=== PATIENT | male | born 1960 | race Caucasian/White ===

== ENCOUNTER 2020-09-30 13:11 | Emergency (ER) | payer OTHER, SELFPAY ==
[2020-09-30 13:19] VITALS: BP 164/73; PULSE 96; RESP 18; TEMP 36.7; O2SAT 96; BMI 28.1
--- NOTE | 2020-09-30 13:46 | ED.BACK ---
HPI - Back Pain/Injury General Chief Complaint: Back Pain/Injury <ROD Beverly - Last Filed: 10/14/20 15:53> Stated Complaint: BACK INJ AT WORK <ROD Beverly - Last Filed: 10/14/20 15:53> Time Seen by Provider: 09/30/20 13:46 <ROD Beverly - Last Filed: 10/14/20 15:53> History of Present Illness HPI Narrative: Patient complains of right sided low back pain radiating to the right foot with tingling sensation no numbness no weakness no incontinence This started with a work injury when he was lifting a heavy object at work felt sharp pain in his back and was seen by the workman's comp doctor once and return to duty with light duty He found this too uncomfortable and has since retired and continues to have back pain that is very uncomfortable radiating down to his right foot worse with movement <ROD Beverly - Last Filed: 10/14/20 15:53> Related Data Home Medications: Previous Rx's Medication Instructions Recorded cyclobenzaprine 5 mg PO TID PRN #10 tab 09/30/20 hydrocodone-acetaminophen 1 tab PO Q6H PRN #14 tab 09/30/20 ibuprofen 600 mg PO Q6H PRN #20 tab 09/30/20 prednisone 60 mg PO DAILY 3 Days #9 tab 09/30/20 acetaminophen [Tylenol Extra 500 mg PO Q6H PRN #20 tab 10/14/20 Strength] cyclobenzaprine 5 mg PO Q8H PRN 5 Days #14 tab 10/14/20 lidocaine [Lidoderm] 1 patch TOPICAL DAILY PRN #30 ea 10/14/20 MDD remove after 12 hours naproxen 500 mg PO BID PRN 10 Days #20 tab 10/14/20 acetaminophen [Tylenol Extra 500 mg PO Q6H PRN #20 tab 11/02/20 Strength] cyclobenzaprine 5 mg PO Q8H PRN 5 Days #14 tab 11/02/20 lidocaine [Lidoderm] 1 patch TOPICAL DAILY PRN #30 ea 11/02/20 MDD remove after 12 hours naproxen 500 mg PO BID PRN 10 Days #20 tab 11/02/20 oxycodone-acetaminophen [Percocet] 1 tab PO TID PRN #9 tab 11/03/20 prednisone 40 mg PO DAILY 5 Days #10 tab 11/03/20 <ROD Beverly - Last Filed: 10/14/20 15:53> Allergies/Adverse Reactions: Allergies Allergy/AdvReac Type Severity Reaction Status Date / Time No Known Allergies Allergy Verified 09/30/20 13:22 <ROD Beverly - Last Filed: 10/14/20 15:53> Review of Systems Review of Systems: Positive for right-sided back pain radiating to the right foot with a tingling sensation Negatives are no fever no chills no dizziness no weakness no fainting no feeling faint no loss of sensation no weakness no neck pain no chest pain no abdominal pain no dysuria no incontinence no changes to bowel or bladder no rash <ROD Beverly - Last Filed: 10/14/20 15:53> Yes all other systems are reviewed and are negative <ROD Beverly - Last Filed: 10/14/20 15:53> [facility] Past Medical History Source: nursing notes reviewed <ROD Beverly - Last Filed: 10/14/20 15:53> Medical History: Medical History (Updated 11/05/20 @ 00:01 by Dino Mcdonnell) Diabetes High blood pressure Sciatic leg pain <ROD Beverly - Last Filed: 10/14/20 15:53> Surgical History: Surgical History Stented coronary artery <ROD Beverly - Last Filed: 10/14/20 15:53> Physical Exam Vital Signs: Vital Signs: Last Vital Signs Temp 98.0 F 09/30/20 13:19 Pulse 96 09/30/20 13:19 Resp 17 09/30/20 14:01 BP 164/73 H 09/30/20 13:19 Pulse Ox 96 09/30/20 13:19 Body Mass Index 28.1 <ROD Beverly - Last Filed: 10/14/20 15:53> Vital Signs: Last Vital Signs Temp 98.0 F 09/30/20 13:19 Pulse 96 09/30/20 13:19 Resp 17 09/30/20 14:01 BP 164/73 H 09/30/20 13:19 Pulse Ox 96 09/30/20 13:19 Body Mass Index 28.1 <Que Chatterjee MD - Last Filed: 11/16/20 09:07> General appearance no acute distress Head is normocephalic atraumatic Neck is supple The chest is clear to auscultation bilateral The abdomen is soft nontender The back there is right-sided lower lumbar paraspinal tenderness no focal bony tenderness no rashes, skin is normal, there is no CVA tenderness, pain is reproduced with movement Extremities full range of motion x4 Gait and balance are normal, no focal motor or sensory deficit, motor is 5/5 x4, sensation is intact and symmetrical in both feet <ROD Beverly - Last Filed: 10/14/20 15:53> Course Course Course Narrative: Patient with sciatica but no neurologic deficit is advised to follow with his doctor or he believes original injury is work-related so with workman's Comp doctor and he is treated with analgesic and is discharged <ROD Beverly - Last Filed: 10/14/20 15:53> I have reviewed the chart <Que Chatterjee MD - Last Filed: 11/16/20 09:07> Discharge Plan Discharge Clinical Impression: Lumbar radiculopathy <ROD Beverly - Last Filed: 10/14/20 15:53> Patient Disposition: Home, Self-Care <ROD Beverly - Last Filed: 10/14/20 15:53> Additional Instructions: You have symptoms of a pinched nerve in your back possibly a herniated disc This has not improved in 6 weeks so best plan is to follow with work connection for further evaluation for work related injury, or if they are not available then you can follow with primary doctor Physical therapy may be helpful, if symptoms are not improving they often will do an MRI to confirm a herniated disc and if that is confirmed they will often attempt a steroid shot which brings relief to many people, this requires referral to a specialist Sometimes prednisone helps reduce inflammation around the nerve so we are trying that now Return to the ER any time for weakness incontinence any worse condition any concerns Your blood pressure was high in the emergency room so we recommend follow with her doctor to be evaluated for whether not you have high blood pressure Getting a home blood pressure cuff and keeping a record twice of day of the readings for a week is very helpful <ROD Beverly - Last Filed: 10/14/20 15:53> Prescriptions: New hydrocodone-acetaminophen 5-325 mg tablet 1 tab PO Q6H PRN (Reason: pain) Qty: 14 RF: 0 ibuprofen 600 mg tablet 600 mg PO Q6H PRN (Reason: pain) Qty: 20 RF: 0 cyclobenzaprine 5 mg tablet 5 mg PO TID PRN (Reason: muscle spasm) Qty: 10 RF: 0 prednisone 20 mg tablet 60 mg PO DAILY 3 Days Qty: 9 RF: 0 No Action acetaminophen [Tylenol Extra Strength] 500 mg tablet 500 mg PO Q6H PRN (Reason: pain or fever) Qty: 20 RF: 0 lidocaine [Lidoderm] 5 % adhesive patch,medicated 1 patch topical DAILY MDD remove after 12 hours PRN (Reason: pain) Qty: 30 RF: 0 naproxen 500 mg tablet 500 mg PO BID PRN (Reason: pain) 10 Days Qty: 20 RF: 0 cyclobenzaprine 5 mg tablet 5 mg PO Q8H PRN (Reason: pain (scale score 7-10)) 5 Days Qty: 14 RF: 0 acetaminophen [Tylenol Extra Strength] 500 mg tablet 500 mg PO Q6H PRN (Reason: pain or fever) Qty: 20 RF: 0 lidocaine [Lidoderm] 5 % adhesive patch,medicated 1 patch topical DAILY MDD remove after 12 hours PRN (Reason: pain) Qty: 30 RF: 0 naproxen 500 mg tablet 500 mg PO BID PRN (Reason: pain) 10 Days Qty: 20 RF: 0 cyclobenzaprine 5 mg tablet 5 mg PO Q8H PRN (Reason: pain (scale score 7-10)) 5 Days Qty: 14 RF: 0 prednisone 20 mg tablet 40 mg PO DAILY 5 Days Qty: 10 RF: 0 oxycodone-acetaminophen [Percocet] 5-325 mg tablet 1 tab PO TID PRN (Reason: pain) Qty: 9 RF: 0 <ROD Beverly - Last Filed: 10/14/20 15:53> Interventions: ED Discharge Assessment Last Done: 09/30/20 13:59 <ROD Beverly - Last Filed: 10/14/20 15:53> Discharge Date/Time: 09/30/20 14:02 <ROD Beverly - Last Filed: 10/14/20 15:53>
[2020-09-30] MEDS: Ketorolac Tromethamine 30 MG/ML VIAL IM (13:54)
[2020-09-30] MEDS: predniSONE 20 MG TABLET 60 MG PO (13:55)
[2020-09-30 14:01] VITALS: RESP 17
== END 2020-09-30 14:02 | disposition home or self-care (01) ==
PROVIDERS: Emergency Provider Emergency Medicine; PCP Pediatrics
DX: M54.16 Radiculopathy, lumbar region (principal)
CPT/HCPCS: 96372; 99283; J1885

== ENCOUNTER 2020-10-14 12:53 | Emergency (ER) | payer OTHER, SELFPAY ==
--- NOTE | ~2020-10-14 | US_ITS ---
EXAMINATION: Ultrasound right and left groin. CLINICAL INFORMATION: Bilateral groin pain. Concern for inguinal hernia. COMPARISON: None TECHNIQUE: Targeted grayscale ultrasound performed in the area of pain of the right and left groin. Imaging performed without and with Valsalva maneuver. FINDINGS: There is no inguinal hernia. No focal fluid collection or mass. No significant lymphadenopathy. US/US pelvic limited IMPRESSION: Normal ultrasound the right and left groin.
[2020-10-14 12:55] VITALS: BP 151/82; PULSE 95; RESP 18; TEMP 36.6; O2SAT 97; BMI 28.1
--- NOTE | 2020-10-14 14:47 | PC.NURSE ---
THIS RN PRESENT FOR GROIN EXAM WITH ROD BHATIA. PT TOLERATED PROCEDURE WELL.
[2020-10-14] MEDS: Lidocaine 4 % Patch ADH..PATCH 1 PATCH TRANSDERMA (15:03)
[2020-10-14] MEDS: Ketorolac Tromethamine 30 MG/ML VIAL IM (15:03)
[2020-10-14] MEDS: Cyclobenzaprine HCl 5 MG TABLET PO (15:03)
[2020-10-14 16:08] VITALS: RESP 17
--- NOTE | 2020-10-14 16:40 | ED_ITS ---
HPI - Back Pain/Injury General Chief Complaint: Back Pain/Injury Stated Complaint: back pain Time Seen by Provider: 10/14/20 14:55 Source: patient Mode of arrival: ambulatory History of Present Illness HPI Narrative: 60-year-old male with a past medical history of diabetes, hypertension, CAD s/p stent, presenting to the ED complaining of acute on chronic right-sided low back pain radiating down right lower extremity x2 months. Admits initial injury was from work after heavy lifting, denies direct trauma or fall. Was seen and treated in our ED about 2 weeks ago for similar symptoms, prescribed multiple medications with mild relief, however reports symptoms have recurred/persisted and are worsening. Also reports right groin/inguinal pain, worse with straining. Reports associated tingling. Denies urinary incontinence/retention, weakness, fever, chills MD elicited complaint: back pain Related Data Previous Rx's Medication Instructions Recorded cyclobenzaprine 5 mg PO TID PRN #10 tab 09/30/20 hydrocodone-acetaminophen 1 tab PO Q6H PRN #14 tab 09/30/20 ibuprofen 600 mg PO Q6H PRN #20 tab 09/30/20 prednisone 60 mg PO DAILY 3 Days #9 tab 09/30/20 acetaminophen [Tylenol Extra 500 mg PO Q6H PRN #20 tab 10/14/20 Strength] cyclobenzaprine 5 mg PO Q8H PRN 5 Days #14 tab 10/14/20 lidocaine [Lidoderm] 1 patch TOPICAL DAILY PRN #30 ea 10/14/20 MDD remove after 12 hours naproxen 500 mg PO BID PRN 10 Days #20 tab 10/14/20 Allergies Allergy/AdvReac Type Severity Reaction Status Date / Time No Known Allergies Allergy Verified 09/30/20 13:22 Review of Systems Review of Systems: Constitutional: No Fever, No Chills Cardiovascular: No Chest Pain, No SOB Respiratory: No Cough Gastrointestinal: No Nausea, No Vomiting, No Constipation, No Abdominal pain Genitourinary: No Dysuria, No Hematuria, No Urinary Incontinence/retention, No Flank Pain, +groin pain Musculoskeletal: +back pain, No Myalgias, No Joint Swelling Skin: No Skin Lesions, No rash Neuro: No Weakness, No Numbness, + Paresthesias Yes all other systems are reviewed and are negative Neurologic: Denies Sensory deficit (Neuro) PMF Past Medical History Attestation statement: The following information was validated with the patient. Medical History (Updated 10/14/20 @ 16:55 by ROD Curiel) Diabetes High blood pressure Surgical History (Updated 09/30/20 @ 13:21 by Tamia Hooks RN) Stented coronary artery Social History Social History Advance Directives: Yes Advance Directives Information Provided: Yes Advance Directives on File: No Physical Exam Vital Signs: Vital Signs: Last Vital Signs Temp 98.0 F 10/14/20 16:57 Pulse 87 10/14/20 16:57 Resp 17 10/14/20 16:57 BP 157/78 H 10/14/20 16:57 Pulse Ox 97 10/14/20 16:57 Body Mass Index 28.1 Const: General: cooperative, healthy appearing and no acute distress Orientation/consciousness: patient oriented x3 Limitations: no limitations HENMT: Head: Yes normal to inspection Ears: hearing grossly normal bilaterally General nose exam: Normal external nose present Face and sinus: Yes normal facial exam Eyes: General: appearance normal, both eyes and all related structures EOM: EOMs intact bilaterally Neck: Neck: Yes normal visual inspection Resp: Effort & Inspection: normal respiratory effort Cardio: Rate: regular rate Peripheral pulses: dorsalis pedis present GI: Inspection: Yes normal to inspection Palpation (GI): Soft to palpation, nontender, no guarding and not rigid : Other: No midline thoracic/lumbar spinous tenderness or step- off/deformity. + right-sided lower lumbar/buttock MSK tenderness to palpation + bilateral inguinal tenderness, no appreciable scrotal hernia or scrotal tenderness/erythema or swelling/lesions General: Yes no CVA tenderness Back/Spine/Pelvis: Back: no CVA tenderness Skin: Rashes: no rashes Wounds: no wounds Neuro: Other: No saddle anesthesia. Ambulating with steady gait General: patient oriented x3, gait normal, tone normal and moves all extremities Gait exam (Neuro): Normal gait present Motor exam (neuro): 5/5 motor strength present throughout Sensory Exam: No Sensory deficit (Neuro) Extrem: General: Yes normal to inspection Course Course Course Narrative: US pelvic limited IMPRESSION: Normal ultrasound the right and left groin. >> results discussed with patient including worrisome signs and symptoms and strict return precautions, patient verbalized understanding feel safe discharge home. Admits he has follow-up with PCP FELI - Back Pain/Injury MDM Narrative Medical decision making narrative: 60-year-old male with a past medical history of diabetes, hypertension, CAD s/p stent, presenting to the ED complaining of acute on chronic right-sided low back pain radiating down right lower extremity x2 months. Also reports right groin/inguinal pain, worse with straining. On exam vital signs stable, NAD, well appearing, physical exam as above, no midline spinous tenderness throughout, no red flag sx, no saddle anesthesia, ambulating with steady gait. No appreciable inguinal hernia. Concern for sciatic neuropathy/lumbar strain/MSK pain. Low concern for cauda equina/cord compression. Rule out inguinal hernia. Low concern for testicular torsion/orchitis/epididymitis Plan: Pelvic ultrasound, symptomatic treatment Medical Records Attestation: I reviewed the patient's medical records. Lab Data Attestation: I reviewed the patient's lab results. Discharge Plan Discharge Clinical Impression: Strain of lumbar region Qualifiers: Encounter type: subsequent encounter Qualified Code(s): S39.012D - Strain of muscle, fascia and tendon of lower back, subsequent encounter Sciatica Qualifiers: Laterality: right Qualified Code(s): M54.31 - Sciatica, right side Patient Disposition: Home, Self-Care Instructions: Sciatica (ED) Additional Instructions: Your ultrasound did not show any hernias You need to follow-up with her primary care doctor Your pain is likely musculoskeletal Flexeril is a muscle relaxer, take at night as it makes you drowsy, do not drive, drink alcohol, or operate machinery while taking it Naproxen as an anti-inflammatory / pain medication, take with food Lidoderm patches are numbing patches, apply to painful area In addition take Tylenol at home If symptoms persist or worsen, pain becomes unbearable, you developed urinary retention or incontinence, or weakness return to the ED Prescriptions: New acetaminophen [Tylenol Extra Strength] 500 mg tablet 500 mg PO Q6H PRN (Reason: pain or fever) Qty: 20 RF: 0 lidocaine [Lidoderm] 5 % adhesive patch,medicated 1 patch topical DAILY MDD remove after 12 hours PRN (Reason: pain) Qty: 30 RF: 0 naproxen 500 mg tablet 500 mg PO BID PRN (Reason: pain) 10 Days Qty: 20 RF: 0 cyclobenzaprine 5 mg tablet 5 mg PO Q8H PRN (Reason: pain (scale score 7-10)) 5 Days Qty: 14 RF: 0 No Action hydrocodone-acetaminophen 5-325 mg tablet 1 tab PO Q6H PRN (Reason: pain) Qty: 14 RF: 0 ibuprofen 600 mg tablet 600 mg PO Q6H PRN (Reason: pain) Qty: 20 RF: 0 cyclobenzaprine 5 mg tablet 5 mg PO TID PRN (Reason: muscle spasm) Qty: 10 RF: 0 prednisone 20 mg tablet 60 mg PO DAILY 3 Days Qty: 9 RF: 0
[2020-10-14 16:57] VITALS: BP 157/78; PULSE 87; RESP 17; TEMP 36.7; O2SAT 97
== END 2020-10-14 17:27 | disposition home or self-care (01) ==
PROVIDERS: Emergency Provider Emergency Medicine; PCP Pediatrics
DX: M54.41 Lumbago with sciatica, right side (principal); S39.012D Strain of muscle, fascia and tendon of lower back, subsequent encounter; X58.XXXD Exposure to other specified factors, subsequent encounter; E11.9 Type 2 diabetes mellitus without complications; I10 Essential (primary) hypertension; Z79.899 Other long term (current) drug therapy; Z95.5 Presence of coronary angioplasty implant and graft
CPT/HCPCS: 76857; 96372; 99284; J1885

== ENCOUNTER 2020-11-02 20:15 | Emergency (ER) | payer OTHER, SELFPAY ==
[2020-11-02 20:21] VITALS: BP 193/91; PULSE 92; RESP 18; TEMP 36.7; O2SAT 97; BMI 28.1
[2020-11-02] MEDS: Acetaminophen 325 MG TABLET 650 MG PO (21:18)
[2020-11-02] MEDS: oxyCODONE HCl Immed Release 5 MG TABLET PO (21:18)
--- NOTE | 2020-11-02 22:10 | ED.BACK ---
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 Admits to taking Flexeril, tramadol, and naproxen PT without relief. Denies direct injury/trauma or fall. Denies numbness, tingling, weakness, incontinence, retention, fever, chills Admit has been following with PCP, started physical therapy, and is getting prior authorization for MRI MD elicited complaint: back injury Related Data Previous Rx's Medication Instructions Recorded cyclobenzaprine 5 mg PO TID PRN #10 tab 09/30/20 hydrocodone-acetaminophen 1 tab PO Q6H PRN #14 tab 09/30/20 ibuprofen 600 mg PO Q6H PRN #20 tab 09/30/20 prednisone 60 mg PO DAILY 3 Days #9 tab 09/30/20 acetaminophen [Tylenol Extra 500 mg PO Q6H PRN #20 tab 10/14/20 Strength] cyclobenzaprine 5 mg PO Q8H PRN 5 Days #14 tab 10/14/20 lidocaine [Lidoderm] 1 patch TOPICAL DAILY PRN #30 ea 10/14/20 MDD remove after 12 hours naproxen 500 mg PO BID PRN 10 Days #20 tab 10/14/20 acetaminophen [Tylenol Extra 500 mg PO Q6H PRN #20 tab 11/02/20 Strength] cyclobenzaprine 5 mg PO Q8H PRN 5 Days #14 tab 11/02/20 lidocaine [Lidoderm] 1 patch TOPICAL DAILY PRN #30 ea 11/02/20 MDD remove after 12 hours naproxen 500 mg PO BID PRN 10 Days #20 tab 11/02/20 Allergies Allergy/AdvReac Type Severity Reaction Status Date / Time No Known Allergies Allergy Verified 09/30/20 13:22 Review of Systems Review of Systems: Constitutional: No Fever, No Chills Cardiovascular: No Chest Pain, No SOB Gastrointestinal: No Nausea, No Vomiting, No Abdominal pain Genitourinary: No Urinary Frequency, No Hematuria, No Urinary Incontinence/retention Musculoskeletal: +back pain, No Myalgias, No Joint Swelling Skin: No Skin Lesions, No rash Neuro: No Weakness, No Numbness, No Paresthesias Yes all other systems are reviewed and are negative Neurologic: Denies Sensory deficit (Neuro) [facility] Past Medical History Attestation statement: The following information was validated with the patient. Medical History (Updated 11/02/20 @ 22:16 by ROD Curiel) Diabetes High blood pressure Sciatic leg pain Surgical History Stented coronary artery Social History Social History Advance Directives: No Physical Exam Vital Signs: Vital Signs: Last Vital Signs Temp 98.0 F 11/02/20 20: Pulse 92 11/02/20 20:21 Resp 18 11/02/20 20:21 BP 193/91 H 11/02/20 20: Pulse Ox 97 11/02/20 20:21 Body Mass Index 28.1 Const: General: cooperative, healthy appearing and no acute distress Orientation/consciousness: patient oriented x3 Limitations: no limitations HENMT: Head: Yes normal to inspection Ears: hearing grossly normal bilaterally General nose exam: Normal external nose present Face and sinus: Yes normal facial exam Eyes: General: appearance normal, both eyes and all related structures EOM: EOMs intact bilaterally Neck: Neck: Yes normal visual inspection and Yes no meningeal signs Resp: Effort & Inspection: normal respiratory effort Cardio: Rate: regular rate Peripheral pulses: dorsalis pedis present GI: Inspection: Yes normal to inspection Palpation (GI): Soft to palpation and nontender Back/Spine/Pelvis: Other: No midline thoracic/lumbar spinous tenderness or step-off/deformity. + right-sided lower lumbar/buttock MSK tenderness to palpation. Skin: Rashes: no rashes Wounds: no wounds Neuro: Other: No saddle anesthesia, ambulating with steady gait, strength intact throughout General: patient oriented x3, gait normal, tone normal, moves all extremities and no meningeal signs Gait exam (Neuro): Normal gait present Motor exam (neuro): 5/5 motor strength present throughout Sensory Exam: No Sensory deficit (Neuro) Extrem: General: Yes normal to inspection MDM - Back Pain/Injury MDM Narrative Medical decision making narrative: 60-year-old male a past medical history diabetes, HTN, CAD, sciatica, presenting to the ED complaining of acute on chronic back right-sided back pain radiating down right lower extremity 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 On exam VSS, NAD/well-appearing, physical exam as above. No red flag symptoms or midline spinous tenderness throughout, likely MSK pain/sciatica. Low concern for cauda equina/cord compression Patient reports he needs refills of his medications. Upon prescription review had 28 pills of Tramadol filled on 10/21 Medical Records Attestation: I reviewed the patient's medical records. Discharge Plan Discharge Clinical Impression: Sciatica Qualifiers: Laterality: right Qualified Code(s): M54.31 - Sciatica, right side Patient Disposition: Home, Self-Care Instructions: Acute Low Back Pain (ED) Additional Instructions: Your pain is likely musculoskeletal Flexeril is a muscle relaxer, take at night as it makes you drowsy, do not drive, drink alcohol, or operate machinery while taking it Naproxen as an anti-inflammatory / pain medication, take with food Lidoderm patches are numbing patches, apply to painful area In addition take Tylenol at home If symptoms persist or worsen, pain becomes unbearable, you developed urinary retention or incontinence, or weakness return to the ED Prescriptions: New acetaminophen [Tylenol Extra Strength] 500 mg tablet 500 mg PO Q6H PRN (Reason: pain or fever) Qty: 20 RF: 0 lidocaine [Lidoderm] 5 % adhesive patch,medicated 1 patch topical DAILY MDD remove after 12 hours PRN (Reason: pain) Qty: 30 RF: 0 naproxen 500 mg tablet 500 mg PO BID PRN (Reason: pain) 10 Days Qty: 20 RF: 0 cyclobenzaprine 5 mg tablet 5 mg PO Q8H PRN (Reason: pain (scale score 7-10)) 5 Days Qty: 14 RF: 0 No Action hydrocodone-acetaminophen 5-325 mg tablet 1 tab PO Q6H PRN (Reason: pain) Qty: 14 RF: 0 ibuprofen 600 mg tablet 600 mg PO Q6H PRN (Reason: pain) Qty: 20 RF: 0 cyclobenzaprine 5 mg tablet 5 mg PO TID PRN (Reason: muscle spasm) Qty: 10 RF: 0 prednisone 20 mg tablet 60 mg PO DAILY 3 Days Qty: 9 RF: 0 acetaminophen [Tylenol Extra Strength] 500 mg tablet 500 mg PO Q6H PRN (Reason: pain or fever) Qty: 20 RF: 0 lidocaine [Lidoderm] 5 % adhesive patch,medicated 1 patch topical DAILY MDD remove after 12 hours PRN (Reason: pain) Qty: 30 RF: 0 naproxen 500 mg tablet 500 mg PO BID PRN (Reason: pain) 10 Days Qty: 20 RF: 0 cyclobenzaprine 5 mg tablet 5 mg PO Q8H PRN (Reason: pain (scale score 7-10)) 5 Days Qty: 14 RF: 0
[2020-11-02 22:25] VITALS: BP 179/85; PULSE 84; RESP 16; O2SAT 100
--- NOTE | 2020-11-02 22:39 | PC.NURSE ---
PROVIDER AWARE PT REPORTS PAIN 9-10 AFTER PAIN MED. PT ABLE TO TURN IN BED, SIT UP, MARIA. PLAN D/C TO HOME WITH SCRIPTS AND F/U PCP FOR FURTHER INTERVENTIONS. PT STATES IS HAVING PHYSICAL THERAPY.
== END 2020-11-02 22:47 | disposition home or self-care (01) ==
PROVIDERS: Emergency Provider Internal Medicine; PCP Pediatrics
DX: M54.31 Sciatica, right side (principal); E11.9 Type 2 diabetes mellitus without complications; I10 Essential (primary) hypertension; Z79.899 Other long term (current) drug therapy
CPT/HCPCS: 99283; 99284

== ENCOUNTER 2020-11-03 17:35 | Emergency (ER) | payer OTHER, SELFPAY ==
--- NOTE | ~2020-11-03 | XR_ITS ---
EXAMINATION: XR LUMBAR SPINE CLINICAL INFORMATION: No back pain COMPARISON: None TECHNIQUE: Frontal lateral and coned-down L5-S1 frontal lateral FINDINGS: Five [id number] lumbar vertebrae were identified maintaining normal height and alignments. Narrowing of intervertebral disc spaces suggest underlying degenerative disc disease. Paravertebral soft tissues are unremarkable. Excess amount of stool in the colon suggests constipation, there are calcifications in the left upper quadrant probably splenic artery. Heavy vascular calcification of the aorta. There are radiolucencies, most likely superimposed bowel gas.. No radiographic evidence of osteolytic or osteoblastic lesions. XR/XR lumbar spine 2-3V IMPRESSION: No fracture. Bone alignments remain satisfactory. Narrowing of intervertebral disc spaces suggest underlying degenerative disc disease. Excess amount of stool suggests possible constipation. Heavy vascular calcifications.
[2020-11-03 17:38] VITALS: BP 190/90; PULSE 85; O2SAT 98
[2020-11-03 17:45] VITALS: BP 181/82; PULSE 102; RESP 22; TEMP 36.6; O2SAT 100; BMI 28.1
--- NOTE | 2020-11-03 18:08 | ED_ITS ---
HPI - Back Pain/Injury General Chief Complaint: Back Pain/Injury Stated Complaint: unable to hear Time Seen by Provider: 11/03/20 17:51 Source: patient Mode of arrival: ambulatory Limitations: no limitations History of Present Illness HPI Narrative: Patient presents to ED for lower back pain exacerbation. Patient states history of sciatica repeat least 15 yesterday for back pain exacerbation returned today because she still having pain. Patient states low back pain rating down the right leg. Patient is in physical therapy. Patient denies any urinary/bowel incontinence. Patient denies any recent trauma. Patient denies any abdominal pain, nausea, vomiting, fever, chills, flank pain. Patient denies any urinary or bowel incontinence Related Data Previous Rx's Medication Instructions Recorded cyclobenzaprine 5 mg PO TID PRN #10 tab 09/30/20 hydrocodone-acetaminophen 1 tab PO Q6H PRN #14 tab 09/30/20 ibuprofen 600 mg PO Q6H PRN #20 tab 09/30/20 prednisone 60 mg PO DAILY 3 Days #9 tab 09/30/20 acetaminophen [Tylenol Extra 500 mg PO Q6H PRN #20 tab 10/14/20 Strength] cyclobenzaprine 5 mg PO Q8H PRN 5 Days #14 tab 10/14/20 lidocaine [Lidoderm] 1 patch TOPICAL DAILY PRN #30 ea 10/14/20 MDD remove after 12 hours naproxen 500 mg PO BID PRN 10 Days #20 tab 10/14/20 acetaminophen [Tylenol Extra 500 mg PO Q6H PRN #20 tab 11/02/20 Strength] cyclobenzaprine 5 mg PO Q8H PRN 5 Days #14 tab 11/02/20 lidocaine [Lidoderm] 1 patch TOPICAL DAILY PRN #30 ea 11/02/20 MDD remove after 12 hours naproxen 500 mg PO BID PRN 10 Days #20 tab 11/02/20 oxycodone-acetaminophen [Percocet] 1 tab PO TID PRN #9 tab 11/03/20 prednisone 40 mg PO DAILY 5 Days #10 tab 11/03/20 Allergies Allergy/AdvReac Type Severity Reaction Status Date / Time No Known Allergies Allergy Verified 09/30/20 13:22 Review of Systems Review of Systems: Yes all other systems are reviewed and are negative Constitutional: Constitutional: Reports as per HPI and Reports no additional constitutional complaints Eyes: Eyes: Reports as per HPI and Reports no additional eye complaints ENT: Reports system reviewed and no additional complaints, except as documented and Reports as per HPI Cardiovascular: Cardiovascular: Reports no additional cardiovascular complaints Respiratory: Respiratory: Reports as per HPI and Reports no additional respiratory complaints Gastrointestinal: Gastrointestinal: Reports as per HPI and Reports no additional gastrointestinal complaints Genitourinary: Genitourinary: Reports no additional male genitourinary complaints and Reports as per HPI Musculoskeletal: Musculoskeletal: Reports no additional musculoskeletal complaints, Reports as per HPI and Reports back pain Neurologic: Reports system reviewed and no additional complaints, except as documented and Reports as per HPI Psychiatric: Psychiatric: Reports no additional psychiatric complaints and Reports as per HPI [facility] Past Medical History Medical History (Updated 11/03/20 @ 23:34 by ROD Rico) Diabetes High blood pressure Sciatic leg pain Surgical History Stented coronary artery Social History Social History Use of substances other than those prescribed or required for medical reasons: No Advance Directives: Yes Advance Directives Information Provided: No Advance Directives on File: No Physical Exam Vital Signs: Vital Signs: Last Vital Signs Temp 97.8 F 11/03/20 20:14 Pulse 84 11/03/20 23:00 Resp 15 11/03/20 23:00 BP 146/86 H 11/03/20 23:00 Pulse Ox 98 11/03/20 23:00 Body Mass Index 28.1 Const: General: cooperative, healthy appearing, comfortable, no acute distress, well developed, alert, awake and Physically active Orientation/consciousness: patient oriented x3 HENMT: Head: Yes normal to inspection, Yes No palpable skull fracture present, Yes normocephalic and Yes atraumatic Eyes: General: appearance normal, both eyes and all related structures Neck: Neck: Yes normal visual inspection, Yes full ROM, Yes no lymphadenopathy, Yes no meningeal signs, Yes trachea midline, Yes supple, No anterior neck swelling and No tender Chest: Chest palpation & inspection: normal inspection of the chest and normal palpation of entire chest wall Resp: Effort & Inspection: normal respiratory effort and able to speak in complete sentences Cardio: Jugular venous distension: no JVD Heart sounds: S1 normal heart sound present and S2 normal heart sound present GI: Other: Rectal exam: Patient has good rectal tone. Negative for saddle anesthesia. Patient has sensation in perineum, pubic, and genital area. Inspection: Yes normal to inspection and No abdominal wall ecchymosis Palpation (GI): Soft to palpation, not firm, nontender, no guarding and not rigid : General: No CVA tenderness and Yes no CVA tenderness Back/Spine/Pelvis: Other: On straight leg test patient has pain on right leg Back: no CVA tenderness, No CVA tenderness and back tenderness (lumbar) Skin: General skin exam: no rashes or lesions noted and elasticity normal Neuro: Other: Patient able to ambulate on his own General: patient oriented x3, gait normal, no meningeal signs and CN's II-XI intact bilaterally Cranial nerves: Yes CN's II-XII intact bilaterally Extrem: General: Yes normal to inspection and Yes full ROM Psych: Appearance: grossly normal, well kempt and not disheveled Course Course Course Narrative: Patient will be sent for repeat x-ray and given Toradol and Flexeril. Patient will be re-evaluated. Reevaluation(s) Reevaluation #1: Patient hypertensive most likely due to pain will re-evaluate after given pain meds Time: 20:28 Reevaluation #2: Patient feels better after being given morphine. No need for MRI. Negative for signs of cord compression. Patient is not IV drug user. Not suspecting epidural abscess Time: 23:33 MDM - Back Pain/Injury MDM Narrative Medical decision making narrative: Degenerative disc disease. Sciatica Discharge Plan Discharge Clinical Impression: Lumbar radiculopathy, Sciatica, Degenerated intervertebral disc Patient Disposition: Home, Self-Care Instructions: Sciatica (ED), Lumbar Radiculopathy (ED), Degenerative Disc Disease (ED) Additional Instructions: X-ray shows lumbar radicular Passy and degenerative and tibia vertebral disc disease. Negative for any fractures. Return to the ED for any urinary/bowel in continence, paralysis of lower extremities, severe back pain, abdominal pain, fever, chills, dysuria, hematuria, or any other concerning symptoms Prescriptions: New prednisone 20 mg tablet 40 mg PO DAILY 5 Days Qty: 10 RF: 0 oxycodone-acetaminophen [Percocet] 5-325 mg tablet 1 tab PO TID PRN (Reason: pain) Qty: 9 RF: 0 No Action hydrocodone-acetaminophen 5-325 mg tablet 1 tab PO Q6H PRN (Reason: pain) Qty: 14 RF: 0 ibuprofen 600 mg tablet 600 mg PO Q6H PRN (Reason: pain) Qty: 20 RF: 0 cyclobenzaprine 5 mg tablet 5 mg PO TID PRN (Reason: muscle spasm) Qty: 10 RF: 0 prednisone 20 mg tablet 60 mg PO DAILY 3 Days Qty: 9 RF: 0 acetaminophen [Tylenol Extra Strength] 500 mg tablet 500 mg PO Q6H PRN (Reason: pain or fever) Qty: 20 RF: 0 lidocaine [Lidoderm] 5 % adhesive patch,medicated 1 patch topical DAILY MDD remove after 12 hours PRN (Reason: pain) Qty: 30 RF: 0 naproxen 500 mg tablet 500 mg PO BID PRN (Reason: pain) 10 Days Qty: 20 RF: 0 cyclobenzaprine 5 mg tablet 5 mg PO Q8H PRN (Reason: pain (scale score 7-10)) 5 Days Qty: 14 RF: 0 acetaminophen [Tylenol Extra Strength] 500 mg tablet 500 mg PO Q6H PRN (Reason: pain or fever) Qty: 20 RF: 0 lidocaine [Lidoderm] 5 % adhesive patch,medicated 1 patch topical DAILY MDD remove after 12 hours PRN (Reason: pain) Qty: 30 RF: 0 naproxen 500 mg tablet 500 mg PO BID PRN (Reason: pain) 10 Days Qty: 20 RF: 0 cyclobenzaprine 5 mg tablet 5 mg PO Q8H PRN (Reason: pain (scale score 7-10)) 5 Days Qty: 14 RF: 0 Referrals: Montserrat King MD [Primary Care Provider] - 2 days (Lumbar radicular fatty. Degenerative disc disease. Sciatica.) Interventions: ED Discharge Assessment Last Done: 11/04/20 00:20 Discharge Date/Time: 11/04/20 00:05 Print Language: Belarusian
[2020-11-03] MEDS: Ketorolac Tromethamine 60 MG/2 ML VIAL 30 MG IM (18:27)
[2020-11-03] MEDS: Cyclobenzaprine HCl 10 MG TABLET PO (18:27)
[2020-11-03 20:14] VITALS: BP 204/91; PULSE 98; RESP 22; TEMP 36.6; O2SAT 98
[2020-11-03] MEDS: oxyCODONE HCl Immed Release 5 MG TABLET PO (20:20)
--- NOTE | 2020-11-03 20:38 | PC.NURSE ---
Pt HTN and still c/o pain. Prieto VELASCO made aware.
[2020-11-03 21:00] VITALS: BP 144/70; PULSE 90; RESP 13; O2SAT 100
[2020-11-03 21:05] VITALS: BP 144/70; PULSE 90; RESP 15
[2020-11-03] MEDS: amLODIPine Besylate 10 MG TABLET PO (21:05)
[2020-11-03] MEDS: Morphine Sulfate 4 MG/ML CARTRIDGE IM (21:05)
[2020-11-03 23:00] VITALS: BP 146/86; PULSE 84; RESP 15; O2SAT 98
--- NOTE | 2020-11-03 23:24 | PC.NURSE ---
pt ambulatory to bathroom independently
[2020-11-03] MEDS: traMADoL HCL 50 MG TABLET PO (23:57)
== END 2020-11-04 00:05 | disposition home or self-care (01) ==
PROVIDERS: Emergency Provider Internal Medicine; PCP Pediatrics
DX: M51.16 Intervertebral disc disorders with radiculopathy, lumbar region (principal); E11.9 Type 2 diabetes mellitus without complications; I10 Essential (primary) hypertension
CPT/HCPCS: 72100; 96372; 99284; J1885; J2270

== ENCOUNTER 2020-11-27 12:00 | Outpatient (RCR) | payer OTHER, SELFPAY | END 2020-12-31 16:17 | disposition home or self-care (01) | LOC: HO.PT 12:00 | PROVIDERS: PCP Pediatrics; Visit Provider Physician Assistant Medical | DX: M54.5 Low back pain (principal); R20.0 Anesthesia of skin | CPT/HCPCS: 97110; 97140; 97161; 97530 ==

== ENCOUNTER 2020-12-05 10:20 | Emergency (ER) | payer OTHER, SELFPAY ==
[2020-12-05 11:09] VITALS: BP 182/100; PULSE 85; RESP 18; TEMP 36.6; O2SAT 100; BMI 29.0
--- NOTE | 2020-12-05 11:27 | ED.BACK ---
HPI - Back Pain/Injury General Chief Complaint: Back Pain/Injury Stated Complaint: high bp Time Seen by Provider: 12/05/20 11:26 Source: patient Mode of arrival: ambulatory History of Present Illness HPI Narrative: 60 y/o male with history of HTN, chronic back pain with history of sciatica, diabetes who presents to the ER with ongoing right lower back pain for the last 3 months. He has been to the ER 4 times for this since September. He also has seen by PCP for this. He was prescribed a course of steroids with no improvement. He has been on various narcotics, currently on Tramadol from his PCP which makes his stomach upset so he does not want to take it anymore. He reports his PCP is going to call him in oxycodone today. He has a physical therapy appointment today. He also reports new onset painful urination since yesterday. He was nausated this morning. He has no fever, chills, abdominal pain. No bladder or bowel incontinence. Walking okay. MD elicited complaint: back pain Pertinent past history: prior back pain Onset (ago): month(s) Timing: constant Severity: moderate Similar Symptoms Previously: Yes Quality: sharp and aching Location: right lower back Radiation: right leg below the knee Exacerbating factors: movement Relieving factors: medication Context: unknown Associated symptoms: dysuria Treatments prior to arrival: other medications Work related injury: No Related Data Previous Rx's Medication Instructions Recorded cyclobenzaprine 5 mg tablet 5 mg PO TID PRN #10 tab 09/30/20 hydrocodone 5 mg-acetaminophen 325 1 tab PO Q6H PRN #14 tab 09/30/20 mg tablet ibuprofen 600 mg tablet 600 mg PO Q6H PRN #20 tab 09/30/20 prednisone 20 mg tablet 60 mg PO DAILY 3 Days #9 tab 09/30/20 acetaminophen 500 mg tablet 500 mg PO Q6H PRN #20 tab 10/14/20 (Tylenol Extra Strength) cyclobenzaprine 5 mg tablet 5 mg PO Q8H PRN 5 Days #14 tab 10/14/20 lidocaine 5 % topical patch 1 patch TOPICAL DAILY PRN #30 ea 10/14/20 (Lidoderm) MDD remove after 12 hours naproxen 500 mg tablet 500 mg PO BID PRN 10 Days #20 tab 10/14/20 acetaminophen 500 mg tablet 500 mg PO Q6H PRN #20 tab 11/02/20 (Tylenol Extra Strength) cyclobenzaprine 5 mg tablet 5 mg PO Q8H PRN 5 Days #14 tab 11/02/20 lidocaine 5 % topical patch 1 patch TOPICAL DAILY PRN #30 ea 11/02/20 (Lidoderm) MDD remove after 12 hours naproxen 500 mg tablet 500 mg PO BID PRN 10 Days #20 tab 11/02/20 oxycodone-acetaminophen 5 mg-325 1 tab PO TID PRN #9 tab 11/03/20 mg tablet (Percocet) prednisone 20 mg tablet 40 mg PO DAILY 5 Days #10 tab 11/03/20 Allergies Allergy/AdvReac Type Severity Reaction Status Date / Time No Known Allergies Allergy Verified 09/30/20 13:22 Review of Systems Constitutional: Constitutional: Denies chills, Denies fever(s) and Denies headache(s) Eyes: Eyes: Reports no additional eye complaints and Denies change in vision ENT: Denies headache(s) Cardiovascular: Cardiovascular: Denies chest pain Respiratory: Respiratory: Denies cough Gastrointestinal: Gastrointestinal: Denies abdominal pain, Denies constipation, Denies diarrhea, Denies nausea and Denies vomiting Genitourinary: Genitourinary: Denies hematuria, Reports dysuria, Denies flank pain, Denies urinary hesitancy, Denies urinary incontinence and Reports urinary urgency Musculoskeletal: Musculoskeletal: Reports back pain and Denies myalgias Integumentary/Breasts: Skin/Breast: Denies rash Neurologic: Denies headache(s) and Reports radicular pain PMFSH Past Medical History Medical History Diabetes High blood pressure Sciatic leg pain Surgical History Stented coronary artery Social History Social History Advance Directives: Yes Advance Directives Information Provided: No Advance Directives on File: No Physical Exam Vital Signs: Vital Signs: Last Vital Signs Temp 97.8 F 12/05/20 11:09 Pulse 74 12/05/20 13:17 Resp 18 12/05/20 13:17 BP 164/100 H 12/05/20 13:17 Pulse Ox 98 12/05/20 13:17 Body Mass Index 29.0 Appearance: Alert. Oriented X3. No acute distress. Eyes: Pupils equal, round and reactive to light. ENT: Pharynx normal. Neck: Normal inspection. Neck supple. CVS: Normal heart rate and rhythm. Pulses normal. Respiratory: No respiratory distress. Breath sounds normal. Abdomen: Soft and nontender. +BS x4. No CVA tenderness Back: normal inspection, right lower lumbar area and SI joint with tenderness. mobility is normal Skin: Skin warm and dry. Normal skin color. Normal skin turgor. No rashes. Extremities: No lower extremity edema. Neuro: Oriented X 3. No motor deficit. No sensory deficit. Normal gait. Course Course Course Narrative: 60 y/o male presenting with chronic lower back pain 2/2 poorly controlled sciatica as well as new onset dysuria. He is afebrile and hypertensive 180/100 on arrival. He took his antihypertensive medications in triage room. He has no chest pain, headache or vision changes to suggest hypertensive urgency. He appears well. Will check UA. Reevaluation(s) Reevaluation #1: UA showing proteinuria which has been present since 2019. BP improved with PO meds. No chest pain, SOB, headache or vision changes. He is currently on multiple medications from his PCP for his back pain. Will defer to Dr. King for ongoing treatment of this chronic issue. He has no current red flag symptoms of LBP. We discussed importance of tight BP and glucose control to prevent his proteinuria and renal dysfunction from worsening. He expressed understand and will call his PCP for ongoing management of his chronic issues. MDM - Back Pain/Injury Lab Data Labs: Lab Results 12/05/20 Range/Units 12:25 Urine Color YELLOW Urine Appearance CLEAR Urine pH 6.0 (5.0-8.0) Ur Specific [place] 1.020 (1.005-1.025) Urine Protein 3+ H (NEG-TRACE) MG/DL Urine Glucose (UA) 100 H (NEG) MG/DL Urine Ketones NEG (NEG) MG/DL Urine Blood TRACE (NEG) Urine Nitrite NEG (NEG) Ur Leukocyte Esterase NEG (NEG) Urine RBC 0-2 (0) /HPF Urine WBC 0-2 (0-4) /HPF Ur Squamous Epith Cells TRACE /LPF Urine Bacteria TRACE /LPF Granular Casts 0-2 /LPF Urine Mucus TRACE /LPF Discharge Plan Discharge Clinical Impression: Sciatica Qualifiers: Laterality: right Qualified Code(s): M54.31 - Sciatica, right side Proteinuria Qualifiers: Proteinuria type: persistent Qualified Code(s): R80.1 - Persistent proteinuria, unspecified Patient Disposition: Home, Self-Care Instructions: Sciatica (ED), Hypertension and Diabetes (ED) Additional Instructions: Recommend following up with your doctor for further management of your chronic back pain. Take the oxycodone they prescribe you as needed for severe pain. Continue physical therapy. Your urine test did not show any evidence of infection. You do have protein in your urine that has been present since at least 2018. You need to follow up with your doctor for this. Recommend optimizing your blood pressure and blood sugar. No bending, lifting or twisting. Use ice several times per day for 20 minutes at a time for the next 48 hours and then change to heat. Take Tylenol around the clock for pain. Avoid NSAIDS like Motrin, Advil, Aleve. Follow up with your Primary Care Doctor this week. If your pain worsens, if you develop new numbness, tingling, weakness, loss of function or incontinence call 911 or come back to the ER right away for evaluation. Prescriptions: No Action hydrocodone-acetaminophen 5-325 mg tablet 1 tab PO Q6H PRN (Reason: pain) Qty: 14 RF: 0 ibuprofen 600 mg tablet 600 mg PO Q6H PRN (Reason: pain) Qty: 20 RF: 0 cyclobenzaprine 5 mg tablet 5 mg PO TID PRN (Reason: muscle spasm) Qty: 10 RF: 0 prednisone 20 mg tablet 60 mg PO DAILY 3 Days Qty: 9 RF: 0 acetaminophen [Tylenol Extra Strength] 500 mg tablet 500 mg PO Q6H PRN (Reason: pain or fever) Qty: 20 RF: 0 lidocaine [Lidoderm] 5 % adhesive patch,medicated 1 patch topical DAILY MDD remove after 12 hours PRN (Reason: pain) Qty: 30 RF: 0 naproxen 500 mg tablet 500 mg PO BID PRN (Reason: pain) 10 Days Qty: 20 RF: 0 cyclobenzaprine 5 mg tablet 5 mg PO Q8H PRN (Reason: pain (scale score 7-10)) 5 Days Qty: 14 RF: 0 acetaminophen [Tylenol Extra Strength] 500 mg tablet 500 mg PO Q6H PRN (Reason: pain or fever) Qty: 20 RF: 0 lidocaine [Lidoderm] 5 % adhesive patch,medicated 1 patch topical DAILY MDD remove after 12 hours PRN (Reason: pain) Qty: 30 RF: 0 naproxen 500 mg tablet 500 mg PO BID PRN (Reason: pain) 10 Days Qty: 20 RF: 0 cyclobenzaprine 5 mg tablet 5 mg PO Q8H PRN (Reason: pain (scale score 7-10)) 5 Days Qty: 14 RF: 0 prednisone 20 mg tablet 40 mg PO DAILY 5 Days Qty: 10 RF: 0 oxycodone-acetaminophen [Percocet] 5-325 mg tablet 1 tab PO TID PRN (Reason: pain) Qty: 9 RF: 0 Referrals: Montserrat King MD [Primary Care Provider] - 2 days (chronic back pain, sciatica, chronic proteinuria, poorly controlled BP) Interventions: ED Discharge Assessment Last Done: 12/05/20 13:18 Discharge Date/Time: 12/05/20 13:19
[2020-12-05 12:33] LABS: Glucose Urine UA 100 MG/DL (NEG); Leukocyte Esterase Urine NEG (NEG); Nitrite Urine NEG (NEG); UACC Culture Trigger NO; Urine Blood TRACE (NEG); Urine Ketones NEG (NEG); Urine Protein 3+ MG/DL (NEG-TRACE)
[2020-12-05 12:36] LABS: Appearance Urine CLEAR; Color Urine YELLOW
[2020-12-05 12:53] LABS: Bacteria Urine TRACE /LPF; Granular Casts Urine 0-2 /LPF; Mucus Urine TRACE /LPF; RBC Urine 0-2 /HPF (0); Squamous Epithelial Cell Urine TRACE /LPF; WBC Urine 0-2 /HPF (0-4)
[2020-12-05 13:17] VITALS: BP 164/100; PULSE 74; RESP 18; O2SAT 98
== END 2020-12-05 13:19 | disposition home or self-care (01) ==
PROVIDERS: Physician Assistant; Emergency Provider Emergency Medicine; PCP Pediatrics
DX: M54.31 Sciatica, right side (principal); R80.1 Persistent proteinuria, unspecified; M54.5 Low back pain; I10 Essential (primary) hypertension; E11.9 Type 2 diabetes mellitus without complications
CPT/HCPCS: 81001; 99283

== ENCOUNTER 2021-03-11 12:00 | Outpatient (RCR) | payer OTHER, SELFPAY | END 2021-03-12 11:22 | disposition home or self-care (01) | LOC: HO.PT 12:00 | PROVIDERS: PCP Pediatrics; Visit Provider Physician Assistant | DX: M54.16 Radiculopathy, lumbar region (principal) | CPT/HCPCS: 97110; 97140; 97162; 97530 ==

== ENCOUNTER 2022-01-26 11:08 | Emergency (ER) | payer OTHER, SELFPAY ==
[2022-01-26 11:11] VITALS: BP 169/72; PULSE 76; RESP 16; TEMP 37; O2SAT 100; BMI 27.3
--- NOTE | 2022-01-26 11:56 | ED_ITS ---
HPI - General Adult General Chief complaint: General Medical Stated complaint: Med refill Time Seen by Provider: 01/26/22 11:48 Source: patient Mode of arrival: ambulatory Limitations: no limitations History of Present Illness HPI narrative: Patient comes to the emergency room requesting medication refill. Patient was last seen by his PCP in November, patient has a new appointment with Dr. Murguia , patient's new PCP in March. Patient ran out of Trulicity, metoprolol and lisinopril. Patient has enough of his other medications until he is seen by his primary care physician. Patient has no complaints Related Data Previous Rx's Medication Instructions Recorded cyclobenzaprine 5 mg tablet 5 mg PO TID PRN muscle spasm #10 09/30/20 tabs hydrocodone 5 mg-acetaminophen 325 1 tab PO Q6H PRN pain #14 tabs 09/30/20 mg tablet ibuprofen 600 mg tablet 600 mg PO Q6H PRN pain #20 tabs 09/30/20 prednisone 20 mg tablet 60 mg PO DAILY 3 days #9 tabs 09/30/20 acetaminophen 500 mg tablet 500 mg PO Q6H PRN pain or fever 10/14/20 (Tylenol Extra Strength) #20 tabs cyclobenzaprine 5 mg tablet 5 mg PO Q8H PRN pain (scale score 10/14/20 7-10) 5 days #14 tabs lidocaine 5 % topical patch 1 patch topical DAILY PRN pain #30 10/14/20 (Lidoderm) ea naproxen 500 mg tablet 500 mg PO BID PRN pain 10 days #20 10/14/20 tabs acetaminophen 500 mg tablet 500 mg PO Q6H PRN pain or fever 11/02/20 (Tylenol Extra Strength) #20 tabs cyclobenzaprine 5 mg tablet 5 mg PO Q8H PRN pain (scale score 11/02/20 7-10) 5 days #14 tabs lidocaine 5 % topical patch 1 patch topical DAILY PRN pain #30 11/02/20 (Lidoderm) ea naproxen 500 mg tablet 500 mg PO BID PRN pain 10 days #20 11/02/20 tabs oxycodone-acetaminophen 5 mg-325 1 tab PO TID PRN pain #9 tabs 11/03/20 mg tablet (Percocet) prednisone 20 mg tablet 40 mg PO DAILY 5 days #10 tabs 11/03/20 dulaglutide 1.5 mg/0.5 mL 1.5 mg (0.5 mL) subcut QWEEK #2 mL 01/26/22 subcutaneous pen injector (Trulicity) lisinopril 40 mg tablet 40 mg PO DAILY #30 tabs 01/26/22 metoprolol tartrate 100 mg tablet 200 mg PO BID 1 month #120 tabs 01/26/22 Allergies Allergy/AdvReac Type Severity Reaction Status Date / Time No Known Allergies Allergy Verified 09/30/20 13:22 Review of Systems Review of Systems: Constitutional : No Weight loss, No Fever, No Chills, No Night Sweats, No Fatigue, No Malaise ENT/Mouth : No Hearing loss, No Ear Pain, No Nasal Congestion, No Sinus Pain, No Hoarseness, No sore throat, No Rhinorrhea, No Swallowing Difficulty Eyes: No Eye Pain, No Swelling, No Redness, No Foreign Body, No Discharge, No Vision Changes Cardiovascular : No Chest Pain, No SOB, No Dyspnea on Exertion, No Orthopnea, No Edema, No Palpitations Respiratory : No Cough, No Sputum, No Wheezing, No Smoke Exposure, No Dyspnea Gastrointestinal : No Nausea, No Vomiting, No Diarrhea, No Constipation, No abdominal Pain, No Hematochezia, No Melena Genitourinary : no irregular bleeding, No Dysuria, No Urinary Frequency, No Hematuria, No Urinary Incontinence, No Urgency, No Flank Pain, No Urinary Flow Changes, No Hesitancy Musculoskeletal : No joint pain, No Myalgias, No Joint Swelling Skin : No Skin Lesions, No rash Neuro : No Weakness, No Numbness, No Paresthesias, No Loss of Consciousness, No Dizziness, No Headache Psych : No Anxiety/Panic, No Depression, No SI/HI/AH/VH, No Social Issues, Heme/Lymph: No Bruising, No Bleeding,No Lymphadenopathy Endocrine : No Polyuria, No Polydipsia, No Temperature Intolerance [facility] Past Medical History Medical History Diabetes High blood pressure Sciatic leg pain Surgical History Stented coronary artery Social History Social History Advance Directives: Yes Advance Directives Information Provided: Yes Advance Directives on File: No Physical Exam ED Vital Signs: Vital Signs - 24 hr 01/26/22 11:11 Temperature 98.6 F Pulse Rate 76 Respiratory Rate 16 Blood Pressure 169/72 H Pulse Oximetry 100 Oxygen Delivery Method Room Air BMI result Body Mass Index 27.3 Const Other: Appearance: Alert. Oriented X3. No acute distress. Eyes: Pupils equal, round and reactive to light. ENT: Pharynx normal. Neck: Normal inspection. Neck supple. No lymph nodes noted. No crepitus CVS: Normal heart rate and rhythm. Pulses normal. Normal S1 and S2 Respiratory: No respiratory distress. Breath sounds normal. No Wheezing. No rales Abdomen: Soft and nontender. No rigidity. No distention. Skin: Skin warm and dry. Normal skin color. Normal skin turgor. Extremities: No lower extremity edema. No Lacerations. No Rash Neuro: Oriented X 3. No motor deficit. No sensory deficit. Moving all extremities. No slurred speech. CN 2 through 12 grossly intact Psych: calm, cooperative, normal affect Course Course Course Narrative: Patient needs a refill of his medications Trulicity, lisinopril and metoprolol. Patient brought in his bottles with him. Discharge Plan Discharge Clinical Impression: Prescription refill Patient Disposition: Home, Self-Care Instructions: Medicine Refill (ED) Additional Instructions: Please follow-up with your primary care physician tomorrow. If you have any worsening or new symptoms, please return to the emergency room or call 911 Prescriptions: New metoprolol tartrate 100 mg tablet 200 mg PO BID 30 Days Qty: 120 2RF Trulicity 1.5 mg/0.5 mL pen injector 1.5 mg subcut QWEEK Qty: 2 2RF lisinopril 40 mg tablet 40 mg PO DAILY Qty: 30 2RF No Action hydrocodone-acetaminophen 5-325 mg tablet 1 tab PO Q6H PRN (Reason: pain) Qty: 14 0RF Rx Instructions: This medication causes drowsiness, no driving for 6 hours after taking ibuprofen 600 mg tablet 600 mg PO Q6H PRN (Reason: pain) Qty: 20 0RF cyclobenzaprine 5 mg tablet 5 mg PO TID PRN (Reason: muscle spasm) Qty: 10 0RF prednisone 20 mg tablet 60 mg PO DAILY 3 Days Qty: 9 0RF acetaminophen [Tylenol Extra Strength] 500 mg tablet 500 mg PO Q6H PRN (Reason: pain or fever) Qty: 20 0RF lidocaine [Lidoderm] 5 % adhesive patch,medicated 1 patch topical DAILY MDD remove after 12 hours PRN (Reason: pain) Qty: 30 0RF Rx Instructions: leave on most painful area for up to 12 hrs naproxen 500 mg tablet 500 mg PO BID PRN (Reason: pain) 10 Days Qty: 20 0RF cyclobenzaprine 5 mg tablet 5 mg PO Q8H PRN (Reason: pain (scale score 7-10)) 5 Days Qty: 14 0RF acetaminophen [Tylenol Extra Strength] 500 mg tablet 500 mg PO Q6H PRN (Reason: pain or fever) Qty: 20 0RF lidocaine [Lidoderm] 5 % adhesive patch,medicated 1 patch topical DAILY MDD remove after 12 hours PRN (Reason: pain) Qty: 30 0RF Rx Instructions: leave on most painful area for up to 12 hrs naproxen 500 mg tablet 500 mg PO BID PRN (Reason: pain) 10 Days Qty: 20 0RF cyclobenzaprine 5 mg tablet 5 mg PO Q8H PRN (Reason: pain (scale score 7-10)) 5 Days Qty: 14 0RF prednisone 20 mg tablet 40 mg PO DAILY 5 Days Qty: 10 0RF oxycodone-acetaminophen [Percocet] 5-325 mg tablet 1 tab PO TID PRN (Reason: pain) Qty: 9 0RF
== END 2022-01-26 12:27 | disposition home or self-care (01) ==
PROVIDERS: Emergency Provider Emergency Medicine; PCP Internal Medicine
DX: Z76.0 Encounter for issue of repeat prescription (principal); E11.9 Type 2 diabetes mellitus without complications; I10 Essential (primary) hypertension; M54.30 Sciatica, unspecified side
CPT/HCPCS: 99282

== ENCOUNTER 2022-07-06 11:41 | Outpatient (REF) | payer OTHER, SELFPAY ==
[2022-07-06 11:54] LABS: MANUAL DIFF FLAG NO
[2022-07-06 12:29] LABS: Basophils Absolute Auto 0.1 X10*3/uL (0.0-0.2); Basophils Percent Auto 0.7 % (0-2); Eosinophils Absolute Auto 0.3 X10*3/uL (0.0-0.4); Eosinophils Percent Auto 3.4 % (0-4); Hematocrit 38.4 % (42.0-52.0); Hemoglobin 13.3 g/dl (14.0-18.0); Imm Gran Abs Auto 0.04 X10*3/uL (0.00-0.03); Imm Gran Pct Auto 0.4 % (0.0-0.4); Lymphocytes Percent Auto 22.6 % (20-40); Mean Corpuscular HGB Conc 34.6 g/dl (31.0-36.0); Mean Corpuscular Hemoglobin 32.5 pg (27.0-33.0); Mean Corpuscular Volume 93.9 fL (80.0-98.0); Mean Platelet Volume 10.2 fL (9.4-12.4); Monocytes Absolute Auto 0.7 X10*3/uL (0.1-1.2); Monocytes Percent Auto 8.2 % (2-11); Neutrophils Absolute Auto 5.8 x10*3/uL (2.0-8.3); Neutrophils Percent Auto 64.7 % (45-73); Platelet Count 187 X10*3/uL (160-400); Red Blood Count 4.09 X10*6/uL (4.60-5.80); Red Cell Distribution Width 13.3 % (11.0-16.0); White Blood Count 8.9 X10*3/uL (4.8-10.8)
[2022-07-06 12:39] LABS: Appearance Urine Clear; Color Urine Yellow; Glucose Urine UA >=1000 mg/dL (Negative); Leukocyte Esterase Urine Negative (Negative); Nitrite Urine Negative (Negative); PH 5.5 (5.0-9.0); UMIC TRIGGER UA YES; Urine Blood Negative (Negative); Urine Ketones Negative (Negative); Urine Protein 300 (3+) mg/dL (Neg-Trace)
[2022-07-06 12:41] LABS: Bacteria Urine None Seen (None Seen); Hyaline Casts Urine 0-2 /LPF (0-2); RBC Urine 0-2 /HPF (0-2); Squamous Epithelial Cell Urine 0-2 /HPF (0-2); WBC Urine 0-5 /HPF (0-5)
[2022-07-06 13:18] LABS: Estimated Average Glucose 206 mg/dL; Hemoglobin A1c % 8.8 %
[2022-07-06 13:45] LABS: Alanine Aminotransferase 49 U/L (0-40); Alkaline Phosphatase 107 U/L (39-117); Anion Gap 11 (12-20); Aspartate Amino Transferase 39 U/L (5-37); Bilirubin Total 1.4 mg/dL (0.0-1.0); Blood Urea Nitrogen 30 mg/dL (9-16); Carbon Dioxide 28 mmol/L (22-29); Chloride 102 mmol/L (96-108); Cholesterol 106 mg/dL; Estimated Glomerular Filt Rate 33; Glucose Random 394 mg/dL (60-115); HDL Cholesterol 23 mg/dL; LDL Cholesterol Calculated 48 mg/dl; Potassium 5.4 mmol/L (3.3-5.1); Sodium 136 mmol/L (135-145); Total Protein 7.3 g/dL (6.5-8.0); Triglycerides 177 mg/dL
[2022-07-06 13:53] LABS: Creatinine Urine 131.89 mg/dL
[2022-07-06 13:59] LABS: Folate 9.1 ng/mL (> or = 4.0); Free T4 (Free Thyroxine) 0.98 ng/dL (0.71-1.85); Prostate Specific Antigen Scr 2.02 ng/mL (<0.05-4.0); Thyroid Stimulating Hormone 2.07 uIU/mL (0.32-4.0); Vitamin B12 625 pg/mL (200-900)
[2022-07-06 14:14] LABS: Microalbum/Creatinine Ratio Ur 894.6 ug/mg cr
== END 2022-07-06 11:42 | disposition home or self-care (01) ==
LOC: HO.LAB 11:41
PROVIDERS: PCP Internal Medicine; Visit Provider Internal Medicine
DX: Z12.5 Encounter for screening for malignant neoplasm of prostate (principal); E11.65 Type 2 diabetes mellitus with hyperglycemia; E78.00 Pure hypercholesterolemia, unspecified
CPT/HCPCS: 36415; 80053; 80061; 81001; 82043; 82607; 82746; 83036; 84153; 84439; 84443; 85025

== ENCOUNTER → 2022-07-22 13:31 | Outpatient (BNVA) | payer OTHER, SELFPAY | PROVIDERS: PCP Internal Medicine; Referring Provider Internal Medicine; Visit Provider Nurse Practitioner Family | DX: Z13.89 Encounter for screening for other disorder (principal) ==

== ENCOUNTER 2022-07-27 09:59 | Outpatient (REF) | payer OTHER, SELFPAY ==
[2022-07-27 12:09] LABS: Lipase 24 U/L (8-78); Potassium 4.8 mmol/L (3.3-5.1)
[2022-07-27 12:28] LABS: HBS Num1 4.44 mIU/mL (0-7.99); HBc Num1 4.61 S/CO (0.00-0.79); HBsAGNum1 0.47 S/CO (0.00-0.99); HIV Num 1 2.36 S/CO (0.00-0.99); Hepatitis A Antibody IgM 0.38 Index (0-0.79); Hepatitis B Surface Antigen Negative (Negative); ~HepC Num1 13.22 S/CO (0.00-0.79); ~Hepatitis A Antibody IgM Nonreactive (Nonreactive); ~Hepatitis B Surface Antibody NONREACTIVE (Nonreactive); ~Hepatitis C Antibody Reactive (Nonreactive)
[2022-07-27 15:08] LABS: HBc Num2 4.64 S/CO
[2022-07-27 15:09] LABS: HBc Num3 4.67 S/CO; HIV Num 2 2.33 S/CO; HIV Num 3 2.26 S/CO; Hepatitis B Core Antibody Reactive (Nonreactive)
[2022-07-27 15:10] LABS: HIV AB/AG Reactive (Nonreactive)
[2022-07-30 09:03] LABS: Hepatitis B Core Antibody IgM NON-REACTIVE (NON-REACTIVE)
[2022-07-30 13:22] LABS: HCV RNA PCR Qn 2920000 IU/mL (NOT DETECTED); HCV RNA PCR Qn 6.47 Log IU/mL (NOT DETECTED)
[2022-07-30 15:08] LABS: Hepatitis B Viral DNA Qn - cp <1.00 NOT DETECTED Log IU/mL (NOT DETECTED); Hepatitis B Viral DNA Qn-IU/mL <10 NOT DETECTED IU/mL (NOT DETECTED)
[2022-08-01 22:07] LABS: Hepatitis Delta Antibody NEGATIVE
[2022-08-04 16:09] LABS: FIB-ALT 34 U/L (9-46); FIB-Alpha-2-Macroglobulin 405 mg/dL (106-279); FIB-Apolipoprotein A1 103 mg/dL (94-176); FIB-GGT 57 U/L (3-70); FIB-Haptoglobin 111 mg/dL (43-212); FIB-Total Bilirubin 0.9 mg/dL (0.2-1.2); Liver Fibrosis Score 0.86; Liver Fibrosis Stage F4; Nec Inflam Act Grade A1; Nec Inflam Act Score 0.33
[2022-08-05 10:04] LABS: HCV Genotype LiPA 1a
[2022-08-07 11:53] LABS: HIV 2 Antibody NEGATIVE
[2022-08-07 11:54] LABS: HIV 1 Antibody NEGATIVE
== END 2022-07-27 10:00 | disposition home or self-care (01) ==
LOC: HO.LAB 09:59
PROVIDERS: PCP Internal Medicine; Visit Provider Nurse Practitioner Family
DX: R10.9 Unspecified abdominal pain (principal); R74.8 Abnormal levels of other serum enzymes; K74.60 Unspecified cirrhosis of liver; E87.5 Hyperkalemia; R79.89 Other specified abnormal findings of blood chemistry; Z86.16 Personal history of COVID-19; B19.20 Unspecified viral hepatitis C without hepatic coma
CPT/HCPCS: 36415; 81596; 83690; 84132; 86692; 86701; 86702; 86704; 86705; 86706; 86709; 86803; 87340; 87389; 87517; 87522; 87902

== ENCOUNTER 2022-08-12 09:08 | Outpatient (REF) | payer OTHER, SELFPAY ==
[2022-07-27 14:23] LABS: Creatinine Urine 151.98 mg/dL
--- NOTE | ~2022-08-12 | US_ITS ---
EXAMINATION: US COMPLETE ABDOMEN WITH LIVER ELASTOGRAPHY CLINICAL INFORMATION: Increased liver function tests. History of hepatitis C. COMPARISON: Previous abdominal ultrasound March [address] from 2007. TECHNIQUE: Real-time imaging of the abdominal viscera. Noninvasive ultrasound liver fibrosis assessment is performed using Gena ElastPQ point quantification shear wave elastography (2D-SWE) with a C5-2 MHz transducer. Multiple elastography samples are obtained. FINDINGS: PANCREAS: Not well visualized due to overlying bowel gas. ABDOMINAL AORTA: The proximal, middle, and distal aortic segments are normal in caliber. INFERIOR VENA CAVA: Visualized portions are normal. LIVER: Several small punctate echogenic foci questionable for calcifications . Liver calcifications are not appreciated on the previous CT from 2007. The liver demonstrates normal size, contour and echogenicity. No focal lesion or intrahepatic biliary duct dilatation. The right lobe measures 14.8 cm in length. The left lobe measures 10.7 cm in length. Portal flow is normal/hepatopetal. Shear wave liver elastography median stiffness is 2.08 m/s (reference: Normal median stiffness is 1.3 m/s or less). IQR/median stiffness to assess sampling precision is 0.14 (reference: Good quality data set is IQR/median stiffness of 0.15 or less). GALLBLADDER: No gallstones. Probable adenomyomatosis of the gallbladder wall. COMMON BILE DUCT: Normal in caliber measuring 0.5 cm in diameter. RIGHT KIDNEY: Small 8 mm cyst in the upper pole. 3 mm stone in the lower pole. No hydronephrosis. The kidney measures 10.6 cm in maximum dimension. LEFT KIDNEY: Normal. No hydronephrosis. No renal calculi or focal parenchymal lesions. The kidney measures 11.4 cm in maximum dimension. SPLEEN: Normal. The spleen measures 12.1 cm in maximum dimension. FREE FLUID: None. US/US abdomen comp w elastography IMPRESSION: 1. small echogenic foci of the liver questionable for small liver calcifications. These are not seen on the prior CT from 2007. Follow up liver MRI should be considered. No evidence of cirrhosis. Probable adenomyomatosis of the gallbladder wall. Small right renal cyst and stone. Limited visualization of the pancreas. 2. Liver Elastography: Adequate liver sampling. Increased liver stiffness suggestive of compensated advanced chronic liver disease that needs further tests for confirmation. REFERENCE: Society of Radiologists in Ultrasound Liver Stiffness Thresholds (2020): LIVER STIFFNESS THRESHOLDS: *Liver Stiffness equal or less than 1.3 m/s: High probability of being normal. *Liver Stiffness less than 1.7 m/s: In the absence of other known clinical signs, rules out compensated advanced chronic liver disease. *Liver Stiffness 1.7-2.1 m/s: Suggestive of compensated advanced chronic liver disease but need further test for confirmation. *Liver Stiffness over 2.1 m/s: Rules in compensated advanced chronic liver disease. *Liver Stiffness over 2.4 m/s: Suggestive of clinically significant portal hypertension. QUALITY OF DATA SET: *IQR/Median value equal or less than 0.15 implies a quality data set. *IQR/Median value over 0.15 implies a poor quality data set. SIGNIFICANT CHANGE FROM PRIOR EXAM: Significant change if liver stiffness measurement is 10% or greater from prior exam. OTHER CONSIDERATIONS: The stage of liver fibrosis may be overestimated in the setting of acute hepatitis, liver inflammation, elevated liver function tests, hepatic vascular congestion, obstructive cholestasis, non-fasting state, and infiltrative diseases such as amyloidosis and lymphoma. In some patients with NAFLD, the liver stiffness thresholds for compensated advanced chronic liver disease may be lower. In causes other than viral hepatitis and NAFLD, liver stiffness thresholds are not well established.
== END 2022-08-12 09:09 | disposition home or self-care (01) ==
LOC: HO.US 09:08
PROVIDERS: PCP Internal Medicine; Visit Provider Nurse Practitioner Family
DX: E11.65 Type 2 diabetes mellitus with hyperglycemia (principal); B18.2 Chronic viral hepatitis C; R79.89 Other specified abnormal findings of blood chemistry
CPT/HCPCS: 76705; 76981

== ENCOUNTER 2022-08-12 09:33 | Outpatient (REF) | payer OTHER, SELFPAY ==
[2022-08-21 22:28] LABS: Pancreatic Elastase-1 >500 mcg/g
== END 2022-08-12 09:34 | disposition home or self-care (01) ==
LOC: HO.LNP 09:33
PROVIDERS: Visit Provider Nurse Practitioner Family
DX: R10.9 Unspecified abdominal pain (principal); R79.89 Other specified abnormal findings of blood chemistry; B18.2 Chronic viral hepatitis C
CPT/HCPCS: 82656

== ENCOUNTER 2022-10-12 11:20 | Outpatient (REF) | payer OTHER, SELFPAY ==
[2022-10-12 14:42] LABS: Syphilis Screen Nonreactive (Nonreactive)
[2022-10-13 12:04] LABS: Absolute CD3 Count 1433 cells/uL (840-3060); Absolute CD4 Count 798 cells/uL (490-1740); Absolute CD8 Count 646 cells/uL (180-1170); Absolute Lymphocytes 1968 cells/uL (850-3900); CD4 CD8 Ratio 1.24 (0.86-5.00); Percent CD3 Cells 73 % (57-85); Percent CD4 Cells 41 % (30-61); Percent CD8 Cells 33 % (12-42)
[2022-10-14 04:16] LABS: HIV Num 1 6.07 S/CO (0.00-0.99)
[2022-10-14 05:05] LABS: HIV AB/AG Reactive (Nonreactive); HIV Num 2 5.59 S/CO; HIV Num 3 5.64 S/CO
[2022-10-14 14:58] LABS: Hepatitis B Viral DNA Qn - cp NOT DETECTED Log IU/mL (NOT DETECTED); Hepatitis B Viral DNA Qn-IU/mL NOT DETECTED (NOT DETECTED)
[2022-10-15 13:22] LABS: HCV RNA PCR Qn 2520000 IU/mL (NOT DETECTED)
[2022-10-15 21:13] LABS: HIV RNA PCR Qn Copies Not Detected Copies/mL; HIV RNA PCR Qn Log Copies Not Detected Log cps/mL
[2022-10-20 20:29] LABS: HCV Genotype LiPA 1a
[2022-10-31 10:48] LABS: HIV 1 Antibody NEGATIVE; HIV 2 Antibody NEGATIVE
[2022-10-31 10:50] LABS: HIV-1 RNA TMA Qualitative NOT DETECTED
== END 2022-10-12 11:21 | disposition home or self-care (01) ==
LOC: HO.LAB 11:20
PROVIDERS: Nurse Practitioner Family; Absent Provider Internal Medicine; PCP Internal Medicine; Visit Provider Internal Medicine
DX: Z21 Asymptomatic human immunodeficiency virus [HIV] infection status (principal); R76.8 Other specified abnormal immunological findings in serum; B18.2 Chronic viral hepatitis C
CPT/HCPCS: 36415; 86359; 86360; 86701; 86702; 86780; 87389; 87517; 87522; 87536; 87900; 87901; 87902

== ENCOUNTER 2022-11-11 11:01 | Outpatient (AMB) | payer OTHER, SELFPAY ==
--- NOTE | 2022-11-11 11:16 | A.OFFVIS_ITS ---
Intake Vital Signs 11/11/22 11:18 Height 5 ft 8 in Weight 198 lb BMI 30.1 BP 150/74 H Blood Pressure Location Lt brachial Position Sitting Pulse 75 Intake Visit Reasons: october follow up Intake Note: Tre presents in office as a est.patient for f/u for Chronic hepatitis C PT CC: pt reports having nausea , abdominal cramping, bloating , headaches pt denies any other GI Issues Crop Picker Required: No Accompanied by: Self / Same As Patient Allergies No Known Allergies Allergy (Verified 11/11/22 11:17) HPI october follow up HPI Details LAST VISIT Hyperkalemia Will repeat levels today. Patient was instructed to drink plenty fluids. Stay away from food high in potassium Chronic hepatitis C History of hepatitis never treated. Patient states that he was young and medication was not available at that time. Patient was told by another provider at some point that he has a chronic hepatitis and does not need to be treated. Will check viral load and if patient was not treated if viral load is positive patient will need to be treated for hepatitis. Will send him for ultrasound of his liver with elastography, however we will also send him for liver fibrosis panel to correctly stage liver disease. Even if patient has stage 4 compensated liver cirrhosis he can still be treated with Epclusa. Colon cancer screening Patient had positive Cologuard. Patient also reports that he has hemorrhoids occasionally blood in his stool after bowel movement. We will hold off on sending him for colonoscopy due to other more pressing health issues that might interfere with anaesthesia. Patient does have a history of CAD. Patient has well controlled cholesterol with low dose of statin at this point, however given his history of tobacco use, stent in 2010, uncontrolled diabetes with A1c 8.8% and current symptoms of chest pressure and shortness of breath that increased in the past few months patient should really be evaluated by experimental machining lab manager. Patient has not seen a experimental machining lab manager in several years. Patient declined referral to Cardiology due to his insurance and very high co-pay. Discussed with patient that this is important and he should be checked out. Patient does understand, however he will be eligible to get Medicare in January and will be able to apply in October. Currently I will rule out active hep C and treat if positive. Patient was encouraged to call his PCP and agree to start insulin at bedtime. Patient does report that in the morning his sugars are very high. He was encouraged to go to ER if he will have chest pain or chest pressure, shortness of breath, palpitations. Patient was encouraged to get the blood work today. I will have him come back in October. We will speak on the phone in the meantime to discuss lab results and further treatment. Patient agreed that he will return to the office sooner if he will require treatment for hep C. IBS (irritable bowel syndrome) Patient reports occasional abdominal cramping and loose stools after meals. However patient also reports that he has constipation. Low FODMAP diet discussed with patient. List of food recommended as well as list of food to avoid given to patient. I will see him in October, sooner on as needed basis. Patient is agreeable to this plan and verbalizes understanding of instructions. He was given the opportunity to ask questions and all questions answered. ? Thank you for allowing me to participate in his care Transaminitis Plan Orders Orders Pancreatic Elastase-1 Today R10.9 Liver Fibrosis Pnl Today R74.8 Lipase Today R10.9 Hepatitis B Viral DNA Qn Today K74.60 Hepatitis Delta Antibody Today Z86.19 Hepatitis A,B,C Profile Today R79.89 Hepatitis C Genotype Today B19.20 Hepatitis C Viral Load Today Z86.19 HIV Ab/Ag Today R79.89 Potassium Today E87.5 US abdomen comp w elastography Today B18.2, R79.89 TODAY'S VISIT: Patient is here today for follow-up and to discuss lab results. Lab results and ultrasound results discussed with patient. Patient is here to discuss treatment for hep C. Reports symptoms of feeling tired, abdominal pain, cramping, occasional nausea. No vomiting. Patient denies constipation, diarrhea. Patient denies melena, hematochezia, unintentional weight loss or ribbon like stools. [facility] Medical History Diabetes High blood pressure Myocardial infarct Sciatic leg pain Surgical History Stented coronary artery Family History Mother CKD (chronic kidney disease) Father Prostate cancer Brother Aneurysm Brother No problems noted. Sister No problems noted. Son No problems noted. Daughter No problems noted. Social History Housing: House Alcohol intake: current Patient Tobacco Use Status: Current everyday Tobacco user Tobacco use type: Cigarette Cigarettes Per Day: 2 Years Smoked: smoking 40 years e-Cigarette/Vaping Use: Never Used Second Hand Smoke Exposure: No Current occupational status: retired and disabled Cognitive needs: No Hearing needs: No Vision needs: Yes Review of Systems Const Denies weight gain and Denies weight loss ENT Reports no additional complaints, Denies dysphagia and Denies odynophagia Card Reports no additional complaints Resp Reports no additional complaints GI Reports abdominal pain, Denies belching, Denies melena, Reports bloating, Denies change in bowel habits, Denies dysphagia, Denies excessive flatus, Denies dyspepsia, Reports heartburn, Denies diarrhea, Denies loose stools, Reports nausea, Denies odynophagia and Denies vomiting Reports no additional complaints Musc Reports no additional complaints Neuro Reports no additional complaints Psych Reports no additional complaints Endo Reports no additional complaints Physical Exam Vital Signs: Last Vital Signs Pulse 75 11/11/22 11:18 BP 150/74 H 11/11/22 11:18 BMI result Body Mass Index 30.1 Const General: healthy appearing, no acute distress and well developed Nutritional Appearance: obese Orientation/consciousness: patient oriented x3 HEENT Head: Yes normal to inspection, Yes normocephalic and Yes atraumatic Face and sinus: Yes normal facial exam Mouth: Normal oral and palatal mucosa present Throat: Yes posterior oropharynx normal, Yes tonsils normal and Yes uvula midline Eyes General: appearance normal, both eyes and all related structures Neck Neck: Yes normal visual inspection, Yes full ROM and Yes trachea midline Thyroid: Thyroid normal Resp Effort & Inspection: normal respiratory effort, able to speak in complete sentences, no tracheal deviation and symmetric chest movement Auscultation: clear to auscultation bilaterally Cardio Rate: regular rate Heart sounds: S1 normal heart sound present and S2 normal heart sound present GI Inspection: Yes normal to inspection, No distended and Yes obesity Palpation (GI): Soft to palpation, not firm, nontender and No hepatosplenomegaly present Auscultation: normal bowel sounds General: Yes no CVA tenderness Back/Spine/Pelvis Back: no CVA tenderness Skin General skin exam: elasticity normal, turgor normal and dry skin Neuro General: patient oriented x3 Psych Appearance: grossly normal Mental Status: mental status grossly normal Speech and movement: Normal speech and movement present Results Reviewed Results Reviewed: ABDOMINAL ULTRASOUND WITH ELASTOGRAPHY FINDINGS: PANCREAS: Not well visualized due to overlying bowel gas.? ABDOMINAL AORTA: The proximal, middle, and distal aortic segments are normal in caliber.? INFERIOR VENA CAVA: Visualized portions are normal.? LIVER: Several small punctate echogenic foci questionable for calcifications . Liver calcifications are not appreciated on the previous CT from 2007. The liver demonstrates normal size, contour and echogenicity. No focal lesion or intrahepatic biliary duct dilatation. The right lobe measures 14.8 cm in length. The left lobe measures 10.7 cm in length.? Portal flow is normal/hepatopetal. Shear wave liver elastography median stiffness is 2.08 m/s (reference: Normal median stiffness is 1.3 m/s or less). IQR/median stiffness to assess sampling precision is 0.14 (reference: Good quality data set is IQR/median stiffness of 0.15 or less). GALLBLADDER: No gallstones. Probable adenomyomatosis of the gallbladder wall. COMMON BILE DUCT: Normal in caliber measuring 0.5 cm in diameter. RIGHT KIDNEY: Small 8 mm cyst in the upper pole. 3 mm stone in the lower pole. No hydronephrosis. The kidney measures 10.6 cm in maximum dimension. LEFT KIDNEY: Normal. No hydronephrosis. No renal calculi or focal parenchymal lesions. The kidney measures 11.4 cm in maximum dimension. SPLEEN: Normal. The spleen measures 12.1 cm in maximum dimension. FREE FLUID: None.? US/US abdomen comp w elastography IMPRESSION: 1. small echogenic foci of the liver questionable for small liver calcifications. These are not seen on the prior CT from 2007. Follow up liver MRI should be considered. No evidence of cirrhosis. Probable adenomyomatosis of the gallbladder wall. Small right renal cyst and stone. Limited visualization of the pancreas. ? 2. Liver Elastography: Adequate liver sampling. Increased liver stiffness suggestive of compensated advanced chronic liver disease that needs further tests for confirmation. Assessment & Plan Assessment & Plan (1) Hepatitis C: Code(s): B19.20 - Unspecified viral hepatitis C without hepatic coma Qualifiers: Viral hepatitis chronicity: acute Hepatic coma status: without hepatic coma Qualified Code(s): B17.10 - Acute hepatitis C without hepatic coma Plan: Hep C patient will need to be treated with Epclusa. Will initiate treatment. Will follow up with labs. Patient will return in 3 weeks, sooner on as needed basis. He is agreeable to this plan and verbalizes understanding of instructions. He was given the opportunity to ask questions and all questions answered. Thank you for allowing me to participate in his care RN in the room with patient. Will go over schedule Medications: New sofosbuvir-velpatasvir 400-100 mg (Epclusa) 1 tab PO DAILY 12 weeks 84 tabs 0RF famotidine (Pepcid) 20 mg PO BID 60 tabs 3RF K29.70 - Gastritis, unspecified, without bleeding Discontinued omeprazole Discontinued Reason: Doctor's Order 20 mg PO DAILY 90 caps 1RF Coding Level of Care Code Est Pt Level 4 (19788) Diagnoses Hepatitis C B17.10 Viral hepatitis chronicity: acute Hepatic coma status: without hepatic coma Time Spent (min) 40 Comment 25 minutes spent with patient and additional 15 minutes spent reviewing his records
[2022-11-11 11:18] VITALS: BP 150/74; PULSE 75; BMI 30.1
== END 2022-11-11 13:34 | disposition home or self-care (01) ==
PROVIDERS: PCP Internal Medicine; Visit Provider Nurse Practitioner Family
DX: B17.10 Acute hepatitis C without hepatic coma (principal)
CPT/HCPCS: 99214

== ENCOUNTER → 2022-11-11 11:01 | Outpatient (BNVA) | payer OTHER, SELFPAY | PROVIDERS: PCP Internal Medicine; Visit Provider Nurse Practitioner Family | DX: B17.10 Acute hepatitis C without hepatic coma (principal); K58.9 Irritable bowel syndrome, unspecified | CPT/HCPCS: 99212 ==

== ENCOUNTER 2022-12-02 10:32 | Outpatient (AMB) | payer SELFPAY ==
[2022-12-02 10:45] VITALS: BP 132/70; PULSE 74; BMI 29.2
--- NOTE | 2022-12-02 10:45 | MHC.OFFVIS ---
Intake Vital Signs 12/02/22 10:45 Height 5 ft 8 in Weight 192 lb 3.889 oz BMI 29.2 BP 132/70 Blood Pressure Location Lt brachial Position Sitting Pulse 74 Intake Visit Reasons: 3 week follow up Intake Note: Tre presents in office as a est.patient for a 3week f/u for Hepatitis C PT CC: pt reports having nauseas, bloating , dizzniess pt denies any other GI Issues Security Director Required: No Accompanied by: Self / Same As Patient Allergies No Known Allergies Allergy (Verified 12/02/22 10:46) HPI 3 week follow up HPI Details LAST VISIT (1) Hepatitis C: ?Code(s): B19.20 - Unspecified viral hepatitis C without hepatic coma ?Qualifiers: ?Viral hepatitis chronicity:?acute??Hepatic coma status:?without hepatic coma? Qualified Code(s):?B17.10 - Acute hepatitis C without hepatic coma ?Plan: Hep C patient will need to be treated with Epclusa.? Will initiate treatment.? Will follow up with labs.? Patient will return in 3 weeks, sooner on as needed basis.? He is agreeable to this plan and verbalizes understanding of instructions.? He was given the opportunity to ask questions and all questions answered.? TODAY'S VISIT Patient is here today for follow-up. Started Epclusa little over a week ago due to insurance issues. Patient states that he is feeling little better, continue however to feel weak and tired. States that he is feeling better than 3 weeks ago when I saw him in the office. Patient denies any nausea or vomiting. Seems to be tolerating medication well. Not taking any PPI or H2 adrianne. Reports to have no GI concerning symptoms. Patient will be receiving have a vaccine today. [facility] Medical History Diabetes High blood pressure Myocardial infarct Sciatic leg pain Surgical History Stented coronary artery Family History Mother CKD (chronic kidney disease) Father Prostate cancer Brother Aneurysm Brother No problems noted. Sister No problems noted. Son No problems noted. Daughter No problems noted. Social History Housing: House Alcohol intake: current Patient Tobacco Use Status: Current everyday Tobacco user Tobacco use type: Cigarette Cigarettes Per Day: 2 Years Smoked: smoking 40 years e-Cigarette/Vaping Use: Never Used Second Hand Smoke Exposure: No Current occupational status: retired and disabled Cognitive needs: No Hearing needs: No Vision needs: Yes Review of Systems Const Denies weight gain and Denies weight loss ENT Reports no additional complaints, Denies dysphagia and Denies odynophagia Card Reports no additional complaints Resp Reports no additional complaints GI Denies abdominal pain, Denies belching, Denies melena, Denies bloating, Denies change in bowel habits, Denies dysphagia, Denies excessive flatus, Denies dyspepsia, Denies heartburn, Denies diarrhea, Denies loose stools, Reports nausea, Denies odynophagia and Denies vomiting Reports no additional complaints Musc Reports no additional complaints Neuro Reports no additional complaints Psych Reports no additional complaints Endo Reports no additional complaints Physical Exam Vital Signs: Last Vital Signs Pulse 74 12/02/22 10:45 BP 132/70 12/02/22 10:45 BMI result Body Mass Index 29.2 Const General: healthy appearing, no acute distress and well developed Nutritional Appearance: obese Orientation/consciousness: patient oriented x3 HEENT Head: Yes normal to inspection, Yes normocephalic and Yes atraumatic Face and sinus: Yes normal facial exam Mouth: Normal oral and palatal mucosa present Throat: Yes posterior oropharynx normal, Yes tonsils normal and Yes uvula midline Eyes General: appearance normal, both eyes and all related structures Neck Neck: Yes normal visual inspection, Yes full ROM and Yes trachea midline Thyroid: Thyroid normal Resp Effort & Inspection: normal respiratory effort, able to speak in complete sentences, no tracheal deviation and symmetric chest movement Auscultation: clear to auscultation bilaterally Cardio Rate: regular rate Heart sounds: S1 normal heart sound present and S2 normal heart sound present GI Inspection: Yes normal to inspection, No distended and Yes obesity Palpation (GI): Soft to palpation, not firm, nontender and No hepatosplenomegaly present Auscultation: normal bowel sounds General: Yes no CVA tenderness Back/Spine/Pelvis Back: no CVA tenderness Skin General skin exam: elasticity normal, turgor normal and dry skin Neuro General: patient oriented x3 Psych Appearance: grossly normal Mental Status: mental status grossly normal Speech and movement: Normal speech and movement present Immunizations Havrix (PF) Performing Provider: CORONA Henderson Administered by: Ivy Van RN on 12/02/22 11:39 Dose Route Admin Location Lot Number Expiration Date [facility] Sheet [employer] Taper 1 mL IM Left Deltoid [id number] 12/23/24 [id number] Nodeable VIS Given Date VIS Provided VIS Publication Date 12/02/22 Single Vaccine 21 Eligibility Eligibility Date Funding Source Not [facility] Eligible 12/02/22 Private Assessment & Plan Assessment & Plan (1) Hepatitis C: Code(s): B19.20 - Unspecified viral hepatitis C without hepatic coma Qualifiers: Hepatic coma status: without hepatic coma Viral hepatitis chronicity: acute Qualified Code(s): B17.10 - Acute hepatitis C without hepatic coma Plan: Continue treatment with Epclusa. Patient will receive hep a vaccine today. Core antibody for hep B positive, acquired immunity no need for hep B vaccine. Patient will return to our office in 4 weeks to reassess. Continue treatment with Epclusa, call the office if any trouble. Patient reports that he is taking it every day and is not missing a dose. Patient is happy that he is able to start the treatment. He is agreeable to plan of care and verbalizes understanding of instructions. He was given the opportunity to ask questions and all questions answered. Thank you for allowing me to participate in his care Orders: Orders Hepatitis A Adult Immunization 12/02/22 Z23 - Encounter for immunization Medications: Discontinued famotidine Discontinued Reason: Patient no longer taking 20 mg PO BID 60 tabs 3RF K29.70 - Gastritis, unspecified, without bleeding Coding Level of Care Code Est Pt Level 3 (36642) Diagnoses Hepatitis C B17.10 Hepatic coma status: without hepatic coma Viral hepatitis chronicity: acute Time Spent (min) 30 Comment 20 minutes spent with patient and additional 10 minutes spent reviewing his records
== END 2022-12-02 11:35 | disposition home or self-care (01) ==
PROVIDERS: PCP Internal Medicine; Visit Provider Nurse Practitioner Family
DX: B17.10 Acute hepatitis C without hepatic coma (principal)
CPT/HCPCS: 99213

== ENCOUNTER → 2022-12-02 10:32 | Outpatient (BNVA) | payer OTHER, SELFPAY | PROVIDERS: PCP Internal Medicine; Visit Provider Nurse Practitioner Family | DX: B17.10 Acute hepatitis C without hepatic coma (principal); I34.0 Nonrheumatic mitral (valve) insufficiency; F17.210 Nicotine dependence, cigarettes, uncomplicated; Z86.19 Personal history of other infectious and parasitic diseases; Z23 Encounter for immunization; Z95.5 Presence of coronary angioplasty implant and graft | CPT/HCPCS: 90471; 90632; 99212 ==

== ENCOUNTER 2022-12-11 09:13 | Outpatient (REF) | payer OTHER, SELFPAY ==
[2022-12-14 15:08] LABS: HCV Log PCR <1.18 DETECTED Log IU/mL (NOT DETECTED); HepC Viral Load <15 DETECTED IU/mL (NOT DETECTED)
== END 2022-12-11 09:14 | disposition home or self-care (01) ==
LOC: HO.LAB 09:13
PROVIDERS: PCP Internal Medicine; Visit Provider Nurse Practitioner Family
DX: B18.2 Chronic viral hepatitis C (principal)
CPT/HCPCS: 36415; 87522

== ENCOUNTER 2023-01-22 10:37 | Outpatient (REF) | payer OTHER, SELFPAY ==
[2023-01-22 11:57] LABS: Alanine Aminotransferase 11 U/L (0-40); Albumin Level 3.9 g/dL (3.5-5.0); Alkaline Phosphatase 73 U/L (39-117); Aspartate Amino Transferase 16 U/L (5-37); Bilirubin Direct 0.4 mg/dL (0.0-0.5); Bilirubin Total 0.8 mg/dL (0.0-1.0); Total Protein 7.3 g/dL (6.5-8.0)
[2023-01-26 17:14] LABS: Hepatitis B Viral DNA Qn - cp NOT DETECTED Log IU/mL (NOT DETECTED); Hepatitis B Viral DNA Qn-IU/mL NOT DETECTED (NOT DETECTED)
[2023-01-26 17:43] LABS: HCV Log PCR <1.18 NOT DETECTED Log IU/mL (NOT DETECTED); HepC Viral Load <15 NOT DETECTED IU/mL (NOT DETECTED)
== END 2023-01-22 10:38 | disposition home or self-care (01) ==
LOC: HO.LAB 10:37
PROVIDERS: PCP Internal Medicine; Visit Provider Nurse Practitioner Family
DX: R10.9 Unspecified abdominal pain (principal); K74.60 Unspecified cirrhosis of liver; Z86.19 Personal history of other infectious and parasitic diseases
CPT/HCPCS: 36415; 80076; 87517; 87522

== ENCOUNTER 2023-02-03 11:50 | Outpatient (AMB) | payer MEDICARE, OTHER, SELFPAY ==
--- NOTE | 2023-02-03 12:03 | MHC.OFFVIS ---
Intake Vital Signs 02/03/23 12:04 Height 5 ft 8 in Weight 193 lb 9.054 oz BMI 29.4 BP 136/62 Blood Pressure Location Rt brachial Position Sitting Intake Visit Reasons: 4 Week Follow Up Intake Note: Patient is here for a 4 week follow up after starting EPCLUSA, patient stated medication is helping Allergies No Known Allergies Allergy (Verified 12/02/22 10:46) HPI 4 Week Follow Up HPI Details LAST VISIT: Hepatitis C Continue treatment with Epclusa. Patient will receive hep a vaccine today. Core antibody for hep B positive, acquired immunity no need for hep B vaccine. Patient will return to our office in 4 weeks to reassess. Continue treatment with Epclusa, call the office if any trouble. Patient reports that he is taking it every day and is not missing a dose. Patient is happy that he is able to start the treatment. He is agreeable to plan of care and verbalizes understanding of instructions. He was given the opportunity to ask questions and all questions answered. ? TODAY'S VISIT Patient is here today for follow-up regarding his treatment for hep C. Patient has been taking Epclusa daily and is doing well. Patient has about 4 more weeks to finish. His viral load was negative which is a good news. Patient reports that he has been feeling very well. Denies any abdominal pain or discomfort. He feels better, no longer has shortness of breath or chest pain. Patient reports that occasionally he will have acid reflux depending on what he eats. Patient is avoiding late night snacking and tries to eat healthy. Occasionally patient reports that he feels like he might be constipated. Patient reports that he drinks water throughout the day. [facility] Medical History Diabetes High blood pressure Myocardial infarct Sciatic leg pain Surgical History Stented coronary artery Family History Mother CKD (chronic kidney disease) Father Prostate cancer Brother Aneurysm Brother No problems noted. Sister No problems noted. Son No problems noted. Daughter No problems noted. Social History Housing: House Alcohol intake: current Patient Tobacco Use Status: Current everyday Tobacco user Tobacco use type: Cigarette Cigarettes Per Day: 2 Years Smoked: smoking 40 years e-Cigarette/Vaping Use: Never Used Second Hand Smoke Exposure: No Current occupational status: retired and disabled Cognitive needs: No Hearing needs: No Vision needs: Yes Review of Systems Const Denies weight gain and Denies weight loss ENT Reports no additional complaints, Denies dysphagia and Denies odynophagia Card Reports no additional complaints Resp Reports no additional complaints GI Denies abdominal pain, Denies belching, Denies melena, Denies bloating, Denies change in bowel habits, Denies dysphagia, Denies excessive flatus, Denies dyspepsia, Denies heartburn, Denies diarrhea, Denies loose stools, Denies nausea, Denies odynophagia and Denies vomiting Reports no additional complaints Musc Reports no additional complaints Neuro Reports no additional complaints Psych Reports no additional complaints Endo Reports no additional complaints Physical Exam Vital Signs: Last Vital Signs BP 136/62 02/03/23 12:04 BMI result Body Mass Index 29.4 Const General: healthy appearing, no acute distress and well developed Nutritional Appearance: obese Orientation/consciousness: patient oriented x3 HEENT Head: Yes normal to inspection, Yes normocephalic and Yes atraumatic Face and sinus: Yes normal facial exam Mouth: Normal oral and palatal mucosa present Throat: Yes posterior oropharynx normal, Yes tonsils normal and Yes uvula midline Eyes General: appearance normal, both eyes and all related structures Neck Neck: Yes normal visual inspection, Yes full ROM and Yes trachea midline Thyroid: Thyroid normal Resp Effort & Inspection: normal respiratory effort, able to speak in complete sentences, no tracheal deviation and symmetric chest movement Auscultation: clear to auscultation bilaterally Cardio Rate: regular rate Heart sounds: S1 normal heart sound present and S2 normal heart sound present GI Inspection: Yes normal to inspection, No distended and Yes obesity Palpation (GI): Soft to palpation, not firm, nontender and No hepatosplenomegaly present Auscultation: normal bowel sounds General: Yes no CVA tenderness Back/Spine/Pelvis Back: no CVA tenderness Skin General skin exam: elasticity normal, turgor normal and dry skin Neuro General: patient oriented x3 Psych Appearance: grossly normal Mental Status: mental status grossly normal Affect: normal affect Assessment & Plan Assessment & Plan (1) Hepatitis B core antibody positive: Code(s): R76.8 - Other specified abnormal immunological findings in serum (2) Hepatitis C: Code(s): B19.20 - Unspecified viral hepatitis C without hepatic coma Qualifiers: Viral hepatitis chronicity: acute Hepatic coma status: without hepatic coma Qualified Code(s): B17.10 - Acute hepatitis C without hepatic coma Plan Patient is doing well on treatment. Will add labs to be done. Patient will be done with the treatment in 4 weeks. Will check liver profile and check for hep C viral load. Patient can start taking famotidine at bedtime on as needed basis to help him with acid reflux. He can take MiraLax daily to help him eliminate his bowels better. I will see patient in 4 months, sooner on as needed basis. Patient is agreeable to this plan and verbalizes understanding of instructions. He was given the opportunity to ask questions and all questions answered. Thank you for allowing me to participate in his care Orders: Orders Hepatitis C Viral Load 4 Weeks Z86.19 - Personal history of other infectious and parasitic diseases Liver Panel 4 Weeks R10.9 - Unspecified abdominal pain Medications: New famotidine (Pepcid) 20 mg PO BEDTIME PRN 30 tabs 3RF acid reflux K21.9 - Gastro-esophageal reflux disease without esophagitis polyethylene glycol 3350 (Miralax) 17 grams PO DAILY 510 grams 2RF Coding Level of Care Code Est Pt Level 3 (97507) Diagnoses Hepatitis B core antibody positive R76.8 Acute hepatitis C virus infection without hepatic coma B17.10 Viral hepatitis chronicity: acute Hepatic coma status: without hepatic coma Time Spent (min) 25 Comment 15 minutes spent with patient and additional 10 minutes spent reviewing his records
[2023-02-03 12:04] VITALS: BP 136/62; BMI 29.4
== END 2023-02-03 12:39 | disposition home or self-care (01) ==
PROVIDERS: PCP Internal Medicine; Visit Provider Nurse Practitioner Family
DX: R76.8 Other specified abnormal immunological findings in serum (principal); B17.10 Acute hepatitis C without hepatic coma
CPT/HCPCS: 99213

== ENCOUNTER → 2023-02-03 11:50 | Outpatient (BNVA) | payer SELFPAY | PROVIDERS: PCP Internal Medicine; Visit Provider Nurse Practitioner Family | DX: R76.8 Other specified abnormal immunological findings in serum (principal); B17.10 Acute hepatitis C without hepatic coma; K21.9 Gastro-esophageal reflux disease without esophagitis | CPT/HCPCS: 99212 ==

== ENCOUNTER 2023-02-26 09:58 | Outpatient (REF) | payer MEDICARE, OTHER, SELFPAY ==
[2023-02-26 11:36] LABS: Alanine Aminotransferase 11 U/L (0-40); Albumin Level 3.8 g/dL (3.5-5.0); Alkaline Phosphatase 113 U/L (39-117); Aspartate Amino Transferase 18 U/L (5-37); Bilirubin Direct 0.3 mg/dL (0.0-0.5); Bilirubin Total 0.7 mg/dL (0.0-1.0); Total Protein 7.2 g/dL (6.5-8.0)
[2023-03-02 18:09] LABS: HCV Log PCR <1.18 NOT DETECTED Log IU/mL (NOT DETECTED); HepC Viral Load <15 NOT DETECTED IU/mL (NOT DETECTED)
[2023-03-05 16:18] LABS: HIV RNA PCR Qn Copies Not Detected Copies/mL; HIV RNA PCR Qn Log Copies Not Detected Log cps/mL
== END 2023-02-26 09:59 | disposition home or self-care (01) ==
LOC: HO.LAB 09:58
PROVIDERS: Internal Medicine; PCP Internal Medicine; Visit Provider Nurse Practitioner Family
DX: R10.9 Unspecified abdominal pain (principal); R76.8 Other specified abnormal immunological findings in serum; Z21 Asymptomatic human immunodeficiency virus [HIV] infection status; Z86.19 Personal history of other infectious and parasitic diseases
CPT/HCPCS: 36415; 80076; 87522; 87536; 87900; 87901

== ENCOUNTER 2023-03-08 14:42 | Outpatient (AMB) | payer OTHER, SELFPAY ==
--- NOTE | 2023-03-08 14:58 | A.OFFPC_ITS ---
Vital Signs 03/08/23 14:59 Height 5 ft 8 in Weight 190 lb BMI 28.9 BP 180/88 H Blood Pressure Location Rt brachial Position Sitting Pulse 70 Pulse Source Pulse Oximeter Pulse Oximetry (%) 99 Oxygen Delivery Method Room Air Intake Visit Reasons: 6W. 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: No Accompanied by: Self / Same As Patient Allergies No Known Allergies Allergy (Verified 03/08/23 15:06) Medication List - Last Reconciled 03/08/23 by Gene Enciso MD acetaminophen (Tylenol Extra Strength) 500 mg PO Q6H PRN amlodipine 10 mg PO DAILY 90 days aspirin (Adult Aspirin Regimen) 81 mg PO DAILY atorvastatin 20 mg PO DAILY famotidine (Pepcid) 20 mg PO BEDTIME PRN flash glucose scanning reader (StitcherStyle Pina 2 [place]) As directed flash glucose sensor (FreeStyle Pina 2 Sensor kit) As directed insulin glargine (Lantus Solostar U-100 Insulin) 10 units (0.1 mL) subcut QPM lisinopril 40 mg PO DAILY metoprolol tartrate 200 mg (2 x 100 mg) PO BID 1 month pen needle, diabetic (BD Ultra-Fine Phuong Pen Needle) As directed polyethylene glycol 3350 (Miralax) 17 grams PO DAILY semaglutide 1 mg (0.75 mL) subcut QWEEK 30 days sofosbuvir-velpatasvir 400-100 mg (Epclusa) 1 tab PO DAILY 12 weeks tamsulosin 0.4 mg PO DAILY Tobacco use date assessed: 07/01/22 Fall risk assessment: No Falls in past year Last assessed Fall Risk: 03/08/23 Dental Screening Dental Screen Date: 03/08/23 Did you have a dental visit in the last 12 months?: Yes Did you have a dental problem in the last 6 months where you did not have access to dental care?: No Was dental information given to patient?: Patient has dentist HPI 6W. F/U-DM HPI Details 63-year-old overweight male smoker with a history of HIV positive chronic hepatitis C hepatitis B antibody positive, chronic kidney disease diabetes mellitus hypertension hypercholesterolemia coronary artery disease coming in for follow-up. Last seen in September 2022. Patient has been sent to the heading pinner and have been treated with Epclusa and will receive hepatitis a vaccine patient has core antibody for hepatitis-B positive acquired immunity no need for hepatitis-B vaccine. Patient has seen the infectious disease person and July 2022 screening positive for HIV but confirmatory negative question of newly acquired or false positive patient is being checked again.. If negative do nothing and if still positive recheck 3 months check viral load as well. Blo od work done June 2022 LDL controlled hemoglobin A1c today 7.0. problematic about big needle for trulicity. [facility] Medical History (Updated 03/08/23 @ 15:39 by Gene Enciso MD) Hepatitis B core antibody positive Myocardial infarct Sciatic leg pain High blood pressure Diabetes Surgical History Stented coronary artery Family History Mother CKD (chronic kidney disease) Father Prostate cancer Brother Aneurysm Brother No problems noted. Sister No problems noted. Son No problems noted. Daughter No problems noted. Social History Housing: House Alcohol intake: current Patient Tobacco Use Status: Current everyday Tobacco user Tobacco use type: Cigarette Cigarettes Per Day: 2 Years Smoked: smoking 40 years e-Cigarette/Vaping Use: Never Used Second Hand Smoke Exposure: No service: No Current occupational status: retired and disabled Cognitive needs: No Hearing needs: No Vision needs: Yes Questionnaire Thrive Questionnaire Date Thrive assessed: 07/01/22 SUSANA-7 AMB Questionnaire SUSANA-7 Date SUSANA - 7 assessed: 07/01/22 Source: Developed by Drs. Antonio Hudson, Flaca Rutledge, Dk Nino and colleagues, with an educational elmer from [employer]. Physical exam (Primary Care) Vital Signs: Last Vital Signs Pulse 70 03/08/23 14:59 BP 180/88 H 03/08/23 14:59 Pulse Ox 99 03/08/23 14:59 Oxygen Delivery Method Room Air 03/08/23 14:59 BMI result Body Mass Index 28.9 Tobacco/Smoking Status: Tobacco use Status Tobacco use date assessed 07/01/22 03/08/23 15:01 Patient Tobacco Use Status Current everyday Tobacco 03/08/23 15:01 Tobacco use type Cigarette 03/08/23 15:01 e-Cigarette/Vaping Use Never Used 03/08/23 15:01 Thrive Assessment: Date of Thrive Assessment Date Thrive assessed 07/01/22 03/08/23 15:01 Const General: alert; No acute distress Eyes Conjunctivae: conjunctivae normal Resp Auscultation: clear to auscultation bilaterally Cardio Rate: regular rate Rhythm: regular rhythm GI Inspection: Yes normal to inspection Extrem General: Yes normal to inspection and No edema Office Procedures Flu Questionnaire Does the patient have a severe egg allergy?: No Does the patient have severe life threatening allergies?: No Does the patient have a fever or illness today?: No Has the patient ever had Guillain-Jermyn Syndrome?: No Has the patient ever had any past reaction to a flu shot?: No Results AMB Hemoglobin A1c AMB Hemoglobin A1c 7.0 % Last Edit by SEVERO Dawson on 03/08/23 15:07 Immunizations flu vacc [id number] 6mos up(PF) 60 mcg(15 mcgx4)/0.5 mL IM syringe Performing Provider: Gene Enciso MD Performing Location: [facility] Administered by: SEVERO Dawson on 03/08/23 15:08 Dose Route Admin Location Dispensed Lot Number Expiration Date [address] Man 0.5 mL IM Left Deltoid 0.5 mL [id number] 10/24/23 [id number] [employer] VIS Given Date VIS Provided VIS Publication Date 03/08/23 Single Vaccine 20 Eligibility Eligibility Date Funding Source Not [facility] Eligible 03/08/23 Private Results Reviewed Results Reviewed: Laboratory Last Values Hgb A1c (Clinic) 7.0 % (4.0-6.0) H 03/08/23 15:07 Assessment and Plan Assessment & Plan (1) HIV positive: Comment: July 2022 screening positive but confirmatory negative. Possibly this is newly acquired infection or false positive screening Code(s): Z21 - Asymptomatic human immunodeficiency virus [HIV] infection status Plan: Patient has seen Infectious Disease and advised to retest. and is negative (2) Chronic hepatitis C: Comment: F4 Hepatitis C needs to be managed by GI due to above reasons (cirrhosis management) and they have already seen him Code(s): B18.2 - Chronic viral hepatitis C Qualifiers: Hepatic coma status: without hepatic coma Qualified Code(s): B18.2 - Chronic viral hepatitis C Plan: Patient presently on treatment with Epclusa under gastroenterology and better- treatment done (3) Tobacco abuse: Code(s): Z72.0 - Tobacco use Plan: Patient is strongly advised to stop smoking (4) Type 2 diabetes mellitus with hyperglycemia: Comment: joselin Code(s): E11.65 - Type 2 diabetes mellitus with hyperglycemia Plan: Decrease the amount of carbohydrate intake, pasta, bread, rice and potatoes are all sugar and that is aside from all the sweet stuff, remember that fruits are good but they are Sweet also. Hemoglobin A1c goal of less than 7.0 patient on Trulicity and Lantus (5) CAD (coronary artery disease): Comment: 2010 PA with stent placement Code(s): I25.10 - Atherosclerotic heart disease of [place] coronary artery without angina pectoris Plan: Control the cholesterol, weight, blood pressure, diabetes continue with aspirin 81 mg once a day (6) Hypertension: Code(s): I10 - Essential (primary) hypertension Plan: Continue with blood pressure medication. Decrease salt intake and exercise patient on amlodipine 10 mg once a day lisinopril 40 mg once a day and metoprolol 200 mg twice a day. states BP at home is good (7) Hypercholesterolemia: Code(s): E78.00 - Pure hypercholesterolemia, unspecified Plan: Avoid fried foods, chicken skin, eggs, butter margarine, pastries and meat. Be it pork or beef they have a lot of cholesterol LDL goal of less than 70 and t riglyceride of less than 150 patient is on atorvastatin 20 mg once a day (8) CKD stage 3 due to type 2 diabetes mellitus: Code(s): E11.22 - Type 2 diabetes mellitus with diabetic chronic kidney disease; N18.30 - Chronic kidney disease, stage 3 unspecified Plan: Keep well hydrated avoid NSAIDs Orders: Orders Comprehensive Met. Panel 3 Months E11.65 - Type 2 diabetes mellitus with hyperglycemia Vitamin B12 and Folate 3 Months E11.65 - Type 2 diabetes mellitus with hyperglycemia Free T4 (Free Thyroxine) 3 Months E11.65 - Type 2 diabetes mellitus with hyperglycemia Hemoglobin A1c 3 Months E11.65 - Type 2 diabetes mellitus with hyperglycemia Microalbumin, Random (w Creat) 3 Months E11.65 - Type 2 diabetes mellitus with hyperglycemia AMB Hemoglobin A1c Today E11.65 - Type 2 diabetes mellitus with hyperglycemia Influenza [id number] Immunization Today Z23 - Encounter for immunization Complete Blood Count Auto Diff 3 Months E11.65 - Type 2 diabetes mellitus with hyperglycemia Thyroid Stimulating Hormone 3 Months E11.65 - Type 2 diabetes mellitus with hyperglycemia Lipid Panel 3 Months E11. - Type 2 diabetes mellitus with hyperglycemia, E78.00 - Pure hypercholesterolemia, unspecified Prostate Specific Antigen Scr 3 Months E11. - Type 2 diabetes mellitus with hyperglycemia Creatinine Urine 3 Months E11. - Type 2 diabetes mellitus with hyperglycemia Reticulocyte Count 3 Months E11. - Type 2 diabetes mellitus with hyperglycemia IRON PROFILE 3 Months E11. - Type 2 diabetes mellitus with hyperglycemia Ferritin 3 Months E11. - Type 2 diabetes mellitus with hyperglycemia Referrals Cardiology Referral I25.10 - Atherosclerotic heart disease of [place] coronary artery without angina pectoris Medications: New semaglutide 1 mg (0.75 mL) subcut QWEEK 3.75 mL 2RF 30 days E11. - Type 2 diabetes mellitus with hyperglycemia Refilled pen needle, diabetic (BD Ultra-Fine Phuong Pen Needle) As directed 100 ea 2RF . - Type 2 diabetes mellitus with hyperglycemia insulin glargine (Lantus Solostar U-100 Insulin) 10 units (0.1 mL) subcut QPM 15 mL 3RF E11.65 - Type 2 diabetes mellitus with hyperglycemia Discontinued dulaglutide (Trulicity) Discontinued Reason: Doctor's Order 1.5 mg (0.5 mL) subcut QWEEK 90 days 12 syringe 3RF . - Type 2 diabetes mellitus with hyperglycemia Coding Level of Care Code Est Pt Level 4 (00941) Diagnoses HIV positive Z21 Chronic hepatitis C without hepatic coma B18.2 Hepatic coma status: without hepatic coma Tobacco abuse Z72.0 Type 2 diabetes mellitus with hyperglycemia E11.65 CAD (coronary artery disease) I25.10 Hypertension I10 Hypercholesterolemia E78.00 CKD stage 3 due to type 2 diabetes mellitus E11.22; N18.30
[2023-03-08 14:59] VITALS: BP 180/88; PULSE 70; O2SAT 99; BMI 28.9
== END 2023-03-08 15:44 | disposition home or self-care (01) ==
PROVIDERS: PCP Internal Medicine; Visit Provider Internal Medicine
DX: Z23 Encounter for immunization (principal); E11.65 Type 2 diabetes mellitus with hyperglycemia
CPT/HCPCS: 83036; 90471; 90686; 99214

== ENCOUNTER 2023-05-19 09:48 | Outpatient (AMB) | payer MEDICARE, SELFPAY ==
[2023-05-19 09:57] VITALS: BP 156/60; PULSE 83; BMI 29.6
--- NOTE | 2023-05-19 09:57 | A.OFFVIS_ITS ---
Intake Vital Signs 05/19/23 09:57 Height 5 ft 8 in Weight 194 lb 14.218 oz BMI 29.6 BP 156/60 H Blood Pressure Location Lt brachial Position Sitting Pulse 83 Intake Visit Reasons: NPV/Po/Atherosclerotic Intake Note: NPV w/ EKG Linotypist Required: No Accompanied by: Self / Same As Patient Allergies No Known Allergies Allergy (Verified 05/19/23 09:58) Medication List - Last Reconciled 05/19/23 by Casimiro Grande MD acetaminophen (Tylenol Extra Strength) 500 mg PO Q6H PRN amlodipine 10 mg PO DAILY 90 days aspirin (Adult Aspirin Regimen) 81 mg PO DAILY atorvastatin 20 mg PO DAILY flash glucose scanning reader (ClupediaStyle Pina 2 Eccles) As directed flash glucose sensor (FreeStyle Pina 2 Sensor kit) As directed insulin glargine (Lantus Solostar U-100 Insulin) 10 units (0.1 mL) subcut QPM lisinopril 40 mg PO DAILY metoprolol tartrate 200 mg (2 x 100 mg) PO BID 1 month pen needle, diabetic ([employer] Ultra-Fine Phuong Pen Needle) As directed polyethylene glycol 3350 (Miralax) 17 grams PO DAILY semaglutide 1 mg (0.75 mL) subcut QWEEK 30 days sofosbuvir-velpatasvir 400-100 mg (Epclusa) 1 tab PO DAILY 12 weeks tamsulosin 0.4 mg PO DAILY HPI HPI Comments History of Present Illness Details Tre is here for consultation regarding coronary disease. He underwent cardiac catheterization in 2010. At that time, underwent PCI/bare metal stenting of proximal RCA. He also had LAD disease but not intervened up on. Multiple cardiovascular risk factors including diabetes, hypertension, dyslipidemia, smoking. After the PCI, he did not see any Cardiology because he did not have insurance. He was doing okay but over the last 3-4 years, he does notice exertional chest pains. He describes rather like a pressure/tightness. Most recently, he noticed an episode after doing some snow clearing. However, goes away after a short duration. He states he is compliant with all his medications. Blood pressure is still quite high. He has on a lot of medications for blood pressure including a very high dose of beta-blockers. [facility] Medical History (Updated 05/19/23 @ 10:11 by Casimiro Grande MD) Hepatitis B core antibody positive Myocardial infarct Sciatic leg pain High blood pressure Diabetes Surgical History Stented coronary artery Family History Mother CKD (chronic kidney disease) Father Prostate cancer Brother Aneurysm Brother No problems noted. Sister No problems noted. Son No problems noted. Daughter No problems noted. Social History Housing: House Alcohol intake: current Patient Tobacco Use Status: Current everyday Tobacco user Tobacco use type: Cigarette Cigarettes Per Day: 2 Years Smoked: smoking 40 years e-Cigarette/Vaping Use: Never Used Second Hand Smoke Exposure: No service: No Current occupational status: retired and disabled Cognitive needs: No Hearing needs: No Vision needs: Yes Review of Systems Const Denies chills, Denies daytime sleepiness, Denies fatigue, Denies fever(s), Denies frequent falls, Denies night sweats, Denies snoring, Denies weakness, Denies weight gain and Denies weight loss Eyes Denies loss of vision ENT Denies dizziness and Denies hearing loss Card Denies syncope, Denies rapid heart rate, Denies edema, Denies claudication, Denies leg edema, Denies lightheadedness, Denies palpitations and Denies orthopnea Resp Denies cough, Denies excessive phlegm production, Denies snoring and Denies wheezing GI Denies abdominal pain, Denies hematochezia, Denies change in bowel habits, Denies change in stool character, Denies heartburn, Denies nausea and Denies vomiting Denies hematuria, Denies dysuria and Denies urinary frequency Musc Denies arthralgias, Denies muscle weakness, Denies numbness and Denies tingling Skin/Breast Denies nail changes and Denies rash Neuro Denies Abnormal speech present, Denies dizziness, Denies syncope, Denies frequent falls, Denies loss of vision, Denies memory loss, Denies numbness, Denies tingling and Denies weakness Psych Denies depression and Denies memory loss Endo Denies fatigue and Denies palpitations Aller/Immun Denies wheezing Physical Exam Vital Signs: Last Vital Signs Pulse 83 05/19/23 09:57 BP 156/60 H 05/19/23 09:57 BMI result Body Mass Index 29.6 Const General: comfortable and no acute distress Orientation/consciousness: patient oriented x3 HEENT Other: Unremarkable Head: Yes normal to inspection Neck Neck: Yes normal visual inspection Chest Chest palpation & inspection: normal inspection of the chest Resp Auscultation: clear to auscultation bilaterally Cardio Palpation: normal PMI Heart sounds: S1 normal heart sound present, S2 normal heart sound present, no gallops, no murmurs and no rubs GI Palpation (GI): Soft to palpation Back/Spine/Pelvis Other: unremarkable Skin General skin exam: no rashes or lesions noted Neuro General: patient oriented x3 Speech: No Abnormal speech present Extrem General: Yes normal to inspection Psych Mental Status: mental status grossly normal Office Procedures EKG Details: EKG with sinus rhythm at 83/Min; premature supraventricular complexes; [place] [id number], Complete Assessment & Plan Assessment & Plan (1) Atherosclerotic cardiovascular disease: Code(s): I25.10 - Atherosclerotic heart disease of [place] coronary artery without angina pectoris (2) Angina pectoris: Code(s): I20.9 - Angina pectoris, unspecified Plan Cardiac catheterization data reviewed from 2010. At that time, noted to have inferior hypokinesis with EF of around 45%. Successful PCI/VMS of proximal RCA. He also had angioplasty of mid right PDA. Lad had proximal 70% stenosis and mid vessel with 60% stenosis. Circumflex system had mild disease. He has numerous risk factors, stable anginal-type symptoms. We will repeat his echocardiogram to reassess LVEF and wall motion abnormaliti es. He probably needs another cardiac catheterization as symptoms are fairly typical and he has established CAD with known anatomy. He could have had progression of LAD disease or InStent restenosis in the RCA stent or any other new disease. However, he also has a history of elevated creatinine. Hence we will need that checked. Based on kidney function, we can decide. May need Nephrology input as well. With regard to blood pressure, it is still quite high. He is already on numerous medications including metoprolol at a very high dose, lisinopril, amlodipine. Possibly add nitrate/hydralazine. Will follow-up closely. Orders: Orders Comprehensive Met. Panel 3 Months E11.65 - Type 2 diabetes mellitus with hyperglycemia CA echo transthoracic complete Today I25.10 - Atherosclerotic heart disease of [place] coronary artery without angina pectoris Coding Level of Care Code New Pt Level 4 (73154) Diagnoses Atherosclerotic cardiovascular disease I25.10 Angina pectoris I20.9 CPT Codes EKG - CPT: 05131-[id number], Complete ([id number])
== END 2023-05-19 10:23 | disposition home or self-care (01) ==
PROVIDERS: PCP Internal Medicine; Visit Provider Internal Medicine
DX: I25.119 Atherosclerotic heart disease of native coronary artery with unspecified angina pectoris (principal); I47.10 Supraventricular tachycardia, unspecified
CPT/HCPCS: 93010; 99204

== ENCOUNTER → 2023-05-19 09:48 | Outpatient (BNVA) | payer MEDICARE, SELFPAY | PROVIDERS: PCP Internal Medicine; Visit Provider Internal Medicine | DX: I25.118 Atherosclerotic heart disease of native coronary artery with other forms of angina pectoris (principal) | CPT/HCPCS: 93005; 99202 ==

== ENCOUNTER 2023-05-20 09:56 | Outpatient (REF) | payer MEDICARE, SELFPAY ==
[2023-05-20 10:11] LABS: MANUAL DIFF FLAG NO
[2023-05-20 10:52] LABS: Basophils Absolute Auto 0.1 X10*3/uL (0.0-0.2); Basophils Percent Auto 0.6 % (0-2); Eosinophils Absolute Auto 0.4 X10*3/uL (0.0-0.4); Eosinophils Percent Auto 3.4 % (0-4); Hematocrit 36.2 % (42.0-52.0); Hemoglobin 12.2 g/dl (14.0-18.0); Imm Gran Abs Auto 0.04 X10*3/uL (0.00-0.03); Imm Gran Pct Auto 0.4 % (0.0-0.4); Immature Retic Fraction 13.5 % (2.3-13.4); Lymphocytes Percent Auto 19.1 % (20-40); Mean Corpuscular HGB Conc 33.7 g/dl (31.0-36.0); Mean Corpuscular Hemoglobin 31.3 pg (27.0-33.0); Mean Corpuscular Volume 92.8 fL (80.0-98.0); Mean Platelet Volume 10.4 fL (9.4-12.4); Monocytes Percent Auto 9.3 % (2-11); Neutrophils Absolute Auto 7.1 x10*3/uL (2.0-8.3); Neutrophils Percent Auto 67.2 % (45-73); Platelet Count 177 X10*3/uL (160-400); Retic HGB Equivalent 36.9 pg (30.0-35.0); Reticulocyte Percent 2.5 % (0.5-1.8); Reticulocytes Absolute 0.096 X10*6/uL (0.026-0.095); White Blood Count 10.5 X10*3/uL (4.8-10.8)
[2023-05-20 10:59] LABS: Estimated Average Glucose 194 mg/dL; Hemoglobin A1c % 8.4 % (<6.0)
[2023-05-20 11:49] LABS: Cholesterol 108 mg/dL (<200); HDL Cholesterol 27 mg/dL (>40); Iron 72 mcg/dL (45-160); LDL Cholesterol Calculated 62 mg/dL (<100); Percent Iron Saturation 23 % (15-50); Total Iron Binding Capacity 310 mcg/dL (228-428); Triglycerides 99 mg/dL (<150); Unsaturated Iron Binding 238 ug/dL
[2023-05-20 11:50] LABS: Ferritin 71 ng/mL (20-250); Free T4 (Free Thyroxine) 0.99 ng/dL (0.71-1.85); Thyroid Stimulating Hormone 0.76 uIU/mL (0.32-4.0)
[2023-05-20 11:54] LABS: Creatinine Urine 171.08 mg/dL
[2023-05-20 11:56] LABS: Folate 7.7 ng/mL (> or = 4.0); Vitamin B12 546 pg/mL (200-900)
[2023-05-20 12:04] LABS: Microalbum/Creatinine Ratio Ur 850.4 ug/mg cr (<30)
== END 2023-05-20 09:57 | disposition home or self-care (01) ==
LOC: HO.LAB 09:56
PROVIDERS: Absent Provider Internal Medicine; PCP Internal Medicine; Visit Provider Internal Medicine
DX: E11.65 Type 2 diabetes mellitus with hyperglycemia (principal); E78.00 Pure hypercholesterolemia, unspecified; Z12.5 Encounter for screening for malignant neoplasm of prostate
CPT/HCPCS: 36415; 80061; 82043; 82570; 82607; 82728; 82746; 83036; 83540; 84153; 84439; 84443; 85025; 85045

== ENCOUNTER 2023-06-04 10:54 | Outpatient (AMB) | payer MEDICARE, OTHER, SELFPAY ==
--- NOTE | 2022-12-02 11:36 | MHC.OFFVIS ---
Intake Intake Visit Reasons: Hep A #2 Allergies No Known Allergies Allergy (Verified 12/02/22 10:46) PFSH Medical History Diabetes High blood pressure Myocardial infarct Sciatic leg pain Surgical History Stented coronary artery Family History Mother CKD (chronic kidney disease) Father Prostate cancer Brother Aneurysm Brother No problems noted. Sister No problems noted. Son No problems noted. Daughter No problems noted. Social History Housing: House Alcohol intake: current Patient Tobacco Use Status: Current everyday Tobacco user Tobacco use type: Cigarette Cigarettes Per Day: 2 Years Smoked: smoking 40 years e-Cigarette/Vaping Use: Never Used Second Hand Smoke Exposure: No Current occupational status: retired and disabled Cognitive needs: No Hearing needs: No Vision needs: Yes Coding Diagnoses
--- NOTE | 2023-06-04 11:09 | AM.OFFVISNUR ---
Intake Intake Visit Reasons: Hep A #2 Allergies No Known Allergies Allergy (Verified 05/19/23 09:58) Immunizations Havrix (PF) 1,440 CARIDAD unit/mL intramuscular syringe Performing Provider: CORONA Henderson Performing Location: [facility] Administered by: Ivy Van RN on 06/04/23 11:09 Dose Route Admin Location Dispensed Lot Number Expiration Date [facility] Instructor Technical Training 1 mL IM Left Deltoid 1 mL [id number] 12/23/24 95029-416-63 [employer] VIS Given Date VIS Provided VIS Publication Date 06/04/23 Single Vaccine 21 Eligibility Eligibility Date Funding Source Not [facility] Eligible 06/04/23 Private Coding Level of Care Code Established Pt Est Pt Level 1 (92876) Patient Type Established Medical Decision Making Straight Forward Assessment & Plan Assessment & Plan Orders: Orders Hepatitis A Adult Immunization Today Z23 - Encounter for immunization
== END 2023-06-04 11:11 | disposition home or self-care (01) ==
PROVIDERS: PCP Internal Medicine; Visit Provider Nurse Practitioner Family
DX: Z23 Encounter for immunization (principal)

== ENCOUNTER → 2023-06-04 12:53 | Outpatient (REF) | payer MEDICARE, OTHER, SELFPAY ==
--- NOTE | 2023-06-04 12:55 | CA_ITS ---
Transthoracic Echocardiogram Patient (Last, First, Middle): Tre Reed J Gender: Male Date of : 1960 Age: 63 Procedure Date: 06/04/2023 Procedure Type: Transthoracic Echocardiogram Location: OP Height: 172.72 cm Weight: 89.36 kg BSA: 2.03 m2 Heart Rate: 52 bpm BP: 148 / 70 mmHg Clinical Appeals Specialist: TO Referring MD: Casimiro Grande MD Symptoms: I25.10 - Atherosclerotic heart disease of [place] coronary artery without... Study Quality: Adequate w contrast ECG Rhythm: Bradycardia Conclusions: - The left ventricular systolic function is mildly decreased. The calculated ejection fraction is 52% by biplane method. - The basal inferior, mid inferior, mid anteroseptal, and basal inferolateral segments are hypokinetic. - No obvious valvular pathology seen on this study. Findings Procedure Information Contrast agent, definity, is being given per protocol without apparent complications. Left Ventricle Normal left ventricular cavity size. There is mildly increased left ventricular wall thickness. The left ventricular systolic function is mildly decreased. The calculated ejection fraction is 52% by biplane method. Diastolic function is normal for age. There is moderate septal asymmetric hypertrophy. Wall Motion Rest Echo Findings The basal inferior, mid inferior, mid anteroseptal, and basal inferolateral segments are hypokinetic. Right Ventricle Normal right ventricular cavity size and systolic function. Atria Both atria are normal in size. Aortic Valve There is a normal trileaflet aortic valve. There is mild calcification of the aortic valve. There is no aortic valve stenosis. There is trace (trivial) aortic valve regurgitation. Mitral Valve There is mild mitral annular calcification. There is trace mitral valve regurgitation. There is no mitral valve stenosis. Pulmonic Valve The pulmonic valve is likely normal. Tricuspid Valve There is trace tricuspid valve regurgitation. There is no evidence of pulmonary hypertension. Great Vessels The asc aorta is normal in size. Venous The inferior vena cava is normal in size and collapses greater than 50% with inspiration. Pericardium/Pleural There is no evidence of pericardial effusion. Prior Study Comparison Changes noted compared to prior study dated: 04/10/2014. Decrease in LVEF; inferior wall motion abnormality previously described. Recommendations, Care & Conclusions No obvious valvular pathology seen on this study. Measurements 2D Linear Measurements IVSd: 1.46 0.6-0.9/0.6-1.0 cm LVIDd: 4.47 3.9-5.3/4.2-5.9 cm LVIDd Index: 2.20 2.4-3.2/2.2-3.1 cm/m2 LVIDs: 3.09 2.0-3.6 cm LVPWd: 1.20 0.7-1.1 cm LA Diam: 4.30 2.7-3.8/3.0-4.0 cm LAIDs Index: 2.12 1.5-2.3 cm/m2 LV Mass: 284.08 67-162/88-224 g LV Mass Index: 139.94 43-95/49-115 g/m2 LVOT Diam: 2.10 3.0+(-)1.3 cm 2D Systolic Function EF 4C: 56.40 >55% EF 2C: 51.40 >55% EF BiP: 52.30 >55% Mitral Valve MV VTI: 0.37 MV Pk Demarco: 1.00 MV Mn Demarco: 0.50 MV Pk Grad: 4.00 MV Mn Grad: 1.00 MV Pk E: 0.69 MV PK A: 0.95 MV Decel Time: 258.00 E/A: 0.70 E'Lateral: 5.77 E'Medial: 4.79 E/E' Med: 14.30 E/E' Lat: 11.90 PHT: 76.00 MVA PHT: 2.89 MVA Continuity: 2.28 Decel Andrew: 2.66 Aortic Valve AoV Pk Demarco: 1.17 AoV Mn Demarco: 0.86 AoV VTI: 0.30 AoV Pk Grad: 5.00 Aov Mn Grad: 3.00 MONICA Cont.VTI: 2.83 LVOT LVOT Pk Demarco: 0.95 LVOT Mn Demarco: 0.66 LVOT VTI: 0.24 LVOT Pk Grad: 4.00 LVOT Mn Grad: 2.00 LVOT Diam: 2.10 LVOT Area: 3.46 Diastolic Function MV Pk E: 0.69 MV Pk A: 0.95 E/A: 0.70 E'Medial: 4.79 E/E' Med: 14.30 E' Laterial: 5.77 E/E' Lat: 11.90 Right Ventricle TAPSE (mm): 19.30 TVS' Demarco: 13.70 Tricuspid Valve RA Press: 3.00 Great Vessels Aorta Sinus of Valsalva: 3.08 2.0-3.5 cm Ao Asc: 3.10 2.1-3.4 cm Updated in Other Vendor System with Status of Final Casimiro Grande MD electronically signed on 06/06/2023 7:43:32 AM with status of Final
== END ==
LOC: HO.CARD 12:53
PROVIDERS: PCP Internal Medicine; Visit Provider Internal Medicine
DX: Z23 Encounter for immunization (principal); I25.10 Atherosclerotic heart disease of native coronary artery without angina pectoris
CPT/HCPCS: 90471; 90632; 93306; 99211; Q9957

== ENCOUNTER → 2023-06-04 12:55 | Outpatient (BNV) | payer MEDICARE, OTHER, SELFPAY | PROVIDERS: PCP Internal Medicine; Visit Provider Internal Medicine | DX: I25.10 Atherosclerotic heart disease of native coronary artery without angina pectoris (principal) | CPT/HCPCS: 93306 ==

== ENCOUNTER 2023-06-17 12:45 | Outpatient (AMB) | payer MEDICARE, SELFPAY ==
[2023-06-17 13:02] VITALS: BP 148/80; PULSE 99; O2SAT 95; BMI 29.0
--- NOTE | 2023-06-17 13:02 | MHC.PC.OV ---
Vital Signs 06/17/23 13:02 Height 5 ft 8 in Weight 191 lb BMI 29.0 BP 148/80 H Blood Pressure Location Lt brachial Position Sitting Pulse 99 Pulse Source Pulse Oximeter Pulse Oximetry (%) 95 Oxygen Delivery Method Room Air Intake Visit Reasons: Coronary artery disease Intake Note: Patient is here to follow up on CAD Direct Support Staff Required: No Allergies No Known Allergies Allergy (Verified 06/17/23 13:02) Medication List - Last Reconciled 06/17/23 by Gene Enciso MD acetaminophen (Tylenol Extra Strength) 500 mg PO Q6H PRN amlodipine 10 mg PO DAILY 90 days aspirin (Adult Aspirin Regimen) 81 mg PO DAILY atorvastatin 20 mg PO DAILY flash glucose scanning reader (motionID technologiesStyle Pina 2 Ashton) As directed flash glucose sensor (FreeStyle Pina 2 Sensor kit) As directed insulin glargine (Lantus Solostar U-100 Insulin) 10 units (0.1 mL) subcut QPM lisinopril 40 mg PO DAILY metoprolol tartrate 200 mg (2 x 100 mg) PO BID 1 month pen needle, diabetic (BD Ultra-Fine Phuong Pen Needle) As directed polyethylene glycol 3350 (Miralax) 17 grams PO DAILY semaglutide 0.5 mg (0.736 mL) subcut QWEEK 30 days sofosbuvir-velpatasvir 400-100 mg (Epclusa) 1 tab PO DAILY 12 weeks tamsulosin 0.4 mg PO DAILY Tobacco use date assessed: 06/17/23 Fall risk assessment: No Falls in past year Last assessed Fall Risk: 06/17/23 Dental Screening Dental Screen Date: 06/17/23 Did you have a dental visit in the last 12 months?: No Did you have a dental problem in the last 6 months where you did not have access to dental care?: No HPI Coronary artery disease HPI Details 63-year-old overweight male smoker with a history of diabetes mellitus coronary artery disease hypertension hypercholesterolemia chronic kidney disease hepatitis C coming in for follow-up. Last seen in February 2023. Patient had Cologuard positive May 2022 and has been advised to see gastroenterology. Echocardiogram done May 2023he left ventricular systolic function is mildly decreased. The calculated ejection fraction is 52% by biplane method. - The basal inferior, mid inferior, mid anteroseptal, and basal inferolateral segments are hypokinetic. - No obvious valvular pathology seen on this study. And seen Cardiology April 2023 CAD with PCI bare metal stent proximal RCA 2010 with angioplasty mid right PDA [facility] Medical History (Updated 06/17/23 @ 14:01 by Gene Enciso MD) False positive HIV serology Hepatitis B core antibody positive Myocardial infarct Sciatic leg pain High blood pressure Diabetes Surgical History Stented coronary artery Family History Mother CKD (chronic kidney disease) Father Prostate cancer Brother Aneurysm Brother No problems noted. Sister No problems noted. Son No problems noted. Daughter No problems noted. Social History Housing: House Alcohol intake: current Patient Tobacco Use Status: Current everyday Tobacco user Tobacco use type: Cigarette Cigarettes Per Day: 2 Years Smoked: smoking 40 years e-Cigarette/Vaping Use: Never Used Second Hand Smoke Exposure: No service: No Current occupational status: retired and disabled Cognitive needs: No Hearing needs: No Vision needs: Yes Questionnaire PHQ-9 Over the last 2 weeks, how often have you been bothered by any of the following problems? 1. Little interest or pleasure in doing things: nearly every day 2. Feeling down, depressed, or hopeless: nearly every day 3. Trouble falling or staying asleep, or sleeping too much: not at all 4. Feeling tired or having little energy: not at all 5. Poor appetite or overeating: not at all 6. Feeling bad about yourself - or that you are a failure or have let yourself or your family down: not at all 7. Trouble concentrating on things, such as reading the newspaper or watching television: not at all 8. Moving or speaking so slowly that other people could have noticed. Or the opposite - being so fidgety or restless that you have been moving around a lot more than usual: not at all 9. Thoughts that you would be better off or of hurting yourself in some way: not at all Total score: 6 Depression Screening Interpretation: Positive Depression Screening Done: Yes Source: Developed by Drs. Antonio Hudson, Flaca Rutledge, Dk Nino and colleagues, with an educational elmer from [employer]. Thrive Questionnaire Date Thrive assessed: 06/17/23 AUDIT C Alcohol Use Questionnaire (AUDIT-C) 1. How often do you have a drink containing alcohol?: Monthly or less 2. How many drinks containing alcohol do you have on a typical day when you are drinking?: 1 or 2 3. How often do you have six or more drinks on one occasion?: Never Total Score: 1 SUSANA-7 AMB Questionnaire SUSANA-7 Date SUSANA - 7 assessed: 07/01/22 Source: Developed by Drs. Antonio Hudson, Flaca Rutledge, Dk Nino and colleagues, with an educational elmer from [employer]. Physical exam (Primary Care) Vital Signs: Last Vital Signs Pulse 99 06/17/23 13:02 BP 148/80 H 06/17/23 13:02 Pulse Ox 95 06/17/23 13:02 Oxygen Delivery Method Room Air 06/17/23 13:02 BMI result Body Mass Index 29.0 Tobacco/Smoking Status: Tobacco use Status Tobacco use date assessed 06/17/23 06/17/23 13:05 Patient Tobacco Use Status Current everyday Tobacco 06/17/23 13:05 Tobacco use type Cigarette 06/17/23 13:05 e-Cigarette/Vaping Use Never Used 06/17/23 13:05 PHQ-9: PHQ-9 Score PHQ-9: Total score 6 06/17/23 13:43 Depression Screening Interpretation: Positive Thrive Assessment: Date of Thrive Assessment Date Thrive assessed 06/17/23 06/17/23 13:05 Const General: alert; No acute distress Eyes Conjunctivae: conjunctivae normal Resp Auscultation: clear to auscultation bilaterally Cardio Rate: regular rate Rhythm: regular rhythm GI Inspection: Yes normal to inspection Extrem General: Yes normal to inspection and No edema Immunizations pneumoc 20-staci conj-dip cr(PF) 0.5 mL IM syringe Performing Provider: Gene Enciso MD [facility] Administered by: INDIRA Ny on 06/17/23 14:07 Dose Route Admin Location Dispensed Lot Number Expiration Date 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 0.5 mL IM Left Deltoid 0.5 mL [id number] 08/24/24 [employer]/Dubaki VIS Given Date VIS Provided VIS Publication Date 06/17/23 Single Vaccine 21 Eligibility Eligibility Date Funding Source Not [facility] Eligible 06/17/23 Private Assessment and Plan Assessment & Plan (1) Atherosclerotic cardiovascular disease: Code(s): I25.10 - Atherosclerotic heart disease of [place] coronary artery without angina pectoris Plan: Control the cholesterol, weight, blood pressure, diabetes continue with aspirin 81 mg once a day (2) Type 2 diabetes mellitus with hyperglycemia: Comment: joselin Code(s): E11.65 - Type 2 diabetes mellitus with hyperglycemia Plan: Decrease the amount of carbohydrate intake, pasta, bread, rice and potatoes are all sugar and that is aside from all the sweet stuff, remember that fruits are good but they are Sweet also. Hemoglobin A1c goal of less than 7.0 presently on Lantus Ozempic at 1 mg once a week (3) Hypertension: Code(s): I10 - Essential (primary) hypertension Plan: Continue with blood pressure medication. Decrease salt intake and exercise continue with metoprolol 200 mg twice a day lisinopril 40 mg once a day amlodipine 10 mg once a day (4) Hypercholesterolemia: Code(s): E78.00 - Pure hypercholesterolemia, unspecified Plan: Avoid fried foods, chicken skin, eggs, butter margarine, pastries and meat. Be it pork or beef they have a lot of cholesterol LDL goal of less than 70 and triglyceride of less than 150 on atorvastatin 20 mg once a day (5) CKD stage 3 due to type 2 diabetes mellitus: Code(s): E11.22 - Type 2 diabetes mellitus with diabetic chronic kidney disease; N18.30 - Chronic kidney disease, stage 3 unspecified Plan: Patient is advised to be referred to Nephrology (6) Tobacco abuse: Code(s): Z72.0 - Tobacco use Plan: Advised strongly to stop smoking (7) Chronic hepatitis C: Comment: F4 Hepatitis C needs to be managed by GI due to above reasons (cirrhosis management) and they have already seen him: treated Code(s): B18.2 - Chronic viral hepatitis C Qualifiers: Hepatic coma status: without hepatic coma Qualified Code(s): B18.2 - Chronic viral hepatitis C Plan: Patient advised to follow-up with Gastroenterology (8) Positive colorectal cancer screening using Cologuard test: Code(s): R19.5 - Other fecal abnormalities Plan: Referral to Gastroenterology done reminded patient (9) HIV positive: Comment: July 2022 screening positive but confirmatory negative. Possibly this is newly acquired infection or false positive screening Code(s): Z21 - Asymptomatic human immunodeficiency virus [HIV] infection status Plan: Patient is advised to follow up with Infectious Disease Orders: Referrals Nephrology Referral E11.22 - Type 2 diabetes mellitus with diabetic chronic kidney disease, N18.30 - Chronic kidney disease, stage 3 unspecified Medications: Changed From semaglutide 1 mg (0.75 mL) subcut QWEEK 30 days 3.75 mL 2RF E11.65 - Type 2 diabetes mellitus with hyperglycemia To semaglutide 0.5 mg (0.736 mL) subcut QWEEK 30 days 3.68 mL 2RF E11.65 - Type 2 diabetes mellitus with hyperglycemia From tamsulosin 0.4 mg PO DAILY 90 caps 2RF N40.0 - Benign prostatic hyperplasia without lower urinary tract symptoms To tamsulosin 0.8 mg (2 x 0.4 mg) PO DAILY 90 days 180 caps 2RF N40.0 - Benign prostatic hyperplasia without lower urinary tract symptoms Refilled famotidine (Pepcid) 20 mg PO BEDTIME 90 days PRN 90 tabs 3RF acid reflux K21.9 - Gastro-esophageal reflux disease without esophagitis Coding Level of Care Code Est Pt Level 4 (20989) Diagnoses Atherosclerotic cardiovascular disease I25.10 Type 2 diabetes mellitus with hyperglycemia E11.65 Hypertension I10 Hypercholesterolemia E78.00 CKD stage 3 due to type 2 diabetes mellitus E11.22; N18.30 Tobacco abuse Z72.0 Chronic hepatitis C without hepatic coma B18.2 Hepatic coma status: without hepatic coma Positive colorectal cancer screening using Cologuard test R19.5 HIV positive Z21
== END 2023-06-17 14:15 | disposition home or self-care (01) ==
PROVIDERS: PCP Internal Medicine; Visit Provider Internal Medicine
DX: I12.9 Hypertensive chronic kidney disease with stage 1 through stage 4 chronic kidney disease, or unspecified chronic kidney disease (principal); E11.22 Type 2 diabetes mellitus with diabetic chronic kidney disease; N18.30 Chronic kidney disease, stage 3 unspecified; Z23 Encounter for immunization; E11.65 Type 2 diabetes mellitus with hyperglycemia; B18.2 Chronic viral hepatitis C; I25.10 Atherosclerotic heart disease of native coronary artery without angina pectoris; Z21 Asymptomatic human immunodeficiency virus [HIV] infection status; E78.00 Pure hypercholesterolemia, unspecified; Z72.0 Tobacco use; R19.5 Other fecal abnormalities
CPT/HCPCS: 90471; 90677; 99214

== ENCOUNTER 2023-06-17 14:19 | Outpatient (REF) | payer MEDICARE, OTHER, SELFPAY ==
[2023-06-17 15:26] LABS: INTERNATIONAL NORM RATIO 0.9 (0.9-1.1); Prothrombin Time 11.5 SEC (11.1-13.3)
[2023-06-17 15:29] LABS: Anion Gap 12 (12-20); Blood Urea Nitrogen 47 mg/dL (9-16); Calcium 9.8 mg/dL (8.4-10.2); Carbon Dioxide 25 mmol/L (22-29); Chloride 106 mmol/L (96-108); Estimated Glomerular Filt Rate 27; Glucose Random 302 mg/dL (60-115); Potassium 5.5 mmol/L (3.3-5.1); Sodium 137 mmol/L (135-145)
== END 2023-06-17 14:20 | disposition home or self-care (01) ==
LOC: HO.LAB 14:19
PROVIDERS: PCP Internal Medicine; Visit Provider Internal Medicine
DX: I25.10 Atherosclerotic heart disease of native coronary artery without angina pectoris (principal)
CPT/HCPCS: 36415; 80048; 85610

== ENCOUNTER 2023-06-21 14:42 | Outpatient (AMB) | payer MEDICARE, SELFPAY ==
--- NOTE | 2023-06-21 14:44 | A.OFFVIS_ITS ---
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 Accompanied by: Self / Same As Patient Allergies No Known Allergies Allergy (Verified 06/21/23 14:46) Medication List - Last Reconciled 06/21/23 by Casimiro Grande MD acetaminophen (Tylenol Extra Strength) 500 mg PO Q6H PRN amlodipine 10 mg PO DAILY 90 days aspirin (Adult Aspirin Regimen) 81 mg PO DAILY atorvastatin 20 mg PO DAILY famotidine (Pepcid) 20 mg PO BEDTIME PRN 90 days flash glucose scanning reader ([place] BayStyle Pina 2 Sunbright) As directed flash glucose sensor (FreeStyle Pina 2 Sensor kit) As directed insulin glargine (Lantus Solostar U-100 Insulin) 10 units (0.1 mL) subcut QPM lisinopril 40 mg PO DAILY metoprolol tartrate 200 mg (2 x 100 mg) PO BID 1 month pen needle, diabetic (C-nario Ultra-Fine Phuong Pen Needle) As directed polyethylene glycol 3350 (Miralax) 17 grams PO DAILY semaglutide 0.5 mg (0.736 mL) subcut QWEEK 30 days sofosbuvir-velpatasvir 400-100 mg (Epclusa) 1 tab PO DAILY tamsulosin 0.8 mg (2 x 0.4 mg) PO DAILY 90 days HPI HPI Comments History of Present Illness Details Tre returns for follow-up. Recently seen in consultation regarding coronary disease. To recall, he underwent cardiac catheterization in 2010. At that time, underwent PCI/bare metal stenting of proximal RCA. He also had LAD disease but not intervened upon. Multiple cardiovascular risk factors including diabetes, hypertension, dyslipidemia, smoking. After the PCI, he did not see any Cardiology because he did not have insurance. He was doing okay but over the last 3-4 years, he does notice exertional chest pains. He describes rather like a pressure/tightness. Most recently, he noticed an episode after doing some snow clearing. However, goes away after a short duration. He states he is compliant with all his medications. Blood pressure is still quite high. He has on a lot of medications for blood pressure including a very high dose of beta- blockers. Since last seen, he continues to get exertional chest pain along with exertional shortness of breath. Mainly notices when he goes up flights of stairs. On level ground he seems better. [facility] Medical History (Updated 06/17/23 @ 14:01 by Gene Enciso MD) False positive HIV serology Hepatitis B core antibody positive Myocardial infarct Sciatic leg pain High blood pressure Diabetes Surgical History Stented coronary artery Family History Mother CKD (chronic kidney disease) Father Prostate cancer Brother Aneurysm Brother No problems noted. Sister No problems noted. Son No problems noted. Daughter No problems noted. Social History Housing: House Alcohol intake: current Patient Tobacco Use Status: Current everyday Tobacco user Tobacco use type: Cigarette Cigarettes Per Day: 2 Years Smoked: smoking 40 years e-Cigarette/Vaping Use: Never Used Second Hand Smoke Exposure: No service: No Current occupational status: retired and disabled Cognitive needs: No Hearing needs: No Vision needs: Yes Review of Systems Const Denies weakness ENT Denies dizziness Card Denies chest pain, Denies chest pain with activity, Denies syncope, Denies rapid heart rate, Denies pedal edema, Denies edema, Denies leg edema, Denies lightheadedness, Denies palpitations and Denies orthopnea Resp Denies cough GI Denies hematochezia and Denies change in stool character Musc Denies abnormal gait, Denies muscle cramps, Denies muscle weakness, Denies numbness, Denies radiating pain into limb and Denies tingling Neuro Denies abnormal gait, Denies dizziness, Denies syncope, Denies numbness, Denies tingling and Denies weakness Endo Denies palpitations Physical Exam Vital Signs: Last Vital Signs Pulse 62 06/21/23 14:45 BP 140/70 H 06/21/23 14:45 BMI result Body Mass Index 28.8 Const General: comfortable and no acute distress Orientation/consciousness: patient oriented x3 HEENT Other: Unremarkable Head: Yes normal to inspection Neck Neck: Yes normal visual inspection Chest Chest palpation & inspection: normal inspection of the chest Resp Auscultation: clear to auscultation bilaterally Cardio Palpation: normal PMI Heart sounds: S1 normal heart sound present, S2 normal heart sound present, no gallops, no murmurs and no rubs GI Palpation (GI): Soft to palpation Back/Spine/Pelvis Other: unremarkable Skin General skin exam: no rashes or lesions noted Neuro General: patient oriented x3 Extrem General: Yes normal to inspection Psych Mental Status: mental status grossly normal Assessment & Plan Assessment & Plan (1) Atherosclerotic cardiovascular disease: Code(s): I25.10 - Atherosclerotic heart disease of [place] coronary artery without angina pectoris (2) Angina pectoris: Code(s): I20.9 - Angina pectoris, unspecified Plan Cardiac catheterization data reviewed from 2010. At that time, noted to have inferior hypokinesis with EF of around 45%. Successful PCI of proximal RCA. He also had angioplasty of mid right PDA. Lad had proximal 70% stenosis and mid vessel with 60% stenosis. Circumflex system had mild disease. In the recent echocardiogram, LVEF 52%. Basal inferior/mid inferior, mid anteroseptal and basal inferolateral hypokinesis. Overall, numerous risk factors for coronary disease, established CAD, exertional angina. Unfortunately, he also has significant chronic kidney disease. Ideally, needs a diagnostic cardiac catheterization for further assessment. Because of CKD, there is increased risk of contrast induced nephropathy and we discussed about that in detail today. He understands. Requested nephrology appointment -that is pending. We can plan catheterization after that. Patient is agreeable with this plan. In the interim, add long-acting nitrates. He can also use additional sublingual nitroglycerin as needed. He is already on a very high dose of beta-blockers. Will follow-up closely. Orders: Orders Cardiac Cath LT Diagnostic Today I25.10 - Atherosclerotic heart disease of [place] coronary artery without angina pectoris Medications: New isosorbide mononitrate ER 60 mg PO DAILY 90 tabs 3RF nitroglycerin do not exceed 3 doses per episode 0.4 mg sublingual Q5M PRN 30 tabs 5RF chest pain R07.2 - Precordial pain Changed From sofosbuvir-velpatasvir 400-100 mg (Epclusa) 1 tab PO DAILY 12 weeks 84 tabs 0RF To sofosbuvir-velpatasvir 400-100 mg (Epclusa) 1 tab PO DAILY Coding Level of Care Code Est Pt Level 4 (16393) Diagnoses Atherosclerotic cardiovascular disease I25.10 Angina pectoris I20.9
[2023-06-21 14:45] VITALS: BP 140/70; PULSE 62; BMI 28.8
== END 2023-06-21 15:35 | disposition home or self-care (01) ==
PROVIDERS: PCP Internal Medicine; Visit Provider Internal Medicine
DX: I25.119 Atherosclerotic heart disease of native coronary artery with unspecified angina pectoris (principal)
CPT/HCPCS: 99214

== ENCOUNTER → 2023-06-21 14:42 | Outpatient (BNVA) | payer MEDICARE, SELFPAY | PROVIDERS: PCP Internal Medicine; Visit Provider Internal Medicine | DX: I25.119 Atherosclerotic heart disease of native coronary artery with unspecified angina pectoris (principal) | CPT/HCPCS: 99212 ==

== ENCOUNTER 2023-06-29 09:54 | Outpatient (REF) | payer MEDICARE, SELFPAY ==
[2023-06-29 11:08] LABS: Hematocrit 34.4 % (42.0-52.0); Hemoglobin 11.9 g/dl (14.0-18.0); Mean Corpuscular HGB Conc 34.6 g/dl (31.0-36.0); Mean Corpuscular Hemoglobin 31.7 pg (27.0-33.0); Mean Corpuscular Volume 91.7 fL (80.0-98.0); Mean Platelet Volume 9.9 fL (9.4-12.4); Platelet Count 173 X10*3/uL (160-400); Red Blood Count 3.75 X10*6/uL (4.60-5.80); White Blood Count 8.2 X10*3/uL (4.8-10.8)
== END 2023-06-29 09:55 | disposition home or self-care (01) ==
LOC: HO.LAB 09:54
PROVIDERS: PCP Internal Medicine; Visit Provider Internal Medicine
DX: I25.10 Atherosclerotic heart disease of native coronary artery without angina pectoris (principal)
CPT/HCPCS: 36415; 85027

== ENCOUNTER 2023-07-01 15:10 | Outpatient (AMB) | payer MEDICARE, OTHER, SELFPAY ==
[2023-07-01 15:11] VITALS: BP 140/62; PULSE 81; O2SAT 99
--- NOTE | 2023-07-01 15:11 | HO.NEPHOV_ITS ---
HPI HPI Comments History of Present Illness Details 62-year-old man with a longstanding hist ory of diabetes mellitus and hypertension. He has history of coronary disease and scheduled for coronary angiogram. He is history of hepatitis-C was treated with EPCLUSA in January 2023. Two years ago serum creatinine is 1.9. As of June 2022 creatinine was 2.0. In May 2023, creatinine was 2.4 He has been scheduled for coronary angiogram next week and hence his evaluation. Has a history of smoking. He quit smoking about 2 months ago. [facility] Medical History (Updated 07/01/23 @ 16:02 by Agustin Goodwin MD) False positive HIV serology Hepatitis B core antibody positive Myocardial infarct Sciatic leg pain High blood pressure Diabetes Surgical History Stented coronary artery Family History Mother CKD (chronic kidney disease) Father Prostate cancer Brother Aneurysm Brother No problems noted. Sister No problems noted. Son No problems noted. Daughter No problems noted. Social History Housing: House Alcohol intake: current Patient Tobacco Use Status: Current everyday Tobacco user Tobacco use type: Cigarette Cigarettes Per Day: 2 Years Smoked: smoking 40 years e-Cigarette/Vaping Use: Never Used Second Hand Smoke Exposure: No service: No Current occupational status: retired and disabled Cognitive needs: No Hearing needs: No Vision needs: Yes Vital Signs 07/01/23 15:11 07/01/23 15:33 Height 58 ft Weight 190 lb BMI 0.3 BP 140/62 H 130/70 Blood Pressure Location Lt brachial Lt radial Position Sitting Sitting Pulse 81 Pulse Source Pulse Oximeter Pulse Oximetry (%) 99 Oxygen Delivery Method Room Air Physical Exam Vital Signs: Last Vital Signs Pulse 81 07/01/23 15:11 BP 130/70 07/01/23 15:33 Pulse Ox 99 07/01/23 15:11 Oxygen Delivery Method Room Air 07/01/23 15:11 BMI result Body Mass Index 0.3 Const General: comfortable Nutritional Appearance: well nourished Orientation/consciousness: patient oriented x3 HEENT Head: No normal to inspection Mouth: moist mucous membranes Neck Neck: Yes supple and Yes no JVD Resp Auscultation: clear to auscultation bilaterally, no rales and rub present Cardio Jugular venous distension: no JVD Palpation: no palpable S3 and no palpable S4 Heart sounds: no rubs GI Palpation (GI): Soft to palpation and nontender Percussion: No Fluid wave present General: Yes no CVA tenderness Back/Spine/Pelvis Back: no CVA tenderness Skin General skin exam: no rashes or lesions noted Neuro General: patient oriented x3 Extrem General: Yes no pedal edema and No clubbing Assessment & Plan Assessment & Plan (1) CKD stage 3 due to type 2 diabetes mellitus: Code(s): E11.22 - Type 2 diabetes mellitus with diabetic chronic kidney disease; N18.30 - Chronic kidney disease, stage 3 unspecified Plan: Chronic kidney disease most likely due to underlying diabetic kidney disease. He has significant proteinuria. Nondiabetic causes should be considered -given history of hepatitis-C I have initiated workup for CKD including basic serology and a renal ultrasonogram. There could be a component of hypoperfusion therefore I will hold lisinopril to see the improvement in the renal function. Further workup will be based on the above investigations (2) Hypertension: Code(s): I10 - Essential (primary) hypertension Plan: Overall blood pressure is well controlled. Increase him to stand low-sodium diet. (3) Hyperkalemia: Code(s): E87.5 - Hyperkalemia Plan: Due to the combination of use of Esau inhibitors as well as underlying CKD. Encouraged him to stay on low-potassium diet. Lisinopril has been discontinued. We will recheck potassium and if it stays elevated we will add Lokelma (4) Chronic hepatitis C: Code(s): B18.2 - Chronic viral hepatitis C Qualifiers: Hepatic coma status: without hepatic coma Qualified Code(s): B18.2 - Chronic viral hepatitis C Plan: Status post treatment with EPCLUSA Follows with GI Plan At this time is at high risk for contrast induced nephropathy. I would suggest to hold off on coronary angiogram unless it has an emergency. He returned to the office in the next few weeks after the baseline workup was completed. We will optimize renal function prior to coronary angiogram to reduce the risk of contrast induced nephropathy. Orders: Orders Complete Blood Count Auto Diff 1 Week E11.22 - Type 2 diabetes mellitus with diabetic chronic kidney disease, E87.5 - Hyperkalemia, N18.30 - Chronic kidney disease, stage 3 unspecified Phosphorus 1 Week E11.22 - Type 2 diabetes mellitus with diabetic chronic kidney disease, E87.5 - Hyperkalemia, N18.30 - Chronic kidney disease, stage 3 unspecified Total Protein Urine Random 1 Week E11.22 - Type 2 diabetes mellitus with diabetic chronic kidney disease, E87.5 - Hyperkalemia, N18.30 - Chronic kidney disease, stage 3 unspecified Parathyroid Hormone Intact 1 Week E11.22 - Type 2 diabetes mellitus with diabetic chronic kidney disease, E87.5 - Hyperkalemia, N18.30 - Chronic kidney disease, stage 3 unspecified Comprehensive Met. Panel 1 Week E11. - Type 2 diabetes mellitus with diabetic chronic kidney disease, E87.5 - Hyperkalemia, N18.30 - Chronic kidney disease, stage 3 unspecified, N18.9 - Chronic kidney disease, unspecified Vitamin D 25-OH (D2 and D3) 1 Week E11. - Type 2 diabetes mellitus with diabetic chronic kidney disease, E87.5 - Hyperkalemia, N18.30 - Chronic kidney disease, stage 3 unspecified Creatinine Urine 1 Week E11. - Type 2 diabetes mellitus with diabetic chronic kidney disease, E87.5 - Hyperkalemia, N05.9 - Unspecified nephritic syndrome with unspecified morphologic changes, N18.30 - Chronic kidney disease, stage 3 unspecified UA and rflx microscopic 1 Week E11. - Type 2 diabetes mellitus with diabetic chronic kidney disease, E87.5 - Hyperkalemia, N18.30 - Chronic kidney disease, stage 3 unspecified US renal BI 1 Week E11. - Type 2 diabetes mellitus with diabetic chronic kidney disease, E87.5 - Hyperkalemia, N18.30 - Chronic kidney disease, stage 3 unspecified Coding Level of Care Code New Pt Level 5 (52660) Diagnoses CKD stage 3 due to type 2 diabetes mellitus E11.; N18.30 Hypertension I10 Hyperkalemia E87.5 Chronic hepatitis C without hepatic coma B18.2 Hepatic coma status: without hepatic coma Results Reviewed Nephrology Results: Hgb 11.9 g/dl (14.0-18.0) L 06/29/23 WBC 8.2 X10*3/uL (4.8-10.8) 06/29/23 Plt Count 173 X10*3/uL (160-400) 06/29/23 Sodium 137 mmol/L (135-145) 06/17/23 Potassium 5.5 mmol/L (3.3-5.1) H 06/17/23 Chloride 106 mmol/L (96-108) 06/17/23 Carbon Dioxide 25 mmol/L (22-29) 06/17/23 BUN 47 mg/dL (9-16) H 06/17/23 Creatinine 2.41 mg/dL (0.5-1.4) H 06/17/23 Calcium 9.8 mg/dL (8.4-10.2) 06/17/23 Urine Creatinine 171.08 mg/dL 05/20/23
[2023-07-01 15:33] VITALS: BP 130/70
== END 2023-07-01 15:46 | disposition home or self-care (01) ==
PROVIDERS: PCP Internal Medicine; Referring Provider Internal Medicine; Visit Provider Internal Medicine Hypertension Specialist
DX: E11.22 Type 2 diabetes mellitus with diabetic chronic kidney disease (principal); N18.30 Chronic kidney disease, stage 3 unspecified; B18.2 Chronic viral hepatitis C; I10 Essential (primary) hypertension; E87.5 Hyperkalemia
CPT/HCPCS: 99204

== ENCOUNTER → 2023-07-01 15:10 | Outpatient (BNVA) | payer MEDICARE, OTHER, SELFPAY | PROVIDERS: PCP Internal Medicine; Referring Provider Internal Medicine; Visit Provider Internal Medicine Hypertension Specialist | DX: E11.22 Type 2 diabetes mellitus with diabetic chronic kidney disease (principal); I12.9 Hypertensive chronic kidney disease with stage 1 through stage 4 chronic kidney disease, or unspecified chronic kidney disease; N18.30 Chronic kidney disease, stage 3 unspecified; E78.5 Hyperlipidemia, unspecified; B18.2 Chronic viral hepatitis C | CPT/HCPCS: 99202 ==

== ENCOUNTER 2023-07-05 12:25 | Outpatient (AMB) | payer MEDICARE, SELFPAY ==
[2023-07-05 12:31] VITALS: BP 166/70; PULSE 62; O2SAT 100; BMI 28.9
--- NOTE | 2023-07-05 12:31 | MHC.PC.OV ---
Vital Signs 07/05/23 12:31 Height 5 ft 8 in Weight 190 lb 0.4 oz BMI 28.9 BP 166/70 H Blood Pressure Location Lt brachial Position Sitting Pulse 62 Pulse Source Pulse Oximeter Pulse Oximetry (%) 100 Oxygen Delivery Method Room Air Intake Visit Reasons: PE Intake Note: Patient is here today for a physical. Critical Care Transport Nurse Required: No Allergies No Known Allergies Allergy (Verified 07/01/23 15:13) Medication List - Last Reconciled 07/05/23 by Gene Enciso MD acetaminophen (Tylenol Extra Strength) 500 mg PO Q6H PRN amlodipine 10 mg PO DAILY 90 days aspirin (Adult Aspirin Regimen) 81 mg PO DAILY atorvastatin 20 mg PO DAILY famotidine (Pepcid) 20 mg PO BEDTIME PRN 90 days flash glucose scanning reader (FanDistroStyle Pina 2 [place]) As directed flash glucose sensor (FreeStyle Pina 2 Sensor kit) As directed insulin glargine (Lantus Solostar U-100 Insulin) 10 units (0.1 mL) subcut QPM isosorbide mononitrate ER 60 mg PO DAILY metoprolol tartrate 200 mg (2 x 100 mg) PO BID 1 month nitroglycerin 0.4 mg sublingual Q5M PRN pen needle, diabetic (BD Ultra-Fine Phuong Pen Needle) As directed polyethylene glycol 3350 (Miralax) 17 grams PO DAILY semaglutide 0.5 mg (0.736 mL) subcut QWEEK 30 days tamsulosin 0.4 mg PO DAILY Tobacco use date assessed: 07/05/23 Fall risk assessment: No Falls in past year Last assessed Fall Risk: 07/05/23 Dental Screening Dental Screen Date: 07/05/23 Did you have a dental visit in the last 12 months?: No Did you have a dental problem in the last 6 months where you did not have access to dental care?: No HPI PE HPI Details 63-year-old male smoker with uncontrolled diabetes mellitus coronary artery disease hypertension hypercholesterolemia chronic kidney disease chronic hepatitis C(treated with Epclusa January 2023) positive Cologuard test HIV positive coming in for physical exam last seen in May 2023.. Review of the notes patient follows up with Nephrology patient has a scheduled angiogram. States quit smoking 2 months ago. Has concerns about contrast induced nephropathy and would suggest hold off angiogram. Patient has also followed up with Cardiology May 2023 after echocardiogram(history of catheterization 2011 had PCI/bare metal stent. Has been having chest pain (last echocardiogram ejection fraction 52% basal inferior/mid inferior mid anteroseptal and basal inferolateral hypokinesis) patient is in need of cardiac catheterization isosorbide mononitrate prescript. nausea, chills dizzy , PFSH Medical History (Updated 07/05/23 @ 12:46 by Gene Enciso MD) False positive HIV serology Hepatitis B core antibody positive Myocardial infarct Sciatic leg pain High blood pressure Diabetes Surgical History (Updated 07/05/23 @ 12:52 by Gene Enciso MD) History of ankle surgery Stented coronary artery Family History Mother CKD (chronic kidney disease) Father Prostate cancer Brother Aneurysm Brother No problems noted. Sister No problems noted. Son No problems noted. Daughter No problems noted. Social History (Updated 07/05/23 @ 12:53 by Gene Enciso MD) Housing: House Alcohol intake: current Comment: once a month Patient Tobacco Use Status: Former Tobacco user Tobacco use type: Cigarette Cigarettes Per Day: 2 Years Smoked: smoking 40 years. stopped 05/2023 e-Cigarette/Vaping Use: Never Used Second Hand Smoke Exposure: No service: No Current occupational status: retired and disabled Cognitive needs: No Hearing needs: No Vision needs: Yes Questionnaire PHQ-9 Over the last 2 weeks, how often have you been bothered by any of the following problems? 1. Little interest or pleasure in doing things: nearly every day 2. Feeling down, depressed, or hopeless: nearly every day 3. Trouble falling or staying asleep, or sleeping too much: more than half the days 4. Feeling tired or having little energy: several days 5. Poor appetite or overeating: not at all 6. Feeling bad about yourself - or that you are a failure or have let yourself or your family down: not at all 7. Trouble concentrating on things, such as reading the newspaper or watching television: not at all 8. Moving or speaking so slowly that other people could have noticed. Or the opposite - being so fidgety or restless that you have been moving around a lot more than usual: not at all 9. Thoughts that you would be better off or of hurting yourself in some way: not at all Total score: 9 Depression Screening Interpretation: Positive Depression Screening Done: Yes Source: Developed by Drs. Antonio Hudson, Flaca Rutledge, Dk Nino and colleagues, with an educational elmer from [employer]. Thrive Questionnaire Date Thrive assessed: 06/17/23 AUDIT C Alcohol Use Questionnaire (AUDIT-C) 1. How often do you have a drink containing alcohol?: Monthly or less 2. How many drinks containing alcohol do you have on a typical day when you are drinking?: 1 or 2 3. How often do you have six or more drinks on one occasion?: Never Total Score: 1 SUSANA-7 AMB Questionnaire SUSANA-7 Date SUSANA - 7 assessed: 07/05/23 Feeling nervous, anxious, or on edge: 1 = Several days Not being able to stop or control worryin = Several days Worrying too much about different things: 0 = Not at all Trouble relaxin = Not at all Being so restless that it is hard to sit still: 0 = Not at all Becoming easily annoyed or irritable: 0 = Not at all Feeling afraid as if something awful might happen: 0 = Not at all Total SUSANA-7 score (0-4 normal; 5-9 mild; 10-14 moderate; 15-21 severe): 2 Source: Developed by Drs. Antonio Hudson, Flaca Rutledge, Dk Nino and colleagues, with an educational elmer from [employer]. Review of Systems Const Denies poor appetite and Denies weakness Eyes Denies no additional complaints ENT Reports Normal hearing present, Denies dizziness, Denies nasal congestion, Denies tinnitus and Denies sore throat Card Denies chest pain, Denies syncope, Denies rapid heart rate and Denies dyspnea Resp Denies cough and Denies dyspnea GI Denies change in stool character, Reports constipation, Denies diarrhea, Denies nausea and Denies vomiting Denies dysuria and Denies urinary frequency Neuro Reports Normal hearing present, Denies confusion, Denies dizziness, Denies syncope and Denies weakness Psych Denies confusion Physical exam (Primary Care) Vital Signs: Last Vital Signs Pulse 62 07/05/23 12:31 BP 166/70 H 07/05/23 12:31 Pulse Ox 100 07/05/23 12:31 Oxygen Delivery Method Room Air 07/05/23 12:31 BMI result Body Mass Index 28.9 Tobacco/Smoking Status: Tobacco use Status Tobacco use date assessed 07/05/23 07/05/23 12:35 Patient Tobacco Use Status Former Tobacco user 07/05/23 12:39 Tobacco use type Cigarette 07/05/23 12:35 e-Cigarette/Vaping Use Never Used 07/05/23 12:35 PHQ-9: PHQ-9 Score PHQ-9: Total score 9 07/05/23 12:39 Depression Screening Interpretation: Positive Thrive Assessment: Date of Thrive Assessment Date Thrive assessed 06/17/23 07/05/23 12:35 Const General: No confusion Orientation/consciousness: No confusion HENMT Head: Yes normocephalic Ears: external ears normal and TM's normal bilaterally Face and sinus: Yes normal facial exam Mouth: moist mucous membranes Throat: Yes tonsils normal Eyes Conjunctivae: conjunctivae normal Pupils: Equal, round and reactive pupils present and Pupil accommodation reflex normal Direct Ophthalmoscopy: normal light reflex Neck Neck: No lymphadenopathy Thyroid: Thyroid normal Chest Chest palpation & inspection: normal inspection of the chest Resp Effort & Inspection: normal respiratory effort and no audible wheezes Auscultation: clear to auscultation bilaterally, no crackles, no wheezes and lung sounds not diminished Cardio Rate: regular rate Rhythm: regular rhythm Peripheral pulses: radial pulses present and dorsalis pedis present GI Other: decline - scheduled to get Colon test Palpation (GI): no masses Auscultation: normal bowel sounds and normoactive bowel sounds Rectal Exam - Male: Yes deferred Other: declined pedal pulse and pin prick good Skin General skin exam: no rashes or lesions noted Rashes: no rashes Neuro General: No confusion Cranial nerves: Yes Equal, round and reactive pupils present and Yes Normal hearing present Cognition (Neuro): normal cognition Gait exam (Neuro): Normal gait present Motor exam (neuro): 5/5 motor strength present throughout Deep tendon reflexes (DTR's): Right brachioradialis reflex intensity grade: 2+, Left brachioradialis reflex intensity grade: 2+, Right patellar reflex intensity grade: 2+ and Left patellar reflex intensity grade: 2+ Extrem Other: red scaly rash interdigital area 5th toe R General: No edema Assessment and Plan Assessment & Plan (1) Annual physical exam: Code(s): Z00.00 - Encounter for general adult medical examination without abnormal findings (2) Atherosclerotic cardiovascular disease: Comment: Two thousand eleven PCI bare metal stent placement Code(s): I25.10 - Atherosclerotic heart disease of [place] coronary artery without angina pectoris Plan: Control the cholesterol, weight, blood pressure, diabetes. On aspirin. Planned cardiac catheterization but optimizing renal function 1st. (3) Hyperkalemia: Code(s): E87.5 - Hyperkalemia Plan: Repeat testing advised by Nephrology Esau inhibitor taken out. (4) CKD stage 3 due to type 2 diabetes mellitus: Code(s): E11.22 - Type 2 diabetes mellitus with diabetic chronic kidney disease; N18.30 - Chronic kidney disease, stage 3 unspecified Plan: Patient is being worked up by Nephrology, keep well hydrated avoid NSAIDs (5) Type 2 diabetes mellitus with hyperglycemia: Comment: joselin Code(s): E11.65 - Type 2 diabetes mellitus with hyperglycemia Plan: Decrease the amount of carbohydrate intake, pasta, bread, rice and potatoes are all sugar and that is aside from all the sweet stuff, remember that fruits are good but they are Sweet also. Hemoglobin A1c goal of less than 7.0 presently on Lantus 10 units once a day semaglutide (6) Hypertension: Code(s): I10 - Essential (primary) hypertension Plan: Continue with blood pressure medication. Decrease salt intake and exercise presently on metoprolol 200 mg twice a day lisinopril 40 mg once a day isosorbide mononitrate 60 mg once a day and amlodipine 10 mg once a day (7) Hypercholesterolemia: Code(s): E78.00 - Pure hypercholesterolemia, unspecified Plan: Avoid fried foods, chicken skin, eggs, butter margarine, pastries and meat. Be it pork or beef they have a lot of cholesterol LDL goal of less than 70 and triglyceride of less than 150 patient on atorvastatin 20 mg once a day April 2023 last blood work (8) Chronic hepatitis C: Comment: Epclusa January 2023 Code(s): B18.2 - Chronic viral hepatitis C Qualifiers: Hepatic coma status: without hepatic coma Qualified Code(s): B18.2 - Chronic viral hepatitis C Plan: This has been treated (9) Tobacco abuse: Comment: Stop smoking 05/2023 Code(s): Z72.0 - Tobacco use Plan: Patient has stopped smoking 2 weeks ago. (10) Tinea pedis: Code(s): B35.3 - Tinea pedis Plan: advised to use antifungal cream and advised to use antifungal powder Coding Level of Care Code Est Pt Prev Care >65y([id number]) Diagnoses Annual physical exam Z00.00 Atherosclerotic cardiovascular disease I25.10 Hyperkalemia E87.5 CKD stage 3 due to type 2 diabetes mellitus E11.22; N18.30 Type 2 diabetes mellitus with hyperglycemia E11.65 Hypertension I10 Hypercholesterolemia E78.00 Chronic hepatitis C without hepatic coma B18.2 Hepatic coma status: without hepatic coma Tobacco abuse Z72.0 Tinea pedis B35.3
== END 2023-07-05 13:19 | disposition home or self-care (01) ==
PROVIDERS: Visit Provider Internal Medicine
DX: Z00.00 Encounter for general adult medical examination without abnormal findings (principal); E11.22 Type 2 diabetes mellitus with diabetic chronic kidney disease; N18.30 Chronic kidney disease, stage 3 unspecified; I25.10 Atherosclerotic heart disease of native coronary artery without angina pectoris; E87.5 Hyperkalemia
CPT/HCPCS: 99397

== ENCOUNTER 2023-07-22 10:19 | Outpatient (REF) | payer MEDICARE, OTHER, SELFPAY ==
--- NOTE | ~2023-07-22 | US_ITS ---
EXAMINATION: US RETROPERITONEAL LIMITED (RENAL ONLY) CLINICAL INFORMATION: Hyperkalemia, CKD. COMPARISON: Ultrasound abdomen complete 08/12/2022. Renal ultrasound 04/27/2019. TECHNIQUE: Real-time imaging of the kidneys. FINDINGS: RIGHT KIDNEY: 9.8 x 5.7 x 5.4 cm (SAG x AP x TRV). The kidney is normal in size, contour, and echogenicity. Renal cortical thickness is normal. There is a 3 mm echogenic focus seen in the right gat-td-ausey kidney consistent with a nonobstructing calculus. No hydronephrosis. A benign upper pole 0.7 cm Bosniak class I renal cyst is noted which requires no additional imaging or follow up. No solid renal masses are seen. Compared to the prior 08/12/2022 study, similar findings were seen LEFT KIDNEY: 11.3 x 5.4 x 4.5 cm (SAG x AP x TRV). The kidney is normal in size, contour, and echogenicity. Renal cortical thickness is normal. No calculi or focal parenchymal lesions. No hydronephrosis. US/US renal BI IMPRESSION: Nonobstructing 3 mm right renal calculus.
== END 2023-07-22 10:20 | disposition home or self-care (01) ==
LOC: HO.US 10:19
PROVIDERS: PCP Internal Medicine; Visit Provider Internal Medicine Hypertension Specialist
DX: E11.22 Type 2 diabetes mellitus with diabetic chronic kidney disease (principal); N18.30 Chronic kidney disease, stage 3 unspecified; E87.5 Hyperkalemia
CPT/HCPCS: 76775

== ENCOUNTER 2023-08-03 15:22 | Outpatient (REF) | payer MEDICARE, OTHER, SELFPAY ==
[2023-08-03 16:11] LABS: MANUAL DIFF FLAG NO
[2023-08-03 17:06] LABS: Basophils Absolute Auto 0.1 X10*3/uL (0.0-0.2); Basophils Percent Auto 0.6 % (0-2); Eosinophils Absolute Auto 0.4 X10*3/uL (0.0-0.4); Eosinophils Percent Auto 4.5 % (0-4); Hematocrit 35.2 % (42.0-52.0); Hemoglobin 12.4 g/dl (14.0-18.0); Imm Gran Abs Auto 0.04 X10*3/uL (0.00-0.03); Imm Gran Pct Auto 0.4 % (0.0-0.4); Lymphocytes Absolute Auto 2.5 X10*3/uL (1.2-4.9); Lymphocytes Percent Auto 25.5 % (20-40); Mean Corpuscular HGB Conc 35.2 g/dl (31.0-36.0); Mean Corpuscular Hemoglobin 32.7 pg (27.0-33.0); Mean Corpuscular Volume 92.9 fL (80.0-98.0); Mean Platelet Volume 9.7 fL (9.4-12.4); Monocytes Absolute Auto 0.8 X10*3/uL (0.1-1.2); Monocytes Percent Auto 8.6 % (2-11); Neutrophils Absolute Auto 5.8 x10*3/uL (2.0-8.3); Neutrophils Percent Auto 60.4 % (45-73); Platelet Count 206 X10*3/uL (160-400); Red Blood Count 3.79 X10*6/uL (4.60-5.80); Red Cell Distribution Width 14.5 % (11.0-16.0); White Blood Count 9.7 X10*3/uL (4.8-10.8)
[2023-08-03 17:29] LABS: Alanine Aminotransferase 17 U/L (0-40); Albumin Level 4.4 g/dL (3.5-5.0); Alkaline Phosphatase 86 U/L (39-117); Anion Gap 13 (12-20); Aspartate Amino Transferase 18 U/L (5-37); Blood Urea Nitrogen 26 mg/dL (9-16); Calcium 9.3 mg/dL (8.4-10.2); Carbon Dioxide 26 mmol/L (22-29); Chloride 105 mmol/L (96-108); Estimated Glomerular Filt Rate 34; Glucose Random 268 mg/dL (60-115); Phosphorus 3.2 mg/dL (2.7-4.5); Potassium 4.6 mmol/L (3.3-5.1); Sodium 139 mmol/L (135-145); Total Protein 7.9 g/dL (6.5-8.0)
[2023-08-03 17:35] LABS: Parathyroid Hormone Intact 133.5 pg/mL (8.7-77.1)
[2023-08-03 17:55] LABS: Appearance Urine Clear; Color Urine Dark Yellow; Glucose Urine UA 500 mg/dL (Negative); Leukocyte Esterase Urine Negative (Negative); Nitrite Urine Negative (Negative); PH 5.5 (5.0-9.0); UMIC TRIGGER UA YES; Urine Blood Small (1+) (Negative); Urine Ketones Trace mg/dL (Negative); Urine Protein 300 (3+) mg/dL (Neg-Trace)
[2023-08-03 18:19] LABS: Bacteria Urine None Seen (None Seen); Hyaline Casts Urine 0-2 /LPF (0-2); Squamous Epithelial Cell Urine 0-2 /HPF (0-2); WBC Urine 0-5 /HPF (0-5)
[2023-08-03 19:43] LABS: Total Protein Urine Random 328 mg/dL (<12)
[2023-08-06 17:02] LABS: Vitamin D 25-OH, D2 <4 ng/mL; Vitamin D 25-OH, D3 23 ng/mL; Vitamin D 25-OH, Total 23 ng/mL (30-100)
== END 2023-08-03 15:23 | disposition home or self-care (01) ==
LOC: HO.LAB 15:22
PROVIDERS: PCP Internal Medicine; Visit Provider Internal Medicine Hypertension Specialist
DX: E11.22 Type 2 diabetes mellitus with diabetic chronic kidney disease (principal); N18.30 Chronic kidney disease, stage 3 unspecified; E87.5 Hyperkalemia; N05.9 Unspecified nephritic syndrome with unspecified morphologic changes
CPT/HCPCS: 36415; 80053; 81001; 82306; 82570; 83970; 84100; 84156; 85025; 99212

== ENCOUNTER 2023-08-03 15:22 | Outpatient (AMB) | payer MEDICARE, OTHER, SELFPAY ==
--- NOTE | 2023-08-03 15:26 | HO.NEPHOV ---
HPI HPI Comments History of Present Illness Details 62-year-old man with a longstanding history of diabetes mellitus and hypertension. He has history of coronary disease and scheduled for coronary angiogram. He is history of hepatitis-C was treated with EPCLUSA in January 2023. Two years ago serum creatinine is 1.9. As of June 2022 creatinine was 2.0. In May 2023, creatinine was 2.4 He has been scheduled for coronary angiogram next week and hence his evaluation. Has a history of smoking. He quit smoking about 2 months ago. 08/03/23 Doing OK DID NOT Go for blood work! [facility], LAT[facility] Medical History False positive HIV serology Hepatitis B core antibody positive Myocardial infarct Sciatic leg pain High blood pressure Diabetes Surgical History History of ankle surgery Stented coronary artery Family History Mother CKD (chronic kidney disease) Father Prostate cancer Brother Aneurysm Brother No problems noted. Sister No problems noted. Son No problems noted. Daughter No problems noted. Social History Housing: House Alcohol intake: current Comment: once a month Patient Tobacco Use Status: Former Tobacco user Tobacco use type: Cigarette Cigarettes Per Day: 2 Years Smoked: smoking 40 years. stopped 05/2023 e-Cigarette/Vaping Use: Never Used Second Hand Smoke Exposure: No service: No Current occupational status: retired and disabled Cognitive needs: No Hearing needs: No Vision needs: Yes Vital Signs 08/03/23 15:30 Height 5 ft 8 in Weight 190 lb BMI 28.9 BP 130/70 Blood Pressure Location Lt brachial Position Sitting Pulse 72 Pulse Source Pulse Oximeter Pulse Oximetry (%) 98 Oxygen Delivery Method Room Air Physical Exam Vital Signs: Last Vital Signs Pulse 72 08/03/23 15:30 BP 130/70 08/03/23 15:30 Pulse Ox 98 08/03/23 15:30 Oxygen Delivery Method Room Air 08/03/23 15:30 BMI result Body Mass Index 28.9 Const General: comfortable Nutritional Appearance: well nourished Orientation/consciousness: patient oriented x3 HEENT Head: No normal to inspection Mouth: moist mucous membranes Neck Neck: Yes supple and Yes no JVD Resp Auscultation: clear to auscultation bilaterally, no rales and rub present Cardio Jugular venous distension: no JVD Palpation: no palpable S3 and no palpable S4 Heart sounds: no rubs GI Palpation (GI): Soft to palpation and nontender Percussion: No Fluid wave present General: Yes no CVA tenderness Back/Spine/Pelvis Back: no CVA tenderness Skin General skin exam: no rashes or lesions noted Neuro General: patient oriented x3 Extrem General: Yes no pedal edema and No clubbing Assessment & Plan Assessment & Plan (1) CKD stage 3 due to type 2 diabetes mellitus: Code(s): E11.22 - Type 2 diabetes mellitus with diabetic chronic kidney disease; N18.30 - Chronic kidney disease, stage 3 unspecified Plan: Chronic kidney disease most likely due to underlying diabetic kidney disease. He has significant proteinuria. Nondiabetic causes should be considered -given history of hepatitis-C workup for CKD in progress renal ultrasonogram - No obstruction There could be a component of hypoperfusion therefore lisinopril is on hold. Mild hyperkalemia- should improve after stopping ACEi (2) Hypertension: Code(s): I10 - Essential (primary) hypertension Plan: Overall blood pressure is well controlled. Advised low-sodium diet. (3) Hyperkalemia: Code(s): E87.5 - Hyperkalemia Plan: Due to the combination of use of Esau inhibitors as well as underlying CKD. Encouraged him to stay on low-potassium diet. Lisinopril has been discontinued. We will recheck potassium and if it stays elevated we will add Lokelma (4) Chronic hepatitis C: Comment: Epclusa January 2023 Code(s): B18.2 - Chronic viral hepatitis C Qualifiers: Hepatic coma status: without hepatic coma Qualified Code(s): B18.2 - Chronic viral hepatitis C Plan: Status post treatment with EPCLUSA Follows with GI Plan At this time is at high risk for contrast induced nephropathy. I would suggest to hold off on coronary angiogram until we get the creatinine levels back We will optimize renal function prior to coronary angiogram to reduce the risk of contrast induced nephropathy. Orders: Orders Complete Blood Count Auto Diff Today E11.22 - Type 2 diabetes mellitus with diabetic chronic kidney disease, N18.30 - Chronic kidney disease, stage 3 unspecified Creatinine Urine Today E11.22 - Type 2 diabetes mellitus with diabetic chronic kidney disease, N05.9 - Unspecified nephritic syndrome with unspecified morphologic changes, N18.30 - Chronic kidney disease, stage 3 unspecified Comprehensive Met. Panel Today E11.22 - Type 2 diabetes mellitus with diabetic chronic kidney disease, N18.30 - Chronic kidney disease, stage 3 unspecified, N18.9 - Chronic kidney disease, unspecified Total Protein Urine Random Today E11.22 - Type 2 diabetes mellitus with diabetic chronic kidney disease, N18.30 - Chronic kidney disease, stage 3 unspecified UA and rflx microscopic Today E11.22 - Type 2 diabetes mellitus with diabetic chronic kidney disease, N18.30 - Chronic kidney disease, stage 3 unspecified Parathyroid Hormone Intact Today E11.22 - Type 2 diabetes mellitus with diabetic chronic kidney disease, N18.30 - Chronic kidney disease, stage 3 unspecified Coding Level of Care Code Est Pt Level 4 (44042) Diagnoses CKD stage 3 due to type 2 diabetes mellitus E11.; N18.30 Hypertension I10 Hyperkalemia E87.5 Chronic hepatitis C without hepatic coma B18.2 Hepatic coma status: without hepatic coma Results Reviewed Nephrology Results: Hgb 11.9 g/dl (14.0-18.0) L 06/29/23 WBC 8.2 X10*3/uL (4.8-10.8) 06/29/23 Plt Count 173 X10*3/uL (160-400) 06/29/23 Sodium 137 mmol/L (135-145) 06/17/23 Potassium 5.5 mmol/L (3.3-5.1) H 06/17/23 Chloride 106 mmol/L (96-108) 06/17/23 Carbon Dioxide 25 mmol/L (22-29) 06/17/23 BUN 47 mg/dL (9-16) H 06/17/23 Creatinine 2.41 mg/dL (0.5-1.4) H 06/17/23 Calcium 9.8 mg/dL (8.4-10.2) 06/17/23 Renal US 07/22/23
[2023-08-03 15:30] VITALS: BP 130/70; PULSE 72; O2SAT 98; BMI 28.9
== END 2023-08-03 15:48 | disposition home or self-care (01) ==
PROVIDERS: PCP Internal Medicine; Visit Provider Internal Medicine Hypertension Specialist
DX: E11.22 Type 2 diabetes mellitus with diabetic chronic kidney disease (principal); N18.30 Chronic kidney disease, stage 3 unspecified; I10 Essential (primary) hypertension; E87.5 Hyperkalemia; B18.2 Chronic viral hepatitis C
CPT/HCPCS: 99214

== ENCOUNTER → 2023-08-16 13:20 | Outpatient (BNVA) | payer MEDICARE, OTHER, SELFPAY | PROVIDERS: PCP Internal Medicine; Visit Provider Internal Medicine | DX: I25.119 Atherosclerotic heart disease of native coronary artery with unspecified angina pectoris (principal); E11.22 Type 2 diabetes mellitus with diabetic chronic kidney disease; N18.30 Chronic kidney disease, stage 3 unspecified | CPT/HCPCS: 99212 ==

== ENCOUNTER 2023-08-16 13:23 | Outpatient (AMB) | payer MEDICARE, OTHER, SELFPAY ==
[2023-08-16 13:31] VITALS: BP 138/62; PULSE 89; O2SAT 99; BMI 28.5
--- NOTE | 2023-08-16 13:31 | A.OFFVIS_ITS ---
Vital Signs 08/16/23 13:31 Height 5 ft 8 in Weight 187 lb 6.287 oz BMI 28.5 BP 138/62 Blood Pressure Location Lt brachial Position Sitting Pulse 89 Pulse Source Monitor Pulse Oximetry (%) 99 Oxygen Delivery Method Room Air Intake Visit Reasons: follow up Allergies No Known Allergies Allergy (Verified 08/03/23 15:27) Medication List - Last Reconciled 08/16/23 by Casimiro Grande MD acetaminophen (Tylenol Extra Strength) 500 mg PO Q6H PRN amlodipine 10 mg PO DAILY 90 days aspirin (Adult Aspirin Regimen) 81 mg PO DAILY atorvastatin 20 mg PO DAILY famotidine (Pepcid) 20 mg PO BEDTIME PRN 90 days flash glucose scanning reader ([employer] Pina 2 [place]) As directed flash glucose sensor (FreeStyle Pina 2 Sensor kit) As directed insulin glargine (Lantus Solostar U-100 Insulin) 10 units (0.1 mL) subcut QPM isosorbide mononitrate ER 60 mg PO DAILY metoprolol tartrate 200 mg (2 x 100 mg) PO BID 1 month nitroglycerin 0.4 mg sublingual Q5M PRN pen needle, diabetic (BD Ultra-Fine Phuong Pen Needle) As directed tamsulosin 0.4 mg PO DAILY HPI Comments Details: Tre returns for follow-up. Recently seen in consultation regarding coronary disease. To recall, he underwent cardiac catheterization in 2010. At that time, underwent PCI/bare metal stenting of proximal RCA. He also had LAD disease but not intervened upon. Multiple cardiovascular risk factors including diabetes, hypertension, dyslipidemia, smoking. After the PCI, he did not see any Cardiology because he did not have insurance. He was doing okay but over the last 3-4 years, he does notice exertional chest pains. He describes rather like a pressure/tightness. Most recently, he noticed an episode after doing some snow clearing. However, goes away after a short duration. He states he is compliant with all his medications. He continues to get exertional chest discomfort. Because of CKD, he was sent to Nephrology and they stated high risk for contrast induced nephropathy and hence he has not undergone cardiac catheterization. [facility] Medical History False positive HIV serology Hepatitis B core antibody positive Myocardial infarct Sciatic leg pain High blood pressure Diabetes Surgical History History of ankle surgery Stented coronary artery Family History Mother CKD (chronic kidney disease) Father Prostate cancer Brother Aneurysm Brother No problems noted. Sister No problems noted. Son No problems noted. Daughter No problems noted. Social History Housing: House Alcohol intake: current Comment: once a month Patient Tobacco Use Status: Former Tobacco user Tobacco use type: Cigarette Cigarettes Per Day: 2 Years Smoked: smoking 40 years. stopped 05/2023 e-Cigarette/Vaping Use: Never Used Second Hand Smoke Exposure: No service: No Current occupational status: retired and disabled Cognitive needs: No Hearing needs: No Vision needs: Yes Review of Systems Const Denies weakness ENT Denies dizziness Card Denies chest pain, Denies chest pain with activity, Denies syncope, Denies rapid heart rate, Denies pedal edema, Denies edema, Denies leg edema, Denies lightheadedness, Denies palpitations, Denies dyspnea, Denies dyspnea on exertion and Denies orthopnea Resp Denies cough, Denies dyspnea and Denies dyspnea on exertion GI Denies hematochezia and Denies change in stool character Musc Denies abnormal gait, Denies muscle cramps, Denies muscle weakness, Denies numbness, Denies radiating pain into limb and Denies tingling Neuro Denies abnormal gait, Denies dizziness, Denies syncope, Denies numbness, Denies tingling and Denies weakness Endo Denies palpitations Physical Exam Vital Signs: Last Vital Signs Pulse 89 08/16/23 13:31 BP 138/62 08/16/23 13:31 Pulse Ox 99 08/16/23 13:31 Oxygen Delivery Method Room Air 08/16/23 13:31 BMI result Body Mass Index 28.5 Const General: comfortable and no acute distress Orientation/consciousness: patient oriented x3 HEENT Other: Unremarkable Head: Yes normal to inspection Neck Neck: Yes normal visual inspection Chest Chest palpation & inspection: normal inspection of the chest Resp Auscultation: clear to auscultation bilaterally Cardio Palpation: normal PMI Heart sounds: S1 normal heart sound present, S2 normal heart sound present, no gallops, no murmurs and no rubs GI Palpation (GI): Soft to palpation Back/Spine/Pelvis Other: unremarkable Skin General skin exam: no rashes or lesions noted Neuro General: patient oriented x3 Extrem General: Yes normal to inspection Psych Mental Status: mental status grossly normal Assessment & Plan Assessment & Plan (1) Atherosclerotic cardiovascular disease: Code(s): I25.10 - Atherosclerotic heart disease of [place] coronary artery without angina pectoris Category: Medical (2) Angina pectoris: Code(s): I20.9 - Angina pectoris, unspecified Category: Medical (3) CKD stage 3 due to type 2 diabetes mellitus: Code(s): E11.22 - Type 2 diabetes mellitus with diabetic chronic kidney disease; N18.30 - Chronic kidney disease, stage 3 unspecified Category: Medical Plan Cardiac catheterization data reviewed from 2010. At that time, noted to have inferior hypokinesis with EF of around 45%. Successful PCI of proximal RCA. He also had angioplasty of mid right PDA. LAD had proximal 70% stenosis and mid vessel with 60% stenosis. Circumflex system had mild disease. In the recent echocardiogram, LVEF 52%. Basal inferior/mid inferior, mid anteroseptal and basal inferolateral hypokinesis. Ideally, need to proceed with diagnostic catheterization and possibly LAD intervention. Due to CKD, he was sent to Nephrology and the pain was that he was at high risk for contrast induced nephropathy. Would contact Nephrology can to discussed. In the interim, he is on high dose of beta-blockers, long-acting nitrates. We c an add Ranexa. Continue aspirin statins. Sublingual nitroglycerin as needed. If he gets any significant symptoms or other concerns, advised to contact us immediately or seek emergency help. Follow-up closely. Medications: New ranolazine ER 500 mg PO BID 180 tabs 3RF 90 days
== END 2023-08-16 13:58 | disposition home or self-care (01) ==
PROVIDERS: PCP Internal Medicine; Visit Provider Internal Medicine
DX: I25.119 Atherosclerotic heart disease of native coronary artery with unspecified angina pectoris (principal); Z98.61 Coronary angioplasty status; E11.22 Type 2 diabetes mellitus with diabetic chronic kidney disease; N18.30 Chronic kidney disease, stage 3 unspecified
CPT/HCPCS: 99214

== ENCOUNTER 2023-08-30 10:31 | Outpatient (AMB) | payer MEDICARE, OTHER, SELFPAY ==
[2023-08-30 10:33] VITALS: BP 168/74; PULSE 69; O2SAT 98; BMI 28.6
--- NOTE | 2023-08-30 10:33 | HO.NEPHOV ---
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 He has history of coronary disease and scheduled for coronary angiogram. He is history of hepatitis-C was treated with EPCLUSA in January 2023. Two years ago serum creatinine is 1.9. As of June 2022 creatinine was 2.0. In May 2023, creatinine was 2.4 He has been scheduled for coronary angiogram next week and hence his evaluation. Has a history of smoking. He quit smoking about 2 months ago. 08/03/23;Doing OK;DID NOT Go for blood work! 08/30/23 blood sugar is still sub optimal Still having dyspnea on exertion [facility] Medical History False positive HIV serology Hepatitis B core antibody positive Myocardial infarct Sciatic leg pain High blood pressure Diabetes Surgical History History of ankle surgery Stented coronary artery Family History Mother CKD (chronic kidney disease) Father Prostate cancer Brother Aneurysm Brother No problems noted. Sister No problems noted. Son No problems noted. Daughter No problems noted. Social History Housing: House Alcohol intake: current Comment: once a month Patient Tobacco Use Status: Former Tobacco user Tobacco use type: Cigarette Cigarettes Per Day: 2 Years Smoked: smoking 40 years. stopped 05/2023 e-Cigarette/Vaping Use: Never Used Second Hand Smoke Exposure: No service: No Current occupational status: retired and disabled Cognitive needs: No Hearing needs: No Vision needs: Yes Physical Exam Vital Signs: Last Vital Signs Pulse 69 08/30/23 10:33 BP 168/74 H 08/30/23 10:33 Pulse Ox 98 08/30/23 10:33 Oxygen Delivery Method Room Air 08/30/23 10:33 BMI result Body Mass Index 28.6 Const General: comfortable Nutritional Appearance: well nourished Orientation/consciousness: patient oriented x3 HEENT Head: No normal to inspection Mouth: moist mucous membranes Neck Neck: Yes supple and Yes no JVD Resp Auscultation: clear to auscultation bilaterally, no rales and rub present Cardio Jugular venous distension: no JVD Palpation: no palpable S3 and no palpable S4 Heart sounds: no rubs GI Palpation (GI): Soft to palpation and nontender Percussion: No Fluid wave present General: Yes no CVA tenderness Back/Spine/Pelvis Back: no CVA tenderness Skin General skin exam: no rashes or lesions noted Neuro General: patient oriented x3 Extrem General: Yes no pedal edema and No clubbing Results Reviewed Nephrology Results: Hgb 12.4 g/dl (14.0-18.0) L 08/03/23 WBC 9.7 X10*3/uL (4.8-10.8) 08/03/23 Plt Count 206 X10*3/uL (160-400) 08/03/23 Sodium 139 mmol/L (135-145) 08/03/23 Potassium 4.6 mmol/L (3.3-5.1) 08/03/23 Chloride 105 mmol/L (96-108) 08/03/23 Carbon Dioxide 26 mmol/L (22-29) 08/03/23 BUN 26 mg/dL (9-16) H 08/03/23 Creatinine 2.00 mg/dL (0.5-1.4) H 08/03/23 Calcium 9.3 mg/dL (8.4-10.2) 08/03/23 Phosphorus 3.2 mg/dL (2.7-4.5) 08/03/23 PTH Intact 133.5 pg/mL (8.7-77.1) H 08/03/23 Urine Protein 300 (3+) mg/dL (Neg-Trace) H 08/03/23 Urine Creatinine 149.90 mg/dL 08/03/23 Renal US 07/22/23 Assessment & Plan Assessment & Plan (1) CKD stage 3 due to type 2 diabetes mellitus: Code(s): E11.22 - Type 2 diabetes mellitus with diabetic chronic kidney disease; N18.30 - Chronic kidney disease, stage 3 unspecified Category: Medical (2) Hypertension: Code(s): I10 - Essential (primary) hypertension Category: Medical (3) Hyperkalemia: Code(s): E87.5 - Hyperkalemia Category: Medical (4) Chronic hepatitis C: Comment: Epclusa January 2023 Code(s): B18.2 - Chronic viral hepatitis C Category: Medical Qualifiers: Hepatic coma status: without hepatic coma Qualified Code(s): B18.2 - Chronic viral hepatitis C Plan: Status post treatment with EPCLUSA Follows with GI Plan Chronic kidney disease: most likely due to underlying diabetic kidney disease. He has significant proteinuria. Nondiabetic causes should be considered -given history of hepatitis-C _renal ultrasonogram - No obstruction There was a component of hypoperfusion; lisinopril is still on hold.- Creatinine has improved HTN: Overall blood pressure is better controlled. Advised low-sodium diet. Hyperkalemia Due to the combination of use of Esau inhibitors as well as underlying CKD. Encouraged him to stay on low-potassium diet. Lisinopril has been discontinued. At this time , risk for contrast induced nephropathy is 14 % and risk of needing dialysis is 0.12% He understands the risks and benefits . He is willing to proceed with coronary angiogram Orders: Orders Basic Metabolic Panel 3 Months E11.22 - Type 2 diabetes mellitus with diabetic chronic kidney disease, N18.30 - Chronic kidney disease, stage 3 unspecified Coding Level of Care Code Est Pt Level 4 (16891) Diagnoses CKD stage 3 due to type 2 diabetes mellitus E11.22; N18.30 Hypertension I10 Hyperkalemia E87.5 Chronic hepatitis C without hepatic coma B18.2 Hepatic coma status: without hepatic coma
== END 2023-08-30 10:49 | disposition home or self-care (01) ==
PROVIDERS: PCP Internal Medicine; Visit Provider Internal Medicine Hypertension Specialist
DX: E11.22 Type 2 diabetes mellitus with diabetic chronic kidney disease (principal); N18.30 Chronic kidney disease, stage 3 unspecified; I10 Essential (primary) hypertension; E87.5 Hyperkalemia; B18.2 Chronic viral hepatitis C
CPT/HCPCS: 99214

== ENCOUNTER → 2023-08-30 10:31 | Outpatient (BNVA) | payer MEDICARE, OTHER, SELFPAY | PROVIDERS: PCP Internal Medicine; Visit Provider Internal Medicine Hypertension Specialist | DX: E11.22 Type 2 diabetes mellitus with diabetic chronic kidney disease (principal); I12.9 Hypertensive chronic kidney disease with stage 1 through stage 4 chronic kidney disease, or unspecified chronic kidney disease; N18.30 Chronic kidney disease, stage 3 unspecified; E78.5 Hyperlipidemia, unspecified; B18.2 Chronic viral hepatitis C | CPT/HCPCS: 99212 ==

== ENCOUNTER 2023-09-27 08:35 | Outpatient (REF) | payer MEDICARE, SELFPAY ==
[2023-09-27 08:47] LABS: MANUAL DIFF FLAG NO
[2023-09-27 10:07] LABS: Basophils Absolute Auto 0.1 X10*3/uL (0.0-0.2); Basophils Percent Auto 0.7 % (0-2); Eosinophils Absolute Auto 0.4 X10*3/uL (0.0-0.4); Eosinophils Percent Auto 4.6 % (0-4); Hematocrit 35.6 % (42.0-52.0); Hemoglobin 12.5 g/dl (14.0-18.0); Imm Gran Abs Auto 0.04 X10*3/uL (0.00-0.03); Imm Gran Pct Auto 0.5 % (0.0-0.4); Lymphocytes Absolute Auto 1.7 X10*3/uL (1.2-4.9); Lymphocytes Percent Auto 20.2 % (20-40); Mean Corpuscular HGB Conc 35.1 g/dl (31.0-36.0); Mean Corpuscular Hemoglobin 32.2 pg (27.0-33.0); Mean Corpuscular Volume 91.8 fL (80.0-98.0); Monocytes Absolute Auto 0.7 X10*3/uL (0.1-1.2); Monocytes Percent Auto 8.9 % (2-11); Neutrophils Absolute Auto 5.4 x10*3/uL (2.0-8.3); Neutrophils Percent Auto 65.1 % (45-73); Platelet Count 169 X10*3/uL (160-400); Red Blood Count 3.88 X10*6/uL (4.60-5.80); Red Cell Distribution Width 13.1 % (11.0-16.0); White Blood Count 8.3 X10*3/uL (4.8-10.8)
[2023-09-27 10:13] LABS: INTERNATIONAL NORM RATIO 0.9 (0.9-1.1); Prothrombin Time 11.4 SEC (11.1-13.3)
[2023-09-27 11:00] LABS: Anion Gap 12 (12-20); Blood Urea Nitrogen 33 mg/dL (9-16); Calcium 9.4 mg/dL (8.4-10.2); Carbon Dioxide 23 mmol/L (22-29); Chloride 106 mmol/L (96-108); Estimated Glomerular Filt Rate 30; Glucose Random 252 mg/dL (60-115); Potassium 4.4 mmol/L (3.3-5.1); Sodium 137 mmol/L (135-145)
== END 2023-09-27 08:36 | disposition home or self-care (01) ==
LOC: HO.LAB 08:35
PROVIDERS: PCP Internal Medicine; Visit Provider Internal Medicine
DX: I10 Essential (primary) hypertension (principal); I25.10 Atherosclerotic heart disease of native coronary artery without angina pectoris
CPT/HCPCS: 36415; 80048; 85025; 85610

== ENCOUNTER → 2023-09-30 23:59 | Outpatient (BNV) | payer MEDICARE, SELFPAY | PROVIDERS: PCP Internal Medicine; Visit Provider Internal Medicine Cardiovascular Disease | DX: I25.118 Atherosclerotic heart disease of native coronary artery with other forms of angina pectoris (principal) | CPT/HCPCS: 92928; 92978; 93458; 93571; 93572; 99152 ==

== ENCOUNTER 2023-10-14 15:07 | Outpatient (AMB) | payer MEDICARE, OTHER, SELFPAY ==
[2023-10-14 15:08] VITALS: BP 140/62; PULSE 62; BMI 27.6
--- NOTE | 2023-10-14 15:08 | A.OFFVIS_ITS ---
Vital Signs 10/14/23 15:08 Height 5 ft 8 in Weight 181 lb 10.574 oz BMI 27.6 BP 140/62 H Blood Pressure Location Lt brachial Position Sitting Pulse 62 Pulse Source Pulse Oximeter Intake Visit Reasons: Follow up post cardiac cath Recruitment And Outreach Assistant Required: No Allergies No Known Allergies Allergy (Verified 10/14/23 15:11) Medication List - Last Reconciled 10/14/23 by ELIEZER AngelC acetaminophen (Tylenol Extra Strength) 500 mg PO Q6H PRN aspirin (Adult Aspirin Regimen) 81 mg PO DAILY atorvastatin 20 mg PO DAILY carvedilol 25 mg PO BID clopidogrel 75 mg PO DAILY dapagliflozin propanediol (Farxiga) 10 mg PO DAILY famotidine (Pepcid) 20 mg PO BEDTIME PRN 90 days flash glucose scanning reader ([employer] Pina 2 [place]) As directed flash glucose sensor (FreeStyle Pina 2 Sensor kit) As directed insulin glargine (Lantus Solostar U-100 Insulin) 10 units (0.1 mL) subcut QPM lisinopril 10 mg PO DAILY nitroglycerin 0.4 mg sublingual Q5M PRN pen needle, diabetic (BD Ultra-Fine Phuong Pen Needle) As directed tamsulosin 0.4 mg PO DAILY HPI HPI Follow up post cardiac cath: Details: Tre is a 63-year-old male with past medical history of hypertension, hyperlipidemia, diabetes, smoking, chronic kidney disease, CAD with prior RCA stent who recently reported chest pressure and underwent a cardiac catheterization receiving new stent to the proximal LAD. He did experience chest discomfort following the procedure and was admitted to [facility] for further evaluation. He was treated for unstable angina requiring ni troglycerin drip. His condition gradually normalized. An echocardiogram showed normal EF and wall motion. He now presents for follow-up. Today he reports that he has been feeling better since his procedure. He no longer gets the chest pressure like he had been experiencing prior to the procedure. Has no concerning shortness of breath, PND, orthopnea or edema. No palpitations, lightheadedness, presyncope, syncope, falls. Taking meds as directed. No bleeding issues reported. PENDING SALE TO [facility] Medical History False positive HIV serology Hepatitis B core antibody positive Myocardial infarct Sciatic leg pain High blood pressure Diabetes Surgical History (Updated 10/14/23 @ 16:24 by YULIA Angel) History of ankle surgery Stented coronary artery Family History Mother CKD (chronic kidney disease) Father Prostate cancer Brother Aneurysm Brother No problems noted. Sister No problems noted. Son No problems noted. Daughter No problems noted. Social History Housing: House Alcohol intake: current Comment: once a month Patient Tobacco Use Status: Former Tobacco user Tobacco use type: Cigarette Cigarettes Per Day: 2 Years Smoked: smoking 40 years. stopped 05/2023 e-Cigarette/Vaping Use: Never Used Second Hand Smoke Exposure: No service: No Current occupational status: retired and disabled Cognitive needs: No Hearing needs: No Vision needs: Yes Review of Systems Const All systems reviewed & are unremarkable except as noted in HPI and below ENT Denies dizziness Card Denies chest pain, Denies chest pain at rest, Denies chest pain with activity, Denies rapid heart rate, Denies pedal edema, Denies edema, Denies leg edema, Denies lightheadedness, Denies palpitations, Denies dyspnea, Denies dyspnea on exertion and Denies orthopnea Resp Denies cough, Denies dyspnea and Denies dyspnea on exertion GI Denies hematochezia and Denies change in stool character Musc Denies abnormal gait, Denies limited range of motion, Denies muscle cramps, Denies muscle weakness, Denies numbness, Denies radiating pain into limb, Denies stiffness and Denies tingling Neuro Denies abnormal gait, Denies dizziness, Denies numbness and Denies tingling Endo Denies palpitations Physical Exam Vital Signs: Last Vital Signs Pulse 62 10/14/23 15:08 BP 140/62 H 10/14/23 15:08 BMI result Body Mass Index 27.6 Const General: cooperative, healthy appearing, comfortable and no acute distress Orientation/consciousness: patient oriented x3 Neck Neck: Yes normal visual inspection and Yes no JVD Resp Effort & Inspection: normal respiratory effort Auscultation: clear to auscultation bilaterally, no rales, no rhonchi and no wheezes Cardio Jugular venous distension: no JVD Rate: regular rate Rhythm: regular rhythm Heart sounds: S1 normal heart sound present, S2 normal heart sound present, no murmurs and no rubs Neuro General: patient oriented x3 Extrem Other: Right radial catheterization site well healed. Easily palpable radial pulse and right hand assessment normal. General: Yes normal to inspection and No no pedal edema Psych Appearance: grossly normal Mental Status: mental status grossly normal Speech and movement: Normal speech and movement present Assessment & Plan Assessment & Plan (1) Atherosclerotic cardiovascular disease: Comment: Cardiac catheterization 09/2023 lad abnormal stenting done with drug-eluting stent large septal branch angioplasty Code(s): I25.10 - Atherosclerotic heart disease of [place] coronary artery without angina pectoris Category: Medical Plan: History of CAD with prior bare metal stent placed to the RCA. On last visit he reported getting chest pressure causing concern. He has multiple cardiac risk factors of hypertension, hyperlipidemia, diabetes, chronic kidney disease. He underwent cardiac catheterization on 09/30/2023 showing moderate circumflex and mid RCA stenosis, lad proximal 70% stenosis with 1st septal 99% stenosis. Had PCI and DWAYNE placed to the proximal LAD and balloon angioplasty to the 1st septal. He did have chest discomfort following the procedure requiring [facility] admission. He was on a nitroglycerin drip. His condition did stabilize and an echocardiogram confirmed normal EF and no regional wall motion abnormalities. Today he reports he has been doing well since that time. He has not had recurrent chest pressure like he was experiencing prior to the catheterization. He has no anginal symptoms to report. No bleeding issues with his aspirin and Plavix. He is interested in cardiac rehab, will send referral. Will have him continue on aspirin indefinitely. Continue Plavix uninterrupted for at least 1 year. Continue atorvastatin with ideal LDL goal less than 70. Continue carvedilol and Farxiga. Signs and symptoms of angina reviewed with him. Cardiology follow-up in 3 months, sooner if needed. (2) Stented coronary artery: Code(s): Z95.5 - Presence of coronary angioplasty implant and graft Category: Surgical Plan: Bare metal stent to the RCA and recent DWAYNE to the proximal LAD (3) S/P cardiac catheterization: Comment: 09/30/2023, mild distal left mainstem stenosis, lad proximal 70% stenosis, 1st septal 99% stenosis, left circumflex mid 40% stenosis, RCA mid 60% stenosis, PCI and WDAYNE to the proximal LAD, angioplasty to 1st septal with reduction down to 1% stenosis Code(s): Z98.890 - Other specified postprocedural states Category: Surgical Plan: Right radial catheterization site well healed (4) Hypertension: Code(s): I10 - Essential (primary) hypertension Category: Medical Plan: Mild elevation today at 140/62. He tells me his home blood pressures have been good with systolic ranging 120s to 130s. He will be starting cardiac rehab and his blood pressure will be monitored during those sessions. At this time will have him continue on lisinopril and carvedilol. He does have known chronic kidney disease and follows with Nephrology. Last labs in our system 09/27/2023 shows creatinine 2.23. Would not further titrate lisinopril. If further anti hypertensive as needed, suggest amlodipine. (5) Hypercholesterolemia: Code(s): E78.00 - Pure hypercholesterolemia, unspecified Category: Medical Plan: [place] LDL goal less than 70. Labs done 05/20/2023 showed LDL 62. Continue atorvastatin Plan Time spent on chart review, documentation, interview and assessment Orders: Orders Cardiac Rehab Today Z95.5 - Presence of coronary angioplasty implant and graft, Z98.890 - Other specified postprocedural states Coding Level of Care Code Est Pt Level 4 (38302) Diagnoses Atherosclerotic cardiovascular disease I25.10 Stented coronary artery Z95.5 S/P cardiac catheterization Z98.890 Hypertension I10 Hypercholesterolemia E78.00 Time Spent (min) 30
== END 2023-10-14 15:50 | disposition home or self-care (01) ==
PROVIDERS: PCP Internal Medicine; Visit Provider Nurse Practitioner Family
DX: I25.10 Atherosclerotic heart disease of native coronary artery without angina pectoris (principal); Z95.5 Presence of coronary angioplasty implant and graft; Z98.890 Other specified postprocedural states; I10 Essential (primary) hypertension; E78.00 Pure hypercholesterolemia, unspecified
CPT/HCPCS: 99214

== ENCOUNTER → 2023-10-14 15:07 | Outpatient (BNVA) | payer MEDICARE, OTHER, SELFPAY | PROVIDERS: PCP Internal Medicine; Visit Provider Nurse Practitioner Family | DX: I25.10 Atherosclerotic heart disease of native coronary artery without angina pectoris (principal); I10 Essential (primary) hypertension; E78.00 Pure hypercholesterolemia, unspecified; Z98.890 Other specified postprocedural states; Z95.5 Presence of coronary angioplasty implant and graft | CPT/HCPCS: 99212 ==

== ENCOUNTER 2023-10-21 14:23 | Outpatient (AMB) | payer MEDICARE, SELFPAY ==
[2023-10-21 14:28] VITALS: BP 154/78; PULSE 58; O2SAT 98; BMI 27.7
--- NOTE | 2023-10-21 14:28 | A.OFFPC_ITS ---
Vital Signs 3 10/21/23 14:28 10/21/23 15:04 Height 5 ft 8 in Weight 182 lb 0.2 oz BMI 27.7 BP 154/78 H 158/62 H Blood Pressure Location Lt brachial Lt brachial Position Sitting Sitting Pulse 58 Pulse Source Pulse Oximeter Pulse Oximetry (%) 98 Oxygen Delivery Method Room Air Intake Visit Reasons: HDF ~ Post hospital discharge FU Intake Note: Patient is here for hospital discharge follow up. [place] [facility] [place] Guide Required: No Allergies No Known Allergies Allergy (Verified 10/21/23 14:49) Medication List - Last Reconciled 10/21/23 by Karlee Gonzales PA-C acetaminophen (Tylenol Extra Strength) 500 mg PO Q6H PRN aspirin (Adult Aspirin Regimen) 81 mg PO DAILY atorvastatin 20 mg PO BEDTIME carvedilol 25 mg PO BID 30 days cephalexin 500 mg PO BID clopidogrel 75 mg PO DAILY dapagliflozin propanediol (Farxiga) 10 mg PO DAILY famotidine (Pepcid) 20 mg PO BEDTIME PRN 90 days flash glucose scanning reader (RecargoStyle Pina 2 [place]) As directed flash glucose sensor (FreeStyle Pina 2 Sensor kit) As directed insulin glargine (Lantus Solostar U-100 Insulin) 10 units (0.1 mL) subcut QPM lisinopril 10 mg PO DAILY nitroglycerin 0.4 mg sublingual Q5M PRN pen needle, diabetic (BD Ultra-Fine Phuong Pen Needle) As directed tamsulosin 0.4 mg PO DAILY Tobacco use date assessed: 10/21/23 Fall risk assessment: No Falls in past year Last assessed Fall Risk: 10/21/23 Dental Screening Dental Screen Date: 07/05/23 HPI HDF ~ Post hospital discharge FU 2 HPI0 Details 63-year-old male with uncontrolled diabe mary grace mellitus, coronary artery disease, hypertension, hypercholesterolemia, chronic kidney disease, chronic hepatitis C (treated with Epclusa January 2023) last seen by Dr. Enciso 07/05/23 coming in for hospital discharge follow up. Patient initially presented to the ED 09/30/23 with severe chest pain and was admitted for unstable angina with cardiac cath and stent placement LAD. Hospital course was complicated by occlusion of the septal branch treated with nitroglycerin and transfer to CCU. ECHO done which showed 55-60% EF. Discharged 10/02/23. Patient was seen by outpatient cardiology 10/14/23 plan to be on Plavix for one year and ASA indefinitely, also sent for cardiac rehab. Was seen by securities sales associate 10/19/2023 and found to have toe abscess which was I&D and lymphangitis being managed on antibiotics. Patient has been doing generally well since discharge. Today he tells us he has been having irritation and shooting pain in the armpit which resolves spontaneously within a few seconds. The pain is primarily in his axilla but can sometimes cause numbness and tingling in his hands which also resolved spontaneously within a few seconds. States the pain is around where he had his recent procedure. Blood pressures at home have been within normal range with some scattered elevated blood pressures. Mild intermittent chest tightness that resolved spontaneously and not related to exertion but states the discomfort is not similar to prior to his hospitalization. States he has noticed a drastic improvement in his exercise intolerance, now able to walk without chest discomfort or shortness of breath. [facility] Medical History (Updated 10/21/23 @ 16:12 by Karlee Gonzales PA-C) False positive HIV serology Hepatitis B core antibody positive Myocardial infarct Sciatic leg pain High blood pressure Diabetes Surgical History History of ankle surgery Stented coronary artery Family History Mother CKD (chronic kidney disease) Father Prostate cancer Brother Aneurysm Brother No problems noted. Sister No problems noted. Son No problems noted. Daughter No problems noted. Social History Housing: House Alcohol intake: current Comment: once a month Patient Tobacco Use Status: Former Tobacco user Tobacco use type: Cigarette Cigarettes Per Day: 2 Years Smoked: smoking 40 years. stopped 05/2023 e-Cigarette/Vaping Use: Never Used Second Hand Smoke Exposure: No service: No Current occupational status: retired and disabled Cognitive needs: No Hearing needs: No Vision needs: Yes Questionnaire Thrive Questionnaire Date Thrive assessed: 06/17/23 AUDIT C Alcohol Use Questionnaire (AUDIT-C) 1. How often do you have a drink containing alcohol?: Monthly or less 2. How many drinks containing alcohol do you have on a typical day when you are drinking?: 1 or 2 3. How often do you have six or more drinks on one occasion?: Never Total Score: 1 SUSANA-7 AMB Questionnaire SUSANA-7 Date SUSANA - 7 assessed: 07/05/23 Source: Developed by Drs. Antonio Hudson, Flaca Rutledge, Dk Nino and colleagues, with an educational elmer from [employer]. Review of Systems Const Denies body aches, Denies fatigue and Denies fever(s) Eyes Reports no additional complaints ENT Reports no additional complaints Card Details: States that his exercise tolerance has improved drastically after his hospitalization. Denies chest pain, Denies chest pain at rest, Denies chest pain with activity, Denies diaphoresis, Denies syncope, Denies pedal edema, Denies dyspnea and Denies dyspnea on exertion Resp Denies dyspnea and Denies dyspnea on exertion GI Denies abdominal pain, Denies constipation, Denies diarrhea and Denies nausea Reports no additional complaints Musc Reports no additional complaints Neuro Reports no additional complaints and Denies syncope Endo Denies fatigue Physical exam (Primary Care) Vital Signs: Last Vital Signs Pulse 58 10/21/23 14:28 BP 158/62 H 10/21/23 15:04 Pulse Ox 98 10/21/23 14:28 Oxygen Delivery Method Room Air 10/21/23 14:28 BMI result Body Mass Index 27.7 Tobacco/Smoking Status: Tobacco use Status Tobacco use date assessed 10/21/23 10/21/23 14:29 Patient Tobacco Use Status Former Tobacco user 10/21/23 14:29 Tobacco use type Cigarette 10/21/23 14:29 e-Cigarette/Vaping Use Never Used 10/21/23 14:29 Thrive Assessment: Date of Thrive Assessment Date Thrive assessed 06/17/23 10/21/23 14:29 Const General: cooperative, healthy appearing and comfortable Orientation/consciousness: patient oriented x3 HENMT Head: Yes normal to inspection Ears: hearing grossly normal bilaterally General nose exam: Normal external nose present Face and sinus: Yes normal facial exam Eyes General: appearance normal, both eyes and all related structures Neck Neck: Yes normal visual inspection and Yes full ROM Chest Other: No tenderness to palpation of the right axilla Breast/axilla palpation: normal palpation of the axillae and no axillary lymphadenopathy Resp Effort & Inspection: normal respiratory effort and able to speak in complete sentences Auscultation: clear to auscultation bilaterally, no crackles, no rales, no rhonchi and no wheezes Cardio Rate: regular rate Rhythm: regular rhythm Heart sounds: S1 normal heart sound present and S2 normal heart sound present Peripheral pulses: posterior tibial pulses present and dorsalis pedis present Skin General skin exam: no rashes or lesions noted Neuro General: patient oriented x3 Gait exam (Neuro): Normal gait present Extrem Other: No erythema or warmth of left foot from recent toe abscess General: Yes normal to inspection Ankle/foot/toe images: 2 1. Left great toe bandaged from recent incision and drainage of toe abscess and toenail removal Psych Appearance: grossly normal Speech and movement: Normal speech and movement present Affect: normal affect Thought process: Normal thought process present Insight: Good insight present (Psych) Judgement: Good judgement present (Psych) Assessment and Plan Assessment & Plan (1) Atherosclerotic cardiovascular disease: Comment: Cardiac catheterization 09/2023 lad abnormal stenting done with drug-eluting stent large septal branch angioplasty Code(s): I25.10 - Atherosclerotic heart disease of [place] coronary artery without angina pectoris Plan: Recent hospitalization for angina and stenting of LAD. Patient is being followed by Cardiology outpatient and was recently referred to cardiac rehab. Patient is still waiting for cardiac rehab appointment. Per cardiology, continue Plavix uninterrupted for at least 1 year. Continue atorvastatin with ideal LDL goal less than 70. Continue carvedilol and Farxiga. (2) Hypertension: Code(s): I10 - Essential (primary) hypertension Qualifiers: Hypertension type: primary hypertension Qualified Code(s): I10 - Essential (primary) hypertension Plan: Blood pressure elevated in the office today but per patient reports, blood pressures have been good at home. Patient will continue to monitor blood pressures at home and bring a log of blood pressures to next appointment. Continue on Lisinopril and Metoprolol. Per cardiology, recommend Amlodipine if pressures continue to be elevated and avoid increasing Lisinopril due to kidney impairment. Avoid salt intake and encourage healthy diet and regular exercise. (3) Hypercholesterolemia: Code(s): E78.00 - Pure hypercholesterolemia, unspecified Plan: Patient had stopped taking atorvastatin due to instructions on hospital discharge paperwork. Addendum to discharge summary of hospital paperwork states he should continue on atorvastatin and the discontinuation was a mistake. Will restart Atorvastatin, current LDL 62 is at goal. Avoid foods that are high in cholesterol such as red meat, fried foods, eggs and baked goods. LDL goal of less than 70. (4) Axillary pain: Code(s): M79.629 - Pain in unspecified upper arm Qualifiers: Laterality: right Qualified Code(s): M79.621 - Pain in right upper arm Plan: Patient experiencing mild intermittent shooting pain in the axilla which can sometimes radiate down to the hand. Does not seem to have any aggravating or relieving factors but resolved spontaneously within a few seconds. Patient reassured this pain may be related to recent cardiac catheterization. Agrees to follow up if pain worsens or persists and/or numbness or tingling becomes consistent. Plan Thank you for allowing me to participate in the care of this patient. I personally spent 45 minutes reviewing, examining and charting on this patient. Coding Level of Care Code Est Pt Level 4 (05120) Diagnoses Atherosclerotic cardiovascular disease I25.10 Primary hypertension I10 Hypertension type: primary hypertension Hypercholesterolemia E78.00 Pain in right axilla M79.621 Laterality: right
[2023-10-21 15:04] VITALS: BP 158/62
== END 2023-10-21 15:40 | disposition home or self-care (01) ==
PROVIDERS: PCP Internal Medicine
DX: I25.10 Atherosclerotic heart disease of native coronary artery without angina pectoris (principal); I10 Essential (primary) hypertension; E78.00 Pure hypercholesterolemia, unspecified; M79.621 Pain in right upper arm
CPT/HCPCS: 99214

== ENCOUNTER 2023-11-17 11:11 | Outpatient (AMB) | payer MEDICARE, SELFPAY ==
[2023-11-17 11:13] VITALS: BP 156/72; PULSE 61; O2SAT 98; BMI 27.4
--- NOTE | 2023-11-17 11:13 | A.OFFPC_ITS ---
Vital Signs 11/17/23 11:13 11/17/23 11:43 Height 5 ft 8 in Weight 180 lb BMI 27.4 BP 156/72 H 164/78 H Blood Pressure Location Lt brachial Lt brachial Position Sitting Sitting Pulse 61 Pulse Source Pulse Oximeter Pulse Oximetry (%) 98 Oxygen Delivery Method Room Air Intake Visit Reasons: DM Cocoa Bean Cleaner Required: No Allergies No Known Allergies Allergy (Verified 11/17/23 11:14) Medication List - Last Reconciled 11/17/23 by Karlee Gonzales PA-C acetaminophen (Tylenol Extra Strength) 500 mg PO Q6H PRN aspirin (Adult Aspirin Regimen) 81 mg PO DAILY atorvastatin 20 mg PO BEDTIME carvedilol 25 mg PO BID 30 days cephalexin 500 mg PO BID clopidogrel 75 mg PO DAILY dapagliflozin propanediol (Farxiga) 10 mg PO DAILY famotidine (Pepcid) 20 mg PO BEDTIME PRN 90 days flash glucose scanning reader (MingglStyle Pina 2 [place]) As directed flash glucose sensor (FreeStyle [place]nia 2 Sensor kit) As directed insulin glargine (Lantus Solostar U-100 Insulin) 10 units (0.1 mL) subcut QPM lisinopril 10 mg PO DAILY nitroglycerin 0.4 mg sublingual Q5M PRN pen needle, diabetic (BD Ultra-Fine Phuong Pen Needle) As directed tamsulosin 0.4 mg PO DAILY Tobacco use date assessed: 10/21/23 Fall risk assessment: No Falls in past year Last assessed Fall Risk: 11/17/23 Dental Screening Dental Screen Date: 07/05/23 HPI DM HPI Details 63-year-old male with past medical histo ry of diabetes mellitus, coronary artery disease, hypertension, hypercholesterolemia, CKD stage 3, chronic hepatitis-C, and BPH last seen 10/21/23 for hospital discharge follow up coming in for follow up.? In review of the notes, patient was seen by [facility] 10/2023 for debridement of right great toe wound.? He follows with Cardiology last seen 09/2023 we will continue on Plavix uninterrupted for at least 1 year, atorvastatin, carvedilol, and Farxiga.?If blood pressure continues to be out of control suggest amlodipine and follow up in 3 months. He mentions his right great toe has been much better and the pain has decreased significantly. Mentions that his sugars at home have been ranging between 200- 140 with 1-2 values below 100. When he had the low sugars he did note that he was dizzy but the sugars improved with a snack. He does not skip meals. He also mentioned that he takes his blood pressure frequently and values are typically within normal range. He has no other concerns or complaints today. [facility] Medical History False positive HIV serology Hepatitis B core antibody positive Myocardial infarct Sciatic leg pain High blood pressure Diabetes Surgical History History of ankle surgery Stented coronary artery Family History Mother CKD (chronic kidney disease) Father Prostate cancer Brother Aneurysm Brother No problems noted. Sister No problems noted. Son No problems noted. Daughter No problems noted. Social History Housing: House Alcohol intake: current Comment: once a month Patient Tobacco Use Status: Former Tobacco user Tobacco use type: Cigarette Cigarettes Per Day: 2 Years Smoked: smoking 40 years. stopped 05/2023 e-Cigarette/Vaping Use: Never Used Second Hand Smoke Exposure: No service: No Current occupational status: retired and disabled Cognitive needs: No Hearing needs: No Vision needs: Yes Questionnaire Thrive Questionnaire Date Thrive assessed: 06/17/23 AUDIT C Alcohol Use Questionnaire (AUDIT-C) 1. How often do you have a drink containing alcohol?: Monthly or less 2. How many drinks containing alcohol do you have on a typical day when you are drinking?: 1 or 2 3. How often do you have six or more drinks on one occasion?: Never Total Score: 1 SUSANA-7 AMB Questionnaire SUSANA-7 Date SUSANA - 7 assessed: 07/05/23 Source: Developed by Drs. Antonio Hudson, Flaca Rutledge, Dk Nino and colleagues, with an educational elmer from [employer]. Review of Systems Const Denies body aches, Denies chills, Denies fever(s), Denies headache(s) and Denies poor appetite Eyes Reports no additional complaints ENT Denies dysphagia, Denies dizziness, Denies headache(s) and Denies odynophagia Card Denies chest pain, Denies syncope, Denies edema, Denies irregular heart rhythm, Denies lightheadedness and Denies dyspnea Resp Denies cough and Denies dyspnea GI Denies abdominal pain, Denies constipation, Denies dysphagia, Denies diarrhea, Denies nausea, Denies odynophagia and Denies vomiting Reports no additional complaints Musc Reports no additional complaints and Denies abnormal gait Skin/Breast Reports system reviewed and no additional complaints, except as documented Neuro Denies abnormal gait, Denies dizziness, Denies syncope and Denies headache(s) Psych Reports no additional complaints Physical exam (Primary Care) Vital Signs: Last Vital Signs Pulse 61 11/17/23 11:13 BP 156/72 H 11/17/23 11:13 Pulse Ox 98 11/17/23 11:13 Oxygen Delivery Method Room Air 11/17/23 11:13 BMI result Body Mass Index 27.4 Tobacco/Smoking Status: Tobacco use Status Tobacco use date assessed 10/21/23 11/17/23 11:18 Patient Tobacco Use Status Former Tobacco user 11/17/23 11:18 Tobacco use type Cigarette 11/17/23 11:18 e-Cigarette/Vaping Use Never Used 11/17/23 11:18 Thrive Assessment: Date of Thrive Assessment Date Thrive assessed 06/17/23 11/17/23 11:18 Const General: cooperative, healthy appearing, comfortable and no acute distress Orientation/consciousness: patient oriented x3 HENMT Head: Yes normocephalic Ears: hearing grossly normal bilaterally General nose exam: Normal external nose present Eyes General: appearance normal, both eyes and all related structures Conjunctivae: conjunctivae normal Neck Neck: Yes full ROM and Yes no lymphadenopathy Resp Effort & Inspection: normal respiratory effort Auscultation: clear to auscultation bilaterally, no crackles, no rales, no rhonchi and no wheezes Cardio Rate: regular rate Rhythm: regular rhythm Skin General skin exam: no rashes or lesions noted Neuro General: patient oriented x3 Gait exam (Neuro): Normal gait present Extrem Other: Right great toe is bandaged General: Yes normal to inspection, Yes full ROM and No edema Psych Affect: normal affect Attitude: cooperative Insight: Good insight present (Psych) Judgement: Good judgement present (Psych) Results AMB Hemoglobin A1c AMB Hemoglobin A1c 7.2 % Last Edit by INDIRA Ny on 11/17/23 11:24 Assessment and Plan Assessment & Plan (1) Hypertension: Code(s): I10 - Essential (primary) hypertension Qualifiers: Hypertension type: primary hypertension Qualified Code(s): I10 - Essential (primary) hypertension Plan: Blood pressure was elevated today in the office even when retaken. Patient states his blood pressures at home are within normal range less than 140/90. Patient will continue to take blood pressure daily in the upcoming week and report values to the office. If values continue to be elevated at home we will consider adding amlodipine to blood pressure regimen per Cardiology recommendation. Patient has follow up with Cardiology in 12/2023. Continue on lisinopril and carvedilol. (2) Type 2 diabetes mellitus with hyperglycemia: Comment: joselin Code(s): E11.65 - Type 2 diabetes mellitus with hyperglycemia Plan: Patient's blood sugars have been persistently over 200 and A1c today is 7.2% which is improved from last visit 8.4%. Goal A1c for this patient is less than 7%. Patient has been modifying diet and increasing exercise. Previously patient had been on 12 units of Lantus once daily with good control of sugars. We will increase dose of Lantus from 10 units to 12 units. Instructed patient to take blood sugars 1-2 times daily and if he begins to have sugars below 100 or episodes of lightheadedness to go back to 10 units daily. Follow up in 3 months. Decrease the amount of carbohydrates such as pasta, bread, rice, and potatoes and limit the amount of sweets. Although fruits are generally healthy they should be eaten in moderation as they are still high in sugar. Continue on Lantus and Farxiga. (3) Hypercholesterolemia: Code(s): E78.00 - Pure hypercholesterolemia, unspecified Plan: Last cholesterol test 04/2023 was within goal with LDL at 62 and triglyceride at 99. Avoid foods that are high in cholesterol such as red meat, fried foods, eggs and baked goods. LDL goal of less than 70. Continue on atorvastatin. Plan This note was constructed using voice recognition software. While every effort has been made to ensure accuracy and wet end operator, still areas may have been included sometimes these areas may affect the content or meeting of the given symptoms. Total time spent caring for the patient today was 35 minutes. This includes time spent before the visit reviewing the chart, time spent during the visit, and time spent after the visit and documentation. Orders: Orders AMB Hemoglobin A1c Today E11.65 - Type 2 diabetes mellitus with hyperglycemia Lipid Panel Today Z00.00 - Encounter for general adult medical examination without abnormal findings Medications: Refilled carvedilol must administer with a meal/food 25 mg PO BID 30 days 60 tabs 0RF carvedilol must administer with a meal/food 25 mg PO BID 30 days 60 tabs 2RF Coding Level of Care Code Est Pt Level 4 (14591) Diagnoses Primary hypertension I10 Hypertension type: primary hypertension Type 2 diabetes mellitus with hyperglycemia E11.65 Hypercholesterolemia E78.00
[2023-11-17 11:43] VITALS: BP 164/78
== END 2023-11-17 11:53 | disposition home or self-care (01) ==
PROVIDERS: PCP Internal Medicine
DX: I10 Essential (primary) hypertension (principal); E11.65 Type 2 diabetes mellitus with hyperglycemia; E78.00 Pure hypercholesterolemia, unspecified
CPT/HCPCS: 83036; 99214

== ENCOUNTER 2023-12-20 10:20 | Outpatient (AMB) | payer MEDICARE, SELFPAY ==
[2023-12-20 10:23] VITALS: BP 164/72; PULSE 76; O2SAT 97; BMI 27.2
--- NOTE | 2023-12-20 10:23 | HO.NEPHOV_ITS ---
Vital Signs 12/20/23 10:23 Height 5 ft 8 in Weight 179 lb BMI 27.2 BP 164/72 H Blood Pressure Location Lt brachial Position Sitting Pulse 76 Pulse Source Pulse Oximeter Pulse Oximetry (%) 97 Oxygen Delivery Method Room Air Intake Visit Reasons: Nov w/ labs/ Conf [place] Cutter Required: No Accompanied by: Self / Same As Patient Allergies No Known Allergies Allergy (Verified 12/20/23 10:25) Medication List - Last Reconciled 12/20/23 by Agustin Goodwin MD acetaminophen (Tylenol Extra Strength) 500 mg PO Q6H PRN amlodipine 5 mg PO DAILY aspirin (Adult Aspirin Regimen) 81 mg PO DAILY carvedilol 25 mg PO BID 30 days clopidogrel 75 mg PO DAILY dapagliflozin propanediol (Farxiga) 10 mg PO DAILY famotidine (Pepcid) 20 mg PO BEDTIME PRN 90 days flash glucose scanning reader (MinkaStyle Pina 2 [place]) As directed flash glucose sensor (FreeStyle Pina 2 Sensor kit) As directed insulin glargine (Lantus Solostar U-100 Insulin) 10 units (0.1 mL) subcut QPM lisinopril 10 mg PO DAILY nitroglycerin 0.4 mg sublingual Q5M PRN pen needle, diabetic (BD Ultra-Fine Phuong Pen Needle) As directed tamsulosin 0.4 mg PO DAILY HPI Comments Details: 62-year-old man with a longstanding history of diabetes mellitus and hypertension. He has history of coronary disease and scheduled for coronary angiogram. He is history of hepatitis-C was treated with EPCLUSA in January 2023. Two years ago serum creatinine is 1.9. As of June 2022 creatinine was 2.0. In May 2023, creatinine was 2.4 He has been scheduled for coronary angiogram next week and hence his evaluation. Has a history of smoking. He quit smoking about 2 months ago. 08/03/23;Doing OK;DID NOT Go for blood work! 08/30/23 blood sugar is still sub optimal Still having dyspnea on exertion 12/20/23 Underwent Coronoary angiogram - first week of September s/p Stent [facility] Medical History False positive HIV serology Hepatitis B core antibody positive Myocardial infarct Sciatic leg pain High blood pressure Diabetes Surgical History History of ankle surgery Stented coronary artery Family History Mother CKD (chronic kidney disease) Father Prostate cancer Brother Aneurysm Brother No problems noted. Sister No problems noted. Son No problems noted. Daughter No problems noted. Social History Housing: House Alcohol intake: current Comment: once a month Patient Tobacco Use Status: Former Tobacco user Tobacco use type: Cigarette Cigarettes Per Day: 2 Years Smoked: smoking 40 years. stopped 05/2023 e-Cigarette/Vaping Use: Never Used Second Hand Smoke Exposure: No service: No Current occupational status: retired and disabled Cognitive needs: No Hearing needs: No Vision needs: Yes Physical Exam Vital Signs: Last Vital Signs Pulse 76 12/20/23 10:23 BP 164/72 H 12/20/23 10:23 Pulse Ox 97 12/20/23 10:23 Oxygen Delivery Method Room Air 12/20/23 10:23 BMI result Body Mass Index 27.2 Const General: comfortable; No acute distress Orientation/consciousness: patient oriented x3 Eyes General: appearance normal, both eyes and all related structures Visual Siddiqui: normal visual siddiqui by confrontation Neck Neck: Yes supple and Yes no JVD Resp Effort & Inspection: normal respiratory effort and respiratory effort not decreased Auscultation: rhonchi Cardio Palpation: no palpable S3 and no palpable S4 Heart sounds: no rubs GI Inspection: Yes normal to inspection Palpation (GI): Soft to palpation Percussion: Yes normal to percussion Auscultation: normal bowel sounds General: Yes no CVA tenderness Back/Spine/Pelvis Back: no CVA tenderness Skin General skin exam: no petechiae and no purpura Neuro General: patient oriented x3 and no focal motor deficits Extrem General: No clubbing and No edema Results Reviewed Nephrology Results: Hgb 12.5 g/dl (14.0-18.0) L 09/27/23 WBC 8.3 X10*3/uL (4.8-10.8) 09/27/23 Plt Count 169 X10*3/uL (160-400) 09/27/23 Sodium 137 mmol/L (135-145) 09/27/23 Potassium 4.4 mmol/L (3.3-5.1) 09/27/23 Chloride 106 mmol/L (96-108) 09/27/23 Carbon Dioxide 23 mmol/L (22-29) 09/27/23 BUN 33 mg/dL (9-16) H 09/27/23 Creatinine 2.23 mg/dL (0.5-1.4) H 09/27/23 Calcium 9.4 mg/dL (8.4-10.2) 09/27/23 Phosphorus 3.2 mg/dL (2.7-4.5) 08/03/23 PTH Intact 133.5 pg/mL (8.7-77.1) H 08/03/23 Urine Protein 300 (3+) mg/dL (Neg-Trace) H 08/03/23 Urine Creatinine 149.90 mg/dL 08/03/23 Assessment & Plan Assessment & Plan (1) CKD stage 3 due to type 2 diabetes mellitus: Code(s): E11.22 - Type 2 diabetes mellitus with diabetic chronic kidney disease; N18.30 - Chronic kidney disease, stage 3 unspecified Category: Medical (2) Hypertension: Code(s): I10 - Essential (primary) hypertension Category: Medical Qualifiers: Hypertension type: primary hypertension Qualified Code(s): I10 - Essential (primary) hypertension (3) Hyperkalemia: Code(s): E87.5 - Hyperkalemia Category: Medical (4) Chronic hepatitis C: Comment: Epclusa January 2023 Code(s): B18.2 - Chronic viral hepatitis C Category: Medical Qualifiers: Hepatic coma status: without hepatic coma Qualified Code(s): B18.2 - Chronic viral hepatitis C Plan: Status post treatment with EPCLUSA Follows with GI Plan Chronic kidney disease: most likely due to underlying diabetic kidney disease. He has significant proteinuria. Nondiabetic causes should be considered -given history of hepatitis-C _renal ultrasonogram - No obstruction There was a component of hypoperfusion; Creatinine has improved after stopping Lisinopril Back on Lisinopril Keep FArxiga HTN: Overall blood pressure is sub optimal Restart AMlodiping 5 mg daily Advised low-sodium diet. Hyperkalemia Due to the combination of use of Esau inhibitors as well as underlying CKD. Encouraged him to stay on low-potassium diet. Recheck today s/p coronary angiogram in September 2023 Needs follow up creatinine level - ordered Orders: Orders Basic Metabolic Panel Today E11.22 - Type 2 diabetes mellitus with diabetic chronic kidney disease, I10 - Essential (primary) hypertension, N18.30 - Chronic kidney disease, stage 3 unspecified Complete Blood Count Auto Diff Today E11.22 - Type 2 diabetes mellitus with diabetic chronic kidney disease, I10 - Essential (primary) hypertension, N18.30 - Chronic kidney disease, stage 3 unspecified Coding Level of Care Code Est Pt Level 4 (06299) Complex EM visit Add On [id number] Diagnoses CKD stage 3 due to type 2 diabetes mellitus E11.22; N18.30 Primary hypertension I10 Hypertension type: primary hypertension Hyperkalemia E87.5 Chronic hepatitis C without hepatic coma B18.2 Hepatic coma status: without hepatic coma
== END 2023-12-20 10:40 | disposition home or self-care (01) ==
PROVIDERS: PCP Internal Medicine; Visit Provider Internal Medicine Hypertension Specialist
DX: E11.22 Type 2 diabetes mellitus with diabetic chronic kidney disease (principal); N18.30 Chronic kidney disease, stage 3 unspecified; I10 Essential (primary) hypertension; E87.5 Hyperkalemia; B18.2 Chronic viral hepatitis C
CPT/HCPCS: 99214; G2211

== ENCOUNTER 2023-12-20 10:20 | Outpatient (REF) | payer MEDICARE, SELFPAY ==
[2023-12-20 11:24] LABS: MANUAL DIFF FLAG NO
[2023-12-20 11:48] LABS: Basophils Percent Auto 0.4 % (0-2); Eosinophils Absolute Auto 0.3 X10*3/uL (0.0-0.4); Eosinophils Percent Auto 4.8 % (0-4); Hematocrit 39.2 % (42.0-52.0); Hemoglobin 13.1 g/dl (14.0-18.0); Imm Gran Abs Auto 0.03 X10*3/uL (0.00-0.03); Imm Gran Pct Auto 0.4 % (0.0-0.4); Mean Corpuscular HGB Conc 33.4 g/dl (31.0-36.0); Mean Corpuscular Hemoglobin 31.2 pg (27.0-33.0); Mean Corpuscular Volume 93.3 fL (80.0-98.0); Mean Platelet Volume 9.8 fL (9.4-12.4); Monocytes Absolute Auto 0.6 X10*3/uL (0.1-1.2); Monocytes Percent Auto 8.9 % (2-11); Neutrophils Absolute Auto 4.9 x10*3/uL (2.0-8.3); Neutrophils Percent Auto 70.5 % (45-73); Platelet Count 152 X10*3/uL (160-400); Red Cell Distribution Width 14.5 % (11.0-16.0); White Blood Count 6.9 X10*3/uL (4.8-10.8)
[2023-12-20 12:19] LABS: Parathyroid Hormone Intact 41.6 pg/mL (8.7-77.1)
[2023-12-20 12:21] LABS: Alanine Aminotransferase 11 U/L (0-40); Albumin Level 4.3 g/dL (3.5-5.0); Alkaline Phosphatase 74 U/L (39-117); Anion Gap 13 (12-20); Aspartate Amino Transferase 14 U/L (5-37); Blood Urea Nitrogen 37 mg/dL (9-16); Calcium 9.7 mg/dL (8.4-10.2); Carbon Dioxide 21 mmol/L (22-29); Chloride 109 mmol/L (96-108); Estimated Glomerular Filt Rate 27; Glucose Random 255 mg/dL (60-115); Potassium 5.2 mmol/L (3.3-5.1); Sodium 138 mmol/L (135-145); Total Protein 7.9 g/dL (6.5-8.0)
[2023-12-20 13:36] LABS: Appearance Urine Clear; Color Urine Yellow; Glucose Urine UA >=1000 mg/dL (Negative); Leukocyte Esterase Urine Negative (Negative); Nitrite Urine Negative (Negative); Specific Gravity - Urine 1.025 (1.005-1.025); UMIC TRIGGER UA YES; Urine Blood Negative (Negative); Urine Ketones Trace mg/dL (Negative); Urine Protein 100 (2+) mg/dL (Neg-Trace)
[2023-12-20 13:52] LABS: Bacteria Urine None Seen (None Seen); RBC Urine 0-2 /HPF (0-2); Squamous Epithelial Cell Urine 0-2 /HPF (0-2); WBC Urine 0-5 /HPF (0-5)
[2023-12-20 14:01] LABS: Creatinine Urine 160.22 mg/dL; Total Protein Urine Random 115 mg/dL (<12)
== END 2023-12-20 10:21 | disposition home or self-care (01) ==
LOC: HO.LAB 10:20
PROVIDERS: PCP Internal Medicine; Visit Provider Internal Medicine Hypertension Specialist
DX: N18.30 Chronic kidney disease, stage 3 unspecified (principal); E11.22 Type 2 diabetes mellitus with diabetic chronic kidney disease; N05.9 Unspecified nephritic syndrome with unspecified morphologic changes; N18.9 Chronic kidney disease, unspecified; I10 Essential (primary) hypertension; E87.5 Hyperkalemia; B18.2 Chronic viral hepatitis C
CPT/HCPCS: 36415; 80053; 81001; 82570; 83970; 84156; 85025; 99212

== ENCOUNTER 2024-02-04 09:56 | Outpatient (AMB) | payer MEDICARE, SELFPAY ==
[2024-02-04 09:57] VITALS: BP 138/60; PULSE 73; O2SAT 93; BMI 27.7
--- NOTE | 2024-02-04 09:57 | HO.NEPHOV ---
Vital Signs 02/04/24 09:57 Height 5 ft 8 in Weight 182 lb BMI 27.7 BP 138/60 Blood Pressure Location Lt brachial Position Sitting Pulse 73 Pulse Source Pulse Oximeter Pulse Oximetry (%) 93 Oxygen Delivery Method Room Air Intake Visit Reasons: CKD/ Conf Director Inpatient Headache Program Required: No Accompanied by: Self / Same As Patient Allergies No Known Allergies Allergy (Verified 02/04/24 09:59) Medication List - Last Reconciled 02/04/24 by Agustin Goodwin MD acetaminophen (Tylenol Extra Strength) 500 mg PO Q6H PRN amlodipine 10 mg PO DAILY aspirin (Adult Aspirin Regimen) 81 mg PO DAILY atorvastatin 20 mg PO BEDTIME carvedilol 25 mg PO BID 30 days clopidogrel 75 mg PO DAILY dapagliflozin propanediol (Farxiga) 10 mg PO DAILY famotidine (Pepcid) 20 mg PO BEDTIME PRN 90 days flash glucose scanning reader (S5 TechStyle Pina 2 [place]) As directed flash glucose sensor (FreeStyle Pina 2 Sensor kit) As directed insulin glargine (Lantus Solostar U-100 Insulin) 10 units (0.1 mL) subcut QPM lisinopril 10 mg PO DAILY nitroglycerin 0.4 mg sublingual Q5M PRN pen needle, diabetic (BD Ultra-Fine Phuong Pen Needle) As directed tamsulosin 0.4 mg PO DAILY HPI Comments Details: 62-year-old man with a longstanding history of diabetes mellitus and hypertension. He has history of coronary disease and scheduled for coronary angiogram. He is history of hepatitis-C was treated with EPCLUSA in January 2023. Two years ago serum creatinine is 1.9. As of June 2022 creatinine was 2.0. In May 2023, creatinine was 2.4 He has been scheduled for coronary angiogram next week and hence his evaluation. Has a history of smoking. He quit smoking about 2 months ago. 08/03/23;Doing OK;DID NOT Go for blood work! 08/30/23 blood sugar is still sub optimal Still having dyspnea on exertion 12/20/23 Underwent Coronoary angiogram - first week of September s/p Stent 02/04/24 c/o FAtigue PFSH Medical History False positive HIV serology Hepatitis B core antibody positive Myocardial infarct Sciatic leg pain High blood pressure Diabetes Surgical History History of ankle surgery Stented coronary artery Family History Mother CKD (chronic kidney disease) Father Prostate cancer Brother Aneurysm Brother No problems noted. Sister No problems noted. Son No problems noted. Daughter No problems noted. Social History Housing: House Alcohol intake: current Comment: once a month Patient Tobacco Use Status: Former Tobacco user Tobacco use type: Cigarette Cigarettes Per Day: 2 Years Smoked: smoking 40 years. stopped 05/2023 e-Cigarette/Vaping Use: Never Used Second Hand Smoke Exposure: No service: No Current occupational status: retired and disabled Cognitive needs: No Hearing needs: No Vision needs: Yes Physical Exam Vital Signs: Last Vital Signs Pulse 73 02/04/24 09:57 BP 138/60 02/04/24 09:57 Pulse Ox 93 02/04/24 09:57 Oxygen Delivery Method Room Air 02/04/24 09:57 BMI result Body Mass Index 27.7 Const General: comfortable; No acute distress Orientation/consciousness: patient oriented x3 Eyes General: appearance normal, both eyes and all related structures Visual Siddiqui: normal visual siddiqui by confrontation Neck Neck: Yes supple and Yes no JVD Resp Effort & Inspection: normal respiratory effort and respiratory effort not decreased Auscultation: rhonchi Cardio Palpation: no palpable S3 and no palpable S4 Heart sounds: no rubs GI Inspection: Yes normal to inspection Palpation (GI): Soft to palpation Percussion: Yes normal to percussion Auscultation: normal bowel sounds General: Yes no CVA tenderness Back/Spine/Pelvis Back: no CVA tenderness Skin General skin exam: no petechiae and no purpura Neuro General: patient oriented x3 and no focal motor deficits Extrem General: No clubbing and No edema Results Reviewed Nephrology Results: Hgb 13.1 g/dl (14.0-18.0) L 12/20/23 WBC 6.9 X10*3/uL (4.8-10.8) 08/26/24 Plt Count 152 X10*3/uL (160-400) L 12/20/23 Sodium 138 mmol/L (135-145) 12/20/23 Potassium 5.2 mmol/L (3.3-5.1) H 12/20/23 Chloride 109 mmol/L (96-108) H 12/20/23 Carbon Dioxide 21 mmol/L (22-29) L 12/20/23 BUN 37 mg/dL (9-16) H 12/20/23 Creatinine 2.41 mg/dL (0.5-1.4) H 12/20/23 Calcium 9.7 mg/dL (8.4-10.2) 12/20/23 PTH Intact 41.6 pg/mL (8.7-77.1) 12/20/23 Urine Protein 100 (2+) mg/dL (Neg-Trace) H 12/20/23 Urine Creatinine 160.22 mg/dL 12/20/23 Assessment & Plan Assessment & Plan (1) CKD stage 3 due to type 2 diabetes mellitus: Code(s): E11.22 - Type 2 diabetes mellitus with diabetic chronic kidney disease; N18.30 - Chronic kidney disease, stage 3 unspecified Category: Medical (2) Hypertension: Code(s): I10 - Essential (primary) hypertension Category: Medical Qualifiers: Hypertension type: primary hypertension Qualified Code(s): I10 - Essential (primary) hypertension (3) Hyperkalemia: Code(s): E87.5 - Hyperkalemia Category: Medical (4) Chronic hepatitis C: Comment: Epclusa January 2023 Code(s): B18.2 - Chronic viral hepatitis C Category: Medical Qualifiers: Hepatic coma status: without hepatic coma Qualified Code(s): B18.2 - Chronic viral hepatitis C Plan: Status post treatment with EPCLUSA Follows with GI (5) CKD (chronic kidney disease) stage 3, GFR 30-59 ml/min: Code(s): N18.30 - Chronic kidney disease, stage 3 unspecified Category: Medical Plan Chronic kidney disease: most likely due to underlying diabetic kidney disease. He has significant proteinuria. Nondiabetic causes should be considered -given history of hepatitis-C _renal ultrasonogram - No obstruction There was a component of hypoperfusion; Creatinine has improved after stopping Lisinopril Back on Lisinopril Keep FArxiga HTN: Overall blood pressure is well controlled Keep current med Advised low-sodium diet. Hyperkalemia Due to the combination of use of Esau inhibitors as well as underlying CKD. Encouraged him to stay on low-potassium diet. Recheck today s/p coronary angiogram in September 2023 Complains of fatigue for the last few months. We will check for anemia and thyroid function tests. If these are normal then it is possible that the fatigue could be attributed to the use of Coreg. No changes were made today Orders: Orders Complete Blood Count Auto Diff Today E87.5 - Hyperkalemia, N18.30 - Chronic kidney disease, stage 3 unspecified Basic Metabolic Panel 4 Months N18.30 - Chronic kidney disease, stage 3 unspecified Complete Blood Count Auto Diff 4 Months N18.30 - Chronic kidney disease, stage 3 unspecified Comprehensive Met. Panel Today E87.5 - Hyperkalemia, N18.30 - Chronic kidney disease, stage 3 unspecified TSH reflex Free T4 Today E87.5 - Hyperkalemia, N18.30 - Chronic kidney disease, stage 3 unspecified Coding Level of Care Code Est Pt Level 4 (29282) Diagnoses CKD stage 3 due to type 2 diabetes mellitus E11.22; N18.30 Primary hypertension I10 Hypertension type: primary hypertension Hyperkalemia E87.5 Chronic hepatitis C without hepatic coma B18.2 Hepatic coma status: without hepatic coma CKD (chronic kidney disease) stage 3, GFR 30-59 ml/min N18.30
== END 2024-02-04 10:17 | disposition home or self-care (01) ==
PROVIDERS: PCP Internal Medicine; Visit Provider Internal Medicine Hypertension Specialist
DX: I12.9 Hypertensive chronic kidney disease with stage 1 through stage 4 chronic kidney disease, or unspecified chronic kidney disease (principal); E11.22 Type 2 diabetes mellitus with diabetic chronic kidney disease; N18.30 Chronic kidney disease, stage 3 unspecified; E87.5 Hyperkalemia; B18.2 Chronic viral hepatitis C
CPT/HCPCS: 99214

== ENCOUNTER → 2024-02-04 09:56 | Outpatient (BNVA) | payer MEDICARE, SELFPAY | PROVIDERS: PCP Internal Medicine; Visit Provider Internal Medicine Hypertension Specialist | DX: E11.22 Type 2 diabetes mellitus with diabetic chronic kidney disease (principal); I12.9 Hypertensive chronic kidney disease with stage 1 through stage 4 chronic kidney disease, or unspecified chronic kidney disease; E87.5 Hyperkalemia; B18.2 Chronic viral hepatitis C; N18.30 Chronic kidney disease, stage 3 unspecified | CPT/HCPCS: 99212 ==

== ENCOUNTER 2024-02-04 10:24 | Outpatient (REF) | payer MEDICARE, SELFPAY ==
[2024-02-04 10:43] LABS: MANUAL DIFF FLAG NO
[2024-02-04 10:45] LABS: Basophils Absolute Auto 0.1 X10*3/uL (0.0-0.2); Basophils Percent Auto 0.7 % (0-2); Eosinophils Absolute Auto 0.5 X10*3/uL (0.0-0.4); Eosinophils Percent Auto 6.3 % (0-4); Hematocrit 36.7 % (42.0-52.0); Hemoglobin 12.7 g/dl (14.0-18.0); Imm Gran Abs Auto 0.03 X10*3/uL (0.00-0.03); Imm Gran Pct Auto 0.4 % (0.0-0.4); Lymphocytes Absolute Auto 1.5 X10*3/uL (1.2-4.9); Mean Corpuscular HGB Conc 34.6 g/dl (31.0-36.0); Mean Corpuscular Hemoglobin 31.8 pg (27.0-33.0); Mean Platelet Volume 9.3 fL (9.4-12.4); Monocytes Absolute Auto 0.8 X10*3/uL (0.1-1.2); Monocytes Percent Auto 9.3 % (2-11); Neutrophils Absolute Auto 5.3 x10*3/uL (2.0-8.3); Neutrophils Percent Auto 65.3 % (45-73); Platelet Count 170 X10*3/uL (160-400); Red Blood Count 3.99 X10*6/uL (4.60-5.80); Red Cell Distribution Width 13.7 % (11.0-16.0); White Blood Count 8.1 X10*3/uL (4.8-10.8)
[2024-02-04 11:42] LABS: Alanine Aminotransferase 12 U/L (0-40); Albumin Level 4.3 g/dL (3.5-5.0); Alkaline Phosphatase 82 U/L (39-117); Anion Gap 13 (12-20); Aspartate Amino Transferase 14 U/L (5-37); Bilirubin Total 0.7 mg/dL (0.0-1.0); Blood Urea Nitrogen 35 mg/dL (9-16); Calcium 9.2 mg/dL (8.4-10.2); Carbon Dioxide 21 mmol/L (22-29); Chloride 108 mmol/L (96-108); Estimated Glomerular Filt Rate 32; Glucose Random 275 mg/dL (60-115); Sodium 137 mmol/L (135-145); Total Protein 7.9 g/dL (6.5-8.0)
[2024-02-04 11:59] LABS: TSH reflex Free T4 1.25 uIU/mL (0.32-4.0)
== END 2024-02-04 10:25 | disposition home or self-care (01) ==
LOC: HO.10HDL 10:24
PROVIDERS: Visit Provider Internal Medicine Hypertension Specialist
DX: E87.5 Hyperkalemia (principal); N18.30 Chronic kidney disease, stage 3 unspecified
CPT/HCPCS: 36415; 80053; 84443; 85025

== ENCOUNTER 2024-02-21 11:20 | Outpatient (AMB) | payer MEDICARE, SELFPAY ==
[2024-02-21 11:28] VITALS: BP 142/68; PULSE 74; O2SAT 99; BMI 28.1
--- NOTE | 2024-02-21 11:28 | A.OFFPC_ITS ---
Vital Signs 02/21/24 11:28 Height 5 ft 8 in Weight 185 lb BMI 28.1 BP 142/68 H Blood Pressure Location Lt brachial Position Sitting Pulse 74 Pulse Source Pulse Oximeter Pulse Oximetry (%) 99 Oxygen Delivery Method Room Air Intake Visit Reasons: f/u DM Allergies No Known Allergies Allergy (Verified 02/21/24 11:33) Medication List - Last Reconciled 02/21/24 by Karlee Gonzales PA-C acetaminophen (Tylenol Extra Strength) 500 mg PO Q6H PRN amlodipine 10 mg PO DAILY aspirin (Adult Aspirin Regimen) 81 mg PO DAILY atorvastatin 20 mg PO BEDTIME carvedilol 25 mg PO BID 30 days clopidogrel 75 mg PO DAILY dapagliflozin propanediol (Farxiga) 10 mg PO DAILY famotidine (Pepcid) 20 mg PO BEDTIME PRN 90 days flash glucose scanning reader ([employer] ProduceStyle Pina 2 [place]) As directed flash glucose sensor (FreeStyle Pina 2 Sensor kit) As directed insulin glargine (Lantus Solostar U-100 Insulin) 10 units (0.1 mL) subcut QPM lisinopril 10 mg PO DAILY nitroglycerin 0.4 mg sublingual Q5M PRN pen needle, diabetic (BD Ultra-Fine Phuong Pen Needle) As directed tamsulosin 0.4 mg PO DAILY Tobacco use date assessed: 10/21/23 Fall risk assessment: No Falls in past year Last assessed Fall Risk: 02/21/24 Dental Screening Dental Screen Date: 07/05/23 HPI f/u DM HPI Details 63-year-old male with past medical histo ry of diabetes mellitus, coronary artery disease, hypertension, hypercholesterolemia, CKD stage 3, chronic hepatitis-C and BPH last seen October 2023 coming into the office for follow up diabetes mellitus.? In review of the notes, patient was seen by Nephrology 02/04/2024 stable on current medication regimen. Patient states he has been feeling generally well. His blood pressures at home have been 135-140 systolic and 60s diastolic. Denies any elevated pressures above 140/90. He does also mentioned in the last few months he has been drinking soda and having more sweets than usual. [facility] Medical History False positive HIV serology Hepatitis B core antibody positive Myocardial infarct Sciatic leg pain High blood pressure Diabetes Surgical History History of ankle surgery Stented coronary artery Family History Mother CKD (chronic kidney disease) Father Prostate cancer Brother Aneurysm Brother No problems noted. Sister No problems noted. Son No problems noted. Daughter No problems noted. Social History Housing: House Alcohol intake: current Comment: once a month Patient Tobacco Use Status: Former Tobacco user Tobacco use type: Cigarette Cigarettes Per Day: 2 Years Smoked: smoking 40 years. stopped 05/2023 e-Cigarette/Vaping Use: Never Used Second Hand Smoke Exposure: No service: No Current occupational status: retired and disabled Cognitive needs: No Hearing needs: No Vision needs: Yes Questionnaire Thrive Questionnaire Date Thrive assessed: 06/17/23 AUDIT C Alcohol Use Questionnaire (AUDIT-C) 1. How often do you have a drink containing alcohol?: Monthly or less 2. How many drinks containing alcohol do you have on a typical day when you are drinking?: 1 or 2 3. How often do you have six or more drinks on one occasion?: Never Total Score: 1 SUSANA-7 AMB Questionnaire SUSANA-7 Date SUSANA - 7 assessed: 07/05/23 Source: Developed by Drs. Antonio Hudson, Flaca Rutledge, Dk Nino and colleagues, with an educational elmer from [employer]. Review of Systems Const Denies body aches and Denies fever(s) Eyes Reports no additional complaints ENT Reports no additional complaints Card Denies chest pain, Denies leg edema, Denies lightheadedness and Denies dyspnea Resp Denies dyspnea GI Reports no additional complaints Reports no additional complaints Musc Reports no additional complaints Skin/Breast Reports system reviewed and no additional complaints, except as documented Neuro Reports no additional complaints Physical exam (Primary Care) Tobacco/Smoking Status: Tobacco use Status Tobacco use date assessed 10/21/23 02/21/24 11:29 Patient Tobacco Use Status Former Tobacco user 02/21/24 11:29 Tobacco use type Cigarette 02/21/24 11:29 e-Cigarette/Vaping Use Never Used 02/21/24 11:29 Thrive Assessment: Date of Thrive Assessment Date Thrive assessed 06/17/23 02/21/24 11:29 Const General: cooperative, healthy appearing, comfortable and no acute distress Orientation/consciousness: patient oriented x3 HENMT Head: Yes normocephalic Ears: hearing grossly normal bilaterally General nose exam: Normal external nose present Eyes General: appearance normal, both eyes and all related structures Conjunctivae: conjunctivae normal Neck Neck: Yes full ROM and Yes no lymphadenopathy Resp Effort & Inspection: normal respiratory effort Auscultation: clear to auscultation bilaterally, no crackles, no rales, no rhonchi and no wheezes Cardio Rate: regular rate Rhythm: regular rhythm Skin General skin exam: no rashes or lesions noted Neuro General: patient oriented x3 Gait exam (Neuro): Normal gait present Extrem General: Yes normal to inspection, Yes full ROM and No edema Psych Affect: normal affect Attitude: cooperative Insight: Good insight present (Psych) Judgement: Good judgement present (Psych) Results AMB Hemoglobin A1c AMB Hemoglobin A1c 7.4 % Last Edit by INDIRA Ny on 02/21/24 11:44 Coding Level of Care Code Est Pt Level 4 (69206) Diagnoses CKD (chronic kidney disease) stage 3, GFR 30-59 ml/min N18.30 Atherosclerotic cardiovascular disease I25.10 Tobacco abuse Z72.0 Hypercholesterolemia E78.00 Primary hypertension I10 Hypertension type: primary hypertension Coronary artery disease involving [place] heart without angina pectoris, unspecified vessel or lesion type I25.10 Coronary Disease-Associated Artery/Lesion type: unspecified vessel or lesion type [place] vs. transplanted heart: [place] heart Associated angina: without angina Type 2 diabetes mellitus with hyperglycemia E11.65 Assessment & Plan Assessment & Plan (1) CKD (chronic kidney disease) stage 3, GFR 30-59 ml/min: Code(s): N18.30 - Chronic kidney disease, stage 3 unspecified Category: Medical Plan: Advised patient to stay well hydrated and avoid kidney irritants such as NSAIDs. (2) Atherosclerotic cardiovascular disease: Comment: Cardiac catheterization 09/2023 lad abnormal stenting done with drug-eluting stent large septal branch angioplasty Code(s): I25.10 - Atherosclerotic heart disease of [place] coronary artery without angina pectoris Category: Medical Plan: Advised tight control of blood pressure, cholesterol, diabetes. Continue on current medication regimen and continue to follow up with Cardiology. (3) Tobacco abuse: Comment: Stop smoking 05/2023 Code(s): Z72.0 - Tobacco use Category: Medical Plan: Smoking cigarettes and the use of tobacco can be harmful. Patient no longer using cigarettes and strongly advised to refrain from smoking. (4) Hypercholesterolemia: Code(s): E78.00 - Pure hypercholesterolemia, unspecified Category: Medical Plan: Avoid foods that are high in cholesterol such as red meat, fried foods, eggs and baked goods. Triglyceride goal of less than 150 and LDL goal of less than 100. Continue on atorvastatin 20 mg. Ordered for repeat cholesterol in 3 months. (5) Hypertension: Code(s): I10 - Essential (primary) hypertension Category: Medical Qualifiers: Hypertension type: primary hypertension Qualified Code(s): I10 - Essential (primary) hypertension Plan: Continue on current blood pressure medication. Avoid salt intake and encourage healthy diet and regular exercise. Blood pressure mildly elevated on exam today advised patient to continue monitoring blood pressures at home and have values are persistently above 140/90 to reach out to the office before next appointment. (6) CAD (coronary artery disease): Comment: 2010 [place] with stent placement. Additional Stent placement 2023. Code(s): I25.10 - Atherosclerotic heart disease of [place] coronary artery without angina pectoris Category: Medical Qualifiers: Coronary Disease-Associated Artery/Lesion type: unspecified vessel or lesion type [place] vs. transplanted heart: [place] heart Associated angina: without angina Qualified Code(s): I25.10 - Atherosclerotic heart disease of [place] coronary artery without angina pectoris Plan: Advised good control of blood pressure, cholesterol, diabetes mellitus. (7) Type 2 diabetes mellitus with hyperglycemia: Comment: joselin Code(s): E11.65 - Type 2 diabetes mellitus with hyperglycemia Category: Medical Plan: Decrease the amount of carbohydrates such as pasta, bread, rice, and potatoes and limit the amount of sweets. Although fruits are generally healthy they should be eaten in moderation as they are still high in sugar. Hemoglobin A1c goal of less than 7%. A1c 7.4% today in the office. Patient declines medication adjustment he knows what made her sugar go up. Strongly advised to stay away from sweets and discontinue the soda consumption. Follow up in 3 months with repeat A1c. Plan This note was constructed using voice recognition software. While every effort has been made to ensure accuracy and primary mill roller, still areas may have been included sometimes these areas may affect the content or meeting of the given symptoms. Total time spent caring for the patient today was 30 minutes. This includes time spent before the visit reviewing the chart, time spent during the visit, and time spent after the visit and documentation. Orders: Orders AMB Hemoglobin A1c Today E11.65 - Type 2 diabetes mellitus with hyperglycemia
== END 2024-02-21 12:01 | disposition home or self-care (01) ==
PROVIDERS: PCP Internal Medicine
DX: I12.9 Hypertensive chronic kidney disease with stage 1 through stage 4 chronic kidney disease, or unspecified chronic kidney disease (principal); N18.30 Chronic kidney disease, stage 3 unspecified; E11.65 Type 2 diabetes mellitus with hyperglycemia; I25.10 Atherosclerotic heart disease of native coronary artery without angina pectoris; Z72.0 Tobacco use; E78.00 Pure hypercholesterolemia, unspecified

== ENCOUNTER → 2024-02-21 11:20 | Outpatient (BNVA) | payer MEDICARE, SELFPAY | PROVIDERS: PCP Internal Medicine | DX: E11.65 Type 2 diabetes mellitus with hyperglycemia (principal); I12.9 Hypertensive chronic kidney disease with stage 1 through stage 4 chronic kidney disease, or unspecified chronic kidney disease; E11.22 Type 2 diabetes mellitus with diabetic chronic kidney disease; N18.30 Chronic kidney disease, stage 3 unspecified; I25.10 Atherosclerotic heart disease of native coronary artery without angina pectoris; E78.00 Pure hypercholesterolemia, unspecified; Z72.0 Tobacco use; Z79.4 Long term (current) use of insulin | CPT/HCPCS: 83036; 99212 ==

== ENCOUNTER 2024-03-06 14:21 | Outpatient (AMB) | payer MEDICARE, SELFPAY ==
[2024-03-06 14:26] VITALS: BP 148/64; PULSE 63; BMI 27.6
--- NOTE | 2024-03-06 14:26 | A.OFFVIS_ITS ---
Vital Signs 03/06/24 14:26 Height 5 ft 8 in Weight 181 lb 10.574 oz BMI 27.6 BP 148/64 H Blood Pressure Location Lt brachial Position Sitting Pulse 63 Intake Visit Reasons: follow up r/s 01/17 Distribution Spec Required: No Accompanied by: Self / Same As Patient Allergies No Known Allergies Allergy (Verified 02/21/24 11:33) Medication List - Last Reconciled 03/06/24 by Casimiro Grande MD acetaminophen (Tylenol Extra Strength) 500 mg PO Q6H PRN amlodipine 10 mg PO DAILY aspirin (Adult Aspirin Regimen) 81 mg PO DAILY atorvastatin 20 mg PO BEDTIME carvedilol 25 mg PO BID 30 days clopidogrel 75 mg PO DAILY dapagliflozin propanediol (Farxiga) 10 mg PO DAILY famotidine (Pepcid) 20 mg PO BEDTIME PRN 90 days flash glucose scanning reader ([employer] Pina 2 [place]) As directed flash glucose sensor (FreeStyle Pina 2 Sensor kit) As directed insulin glargine (Lantus Solostar U-100 Insulin) 10 units (0.1 mL) subcut QPM lisinopril 10 mg PO DAILY nitroglycerin 0.4 mg sublingual Q5M PRN pen needle, diabetic (BD Ultra-Fine Phuong Pen Needle) As directed tamsulosin 0.4 mg PO DAILY HPI Comments Details: Tre returns for follow-up regarding coronary artery disease. In the past, cardiac catheterization 2010 when he underwent PCI/bare metal stent to proximal RCA. Also had LAD disease but not intervened at that time. Multiple risk fact ors including diabetes, hypertension, dyslipidemia, smoking. Has not seen Cardiology for many years since recent visit here. As he was continued exertional angina, underwent cardiac catheterization with LAD stenting. After that, he states his symptoms have completely resolved and he no longer has any chest pains. Otherwise, feels good. [facility] Medical History False positive HIV serology Hepatitis B core antibody positive Myocardial infarct Sciatic leg pain High blood pressure Diabetes Surgical History History of ankle surgery Stented coronary artery Family History Mother CKD (chronic kidney disease) Father Prostate cancer Brother Aneurysm Brother No problems noted. Sister No problems noted. Son No problems noted. Daughter No problems noted. Social History Housing: House Alcohol intake: current Comment: once a month Patient Tobacco Use Status: Former Tobacco user Tobacco use type: Cigarette Cigarettes Per Day: 2 Years Smoked: smoking 40 years. stopped 05/2023 e-Cigarette/Vaping Use: Never Used Second Hand Smoke Exposure: No service: No Current occupational status: retired and disabled Cognitive needs: No Hearing needs: No Vision needs: Yes Review of Systems Const Denies chills, Denies fatigue, Denies fever(s), Denies weight gain and Denies weight loss ENT Denies dizziness Card Denies chest pain, Denies leg edema, Denies lightheadedness, Denies palpitati ons, Denies dyspnea on exertion, Denies orthopnea and Denies other Resp Denies cough and Denies dyspnea on exertion GI Denies hematochezia and Denies change in stool character Musc Denies abnormal gait, Denies muscle weakness, Denies numbness, Denies radiating pain into limb and Denies tingling Neuro Denies abnormal gait, Denies dizziness, Denies numbness and Denies tingling Endo Denies fatigue and Denies palpitations Physical Exam Vital Signs: Last Vital Signs Pulse 63 03/06/24 14:26 BP 148/64 H 03/06/24 14:26 BMI result Body Mass Index 27.6 Const General: comfortable and no acute distress Orientation/consciousness: patient oriented x3 HEENT Other: Unremarkable Head: Yes normal to inspection Neck Neck: Yes normal visual inspection Chest Chest palpation & inspection: normal inspection of the chest Resp Auscultation: clear to auscultation bilaterally Cardio Palpation: normal PMI Heart sounds: S1 normal heart sound present, S2 normal heart sound present, no gallops, no murmurs and no rubs GI Palpation (GI): Soft to palpation Back/Spine/Pelvis Other: unremarkable Skin General skin exam: no rashes or lesions noted Neuro General: patient oriented x3 Extrem General: Yes normal to inspection Psych Mental Status: mental status grossly normal Office Procedures EKG Details: EKG with underlying sinus rhythm at 63/Min; no significant ST-T changes; [place]. [id number], Complete Assessment & Plan Assessment & Plan (1) CAD (coronary artery disease): Code(s): I25.10 - Atherosclerotic heart disease of [place] coronary artery without angina pectoris Category: Medical Qualifiers: Coronary Disease-Associated Artery/Lesion type: unspecified vessel or lesion type [place] vs. transplanted heart: [place] heart Associated angina: without angina Qualified Code(s): I25.10 - Atherosclerotic heart disease of [place] coronary artery without angina pectoris (2) Stented coronary artery: Code(s): Z95.5 - Presence of coronary angioplasty implant and graft Category: Surgical (3) Hypertension: Code(s): I10 - Essential (primary) hypertension Category: Medical Qualifiers: Hypertension type: primary hypertension Qualified Code(s): I10 - Essential (primary) hypertension (4) CKD (chronic kidney disease) stage 3, GFR 30-59 ml/min: Code(s): N18.30 - Chronic kidney disease, stage 3 unspecified Category: Medical Plan In the echocardiogram, LVEF 52%. Inferior/inferolateral, anteroseptal wall motion abnormality. Cardiac catheterization reviewed. Proximal LAD with 70% stenosis. Circumflex 40-50% stenosis in the mid section. Mid RCA with 60-70% stenosis. Status post PCI to LAD. Continue long-term aspirin. Plavix for about 1 year from the time of stenting. Blood pressure seems to be on the higher side but he states home blood pressures are lower in the 130s. He is on amlodipine, carvedilol, lisinopril. He does have CKD and hence lisinopril dosing will need to be increased only through Nephrology. Lipids are controlled with LDL of 60 mg/dL. Triglycerides 99 mg/dL. Follow-up in 6 months. Coding Level of Care Code Est Pt Level 4 (07312) Diagnoses Coronary artery disease involving [place] heart without angina pectoris, unspecified vessel or lesion type I25.10 Coronary Disease-Associated Artery/Lesion type: unspecified vessel or lesion type [place] vs. transplanted heart: [place] heart Associated angina: without angina Stented coronary artery Z95.5 Primary hypertension I10 Hypertension type: primary hypertension CKD (chronic kidney disease) stage 3, GFR 30-59 ml/min N18.30 CPT Codes EKG - CPT: 64646-[id number], Complete ([id number])
== END 2024-03-06 14:47 | disposition home or self-care (01) ==
PROVIDERS: PCP Internal Medicine; Visit Provider Internal Medicine
DX: I25.10 Atherosclerotic heart disease of native coronary artery without angina pectoris (principal); Z95.5 Presence of coronary angioplasty implant and graft; I10 Essential (primary) hypertension; N18.30 Chronic kidney disease, stage 3 unspecified
CPT/HCPCS: 93010; 99214

== ENCOUNTER → 2024-03-06 14:21 | Outpatient (BNVA) | payer MEDICARE, SELFPAY | PROVIDERS: PCP Internal Medicine; Visit Provider Internal Medicine | DX: I25.10 Atherosclerotic heart disease of native coronary artery without angina pectoris (principal); I12.9 Hypertensive chronic kidney disease with stage 1 through stage 4 chronic kidney disease, or unspecified chronic kidney disease; N18.30 Chronic kidney disease, stage 3 unspecified; Z87.891 Personal history of nicotine dependence; Z95.5 Presence of coronary angioplasty implant and graft | CPT/HCPCS: 93005; 99212 ==

== ENCOUNTER 2024-05-29 11:24 | Outpatient (AMB) | payer MEDICARE, SELFPAY ==
[2024-05-29 11:33] VITALS: BP 138/62; PULSE 67; TEMP 36.2; O2SAT 100; BMI 28.0
--- NOTE | 2024-05-29 11:33 | A.OFFPC_ITS ---
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 Required: No Accompanied by: Self / Same As Patient Allergies No Known Allergies Allergy (Verified 05/29/24 11:37) Medication List - Last Reconciled 05/29/24 by Karlee Gonzales PA-C acetaminophen (Tylenol Extra Strength) 500 mg PO Q6H PRN amlodipine 10 mg PO DAILY aspirin (Adult Aspirin Regimen) 81 mg PO DAILY atorvastatin 20 mg PO BEDTIME carvedilol 25 mg PO BID 30 days clopidogrel 75 mg PO DAILY dapagliflozin propanediol (Farxiga) 10 mg PO DAILY famotidine (Pepcid) 20 mg PO BEDTIME PRN 90 days flash glucose scanning reader ([employer] Pina 2 [place]) As directed flash glucose sensor (FreeStyle Pina 2 Sensor kit) As directed insulin glargine (Lantus Solostar U-100 Insulin) 10 units (0.1 mL) subcut QPM lisinopril 10 mg PO DAILY nitroglycerin 0.4 mg sublingual Q5M PRN pen needle, diabetic (BD Ultra-Fine Phuong Pen Needle) As directed tamsulosin 0.4 mg PO DAILY Tobacco use date assessed: 05/29/24 Fall risk assessment: No Falls in past year Last assessed Fall Risk: 05/29/24 Dental Screening Dental Screen Date: 05/29/24 Did you have a dental visit in the last 12 months?: Yes Did you have a dental problem in the last 6 months where you did not have access to dental care?: No Was dental information given to patient?: Patient has dentist HPI f/u DM HPI Details 64-year-old male with past medical histo ry of diabetes mellitus, coronary artery disease, hypertension, hypercholesterolemia, CKD stage 3, chronic hepatitis-C and BPH last seen 01/2024 coming in for follow up. In review of the notes, patient was seen by Cardiology 03/06/2024 advised to continue on long-term aspirin and Plavix maintain blood pressure on amlodipine, carvedilol and lisinopril and follow up in 6 months. Patient tells us today he has not been monitoring his blood sugars at home as the sensors were too expensive and he does not like to purchase finger. He typically will skip meals has breakfast and then we will have dinner around 5. He has been eating lots of sweets and high carb. [facility] Medical History False positive HIV serology Hepatitis B core antibody positive Myocardial infarct Sciatic leg pain High blood pressure Diabetes Surgical History History of ankle surgery Stented coronary artery Family History Mother CKD (chronic kidney disease) Father Prostate cancer Brother Aneurysm Brother No problems noted. Sister No problems noted. Son No problems noted. Daughter No problems noted. Social History Housing: House Alcohol intake: current Comment: once a month Patient Tobacco Use Status: Former Tobacco user Tobacco use type: Cigarette Cigarettes Per Day: 2 Years Smoked: smoking 40 years. stopped 05/2023 e-Cigarette/Vaping Use: Never Used Second Hand Smoke Exposure: No service: No Current occupational status: retired and disabled Cognitive needs: No Hearing needs: No Vision needs: Yes Questionnaire PHQ-9 Over the last 2 weeks, how often have you been bothered by any of the following problems? 1. Little interest or pleasure in doing things: not at all 2. Feeling down, depressed, or hopeless: not at all 3. Trouble falling or staying asleep, or sleeping too much: not at all 4. Feeling tired or having little energy: not at all 5. Poor appetite or overeating: not at all 6. Feeling bad about yourself - or that you are a failure or have let yourself or your family down: not at all 7. Trouble concentrating on things, such as reading the newspaper or watching television: not at all 8. Moving or speaking so slowly that other people could have noticed. Or the opposite - being so fidgety or restless that you have been moving around a lot more than usual: not at all 9. Thoughts that you would be better off or of hurting yourself in some way: not at all Total score: 0 Depression Screening Interpretation: Negative Depression Screening Done: Yes 06476 - PHQ-9 Billing: Yes Source: Developed by Drs. Antonio Hudson, Flaca Rutledge, Dk Nino and colleagues, with an educational elmer from [employer]. Thrive Questionnaire Date Thrive assessed: 05/29/24 I am a: Patient What is your living situation today?: I have a steady place to live Within the past 12 months, did the food you bought not last and you didn't have the money to get more?: Never true Within the past 12 months, did you worry whether your food would run out before you got money to buy more?: Never true Do you have trouble paying for medicines?: No Do you have trouble getting transportation to medical appointments?: No Do you have trouble paying your heating and electricity bill?: No Do you have trouble taking care of your child, family member or friend?: No Do you have trouble with day-to-day activities such as bathing, preparing meals, shopping, managing finances, etc.?: No Are you currently unemployed and looking for a job?: No Are you interested in more education?: No Please select the resources that you would like help with: None Currently or been in a relationship where the following occur: No concerns reported THRIVE Score: 0 AUDIT C Alcohol Use Questionnaire (AUDIT-C) 1. How often do you have a drink containing alcohol?: Monthly or less 2. How many drinks containing alcohol do you have on a typical day when you are drinking?: 1 or 2 3. How often do you have six or more drinks on one occasion?: Never Total Score: 1 SUSANA-7 AMB Questionnaire SUSANA-7 Date SUSANA - 7 assessed: 05/29/24 Feeling nervous, anxious, or on edge: 0 = Not at all Not being able to stop or control worryin = Not at all Worrying too much about different things: 0 = Not at all Trouble relaxin = Not at all Being so restless that it is hard to sit still: 0 = Not at all Becoming easily annoyed or irritable: 0 = Not at all Feeling afraid as if something awful might happen: 0 = Not at all Total SUSANA-7 score (0-4 normal; 5-9 mild; 10-14 moderate; 15-21 severe): 0 Source: Developed by Drs. Antonio Hudson, Flaca Rutledge, Dk Nino and colleagues, with an educational elmer from [employer]. SUSANA-7 Assessment Billing SUSANA-7 Assessment Tool: SUSANA-7 Assessment 70186 Review of Systems Const Denies body aches, Denies chills, Denies fever(s), Denies headache(s) and Denies poor appetite Eyes Reports no additional complaints ENT Denies dysphagia, Denies dizziness, Denies headache(s) and Denies odynophagia Card Denies chest pain, Denies syncope, Denies edema, Denies irregular heart rhythm, Denies lightheadedness and Denies dyspnea Resp Denies cough and Denies dyspnea GI Denies abdominal pain, Denies constipation, Denies dysphagia, Denies diarrhea, Denies nausea, Denies odynophagia and Denies vomiting Reports no additional complaints Musc Reports no additional complaints and Denies abnormal gait Skin/Breast Reports system reviewed and no additional complaints, except as documented Neuro Denies abnormal gait, Denies dizziness, Denies syncope and Denies headache(s) Psych Reports no additional complaints Physical exam (Primary Care) Vital Signs: Last Vital Signs Temp 97.1 F 05/29/24 11:33 Pulse 67 05/29/24 11:33 BP 138/62 05/29/24 11:33 Pulse Ox 100 05/29/24 11:33 Oxygen Delivery Method Room Air 05/29/24 11:33 BMI result Body Mass Index 28.0 Tobacco/Smoking Status: Tobacco use Status Tobacco use date assessed 05/29/24 05/29/24 11:40 Patient Tobacco Use Status Former Tobacco user 05/29/24 11:36 Tobacco use type Cigarette 05/29/24 11:36 e-Cigarette/Vaping Use Never Used 05/29/24 11:36 PHQ-9: PHQ-9 Score PHQ-9: Total score 0 05/29/24 11:50 Depression Screening Interpretation: Negative Thrive Assessment: Date of Thrive Assessment Date Thrive assessed 05/29/24 05/29/24 11:40 Currently or been in a relationship where the following occur: No concerns reported Const General: cooperative, healthy appearing, comfortable and no acute distress Orientation/consciousness: patient oriented x3 HENMT Head: Yes normocephalic Ears: hearing grossly normal bilaterally General nose exam: Normal external nose present Eyes General: appearance normal, both eyes and all related structures Conjunctivae: conjunctivae normal Neck Neck: Yes full ROM and Yes no lymphadenopathy Resp Effort & Inspection: normal respiratory effort Auscultation: clear to auscultation bilaterally, no crackles, no rales, no rhonchi and no wheezes Cardio Rate: regular rate Rhythm: regular rhythm Skin General skin exam: no rashes or lesions noted Neuro General: patient oriented x3 Gait exam (Neuro): Normal gait present Extrem General: Yes normal to inspection, Yes full ROM and No edema Psych Affect: normal affect Attitude: cooperative Insight: Good insight present (Psych) Judgement: Good judgement present (Psych) Results AMB Hemoglobin A1c AMB Hemoglobin A1c 7.9 % Last Edit by SEVERO Dawson on 05/29/24 11:50 Results Reviewed Results Reviewed: Laboratory Last Values Hgb A1c (Clinic) 7.9 % (4.0-6.0) H 05/29/24 11:49 Coding Level of Care Code Est Pt Level 4 (82011) Diagnoses CKD (chronic kidney disease) stage 3, GFR 30-59 ml/min N18.30 Atherosclerotic cardiovascular disease I25.10 Hypercholesterolemia E78.00 Primary hypertension I10 Hypertension type: primary hypertension Coronary artery disease involving [place] heart without angina pectoris, unspecified vessel or lesion type I25.10 Associated angina: without angina Coronary Disease-Associated Artery/Lesion type: unspecified vessel or lesion type [place] vs. transplanted heart: [place] heart Type 2 diabetes mellitus with hyperglycemia E11.65 Additional Codes SUSANA-7 Assessment Billing - SUSANA-7 Assessment Tool: SUSANA-7 Assessment 47346 ([id number]) PHQ-9 - 73517 - PHQ-9 Billing: Yes ([id number]) Assessment & Plan Assessment & Plan (1) CKD (chronic kidney disease) stage 3, GFR 30-59 ml/min: Code(s): N18.30 - Chronic kidney disease, stage 3 unspecified Category: Medical Plan: Continue to follow with statistical reporting analyst. Avoid NSAIDs and other kidney toxins and stay well hydrated. Continue on Farxiga (2) Atherosclerotic cardiovascular disease: Comment: Cardiac catheterization 09/2023 lad abnormal stenting done with drug-eluting stent large septal branch angioplasty Code(s): I25.10 - Atherosclerotic heart disease of [place] coronary artery without angina pectoris Category: Medical Plan: Advised good control of blood pressure, cholesterol and diabetes mellitus. Continue to follow with Cardiology. (3) Hypercholesterolemia: Code(s): E78.00 - Pure hypercholesterolemia, unspecified Category: Medical Plan: Avoid foods that are high in cholesterol such as red meat, fried foods, eggs and baked goods. Triglyceride goal of less than 150 and LDL goal of less than 70. Continue on atorvastatin (4) Hypertension: Code(s): I10 - Essential (primary) hypertension Category: Medical Qualifiers: Hypertension type: primary hypertension Qualified Code(s): I10 - Essential (primary) hypertension Plan: Continue on current blood pressure medication. Avoid salt intake and encourage healthy diet and regular exercise. (5) CAD (coronary artery disease): Code(s): I25.10 - Atherosclerotic heart disease of [place] coronary artery without angina pectoris Category: Medical Qualifiers: Associated angina: without angina Coronary Disease-Associated Artery/Lesion type: unspecified vessel or lesion type [place] vs. transplanted heart: [place] heart Qualified Code(s): I25.10 - Atherosclerotic heart disease of [place] coronary artery without angina pectoris Plan: Advised good control of blood pressure, cholesterol and diabetes (6) Type 2 diabetes mellitus with hyperglycemia: Comment: joselin Code(s): E11.65 - Type 2 diabetes mellitus with hyperglycemia Category: Medical Plan: Decrease the amount of carbohydrates such as pasta, bread, rice, and potatoes and limit the amount of sweets. Although fruits are generally healthy they should be eaten in moderation as they are still high in sugar. Hemoglobin A1c goal of less than 7%. Patient currently on Farxiga and insulin long-acting 10 units nightly. A1c 7.9% today. At this time patient is not a candidate for sulfonylureas due to skipping meals often and not checking blood sugars. I would not feel comfortable increasing his insulin as he does not monitor his blood sugars regularly. He has tried GLP 1 injections in the past and due to cost and adverse reactions is unable to take these medications. At this time we will start on pioglitazone for further management. Strongly advised to rinse dietary lifestyle modification Plan This note was constructed using voice recognition software. While every effort has been made to ensure accuracy and thermostat maker, still areas may have been included sometimes these areas may affect the content or meeting of the given symptoms. Total time spent caring for the patient today was 30 minutes. This includes time spent before the visit reviewing the chart, time spent during the visit, and time spent after the visit and documentation. Orders: Orders AMB Hemoglobin A1c Today E11.65 - Type 2 diabetes mellitus with hyperglycemia Medications: New pioglitazone 15 mg PO DAILY 30 tabs 2RF
== END 2024-05-29 12:17 | disposition home or self-care (01) ==
PROVIDERS: PCP Internal Medicine
DX: I12.9 Hypertensive chronic kidney disease with stage 1 through stage 4 chronic kidney disease, or unspecified chronic kidney disease (principal); N18.30 Chronic kidney disease, stage 3 unspecified; E11.65 Type 2 diabetes mellitus with hyperglycemia; I25.10 Atherosclerotic heart disease of native coronary artery without angina pectoris; E78.00 Pure hypercholesterolemia, unspecified

== ENCOUNTER → 2024-05-29 11:24 | Outpatient (BNVA) | payer MEDICARE, SELFPAY | PROVIDERS: PCP Internal Medicine | DX: I12.9 Hypertensive chronic kidney disease with stage 1 through stage 4 chronic kidney disease, or unspecified chronic kidney disease (principal); E11.22 Type 2 diabetes mellitus with diabetic chronic kidney disease; N18.30 Chronic kidney disease, stage 3 unspecified; I25.10 Atherosclerotic heart disease of native coronary artery without angina pectoris; E78.00 Pure hypercholesterolemia, unspecified; E11.65 Type 2 diabetes mellitus with hyperglycemia | CPT/HCPCS: 83036; 96127; 99212 ==

== ENCOUNTER 2024-05-30 15:43 | Outpatient (AMB) | payer MEDICARE, SELFPAY ==
--- NOTE | 2024-05-30 15:43 | HO.NEPHOV_ITS ---
Vital Signs 05/30/24 15:44 Height 5 ft 8 in Weight 184 lb BMI 28.0 BP 170/70 H Blood Pressure Location Lt brachial Position Sitting Pulse 73 Pulse Source Pulse Oximeter Pulse Oximetry (%) 98 Oxygen Delivery Method Room Air Intake Visit Reasons: CKD/ Conf Switchman Required: No Accompanied by: Self / Same As Patient Allergies No Known Allergies Allergy (Verified 05/30/24 15:45) Medication List - Last Reconciled 05/30/24 by Agustin Goodwin MD acetaminophen (Tylenol Extra Strength) 500 mg PO Q6H PRN amlodipine 10 mg PO DAILY aspirin (Adult Aspirin Regimen) 81 mg PO DAILY atorvastatin 20 mg PO BEDTIME carvedilol 25 mg PO BID 30 days clopidogrel 75 mg PO DAILY dapagliflozin propanediol (Farxiga) 10 mg PO DAILY famotidine (Pepcid) 20 mg PO BEDTIME PRN 90 days flash glucose scanning reader ([employer] Pina 2 [place]) As directed flash glucose sensor (FreeStyle Pina 2 Sensor kit) As directed insulin glargine (Lantus Solostar U-100 Insulin) 10 units (0.1 mL) subcut QPM lisinopril 10 mg PO DAILY nitroglycerin 0.4 mg sublingual Q5M PRN pen needle, diabetic (BD Ultra-Fine Phuong Pen Needle) As directed pioglitazone 15 mg PO DAILY tamsulosin 0.4 mg PO DAILY HPI Comments Details: 62-year-old man with a longstanding history of diabetes mellitus and hypertension. He has history of coronary disease and scheduled for coronary angiogram. He is history of hepatitis-C was treated with EPCLUSA in January 2023. Two years ago serum creatinine is 1.9. As of June 2022 creatinine was 2.0. In May 2023, creatinine was 2.4 He has been scheduled for coronary angiogram next week and hence his evaluation. Has a history of smoking. He quit smoking about 2 months ago. 08/03/23;Doing OK;DID NOT Go for blood work! 08/30/23 blood sugar is still sub optimal Still having dyspnea on exertion 12/20/23 Underwent Coronoary angiogram - first week of September ;s/p Stent 02/04/24;c/o FAtigue 05/30/24 Still feels fatigued. No dyspnea. No urinary symptoms PFSH Medical History False positive HIV serology Hepatitis B core antibody positive Myocardial infarct Sciatic leg pain High blood pressure Diabetes Surgical History History of ankle surgery Stented coronary artery Family History Mother CKD (chronic kidney disease) Father Prostate cancer Brother Aneurysm Brother No problems noted. Sister No problems noted. Son No problems noted. Daughter No problems noted. Social History Housing: House Alcohol intake: current Comment: once a month Patient Tobacco Use Status: Former Tobacco user Tobacco use type: Cigarette Cigarettes Per Day: 2 Years Smoked: smoking 40 years. stopped 05/2023 e-Cigarette/Vaping Use: Never Used Second Hand Smoke Exposure: No service: No Current occupational status: retired and disabled Cognitive needs: No Hearing needs: No Vision needs: Yes Physical Exam Vital Signs: Last Vital Signs Pulse 73 05/30/24 15:44 BP 170/70 H 05/30/24 15:44 Pulse Ox 98 05/30/24 15:44 Oxygen Delivery Method Room Air 05/30/24 15:44 BMI result Body Mass Index 28.0 Comfortable Neck supple no JVD. Lungs entry equal no rales. Heart S1-S2 heard no gallop or rub. Abdomen soft nontender. Neuro alert awake oriented. No asterixis. Extremities no edema. Results Reviewed Nephrology Results: Hgb 12.7 g/dl (14.0-18.0) L 02/04/24 WBC 8.1 X10*3/uL (4.8-10.8) 02/04/24 Plt Count 170 X10*3/uL (160-400) 02/04/24 Sodium 137 mmol/L (135-145) 02/04/24 Potassium 5.0 mmol/L (3.3-5.1) 02/04/24 Chloride 108 mmol/L (96-108) 02/04/24 Carbon Dioxide 21 mmol/L (22-29) L 02/04/24 BUN 35 mg/dL (9-16) H 02/04/24 Creatinine 2.09 mg/dL (0.5-1.4) H 02/04/24 Calcium 9.2 mg/dL (8.4-10.2) 02/04/24 PTH Intact 41.6 pg/mL (8.7-77.1) 12/20/23 Urine Protein 100 (2+) mg/dL (Neg-Trace) H 12/20/23 Urine Creatinine 160.22 mg/dL 12/20/23 Assessment & Plan Assessment & Plan (1) CKD stage 3 due to type 2 diabetes mellitus: Code(s): E11.22 - Type 2 diabetes mellitus with diabetic chronic kidney disease; N18.30 - Chronic kidney disease, stage 3 unspecified Category: Medical (2) Hypertension: Code(s): I10 - Essential (primary) hypertension Category: Medical Qualifiers: Hypertension type: primary hypertension Qualified Code(s): I10 - Essential (primary) hypertension (3) Hyperkalemia: Code(s): E87.5 - Hyperkalemia Category: Medical (4) Chronic hepatitis C: Comment: [facility] January 2023 Code(s): B18.2 - Chronic viral hepatitis C Category: Medical Qualifiers: Hepatic coma status: without hepatic coma Qualified Code(s): B18.2 - Chronic viral hepatitis C Plan: Status post treatment with EPCLUSA Follows with GI (5) CKD (chronic kidney disease) stage 3, GFR 30-59 ml/min: Code(s): N18.30 - Chronic kidney disease, stage 3 unspecified Category: Medical Plan Chronic kidney disease: most likely due to underlying diabetic kidney disease. He has significant proteinuria. Nondiabetic causes should be considered -given history of hepatitis-C _renal ultrasonogram - No obstruction There was a component of hypoperfusion; Creatinine has improved after stopping Lisinopril [facility]N: Overall blood pressure is well controlled Keep current med Advised low-sodium diet. Hyperkalemia Due to the combination of use of Esau inhibitors as well as underlying CKD. Encouraged him to stay on low-potassium diet. Recheck today s/p coronary angiogram in September 2023 Complains of fatigue for the last few months. We will check for anemia and thyroid function tests. If these are normal then it is possible that the fatigue could be attributed to the use of Coreg. No changes were made today Orders: Orders Comprehensive Met. Panel 4 Months N18.30 - Chronic kidney disease, stage 3 unspecified Total Protein Urine Random Today N18.30 - Chronic kidney disease, stage 3 unspecified Parathyroid Hormone Intact Today N18.30 - Chronic kidney disease, stage 3 unspecified Basic Metabolic Panel Today N18.30 - Chronic kidney disease, stage 3 unspecified Complete Blood Count no Diff Today N18.30 - Chronic kidney disease, stage 3 unspecified Complete Blood Count Auto Diff 4 Months N18.30 - Chronic kidney disease, stage 3 unspecified Creatinine Urine Today N18.30 - Chronic kidney disease, stage 3 unspecified UA and rflx microscopic Today N18.30 - Chronic kidney disease, stage 3 unspecified Coding Level of Care Code Est Pt Level 4 (18568) Diagnoses CKD stage 3 due to type 2 diabetes mellitus E11.22; N18.30 Primary hypertension I10 Hypertension type: primary hypertension Hyperkalemia E87.5 Chronic hepatitis C without hepatic coma B18.2 Hepatic coma status: without hepatic coma CKD (chronic kidney disease) stage 3, GFR 30-59 ml/min N18.30
[2024-05-30 15:44] VITALS: BP 170/70; PULSE 73; O2SAT 98; BMI 28.0
[2024-05-30 15:52] VITALS: BP 140/60
== END 2024-05-30 15:57 | disposition home or self-care (01) ==
PROVIDERS: PCP Internal Medicine; Visit Provider Internal Medicine Hypertension Specialist
DX: E11.22 Type 2 diabetes mellitus with diabetic chronic kidney disease (principal); N18.30 Chronic kidney disease, stage 3 unspecified; I10 Essential (primary) hypertension; E87.5 Hyperkalemia; B18.2 Chronic viral hepatitis C
CPT/HCPCS: 99214

== ENCOUNTER 2024-05-30 15:43 | Outpatient (REF) | payer MEDICARE, SELFPAY ==
[2024-05-30 16:22] LABS: MANUAL DIFF FLAG NO
[2024-05-30 17:12] LABS: Basophils Absolute Auto 0.1 X10*3/uL (0.0-0.2); Basophils Percent Auto 0.6 % (0-2); Eosinophils Absolute Auto 0.6 X10*3/uL (0.0-0.4); Eosinophils Percent Auto 5.2 % (0-4); Hematocrit 37.5 % (42.0-52.0); Hemoglobin 12.7 g/dl (14.0-18.0); Imm Gran Abs Auto 0.04 X10*3/uL (0.00-0.03); Imm Gran Pct Auto 0.4 % (0.0-0.4); Lymphocytes Absolute Auto 2.1 X10*3/uL (1.2-4.9); Lymphocytes Percent Auto 19.8 % (20-40); Mean Corpuscular HGB Conc 33.9 g/dl (31.0-36.0); Mean Corpuscular Hemoglobin 31.6 pg (27.0-33.0); Mean Corpuscular Volume 93.3 fL (80.0-98.0); Mean Platelet Volume 9.6 fL (9.4-12.4); Monocytes Absolute Auto 0.8 X10*3/uL (0.1-1.2); Monocytes Percent Auto 7.7 % (2-11); Neutrophils Percent Auto 66.3 % (45-73); Platelet Count 169 X10*3/uL (160-400); Red Blood Count 4.02 X10*6/uL (4.60-5.80); Red Cell Distribution Width 13.2 % (11.0-16.0); White Blood Count 10.6 X10*3/uL (4.8-10.8)
[2024-05-30 17:26] LABS: Appearance Urine Clear; Color Urine Yellow; Glucose Urine UA >=1000 mg/dL (Negative); Leukocyte Esterase Urine Negative (Negative); Nitrite Urine Negative (Negative); UMIC TRIGGER UA YES; Urine Blood Negative (Negative); Urine Ketones Negative (Negative); Urine Protein 100 (2+) mg/dL (Neg-Trace)
[2024-05-30 17:30] LABS: Anion Gap 14 (12-20); Blood Urea Nitrogen 35 mg/dL (9-16); Calcium 9.2 mg/dL (8.4-10.2); Carbon Dioxide 22 mmol/L (22-29); Chloride 108 mmol/L (96-108); Estimated Glomerular Filt Rate 32; Glucose Random 212 mg/dL (60-115); Potassium 5.5 mmol/L (3.3-5.1); Sodium 138 mmol/L (135-145)
[2024-05-30 18:04] LABS: Total Protein Urine Random 69 mg/dL (<12)
[2024-05-30 18:18] LABS: Bacteria Urine None Seen (None Seen); Hyaline Casts Urine 0-2 /LPF (0-2); RBC Urine 0-2 /HPF (0-2); Squamous Epithelial Cell Urine 0-2 /HPF (0-2); WBC Urine 0-5 /HPF (0-5)
== END 2024-05-30 15:44 | disposition home or self-care (01) ==
LOC: HO.LAB 15:43
PROVIDERS: PCP Internal Medicine; Visit Provider Internal Medicine Hypertension Specialist
DX: N18.30 Chronic kidney disease, stage 3 unspecified (principal); E11.22 Type 2 diabetes mellitus with diabetic chronic kidney disease; I10 Essential (primary) hypertension; E87.5 Hyperkalemia; B18.2 Chronic viral hepatitis C
CPT/HCPCS: 36415; 80048; 81001; 82570; 83970; 84156; 85025; 85027; 99212

== ENCOUNTER 2024-07-06 12:23 | Outpatient (AMB) | payer MEDICARE, SELFPAY ==
--- NOTE | 2024-07-06 12:35 | MHC.PC.OV ---
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: No Accompanied by: Self / Same As Patient Allergies No Known Allergies Allergy (Verified 07/06/24 12:36) Medication List - Last Reconciled 07/06/24 by Gene Enciso MD acetaminophen (Tylenol Extra Strength) 500 mg PO Q6H PRN amlodipine 10 mg PO DAILY aspirin (Adult Aspirin Regimen) 81 mg PO DAILY atorvastatin 20 mg PO BEDTIME carvedilol 25 mg PO BID 30 days clopidogrel 75 mg PO DAILY dapagliflozin propanediol (Farxiga) 10 mg PO DAILY famotidine (Pepcid) 20 mg PO BEDTIME PRN 90 days flash glucose scanning reader (Code for [employer] Pina 2 [place]) As directed flash glucose sensor (FreeStyle Pina 2 Sensor kit) As directed insulin glargine (Lantus Solostar U-100 Insulin) 10 units (0.1 mL) subcut QPM lisinopril 10 mg PO DAILY nitroglycerin 0.4 mg sublingual Q5M PRN pen needle, diabetic (BD Ultra-Fine Phuong Pen Needle) As directed pioglitazone 15 mg PO DAILY tamsulosin 0.8 mg (2 x 0.4 mg) PO DAILY Tobacco use date assessed: 07/06/24 Fall risk assessment: No Falls in past year Last assessed Fall Risk: 07/06/24 Dental Screening Dental Screen Date: 07/06/24 Did you have a dental visit in the last 12 months?: No Did you have a dental problem in the last 6 months where you did not have access to dental care?: No Was dental information given to patient?: No HPI annual exam HPI Details 64-year-old overweight male smoker with diabetes mellitus hypertension coronary artery disease hypercholesterolemia chronic kidney disease stage 3 BPH coming in for physical exam patient does complain about constipation and hemorrhoids PFSH Medical History False positive HIV serology Hepatitis B core antibody positive Myocardial infarct Sciatic leg pain High blood pressure Diabetes Surgical History History of ankle surgery Stented coronary artery Family History Mother CKD (chronic kidney disease) Father Prostate cancer Brother Aneurysm Brother No problems noted. Sister No problems noted. Son No problems noted. Daughter No problems noted. Social History (Updated 07/06/24 @ 13:02 by Gene Enciso MD) Housing: House Alcohol intake: current Comment: 2-3 x a week - 2-3 beers Patient Tobacco Use Status: Former Tobacco user Tobacco use type: Cigarette Cigarettes Per Day: 2 Years Smoked: smoking 40 years. stopped started smoking 06/2024 3-4 a day e-Cigarette/Vaping Use: Never Used Second Hand Smoke Exposure: No service: No Current occupational status: retired and disabled Current occupational exposures/hazards: No Cognitive needs: No Hearing needs: No Vision needs: Yes Questionnaire PHQ-9 Over the last 2 weeks, how often have you been bothered by any of the following problems? 4. Feeling tired or having little energy: nearly every day 5. Poor appetite or overeating: nearly every day 6. Feeling bad about yourself - or that you are a failure or have let yourself or your family down: not at all Source: Developed by Drs. Antonio Hudson, Flaca Rutledge, Dk Nino and colleagues, with an educational elmer from [employer]. Thrive Questionnaire Date Thrive assessed: 07/06/24 I am a: Patient What is your living situation today?: I choose not to answer this question Within the past 12 months, did the food you bought not last and you didn't have the money to get more?: I choose not to answer this question Within the past 12 months, did you worry whether your food would run out before you got money to buy more?: I choose not to answer this question Do you have trouble paying for medicines?: I choose not to answer this question Do you have trouble getting transportation to medical appointments?: I choose not to answer this question Do you have trouble paying your heating and electricity bill?: I choose not to answer this question Do you have trouble taking care of your child, family member or friend?: I choose not to answer this question Do you have trouble with day-to-day activities such as bathing, preparing meals, shopping, managing finances, etc.?: I choose not to answer this question Are you currently unemployed and looking for a job?: I choose not to answer this question Are you interested in more education?: I choose not to answer this question Please select the resources that you would like help with: None Currently or been in a relationship where the following occur: No concerns reported THRIVE Score: 0 AUDIT C Alcohol Use Questionnaire (AUDIT-C) 1. How often do you have a drink containing alcohol?: Monthly or less 2. How many drinks containing alcohol do you have on a typical day when you are drinking?: 1 or 2 3. How often do you have six or more drinks on one occasion?: Never Total Score: 1 SUSANA-7 AMB Questionnaire SUSANA-7 Date SUSANA - 7 assessed: 07/06/24 Feeling nervous, anxious, or on edge: 0 = Not at all Not being able to stop or control worryin = Not at all Worrying too much about different things: 0 = Not at all Trouble relaxin = Not at all Being so restless that it is hard to sit still: 0 = Not at all Becoming easily annoyed or irritable: 0 = Not at all Feeling afraid as if something awful might happen: 0 = Not at all Total SUSANA-7 score (0-4 normal; 5-9 mild; 10-14 moderate; 15-21 severe): 0 Source: Developed by Drs. Antonio Hudson, Flaca Rutledge, Dk Nino and colleagues, with an educational elmer from [employer]. SUSANA-7 Assessment Billing SUSANA-7 Assessment Tool: SUSANA-7 Assessment 18281 Review of Systems Const Denies poor appetite and Denies weakness Eyes Denies no additional complaints ENT Reports Normal hearing present, Denies dizziness, Denies nasal congestion, Denies tinnitus and Denies sore throat Card Denies chest pain, Denies syncope, Denies rapid heart rate and Denies dyspnea Resp Denies cough and Denies dyspnea GI Denies change in stool character, Reports constipation, Denies diarrhea, Denies nausea and Denies vomiting Denies dysuria and Denies urinary frequency Neuro Reports Normal hearing present, Denies confusion, Denies dizziness, Denies syncope and Denies weakness Psych Denies confusion Physical exam (Primary Care) Vital Signs: Last Vital Signs Pulse 62 07/06/24 12:36 BP 148/62 H 07/06/24 12:53 Pulse Ox 98 07/06/24 12:36 Oxygen Delivery Method Room Air 07/06/24 12:36 BMI result Body Mass Index 27.5 Tobacco/Smoking Status: Tobacco use Status Tobacco use date assessed 07/06/24 07/06/24 12:40 Patient Tobacco Use Status Former Tobacco user 07/06/24 13:02 Tobacco use type Cigarette 07/06/24 13:02 e-Cigarette/Vaping Use Never Used 07/06/24 13:02 Thrive Assessment: Date of Thrive Assessment Date Thrive assessed 07/06/24 07/06/24 12:40 Currently or been in a relationship where the following occur: No concerns reported Const General: No confusion Orientation/consciousness: No confusion HENMT Head: Yes normocephalic Ears: external ears normal and TM's normal bilaterally Face and sinus: Yes normal facial exam Mouth: moist mucous membranes Throat: Yes tonsils normal Eyes Conjunctivae: conjunctivae normal Pupils: Equal, round and reactive pupils present and Pupil accommodation reflex normal Direct Ophthalmoscopy: normal light reflex Neck Neck: No lymphadenopathy Thyroid: Thyroid normal Chest Chest palpation & inspection: normal inspection of the chest Resp Effort & Inspection: normal respiratory effort and no audible wheezes Auscultation: clear to auscultation bilaterally, no crackles, no wheezes and lung sounds not diminished Cardio Rate: regular rate Rhythm: regular rhythm Peripheral pulses: radial pulses present and dorsalis pedis present GI Other: Guaiac negative, prostate exam is negative Palpation (GI): no masses Auscultation: normal bowel sounds and normoactive bowel sounds Rectal Exam - Male: Yes deferred Skin General skin exam: no rashes or lesions noted Rashes: no rashes Neuro General: No confusion Cranial nerves: Yes Equal, round and reactive pupils present and Yes Normal hearing present Cognition (Neuro): normal cognition Gait exam (Neuro): Normal gait present Motor exam (neuro): 5/5 motor strength present throughout Deep tendon reflexes (DTR's): Right brachioradialis reflex intensity grade: 2+, Left brachioradialis reflex intensity grade: 2+, Right patellar reflex intensity grade: 2+ and Left patellar reflex intensity grade: 2+ Extrem General: No edema Coding Level of Care Code Est Pt Prev Care >65y(92176) Diagnoses Annual physical exam Z00.00 Type 2 diabetes mellitus with hyperglycemia, with long-term current use of insulin E11.65; Z79.4 Diabetes mellitus pension manager insulin use: with usp use Coronary artery disease involving [place] heart without angina pectoris, unspecified vessel or lesion type I25.10 Associated angina: without angina Coronary Disease-Associated Artery/Lesion type: unspecified vessel or lesion type [place] vs. transplanted heart: [place] heart Primary hypertension I10 Hypertension type: primary hypertension Hypercholesterolemia E78.00 CKD stage 3 due to type 2 diabetes mellitus E11.22; N18.30 Benign prostatic hyperplasia with urinary frequency N40.1; R35.0 Lower urinary tract symptom presence: symptoms present Lower urinary tract symptom detail: urinary frequency Hyperkalemia E87.5 Grade I hemorrhoids K64.0 Hemorrhoid type: first degree Slow transit constipation K59.01 Constipation type: slow transit constipation Additional Codes SUSANA-7 Assessment Billing - SUSANA-7 Assessment Tool: SUSANA-7 Assessment 11370 ([id number]) Assessment & Plan Assessment & Plan (1) Annual physical exam: Code(s): Z00.00 - Encounter for general adult medical examination without abnormal findings Category: Medical Plan: Patient is advised to eat healthy, keep well hydrated, keep active and have adequate sleep. 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 Hemoglobin A1c goal of less than 7.0. Patient is on Farxiga 10 mg once a day Lantus 10 units once a day pioglitazone 15 mg once a day (3) CAD (coronary artery disease): Code(s): I25.10 - Atherosclerotic heart disease of [place] coronary artery without angina pectoris Category: Medical Qualifiers: Associated angina: without angina Coronary Disease-Associated Artery/Lesion type: unspecified vessel or lesion type [place] vs. transplanted heart: [place] heart Qualified Code(s): I25.10 - Atherosclerotic heart disease of [place] coronary artery without angina pectoris Plan: Control the cholesterol, weight, blood pressure, diabetes on aspirin and clopidogrel (4) Hypertension: Code(s): I10 - Essential (primary) hypertension Category: Medical Qualifiers: Hypertension type: primary hypertension Qualified Code(s): I10 - Essential (primary) hypertension Plan: Continue with blood pressure medication. Decrease salt intake and exercise presently on amlodipine 10 mg once a day carvedilol 25 mg twice a day lisinopril 10 mg once a day (5) Hypercholesterolemia: Code(s): E78.00 - Pure hypercholesterolemia, unspecified Category: Medical Plan: Avoid fried foods, chicken skin, eggs, butter margarine, pastries and meat. Be it pork or beef they have a lot of cholesterol LDL goal of less than 70 and triglyceride of less than 150 on atorvastatin 20 mg at bedtime (6) CKD stage 3 due to type 2 diabetes mellitus: Code(s): E11.22 - Type 2 diabetes mellitus with diabetic chronic kidney disease; N18.30 - Chronic kidney disease, stage 3 unspecified Category: Medical Plan: keep well hydrated avoid NSAIDs continue to monitor patient is followed up by Nephrology (7) BPH (benign prostatic hyperplasia): Code(s): N40.0 - Benign prostatic hyperplasia without lower urinary tract symptoms Category: Medical Qualifiers: Lower urinary tract symptom presence: symptoms present Lower urinary tract symptom detail: urinary frequency Qualified Code(s): N40.1 - Benign prostatic hyperplasia with lower urinary tract symptoms; R35.0 - Frequency of micturition Plan: continue with tamsulosin (8) Hyperkalemia: Code(s): E87.5 - Hyperkalemia Category: Medical Plan: continue to monitor. Low-potassium diet (9) Hemorrhoid: Code(s): K64.9 - Unspecified hemorrhoids Category: Medical Qualifiers: Hemorrhoid type: first degree Qualified Code(s): K64.0 - First degree hemorrhoids Plan: Medication given, but discussed about hot Sitz bath and preventing constipation (10) Constipation: Code(s): K59.00 - Constipation, unspecified Category: Medical Qualifiers: Constipation type: slow transit constipation Qualified Code(s): K59.01 - Slow transit constipation Plan: Three rules for constipation 1. Diet need to have a high fiber diet less of meat 2. Increase oral fluids 3. Exercise Orders: Orders B Type Natriuretic Peptide Today I25.10 - Atherosclerotic heart disease of [place] coronary artery without angina pectoris Comprehensive Met. Panel Today I25.10 - Atherosclerotic heart disease of [place] coronary artery without angina pectoris Free T4 (Free Thyroxine) Today I25.10 - Atherosclerotic heart disease of [place] coronary artery without angina pectoris Thyroid Stimulating Hormone Today I25.10 - Atherosclerotic heart disease of [place] coronary artery without angina pectoris Lipid Panel Today E78.00 - Pure hypercholesterolemia, unspecified, I25.10 - Atherosclerotic heart disease of [place] coronary artery without angina pectoris Creatinine Urine Today E11.65 - Type 2 diabetes mellitus with hyperglycemia, I25.10 - Atherosclerotic heart disease of [place] coronary artery without angina pectoris Prostate Specific Antigen Scr Today I25.10 - Atherosclerotic heart disease of [place] coronary artery without angina pectoris Uric Acid Today I25.10 - Atherosclerotic heart disease of [place] coronary artery without angina pectoris Complete Blood Count Auto Diff Today I25.10 - Atherosclerotic heart disease of [place] coronary artery without angina pectoris Microalbumin, Random (w Creat) Today E11.65 - Type 2 diabetes mellitus with hyperglycemia, I25.10 - Atherosclerotic heart disease of [place] coronary artery without angina pectoris Vitamin B12 and Folate Today I25.10 - Atherosclerotic heart disease of [place] coronary artery without angina pectoris Vitamin D 25-OH Total Today I25.10 - Atherosclerotic heart disease of [place] coronary artery without angina pectoris Hemoglobin A1c Today I25.10 - Atherosclerotic heart disease of [place] coronary artery without angina pectoris Medications: New sennosides-docusate sodium 8.6-50 mg (Senna Plus) 2 tab-caps (2 x 8.6-50 mg) PO BEDTIME 60 tabs 6RF 30 days K59.00 - Constipation, unspecified hydrocortisone 2.5% (Proctosol HC) 1 appl MT BID-QID PRN 30 grams 0RF hemorrhoids K64.9 - Unspecified hemorrhoids Refilled atorvastatin 20 mg PO BEDTIME 90 tabs 3RF lisinopril 10 mg PO DAILY 90 tabs 3RF
[2024-07-06 12:36] VITALS: BP 120/68; PULSE 62; O2SAT 98; BMI 27.5
[2024-07-06 12:53] VITALS: BP 148/62
--- OUTSIDE RECORDS SUMMARY | 2024-07-06 15:42 | XMS_ITS ---
Author Organization [facility] Address [address] [place] [address] Care Team Providers Care Valve Repairer Name Role Phone Gene Enciso Primary Care Provider Tristen e Black, Brigida Unavailable [phone] Allergies No Known Allergies REASON FOR VISIT At Risk Footcare Medications Medication SIG (Take, Route, Frequency, Duration) Notes Start Date End Date Status Carvedilol 25 MG 1 tablet with food Orally Twice a day Active Farxiga Active Lantus Active Tylenol Active Aspirin 81 MG 1 tablet Orally Once a day for 30 day(s) Active Nitroglycerin 0.4 MG as directed Sublingual Active One Touch Delica Lancets Active Dapagliflozin Pro-metFORMIN ER Active Simvastatin 40 MG 1 tablet in the even ing Orally Once a day for 30 day(s) Not-Taking Clopidogrel Bisulfate 75 MG 1 tablet Orally Once a day Active Ciclopirox Olamine 0.77 % 1 application Externally Once a day for 30 days 06/22/2022 Not-Taking Trulicity 1.5 MG/0.5ML as directed Subcutaneous Not-Taking Omeprazole 20 MG 1 capsule 30 minutes before morning meal Orally Once a day for 30 day(s) Not-Taking Alpha Lipoic Acid 200 MG 3 capsule Orall y Once a day for 30 days 06/22/2022 Not-Taking Cephalexin 500 MG 1 capsule Orally twi ce a day for 10 days 05/24/2023 Not-Taking Cephalexin 500 MG 1 capsule Orally twi ce a day for 10 days 10/18/2023 Active Doxycycline Hyclate 100 MG 1 capsule Orally Once a day for 10 day(s) 10/25/2023 Active levoFLOXacin 500 MG 1 tablet Orally Once a day for 10 day(s) 10/25/2023 Active amLODIPine Besylate 10 MG 1 tablet Orall y Once a day for 30 day(s) Not-Taking Metoprolol Succinate 100 MG 1 capsule Orally Once a day for 30 day(s) Not-Taking Tamsulosin HCl 0.4 MG 1 capsule Orally O nce a day for 30 day(s) Active Lisinopril 40 MG 1 tablet Orally Once a day for 30 day(s) Active Atorvastatin Calcium 20 MG TAKE 1 TABLET BY MOUTH EVERY DAY Oral for 90 Days Active Famotidine 20 MG Oral for 90 Days Active Ciclopirox Olamine 0.77 % 1 application Externally Twice a day for 30 days Active Social History Tobacco Use: Social History Observation Description Date Details (start date - stop date) Current Smoker NA - NA Tobacco Use/Smoking Question Answer Notes Are you a: current smoker Additional Findings: Tobacco Non-User Current no n-smoker Tobacco use other than smoking: Question Answer Notes Are you an other tobacco user? No Vital Signs Height 5ft8in in 12/13/2023 Weight 188 lbs 12/13/2023 BMI 28.58 kg/m2 12/13/2023 Blood pressure systolic 136 mm Hg 12/13/19 24 Blood pressure diastolic 62 mm Hg 024 Procedures Procedure Date Ordered Date Performed Result Body Sit e 28461-XPWDMBF NAIL, 6 OR MORE 12/13/2023 N/A 44809-BGRP SKIN LESIONS, 2 TO 4 12/13/2023 N/A Encounters Encounter Location Date Provider Diagnosis [facility] [address] [place] [address] 12/13/2023 Brigida Black Type 2 diabetes mellitus with diabetic polyneuropathy E11.42 and Tinea unguium B35.1 Assessments Encounter Date Diagnosis (ICD Code) Assessment Notes Treatment Notes Treatment Clinical Notes Section Notes 12/13/2023 Type 2 diabetes mellitus with diabetic polyneuropathy (ICD-10 - E11.42) 12/13/2023 Tinea unguium (ICD-10 - B35.1) 12/13/2023 Other Plan Of Treatment Pending Test Test Name Order Date 92311-NJWIZEG NAIL, 6 OR MORE 12/13/2023 13315-CIMF SKIN LESIONS, 2 TO 4 12/13/19 24 Next Appt Details Follow Up: prn, Reason: Provider Name:Brigida De La Garza , 10/09/2024 02:00:00 PM, [address] [place], [address], Procedure Notes * Category Sub-Category Detail Notes Debride Nail 6-10 Nail debridement Nail debridem ent performed extensively to reduce/remove overall nail length and girth, subungual debris, and necrotic tissue, by manual and electrical means with use of a nail nipper and/or dremel, to more viable healthy nail plate or bed tissue 6-10. Silver nitrate used for any petechial bleeding as necessary. Patient chooses, to use a topical antifungal, pharmaceutical tx (19658) Keratoma Treatment Parring or Cutting o f Benign Hyperkeratotic Lesion(s) 73908 ( 2-4 Lesions ) - The Benign hyperkeratotic lesions, as described above were pared, and/or cut utilizing a sterile 15 blade, tissue nippers, and/or dremel Progress Notes * Tre BARRYDOB:08/1959 (63 yo M)Acc No.[id number]:12/13/2023 Progress Note Patient:?Tre Barry Provider:?Brigida NA De La Garza :1960???Age:63 Y???Sex:Male Maurizio e:12/13/2023 Address:[address] [place], [place] [id number] Pcp:Gene Enciso Subjective: * Chief Complaints: * ???At Risk Footcare * HPI: ???At Risk footcare:?Pt States Last PCP Visit:?Date?09/17/2023 * Medical History:? * Surgical History:?Stent in h eart 11/03 * Hospitalization/Major Diagno stic Procedure:?[facility]- Stent and balloon 09/2023 * Family History:?Mother: dece ased, Kidney/Liver Disease, diagnosed with Unspecified essential hypertension, Other specified conditions influencing health status.?Father: .? * Social History:?Tobacco Use:?Tobacco Use/Smoking?Are you a:?current smoker ?Additional Findings: Tobacco Non-User?Current non-smoker ?Tobacco use other than smoking?Are you an other tobacco user??No ???Miscellaneous:?Caffeine: yes, frequency:, 1cup per day. ?Children: yes. ?Exercise: yes, walking. ?Marital status: . 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 * Medications:?TakingNitroglyc veronica 0.4 MG Tablet Sublingual as directed Sublingual One Touch Delica Lancets Dapagliflozin Pro-metFORMIN ER Clopidogrel Bisulfate 75 MG Tablet 1 tablet Orally Once a dayCarvedilol 25 MG Tablet 1 tablet with food Orally Twice a dayFarxiga Lantus Tylenol Aspirin 81 MG Tablet Chewable 1 tablet Orally Once a dayTamsulosin HCl 0.4 MG Capsule 1 capsule Orally Once a dayLisinopril 40 MG Tablet 1 tablet Orally Once a dayAtorvastatin Calcium 20 MG Tablet TAKE 1 TABLET BY MOUTH EVERY DAY Oral Famotidine 20 MG Tablet Oral Ciclopirox Olamine 0.77 % Cream 1 application Externally Twice a dayCephalexin 500 MG Capsule 1 capsule Orally twice a dayDoxycycline Hyclate 100 MG Capsule 1 capsule Orally Once a daylevoFLOXacin 500 MG Tablet 1 tablet Orally Once a dayTaking Nitroglycerin 0.4 MG Tablet Sublingual as directed Sublingual Taking One Touch Delica Lancets Taking Dapagliflozin Pro-metFORMIN ER Taking Clopidogrel Bisulfate 75 MG Tablet 1 tablet Orally Once a dayTaking Carvedilol 25 MG Tablet 1 tablet with food Orally Twice a dayTaking Farxiga Taking Lantus Taking Tylenol Taking Aspirin 81 MG Tablet Chewable 1 tablet Orally Once a dayTaking Tamsulosin HCl 0.4 MG Capsule 1 capsule Orally Once a dayTaking Lisinopril 40 MG Tablet 1 tablet Orally Once a dayTaking Atorvastatin Calcium 20 MG Tablet TAKE 1 TABLET BY MOUTH EVERY DAY Oral Taking Famotidine 20 MG Tablet Oral Taking Ciclopirox Olamine 0.77 % Cream 1 application Externally Twice a dayTaking Cephalexin 500 MG Capsule 1 capsule Orally twice a dayTaking Doxycycline Hyclate 100 MG Capsule 1 capsule Orally Once a dayTaking levoFLOXacin 500 MG Tablet 1 tablet Orally Once a dayNot-Taking/PRNamLODIPine Besylate 10 MG Tablet 1 tablet Orally Once a dayMetoprolol Succinate 100 MG Capsule ER 24 Hour Sprinkle 1 capsule Orally Once a dayCephalexin 500 MG Capsule 1 capsule Orally twice a dayCiclopirox Olamine 0.77 % Cream 1 application Externally Once a dayTrulicity 1.5 MG/0.5ML Solution Pen- injector as directed Subcutaneous Omeprazole 20 MG Capsule Delayed Release 1 capsule 30 minutes before morning meal Orally Once a dayAlpha Lipoic Acid 200 MG Capsule 3 capsule Orally Once a daySimvastatin 40 MG Tablet 1 tablet in the evening Orally Once a dayMedication List reviewed and reconciled with the patientNot-Taking/PRN amLODIPine Besylate 10 MG Tablet 1 tablet Orally Once a dayNot-Taking/PRN Metoprolol Succinate 100 MG Capsule ER 24 Hour Sprinkle 1 capsule Orally Once a dayNot-Taking/PRN Cephalexin 500 MG Capsule 1 capsule Orally twice a dayNot-Taking/PRN Ciclopirox Olamine 0.77 % Cream 1 application Externally Once a dayNot-Taking/PRN Trulicity 1.5 MG/0.5ML Solution Pen-injector as directed Subcutaneous Not-Taking/PRN Omeprazole 20 MG Capsule Delayed Release 1 capsule 30 minutes before morning meal Orally Once a dayNot-Taking/PRN Alpha Lipoic Acid 200 MG Capsule 3 capsule Orally Once a dayNot-Taking/PRN Simvastatin 40 MG Tablet 1 tablet in the evening Orally Once a dayMedication List reviewed and reconciled with the patient * Allergies:?N.K.D.A.yes[Aller gies Verified] Objective: * Vitals:?Ht: 5ft8in, Wt:188, BMI:28.58, Shoe size: 10.5, BP:136/62 mm Hg, BS: not taken, Ht-cm: 172.72 cm, Wt-k.28 kg. * ???Past Orders: ???Lab:HEMOGLOBIN A1C (GLYCO HEMOGLOBIN) (Order Date - 10/25/2023) (Collection Date - 10/25/2023) ? Value Reference Range ?HEMOGLOBIN A1C % (HH) 7.1 * Examination: ???Ophthalmology Referral: ?DIABETES EYE EXAM?Diabetic Retinopathy Screening:?Yes ?Findings of Diabetic Eye Exam:?no retinopathy?Neurological: ?SENSORY:?Neurological exam demonstrates, reduced light touch sensation, reduced sharp/dull pin prick discrimination , reduced vibration sensation, reduced proprioception sensation, 5.07 monofilament test performed at plantar aspects of 5 varied sites per foot shows sensation, absent, at Forefoot, B/L, Pt relates, anesthesia, burning, pins and needles sensation.?Nails: ?NAILS are:?elongated,overgrown,dystrophic,greater than 3mm thick,discolored and friable with crumbly malodorous subungual debris, with pain on palpation, 1-5 Right foot, , T4.?Dermatologic: ?SKIN FINDINGS:?Skin exam reveals normal color, texture, elasticity, and turgor. There are no masses, nor excrescences. The interspaces are clear, B/L , , Skin exam reveals Keratotic lesion(s) located at , Dorsal , TA , Heel(s) , B/L.? Assessment: * Assessment: 1.?Tinea unguium - B35.1?2.? Type 2 diabetes mellitus with diabetic polyneuropathy - E11.42? Plan: * Treatment: 2.?Type 2 diabetes mellitus with diabetic polyneuropathy?Procedure: 39954-CXVN SKIN LESIONS, 2 TO 4 * Procedures:?Debride Nail 6-10:?Nail debridement?Nail debridement performed extensively to reduce/remove overall nail length and girth, subungual debris, and necrotic tissue, by manual and electrical means with use of a nail nipper and/or dremel, to more viable healthy nail plate or bed tissue 6-10. Silver nitrate used for any petechial bleeding as necessary. Patient chooses, to use a topical antifungal, pharmaceutical tx (74535).?Keratoma Treatment:?Parring or Cutting of Benign Hyperkeratotic Lesion(s)?75709 ( 2-4 Lesions ) - The Benign hyperkeratotic lesions, as described above were pared, and/or cut utilizing a sterile 15 blade, tissue nippers, and/or dremel.? * Procedure Codes:?08149 DEBRI DE NAIL, 6 OR MORE, Modifiers: XS 71513 TRIM SKIN LESIONS, 2 TO 4, Modifiers: XS * Follow Up:?prn * Images: * Sign off status: Completed true * Provider:?Brigida De La Garza DPM Date:?2023 Generated for Hossein yang/Pastora/Isac on:?07/06/2024 03:41 PM EDT History and Physical Notes * HPI (History of Present Illness) Category Sub-Category Detail Notes Category Not es At Risk footcare Pt States Last PCP Visit: Date: 4 Examination Category Sub-Category Detail Notes Category Not es Neurological SENSORY: Neurological exa m demonstrates, reduced light touch sensation, reduced sharp/dull pin prick discrimination , reduced vibration sensation, reduced proprioception sensation, 5.07 monofilament test performed at plantar aspects of 5 varied sites per foot shows sensation, absent, at Forefoot, B/L, Pt relates, anesthesia, burning, pins and needles sensation TINEL'S COMPRESSION: DEEP TENDON REFLEXES: Dermatologic SKIN FINDINGS: Skin exam reveal s normal color, texture, elasticity, and turgor. There are no masses, nor excrescences. The interspaces are clear, B/L , , Skin exam reveals Keratotic lesion(s) located at , Dorsal , TA , Heel(s) , B/L Ophthalmology Referral DIABETES EYE EXAM Diabetic Retinopa thy Screening:: Yes Findings of Diabetic Eye Exam:: no retin opathy Nails NAILS are: elongated,overgr own,dystrophic,greater than 3mm thick,discolored and friable with crumbly malodorous subungual debris, with pain on palpation, 1-5 Right foot, , T4
--- OUTSIDE RECORDS SUMMARY | 2024-07-06 15:42 | XMS_ITS ---
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 Name Role Phone FernieMireyaparticia Primary Care Provider Tristen De La Garza, Brigida Unavailable [phone] Allergies No Known Allergies REASON FOR VISIT At Risk Footcare, Skin Problem Medications Medication SIG (Take, Route, Frequency, Duration) Notes Start Date End Date Status Cephalexin 500 MG 1 capsule Orally twi ce a day for 10 days 10/18/2023 Not-Taking Ciclopirox Olamine 0.77 % 1 application Externally Twice a day for 30 days Active levoFLOXacin 500 MG 1 tablet Orally Once a day for 10 day(s) 10/25/2023 Not-Taking Doxycycline Hyclate 100 MG 1 capsule Orally Once a day for 10 day(s) 10/25/2023 Not-Taking amLODIPine Besylate 10 MG 1 tablet Orall y Once a day for 30 day(s) Active Famotidine 20 MG Oral for 90 Days Active Atorvastatin Calcium 20 MG TAKE 1 TABLET BY MOUTH EVERY DAY Oral for 90 Days Active Tamsulosin HCl 0.4 MG 1 capsule Orally t wice a day for 30 days Active Aspirin 81 MG 1 tablet Orally Once a day for 30 day(s) Active Lisinopril 40 MG 1 tablet Orally Once a day for 30 day(s) Not-Taking Clopidogrel Bisulfate 75 MG 1 tablet Orally Once a day Active Farxiga 10 MG 1 tablet Once a day Active Carvedilol 25 MG 1 tablet with food Orally Twice a day Active Tylenol Active Lantus 100 UNIT/ML as directed Active One Touch Delica Lancets Active Nitroglycerin 0.4 MG as directed Sublingual Not-Taking Ciclopirox Olamine 0.77 % 1 application Externally Twice a day to skin of feet including between the toes for 30 days Active Dapagliflozin Pro-metFORMIN ER Not-Taking Simvastatin 40 MG 1 tablet in the even ing Orally Once a day for 30 day(s) Not-Taking Alpha Lipoic Acid 200 MG 3 capsule Orall y Once a day for 30 days 06/22/2022 Not-Taking Omeprazole 20 MG 1 capsule 30 minutes before morning meal Orally Once a day for 30 day(s) Not-Taking Cephalexin 500 MG 1 capsule Orally twi ce a day for 10 days 05/24/2023 Not-Taking Trulicity 1.5 MG/0.5ML as directed Subcutaneous Not-Taking Ciclopirox Olamine 0.77 % 1 application Externally Once a day for 30 days 06/22/2022 Not-Taking Metoprolol Succinate 100 MG 1 capsule Orally Once a day for 30 day(s) Not-Taking Social History Tobacco Use: Social History Observation Description Date Details (start date - stop date) Current Smoker NA - NA Tobacco use other than smoking: Question Answer Notes Are you an other tobacco user? No Tobacco Control (Standard) Question Answer Notes Tobacco use: Current smoker How often do you smoke cigarettes? Every day How many cigarettes a day do you smoke? 6-10 How soon after you wake up d o you smoke your first cigarette? Within 5 minutes Are you interested in quitting? Thinking about q uitting AUDIT-C (Standard) Question Answer Notes Did you have a drink contain ing alcohol in the past year? Yes How often did you have six o r more drinks on one occasion in the past year? Less than monthly (1 point) How many drinks did you have on a typical day when you were drinking in the past year? 1 or 2 drinks (0 point) How often did you have a dri nk containing alcohol in the past year? Monthly or less (1 point) Points 2 Interpretation Negative Vital Signs Height 5ft 8in in 03/16/2024 Weight 182 lbs 03/16/2024 BMI 27.67 kg/m2 03/16/2024 Blood pressure systolic 138 mm Hg 03/16/20 24 Blood pressure diastolic 63 mm Hg 024 Procedures Procedure Date Ordered Date Performed Result Body Sit e 31567-SQDYAMS NAIL, 6 OR MORE 03/16/2024 N/A 87024-WBAX SKIN LESIONS, OVER 4 03/16/2024 N/A Encounters Encounter Location Date Provider Diagnosis [facility] [address] [address] 03/16/2024 Brigida De La Garza Type 2 diabetes mellitus with diabetic polyneuropathy E11.42 ; Tinea unguium B35.1 and Tinea pedis of both feet B35.3 Assessments Encounter Date Diagnosis (ICD Code) Assessment Notes Treatment Notes Treatment Clinical Notes Section Notes 03/16/2024 Type 2 diabetes mellitus with diabetic polyneuropathy (ICD-10 - E11.42) 03/16/2024 Tinea unguium (ICD-10 - B35.1) 03/16/2024 Tinea pedis of both feet (ICD-10 - B35.3) Plan Of Treatment Medication Medication Name Sig Start Date Stop Date Notes Ciclopirox Olamine 0.77 % 1 application Externally Twice a day to skin of feet including between the toes for 30 days Pending Test Test Name Order Date 19846-OMBWHSH NAIL, 6 OR MORE 03/16/2024 99268-ETWN SKIN LESIONS, OVER 4 03/16/20 24 Next Appt Details Follow Up: prn, Reason: Provider Name:Brigida De La Garza , 10/09/2024 02:00:00 PM, [address] [place] [address], [phone], Procedure Notes * Category Sub-Category Detail Notes Debride Nail 6-10 Nail debridement Performance o f this nail treatment by a nonprofessional would put this patients foot and overall health at risk. Therefore, debridement to affected nail(s), as described in exam, was performed extensively to reduce/remove overall nail length, girth, thickness, subungual debris, and necrotic tissue, by manual and/or electrical means through the use of a nail nipper and/or dremel-type blanchard grinder operator, to a more viable healthy nail plate or bed tissue 6-10 nails in total. Silver nitrate was used for any petechial bleeding as necessary. Definitive antifungal treatment options, both pharmaceutical and surgical, have been reviewed and discussed with the patient. The patient solely prefers the use of intermittent/as needed professional debridement services for their nail condition and understands the need for additional periodic treatments to maintain effectiveness in symptomatic relief - 28082 Keratoma Treatment Parring or Cutting o f Benign Hyperkeratotic Lesion(s) (-57) More than 4 Lesions - The Benign hyperkeratotic lesions, ( 5) number of lesions in total, as described in exam, were pared, and/or cut utilizing a sterile 15 blade, tissue nippers, and/or dremel - 75505 Progress Notes * Tre BARRY ShahidDOB:08/1959 (64 yo M)Acc No.[id number]:03/16/2024 Progress Note Patient:?Tre BARRY Provider:?Brigida De La Garza DPM :1960???Age:64 Y???Sex:Male Maurizio e:03/16/2024 Address:[address] [place], [place] [id number] Pcp:Gene Enciso Subjective: * Chief Complaints: * ???At Risk FootcareSkin Prob bhavani * HPI: ???At Risk footcare:?Pt States Last PCP Visit:?Date?02/16/2024 ???Skin problems:?Nature:?scaling , redness.?Location:?, Right.?Duration:?several days.?Course:?worse.? * ROS:?General/Constitutional:?Nausea?admits.?Vomiting?denies.?Hunger Thirst?denies.?Loss appetite?denies.?Chills?denies.?Fatigue?admits.?Fever?denies.?Night Sweats?denies.?Unexplained weight loss?denies.?Unexplained weight gain?denies.?HEENTM:?Dentures?admits.?Dizziness?admits.?Glasses/contacts?denies.?Retinopathy?den ies.?Blurred/double vision?denies.?TMJ?denies.?Discharge/drainage?denies.?Implants?denies.?Sore throat?denies.?Dental implants?denies.?Hard of hearing ?denies.?Difficulty chewing/swallowing/speaking?denies.?Nose bleeds?denies.?Sore mouth?denies.?Respiratory:?On O xygen?denies.?Pneumonia/pleurisy?denies.?Bronchitis?denies.?Emphysema?denies.?Co ughing?denies.?Cough blood?denies.?Shortness of breath?admits.?Wheezing?admits.?Cardiovascular:?Pacemaker?denies.?MVP?denies.?WPW?denies.?CHF?denies.?Heart attack?admits.?Septal defect?denies.?Rapid beat?denies.?Chest pain ?denies.?Atrial Fib.?denies.?Murmur/Palpitations?denies.?Gastrointestinal:?Hemorrhoids?denies.?Stomach/Abdominal pain?denies.?Dark blood stool?denies.?Irritable bowel ?denies.?Constipation?denies.?Diarrhea?denies.?Hematology:?Swelling?denies.?Clots?denies.?Varicose Veins?denies.?Bruising?denies.?Bleeding problem?denies.?Genitourinary:?Blood urine?denies.?Frequent/Painfu/urination/bladder control?denies.?Kidney stones?denies.?Infection (UTI)?denies.?Nephropathy?denies.?sex trans dis (STD)?denies.?Prostate?admits.?Musculoskeletal:?Hammertoes?denies.?Bunions?denies.?Back Pain?denies.?Muscle Cramps/ Resting?denies.?Muscle cramps / walking?denies.?Generalized aches and pains?denies.?Weakness?denies.?Integ.:?Lee?denies.?Scars?denies.?Corns/calluses?, admits.?Ingrown nails?denies.?Painful nails?denies.?Open Sores?denies.?Rashes?, admits.?Neurologic:?Difficulty sleeping?denies.?Brain disorder?denies.?Numbness?admits.?Balance t rouble?admits.?Confusion?denies.?Fainting/blackouts?denies.?Tingling?admits.?Rodríguez mors?denies.? * Medical History:? * Surgical History:?Stent in h eart 11/03 * Hospitalization/Major Diagno stic Procedure:?[facility]- Stent and balloon 09/2023 * Family History:?Mother: dece ased, Kidney/Liver Disease, diagnosed with Unspecified essential hypertension, Other specified conditions influencing health status.?Father: .? * Social History:?Tobacco Use:?Tobacco use other than smoking?Are you an other tobacco user??No ?Tobacco Control (Standard)?Tobacco use:?Current smoker ?How often do you smoke cigarettes??Every day ?How many cigarettes a day do you smoke??6-10 ?How soon after you wake up do you smoke your first cigarette??Within 5 minutes ?Are you interested in quitting??Thinking about quitting ???Drugs/Alcohol:?Drugs?Have you used drugs other than those for medical reasons in the past 12 months??No ???Miscellaneous:?Caffeine: yes, frequency:, 1cup per day. ?Children: yes. ?Exercise: yes, walking. ?Marital status: . 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 ???Drug/Alcohol:?AUDIT-C (Standard)?Did you have a drink containing alcohol in the past year??Yes ?How often did you have six or more drinks on one occasion in the past year??Less than monthly (1 point) ?How many drinks did you have on a typical day when you were drinking in the past year??1 or 2 drinks (0 point) ?How often did you have a drink containing alcohol in the past year??Monthly or less (1 point) ?Points?2 ?Interpretation?Negative * Medications:?TakingOne Touch Delica Lancets Clopidogrel Bisulfate 75 MG Tablet 1 tablet Orally Once a day Carvedilol 25 MG Tablet 1 tablet with food Orally Twice a day Farxiga 10 MG Tablet 1 tablet Once a day Lantus 100 UNIT/ML Solution as directed Tylenol Aspirin 81 MG Tablet Chewable 1 tablet Orally Once a day Tamsulosin HCl 0.4 MG Capsule 1 capsule Orally twice a day Atorvastatin Calcium 20 MG Tablet TAKE 1 TABLET BY MOUTH EVERY DAY Oral Famotidine 20 MG Tablet Oral Ciclopirox Olamine 0.77 % Cream 1 application Externally Twice a day amLODIPine Besylate 10 MG Tablet 1 tablet Orally Once a day Taking One Touch Delica Lancets Taking Clopidogrel Bisulfate 75 MG Tablet 1 tablet Orally Once a day Taking Carvedilol 25 MG Tablet 1 tablet with food Orally Twice a day Taking Farxiga 10 MG Tablet 1 tablet Once a day Taking Lantus 100 UNIT/ML Solution as directed Taking Tylenol Taking Aspirin 81 MG Tablet Chewable 1 tablet Orally Once a day Taking Tamsulosin HCl 0.4 MG Capsule 1 capsule Orally twice a day Taking Atorvastatin Calcium 20 MG Tablet TAKE 1 TABLET BY MOUTH EVERY DAY Oral Taking Famotidine 20 MG Tablet Oral Taking Ciclopirox Olamine 0.77 % Cream 1 application Externally Twice a day Taking amLODIPine Besylate 10 MG Tablet 1 tablet Orally Once a day Not-Taking/PRNNitroglycerin 0.4 MG Tablet Sublingual as directed Sublingual Dapagliflozin Pro-metFORMIN ER Lisinopril 40 MG Tablet 1 tablet Orally Once a day Cephalexin 500 MG Capsule 1 capsule Orally twice a day Doxycycline Hyclate 100 MG Capsule 1 capsule Orally Once a day levoFLOXacin 500 MG Tablet 1 tablet Orally Once a day Metoprolol Succinate 100 MG Capsule ER 24 Hour Sprinkle 1 capsule Orally Once a day Cephalexin 500 MG Capsule 1 capsule Orally twice a day Ciclopirox Olamine 0.77 % Cream 1 application Externally Once a day Trulicity 1.5 MG/0.5ML Solution Pen-injector as directed Subcutaneous Omeprazole 20 MG Capsule Delayed Release 1 capsule 30 minutes before morning meal Orally Once a day Alpha Lipoic Acid 200 MG Capsule 3 capsule Orally Once a day Simvastatin 40 MG Tablet 1 tablet in the evening Orally Once a day Medication List reviewed and reconciled with the patientNot-Taking/PRN Nitroglycerin 0.4 MG Tablet Sublingual as directed Sublingual Not-Taking/PRN Dapagliflozin Pro-metFORMIN ER Not-Taking/PRN Lisinopril 40 MG Tablet 1 tablet Orally Once a day Not-Taking/PRN Cephalexin 500 MG Capsule 1 capsule Orally twice a day Not-Taking/PRN Doxycycline Hyclate 100 MG Capsule 1 capsule Orally Once a day Not-Taking/PRN levoFLOXacin 500 MG Tablet 1 tablet Orally Once a day Not-Taking/PRN Metoprolol Succinate 100 MG Capsule ER 24 Hour Sprinkle 1 capsule Orally Once a day Not-Taking/PRN Cephalexin 500 MG Capsule 1 capsule Orally twice a day Not-Taking/PRN Ciclopirox Olamine 0.77 % Cream 1 application Externally Once a day Not-Taking/PRN Trulicity 1.5 MG/0.5ML Solution Pen-injector as directed Subcutaneous Not-Taking/PRN Omeprazole 20 MG Capsule Delayed Release 1 capsule 30 minutes before morning meal Orally Once a day Not-Taking/PRN Alpha Lipoic Acid 200 MG Capsule 3 capsule Orally Once a day Not-Taking/PRN Simvastatin 40 MG Tablet 1 tablet in the evening Orally Once a day Medication List reviewed and reconciled with the patient * Allergies:?N.K.D.A.yes[Aller gies Verified] Objective: * Vitals:?Ht: 5ft 8in, Wt:182, BMI:27.67, Shoe size: 10.5, BP:138/63mm Hg, BS: not taken, Ht-cm: 172.72 cm, Wt-k.55 kg. * ???Past Orders: ???Lab:HEMOGLOBIN A1C (GLYCO HEMOGLOBIN) (Order Date - 01/25/2024) (Collection Date & Time - 01/25/2024 03:00 PM) ? Value Reference Range ?TOTAL HEMOGLOBIN (HGBA1C) 7.4 * Examination: ???Ophthalmology Referral: ?DIABETES EYE EXAM?Procedure Performed:?Yes ?Date of Exam Performed?02/25/2024 ?Diabetic Retinopathy Screening:?Yes ?Findings of Diabetic Eye Exam:?no retinopathy?Neurological: ?SENSORY:?Neurological exam demonstrates, reduced light touch sensation, reduced sharp/dull pin prick discrimination , reduced vibration sensation, reduced proprioception sensation, 5.07 monofilament test performed at plantar aspects of 5 varied sites per foot shows sensation, absent, at Forefoot, B/L, Pt relates, anesthesia, burning, pins and needles sensation.?General Examination: ?GENERAL APPEARANCE:?Reveals a pleasant, alert, well nourished, well- developed, well hydrated individual, who demonstrates proper attention to hygiene/body habitus, and is in no acute distress, Pt serves as own historian for office visit today.?ORIENTED:?person, place, and time.?Nails: ?NAILS are:?elongated,overgrown,dystrophic,greater than 3mm thick,discolored and friable with crumbly malodorous subungual debris, with pain on palpation, 1-5 Right foot, , T4.?Dermatologic: ?SKIN FINDINGS:?Skin exam reveals Keratotic lesion(s) located at , Dorsal , TA ,SUB MTH (s)5 b/l?, plantar Heel(s) , B/L , Skin shows sign(s) of, erythema, scaling, in a moccasin fashion, no fissure(s) present, right.?Vascular: ?DP PULSES (B):?2/4, B/L.?PT PULSES (B):?2/4, B/L.?CAPILLARY FILL TIME:?immediate, all digits, B/L.?TROPHIC CONDITION-TEXTURE/ELASTICITY/TURGOR/HAIR GROWTH (B):?normal, B/L.?TEMPERTURE GRADIENT (C):?normal, warm to cool, proximal to distal, B/L, B/L.?PIGMENTATION:?normal, B/L.? Assessment: * Assessment: 1.?Tinea unguium - B35.1???2 .?Type 2 diabetes mellitus with diabetic polyneuropathy - E11.42 (Primary)???3.?Tinea pedis of both feet - B35.3???Specify :Acute problem, Uncomplicated (3),Rx drug management (4)??? Plan: * Treatment: 2.?Tinea unguium?Procedure: 79633-[id number] NAIL, 6 OR MORE 3.?Tinea pedis of both feet? Start Ciclopirox Olamine Cream, 0.77 %, 1 application, Externally, Twice a day to skin of feet including between the toes, 30 days, 60, Refills 2.?? * Procedures:?Debride Nail 6-10:?Nail debridement?Performance of this nail treatment by a nonprofessional would put this patients foot and overall health at risk. Therefore, debridement to affected nail(s), as described in exam, was performed extensively to reduce/remove overall nail length, girth, thickness, subungual debris, and necrotic tissue, by manual and/or electrical means through the use of a nail nipper and/or dremel-type blanchard grinder operator, to a more viable healthy nail plate or bed tissue 6-10 nails in total. Silver nitrate was used for any petechial bleeding as necessary. Definitive antifungal treatment options, both pharmaceutical and surgical, have been reviewed and discussed with the patient. The patient solely prefers the use of intermittent/as needed professional debridement services for their nail condition and understands the need for additional periodic treatments to maintain effectiveness in symptomatic relief - 09914.?Keratoma Treatment:?Parring or Cutting of Benign Hyperkeratotic Lesion(s)?(-57) More than 4 Lesions - The Benign hyperkeratotic lesions, ( 5) number of lesions in total, as described in exam, were pared, and/or cut utilizing a sterile 15 blade, tissue nippers, and/or dremel - 52614.? * Procedure Codes:?53438 DEBRI DE NAIL, 6 OR MORE, Modifiers: XS 52740 TRIM SKIN LESIONS, OVER 4, Modifiers: XS * Preventive Medicine:? ??Counseling:?Tobacco use:?Type of Tobacco Use Cessation Counseling provided?Smoking cessation education ?Patient counseled on the dangers of smoking and urged to quit:?03/16/2024 ?Discussion:?-13: Office or other outpatient visit for the evaluation and management of an established patient, which required a medically appropriate history and/or examination and LOW level of DECISION MAKING for: 1 STABLE ACUTE UNCOMPLICATED PROBLEM, 2 OR MORE MINOR PROBLEMS, OR 1 STABLE CHRONIC PROBLEM, THAT POSE(S) A LOW RISK FOR MORBIDITY/MORTALITY. The visit on the day of the encounter encompassed interpreting the data and educating the patient as to the nature of their condition, treatment options available according to their individual PMH, meds, allergies, and overall health/living conditions, as well as any potential risks or complications that may occur from a failure to adhere to, and participate in, the recommended course of therapy. The discussion included a complete verbal, and/or written explanation of the examination results, any x-rays taken, the proposed diagnosis, and outline of the treatment plan. A schedule for future care needs was also explained. The patient verbalized an understanding of the instructions at this time and agreed to be an active participant in their treatment. If the patient should think of any questions or concerns after the visit, I have encouraged the patient to call the office.?Tinea Pedis:?The patient was counseled on the diagnosis, potential etiologies, and treatment options for their skin condition. We discussed the risks and benefits of each option from performing no treatment, to utilizing OTC topical skin creams, prescription topical creams, customized compounded topical medications, and, if necessary, to utilize oral antifungal therapy. We discussed the advantages and disadvantages of each possible treatment and importance for adherence to all the recommended therapies for optimum success and avoid potential complications such as open sore/infection/possible hospitalization. We discussed the potential effectiveness of each topical preparation as well as each ones possible side effects and/or patient medication interactions if oral therapy is selected. Patient questions re: the advantages and disadvantages of each treatment choice, medication use/dosage, successful outcomes, and application consistency were reviewed and the patient verbalized that all answers were clearly understood. The patient was told they can help alleviate symptoms by utilizing moisture absorbant innersoles with activated charcoal and baking soda, applying antifungal sprays daily, aerating toe web spaces at night by putting cotton or lambs wool between the toes, alternating shoe gear daily if possible so they can dry out, changing socks at least once during the day, wearing well-ventilated shoes or sandals. The patient has decided to apply antifungal skin creams to their feet as directed. Rx was sent to their pharmacy at the time of visit.? ??Screening/Special Tests:?Fall Risk?Screening:?No falls in the past year ?FALLS: Screening for Future Fall Risk?Have you had any falls with injury in the past year??No * Follow Up:?prn * Images: * Sign off status: Completed true * Provider:?Brigida De La Garza DPM Date:?2023 Generated for Hossein yang/Pastora/Racheleitting on:?07/06/2024 03:42 PM EDT History and Physical Notes * HPI (History of Present Illness) Category Sub-Category Detail Notes Category Not es Skin problems Nature: scaling , redness Location: , Right Duration: several days Course: worse At Risk footcare Pt States Last PCP Visit: Date: Examination Category Sub-Category Detail Notes Category Not [...] Dermatologic SKIN FINDINGS: Skin exam reveal s Keratotic lesion(s) located at , Dorsal , TA ,SUB MTH (s)5 b/l , plantar Heel(s) , B/L , Skin shows sign(s) of, erythema, scaling, in a moccasin fashion, no fissure(s) present, right General Examination GENERAL APPEARANCE: Reveals a pleasant, alert, well nourished, well-developed, well hydrated individual, who demonstrates proper attention to hygiene/body habitus, and is in no acute distress, Pt serves as own historian for office visit today ORIENTED: person, place, and t deloris Ophthalmology Referral DIABETES EYE EXAM Procedure Perform ed:: Yes ?Date of Exam Performed: 02/25/2024 Diabetic Retinopathy Screening:: Yes Findings of Diabetic Eye Exam:: no retin opathy Vascular DP PULSES (B): 2/4, B/L PT PULSES (B): 2/4, B/L CAPILLARY FILL TIME: immediate, all digi ts, B/L TEMPERTURE GRADIENT (C): normal, warm to cool, proximal to distal, B/L, B/L TROPHIC CONDITION-TEXTURE/ELASTICITY/TURGOR/HAIR GROWTH (B): normal, B/L PIGMENTATION: normal, B/L Nails NAILS are: elongated,overgr own,dystrophic,greater than 3mm thick,discolored and friable with crumbly malodorous subungual debris, with pain on palpation, 1-5 Right foot, , T4
--- OUTSIDE RECORDS SUMMARY | 2024-07-06 15:42 | XMS_ITS ---
[facility] Address [address] [place] [address] Care Team Providers Care Doctor Of Pharmacy Name Role Phone Gene Enciso Primary Care Provider Unavailnedra e Black, Brigida Unavailable [phone] Allergies No Known Allergies Results Component Value Reference Range Notes X ray : Foot, left 3V Reviewed date:06/26/2024 07:20:42 PM Interpretation:See Examination above Performing Lab: Notes/Report: See Examination above REASON FOR VISIT At Risk Footcare, Skin Problem, Foot pain Medications Medication SIG (Take, Route, Frequency, Duration) Notes Start Date End Date Status Ciclopirox Olamine 0.77 % 1 application Externally Twice a day to skin of feet including between the toes for 30 days Active Trulicity 1.5 MG/0.5ML as directed Subcutaneous Not-Taking Simvastatin 40 MG 1 tablet in the even ing Orally Once a day for 30 day(s) Not-Taking Omeprazole 20 MG 1 capsule 30 minutes before morning meal Orally Once a day for 30 day(s) Not-Taking Alpha Lipoic Acid 200 MG 3 capsule Orall y Once a day for 30 days 06/22/2022 Not-Taking Biofreeze 10 % as directed Externally 06/26/2024 Active levoFLOXacin 500 MG 1 tablet Orally Once a day for 10 day(s) 10/25/2023 Not-Taking Ciclopirox Olamine 0.77 % 1 application Externally Once a day for 30 days 06/22/2022 Not-Taking Metoprolol Succinate 100 MG 1 capsule Orally Once a day for 30 day(s) Not-Taking Cephalexin 500 MG 1 capsule Orally twi ce a day for 10 days 05/24/2023 Not-Taking Nitroglycerin 0.4 MG as directed Sublingual Not-Taking Dapagliflozin Pro-metFORMIN ER Not-Taking Doxycycline Hyclate 100 MG 1 capsule Orally Once a day for 10 day(s) 10/25/2023 Not-Taking Lisinopril 40 MG 1 tablet Orally Once a day for 30 day(s) Not-Taking Cephalexin 500 MG 1 capsule Orally twi ce a day for 10 days 10/18/2023 Not-Taking Atorvastatin Calcium 20 MG TAKE 1 TABLET BY MOUTH EVERY DAY Oral for 90 Days Active amLODIPine Besylate 10 MG 1 tablet Orall y Once a day for 30 day(s) Active Famotidine 20 MG Oral for 90 Days Active Ciclopirox Olamine 0.77 % 1 application Externally Twice a day for 30 days Not-Taking Pioglitazone HCl 15 MG Oral for 90 Days Active Lantus 100 UNIT/ML as directed Active Tamsulosin HCl 0.4 MG 1 capsule Orally t wice a day for 30 days Active Tylenol Active Aspirin 81 MG 1 tablet Orally Once a day for 30 day(s) Active Farxiga 10 MG 1 tablet Once a day Active One Touch Delica Lancets Not-Taking Clopidogrel Bisulfate 75 MG 1 tablet Orally Once a day Active Carvedilol 25 MG 1 tablet with food Orally Twice a day Active Social History Tobacco Use: Social History Observation Description Date Details (start date - stop date) Current Smoker 06/27/1990 - NA Tobacco use other than smoking: Question Answer Notes Are you an other tobacco user? No Tobacco Control (Standard) Question Answer Notes Tobacco use: Current smoker When did you start smoking? 06/27/1990 How often do you smoke cigarettes? Every day How many cigarettes a day do you smoke? 6-10 How soon after you wake up d o you smoke your first cigarette? Within 5 minutes Are you interested in quitting? Thinking about q uitting Additional Findings: Tobacco user Modera te cigarette smoker (10-19 cigs/day) AUDIT-C (Standard) Question Answer Notes Did you [...] less (1 point) Points 2 Interpretation Negative Problems Problem Type SNOMED Code ICD Code Onset Dates Problem Status W/U Status Risk Notes Problem Acquired cavus deformity of left foot (disorder) (8605752396475 107) Cavus deformity of left foot (Q66.72) Active confirmed Vital Signs Height 5ft 8in in 06/26/2024 Weight 182 lbs 06/26/2024 BMI 27.67 kg/m2 06/26/2024 Blood pressure systolic 138 mm Hg 06/27/19 25 Blood pressure diastolic 60 mm Hg 025 Procedures Procedure Date Ordered Date Performed Result Body Sit e 77227-DVWJODI NAIL, 6 OR MORE 06/26/2024 N/A 46603-NWQH SKIN LESIONS, OVER 4 06/26/2024 N/A Encounters Encounter Location Date Provider Diagnosis [facility] [address] [place] [address] 06/26/2024 Brigida Black Type 2 diabetes mellitus with diabetic polyneuropathy E11.42 ; Peroneal tendinitis of left lower extremity M76.72 ; Tinea unguium B35.1 ; Tinea pedis of both feet B35.3 ; Pain in left foot M79.672 ; Hypertrophy of bone, 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 and Bursitis of left foot M77.52 Assessments Encounter Date Diagnosis (ICD Code) Assessment Notes Treatment Notes Treatment Clinical Notes Section Notes 06/26/2024 Type 2 diabetes mellitus with diabetic polyneuropathy (ICD-10 - E11.42) 06/26/2024 Peroneal tendinitis of left lower extremity (ICD-10 - M76.72) 06/26/2024 Tinea unguium (ICD-10 - B35.1) 06/26/2024 Tinea pedis of both feet (ICD-10 - B35.3) 06/26/2024 Pain in left foot (ICD-10 - M79.672) 06/26/2024 Hypertrophy of bone, left ankle and foot (ICD-10 - M89.372) 06/26/2024 Bursitis of left foot (ICD-10 - M77.52) Plan Of Treatment Medication Medication Name Sig Start Date Stop Date Notes Ciclopirox Olamine 0.77 % 1 application Externally Twice a day to skin of feet including between the toes for 30 days Biofreeze 10 % as directed Externally 06/26/2024 Pending Test Test Name Order Date [id number] NAIL, 6 OR MORE 06/26/2024 [id number] SKIN LESIONS, OVER 4 06/27/19 25 Next Appt Details Follow Up: 3 Months, Reason: Provider Name:Brigida De La Garza , 10/09/2024 02:00:00 PM, [address] [place] [address], [id number], Procedure Notes * Category Sub-Category Detail Notes Debride Nail 6-10 Nail debridement Due to the cl inical pathology outlined in the exam findings, performance of this nail treatment is medically necessary as its management by an unskilled/untrained nonprofessional would put this patients foot and overall health at risk. Therefore, debridement to affected nail(s), as described in exam ( T4, T5, T6, T7, T8, T9, ), was performed exclusively by the physician of record to reduce/remove overall nail length, girth, thickness, subungual debris, and necrotic tissue, by manual and/or electrical means through the use of a nail nipper and/or dremel-type card grinder, to a more viable healthy nail plate [...] to maintain effectiveness in symptomatic relief - 04293 Keratoma Treatment Parring or Cutting o f Benign Hyperkeratotic Lesion(s) (-57) More than 4 Lesions - Due to the at risk nature of the patients medical condition as documented in the exam findings, performance of this keratoderma treatment is medically necessary as its management by an unskilled/untrained nonprofessional would put this patients foot and overall health at risk. Therefore, the benign hyperkeratotic lesions, ( 5 ) in total, locations as stated and described in the exam ( , Dorsal , TA ,SUB MTH (s)5 b/l , plantar Heel(s) , B/L ), were pared, and/or cut utilizing a sterile 15 blade, tissue nippers, and/or power dremel instrumentation by the physician of record - 14989 Progress Notes * Tre BARYRDOB:08/1959 (64 yo M)Acc No.[id number]:06/26/2024 Progress Note Patient:?Tre BARRY Provider:?Brigida De La Garza DPM :1960???Age:64 Y???Sex:Male Maurizio e:06/26/2024 Address:[address] [place] [address] [place], [id number] Pcp:Gene Enciso Subjective: * Chief Complaints: * ???At Risk FootcareSkin Prob lemFoot pain * HPI: ???At Risk footcare:?Pt States Last PCP Visit:?Date?02/16/2024 ???Skin problems:?Nature:?scaling , redness.?Location:?, B/L.?Duration:?, several months.?Course:?, unchanged.?Treatments:?admits nonadherence to recommended application.?Foot Pain:?Nature:?aching, pulling, tenderness, throbbing, weakness.?Location:?LEFT.?Duration:?, several weeks.?Onset:?, states trauma ( twisted foot when going down the stairs).?Course:?worse.?Aggravated:?any pressure, standing, walking.?Treatments:?rest/alter normal daily activity, ice.? * ROS:?General/Constitutional:?Nausea?admits.?Vomiting?denies.?Hunger Thirst?denies.?Loss appetite?denies.?Chills?denies.?Fatigue?admits.?Fever?denies.?Night Sweats?denies.?Unexplained weight loss?denies.?Unexplained [...] tobacco user??No ?Tobacco Control (Standard)?Tobacco use:?Current smoker ?When did you start smoking??06/27/1990 ?How often do you smoke cigarettes??Every day ?How many cigarettes a day do you smoke??6-10 ?How soon after you wake up do you smoke your first cigarette??Within 5 minutes ?Are you interested in quitting??Thinking about quitting ?Additional Findings: Tobacco user?Moderate cigarette smoker (10-19 cigs/day) ???Drugs/Alcohol:?Drugs?Have you used drugs other than those for medical reasons in the past 12 months??No ???Miscellaneous:?Caffeine: yes, frequency:, 1cup per day. ?Children: yes. ?Exercise: yes, walking. ?Marital status: . 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 ???Drug/Alcohol:?AUDIT-C (Standard)?Did you have a drink containing [...] or less (1 point) ?Points?2 ?Interpretation?Negative * Medications:?TakingClopidogr el Bisulfate 75 MG Tablet 1 tablet Orally [...] DAY Oral Famotidine 20 MG Tablet Oral amLODIPine Besylate 10 MG Tablet 1 tablet Orally Once a day Pioglitazone HCl 15 MG Tablet Oral Taking Clopidogrel Bisulfate 75 MG Tablet 1 [...] Taking Famotidine 20 MG Tablet Oral Taking amLODIPine Besylate 10 MG Tablet 1 tablet Orally Once a day Taking Pioglitazone HCl 15 MG Tablet Oral Not-Taking/PRNOne Touch Delica Lancets Ciclopirox Olamine 0.77 % Cream 1 application Externally Twice a day Ciclopirox Olamine 0.77 % Cream 1 application Externally Twice a day to skin of feet including between the toes Nitroglycerin 0.4 MG Tablet Sublingual as directed [...] List reviewed and reconciled with the patientNot-Taking/PRN One Touch Delica Lancets Not-Taking/PRN Ciclopirox Olamine 0.77 % Cream 1 application Externally Twice a day Not-Taking/PRN Ciclopirox Olamine 0.77 % Cream 1 application Externally Twice a day to skin of feet including between the toes Not-Taking/PRN Nitroglycerin 0.4 MG Tablet Sublingual as directed [...] patient * Allergies:?N.K.D.A.yes[Aller gies Verified] Objective: * Vitals:?Ht:5ft 8in, Wt:182, BMI:27.67, Shoe size:10.5, BP:138/60mm Hg, BS:not taken, Ht-cm: 172.72 cm, Wt-k.55 kg. * ???Past Orders: ???Lab:HEMOGLOBIN A1C (GLYCO HEMOGLOBIN) (Order Date - 04/27/2024) (Collection Date & Time - 06/26/2024 02:47 PM) ? Value Reference Range ?HEMOGLOBIN A1C % (HH) 7.9 * Examination: ???Ophthalmology Referral: ?DIABETES EYE EXAM?Procedure Performed:?Yes ?Date of Exam Performed?03/27/2024 ?Diabetic Retinopathy Screening:?Yes ?Retinal Screening Performed:?Yes ?Findings of Diabetic Eye Exam:?no retinopathy?General Examination: ?GENERAL APPEARANCE:?Reveals a pleasant, alert, well nourished, well- developed, well hydrated individual, who demonstrates proper attention to hygiene/body habitus, and is in no acute distress, Pt serves as own historian for office visit today.?ORIENTED:?person, place, and time.?FOOT EXAM:?Lower Extremity Neurological Exam performed:?Yes ?Visual exam of foot performed:?Yes ?Date?06/26/2024 ?Sensory testing performed:?sensations diminished ?Sensory and motor testing performed:?sensations diminished ?Pedal pulse taking performed:?1+?Neurological: ?SENSORY:?Neurological exam demonstrates, reduced light touch sensation, reduced sharp/dull pin prick discrimination , reduced vibration sensation, reduced proprioception sensation, 5.07 monofilament test performed at plantar aspects of 5 varied sites per foot shows sensation, absent, at Forefoot, B/L, Pt relates, anesthesia, burning, pins and needles sensation.?TINEL'S COMPRESSION:?Negative tarsal tunnel, tomas pedis, and medial calcaneal nerves.?Nails: ?NAILS are:?elongated,overgrown,dystrophic,greater than 3mm thick,discolored and friable with crumbly malodorous subungual debris, with pain on palpation, T5, T6, T7, T8, T9, T4.?Dermatologic: ?SKIN FINDINGS:?Skin exam reveals Keratotic lesion(s) located at , Dorsal , TA ,SUB MTH (s)5 b/l?, plantar Heel(s) , B/L , Skin shows sign(s) of, erythema, scaling, in a moccasin fashion, no fissure(s) present, right.?Vascular: ?DP PULSES (B):?, /4, B/L.?PT PULSES (B):?, /4, B/L.?CAPILLARY FILL TIME:?immediate, all digits, B/L.?TROPHIC CONDITION-TEXTURE/ELASTICITY/TURGOR/HAIR GROWTH (B):?normal, B/L.?TEMPERTURE GRADIENT (C):?normal, warm to cool, proximal to distal, B/L, B/L.?PIGMENTATION:?normal, B/L.?Orthopedic: ?TENDONITIS:? Pain on palpation, inflammation, and fusiform swelling to,Peroneal Complex,insertion,LEFT,Pain with Range of Motion (+) edema noted.?X-Rays - IMAGING REPORT: ?Clinical Indication(s):? Evaluate for Fracture.?Views:?3 views of Foot, LEFT, AP, LAT, LO??Taken by trained?Podiatric Recorder Helper Seismograph (?EF ).?Findings:?increase in soft tissue contour and density at the symptomatic site, radiolucent soft tissue gas absent, hypertrophy of 5th MT Base/Styloid process.?Fracture:?Negative fractures identified.?Accessory ossicles:?5th MTBase.? Assessment: * Assessment: 1.?Type 2 diabetes mellitus with diabetic polyneuropathy - E11.42???2.?Peroneal tendinitis of left lower extremity - M76.72 (Primary)???Specify :Acute problem, Complicated w/ Multiple Tx Options(4),Dx New problem, Prognosis Uncertain (4)???3.?Tinea unguium - B35.1???4.?Tinea pedis of both feet - B35.3???Specify :Acute problem, Uncomplicated (3),Rx drug management (4)???5.?Pain in left foot - M79.672???6.?Hypertrophy of bone, left ankle and foot - M89.372???7.?Bursitis of left foot - M77.52??? Plan: * Treatment: 2.?Type 2 diabetes mellitus with diabetic polyneuropathy?Procedure: 49962-VSJH SKIN LESIONS, OVER 4 3.?Tinea unguium?Procedure: 45883-[id number] NAIL, 6 OR MORE 4.?Tinea pedis of both feet? Start Ciclopirox Olamine Cream, 0.77 %, 1 application, Externally, Twice a day to skin of feet including between the toes, 30 days, 60, Refills 2.?? 5.?Pain in left foot?Imaging: X ray : Foot, left 3V (Performed Date - 06/26/2024)?See Examination above * Procedures:?Debride Nail 6-10:?Nail debridement?Due to the clinical pathology outlined in the exam findings, performance of this nail treatment is medically necessary as its management by an unskilled/untrained nonprofessional would put this patients foot and overall health at risk. Therefore, debridement to affected nail(s), as described in exam ( T4, T5, T6, T7, T8, T9, ), was performed exclusively by the physician of record to reduce/remove overall nail length, girth, thickness, subungual debris, and necrotic tissue, by manual and/or electrical means through the use of a nail nipper and/or dremel-type card grinder, to a more viable healthy nail plate [...] to maintain effectiveness in symptomatic relief - 41861.?Keratoma Treatment:?Parring or Cutting of Benign Hyperkeratotic Lesion(s)?(-57) More than 4 Lesions - Due to the at risk nature of the patients medical condition as documented in the exam findings, performance of this keratoderma treatment is medically necessary as its management by an unskilled/untrained nonprofessional would put this patients foot and overall health at risk. Therefore, the benign hyperkeratotic lesions, ( 5 ) in total, locations as stated and described in the exam ( , Dorsal , TA ,SUB MTH (s)5 b/l , plantar Heel(s) , B/L ), were pared, and/or cut utilizing a sterile 15 blade, tissue nippers, and/or power dremel instrumentation by the physician of record - 76334.? * Procedure Codes:?81348 DEBRI DE NAIL, 6 OR MORE, Modifiers: XS 62217 X-RAY EXAM OF LEFT FOOT 3V, Modifiers: 26 , [id number] TRIM SKIN LESIONS, OVER 4, Modifiers: XS * Preventive Medicine:? ??Counseling:?Tobacco use:?Type of Tobacco Use Cessation Counseling provided?Smoking effects education ?Patient counseled on the dangers of smoking and urged to quit:?06/26/2024 ?Discussion:?-14: Office or other outpatient visit for the evaluation and management of an established patient, which required a medically appropriate history and/or examination and MODERATE level of DECISION MAKING for: 1 OR MORE CHRONIC PROBLEM(S) THATS WORSENING, 2 STABLE CHRONIC PROBLEMS, A NEWLY DIAGNOSED PROBLEM WITH UNCERTAIN PROGNOSIS, AN ACUTE COMPLICATED INJURY WITH MULTIPLE TREATMENT OPTIONS, OR AN ACUTE PROBLEM WITH ACCOMPANYING SYSTEMIC SYMPTOMS, THAT POSE(S) A MODERATE RISK OF MORBIDITY. THIS CONDITION MAY ALSO INCLUDE RX DRUG MANAGEMENT, OR A DECISON FOR MINOR SURGERY. The visit on the day of the [...] have encouraged the patient to call the office.?Myositis/Tendonitis:?TENDONITIS: I explained to the patient the possible etiologies of their Tendonitis, including foot type/shoegear/activity level/exercise routine and the risks/benefits of the different treatment options for their pain including: No treatment at all, Rest, Ice, Oral Prednisone, NSAIDs(only if well tolerated after meals), New/supportive Shoegear, Strappings and Tapings, Stretching exercises, Deep Tissue Massage, Heel cups/cushions, Arch support/shoe inserts, Custom orthoses, Foot/Ankle AFO Bracing, Cast boot with crutches/cane/or walker for assisted ambulation, Topical analgesics including Aspercream/Voltaren gel, Physical Therapy, EPAT/ESWT, and Interfil injection therapy. Tendon surgical procedures including reefing and/or transfers were also detailed should either one become necessary through failure of conservative treatment. The advantages and disadvantages of each option were discussed and the patients questions re: shoegear, the difference between custom vs prefabricated inserts, activity level, PO vs Topical medications (and their respective potential complications/drug interactions/side effects), consistency in home treatment regimens for optimal success, as well as the potential benefits and possible complications of reconstructive surgery (includeing, but not limited to failure, prolongued/delayed healing, infection, weakness, persistant pain) were answered to their verbally confirmed satisfaction.?P.R.I.C.E.:?The patient was counseled on the use of P.R.I.C.E. and Tylenol to aid in the recovery from their painful condition, Discussed and reviewed the X- rays with the patient. We discussed how the findings relate to the patients symptoms/complaints. Answered any and all questions., Recommended Topical analgesics including Aspercream/Biofreeze/Voltaren gel as directed.?Tinea Pedis:?PREVENTIVE STRATEGIES were reviewed with the patient to avoid recurrent issues . Recomm pt continue with topical medication until resolution , Recomm Clean Sweep for shoegear.? ??Screening/Special Tests:?Fall Risk?Screening:?No falls in the past year ?FALLS: Screening for Future Fall Risk?Have you had any falls with injury in the past year??No * Follow Up:?3 Months * Images: * Sign off status: Completed true * Provider:?Brigida De La Garza DPM Date:?2024 Generated for Hossein yang/Pastora/Isac on:?07/06/2024 03:41 PM EDT History and Physical Notes * HPI (History of Present Illness) Category Sub-Category Detail Notes Category Not es Skin problems Nature: scaling , redness Location: , B/L Duration: , several months Course: , unchanged Aggravated by: Treatments: admits nonadherence to recommended application At Risk footcare Pt States Last PCP Visit: Date: 4 Foot Pain Nature: aching, pulling, tenderness, throbbing, weakness Location: LEFT Duration: , several weeks Onset: , states trauma ( tw isted foot when going down the stairs) Course: worse Aggravated: any pressure, standi ng, walking Treatments: rest/alter normal da mat activity, ice Examination Category Sub-Category Detail Notes Category Not es Neurological SENSORY: Neurological exa m demonstrates, reduced light touch sensation, reduced sharp/dull pin prick discrimination , reduced vibration sensation, reduced proprioception sensation, 5.07 monofilament test performed at plantar aspects of 5 varied sites per foot shows sensation, absent, at Forefoot, B/L, Pt relates, anesthesia, burning, pins and needles sensation TINEL'S COMPRESSION: Negative tarsal jeffrey jamey, tomas pedis, and medial calcaneal nerves Dermatologic SKIN FINDINGS: Skin exam reveal s Keratotic lesion(s) located at , Dorsal , TA ,SUB MTH (s)5 b/l , plantar Heel(s) , B/L , Skin shows sign(s) of, erythema, scaling, in a moccasin fashion, no fissure(s) present, right Orthopedic FOOT MORPHOLOGY: TENDONITIS: Pain on palpation, i nflammation, and fusiform swelling to,Peroneal Complex,insertion,LEFT,Pain with Range of Motion (+) edema noted General Examination GENERAL APPEARANCE: Reveals a pleasant, alert, well nourished, well-developed, well hydrated individual, who demonstrates proper attention to hygiene/body habitus, and is in no acute distress, Pt serves as own historian for office visit today FOOT EXAM: Lower Extremity Neurological Exa m performed:: Yes Visual exam of foot performed:: Yes Date: 06/26/2024 Sensory testing performed:: sensations d iminished Sensory and motor testing performed:: se nsations diminished Pedal pulse taking performed:: 1+ ORIENTED: person, place, and t deloris Ophthalmology Referral DIABETES EYE EXAM Procedure Perform ed:: Yes ?Date of Exam Performed: 03/27/2024 Diabetic Retinopathy Screening:: Yes Retinal Screening Performed:: Yes Findings of Diabetic Eye Exam:: no retin opathy Vascular DP PULSES (B): , 1/4, B/L PT PULSES (B): , 1/4, B/L CAPILLARY FILL TIME: immediate, all digi ts, B/L TEMPERTURE GRADIENT (C): normal, warm to cool, proximal to distal, B/L, B/L TROPHIC CONDITION-TEXTURE/ELASTICITY/TURGOR/HAIR GROWTH (B): normal, B/L PIGMENTATION: normal, B/L Nails NAILS are: elongated,overgr own,dystrophic,greater than 3mm thick,discolored and friable with crumbly malodorous subungual debris, with pain on palpation, T5, T6, T7, T8, T9, T4 X-Rays - IMAGING REPORT Findings: increase in soft tissue cont our and density at the symptomatic site, radiolucent soft tissue gas absent, hypertrophy of 5th MT Base/Styloid process Fracture: Negative fractures i dentified Accessory ossicles: 5th MTBase Views: 3 views of Foot, LEF T, AP, LAT, LO Taken by trained Podiatric Recorder Helper Seismograph ( EF ) Clinical Indication(s): Evaluate for Fra cture
--- OUTSIDE RECORDS SUMMARY | 2024-07-06 15:42 | XMS_ITS | Patient Health Record ---
Author Organization [facility] Address [address] [facility] [place] [address] Care Team Providers Care Key Account Director Name Role Phone Gene Enciso Primary Care Provider Unavailnedra e Black, Brigida Unavailable [phone] Allergies No Known Allergies Results Component Value Reference Range Notes X ray : Foot, left 3V Reviewed date:06/26/2024 07:20:42 PM Interpretation:See Examination above Performing Lab: Notes/Report: See Examination above HEMOGLOBIN A1C (GLYCOHEMOGLO BIN) Reviewed date:08/30/2023 03:35:49 PM Interpretation: Performing Lab: Notes/Report: HEMOGLOBIN A1C % (HH) 8.1 HEMOGLOBIN A1C (GLYCOHEMOGLO BIN) Reviewed date:12/13/2023 03:34:27 PM Interpretation: Performing Lab: Notes/Report: HEMOGLOBIN A1C % (HH) 7.1 HEMOGLOBIN A1C (GLYCOHEMOGLO BIN) Reviewed date:03/16/2024 03:01:21 PM Interpretation: Performing Lab: Notes/Report: TOTAL HEMOGLOBIN (HGBA1C) 7.4 HEMOGLOBIN A1C (GLYCOHEMOGLO BIN) Reviewed date:06/26/2024 02:48:20 PM Interpretation: Performing Lab: Notes/Report: HEMOGLOBIN A1C % (HH) 7.9 Reason For Referral No Information Medications Medication SIG (Take, Route, Frequency, Duration) Notes Start Date End Date Status Nitroglycerin 0.4 MG as directed Sublingual Not-Taking Dapagliflozin Pro-metFORMIN ER Not-Taking Doxycycline Hyclate 100 MG 1 capsule Orally Once a day for 10 day(s) 10/25/2023 Not-Taking levoFLOXacin 500 MG 1 tablet Orally Once a day for 10 day(s) 10/25/2023 Not-Taking Lisinopril 40 MG 1 tablet Orally Once a day for 30 day(s) Not-Taking Cephalexin 500 MG 1 capsule Orally twi ce a day for 10 days 10/18/2023 Not-Taking One Touch Delica Lancets Not-Taking Ciclopirox Olamine 0.77 % 1 application Externally Once a day for 30 days 06/22/2022 Not-Taking Clopidogrel Bisulfate 75 MG 1 tablet Orally Once a day Active Trulicity 1.5 MG/0.5ML as directed Subcutaneous Not-Taking Metoprolol Succinate 100 MG 1 capsule Orally Once a day for 30 day(s) Not-Taking Cephalexin 500 MG 1 capsule Orally twi ce a day for 10 days 05/24/2023 Not-Taking Carvedilol 25 MG 1 tablet with food Orally Twice a day Active Farxiga 10 MG 1 tablet Once a day Active Ciclopirox Olamine 0.77 % 1 application Externally Twice a day to skin of feet including between the toes for 30 days Active Lantus 100 UNIT/ML as directed Active Biofreeze 10 % as directed Externally 06/26/2024 Active Tamsulosin HCl 0.4 MG 1 capsule Orally t wice a day for 30 days Active Atorvastatin Calcium 20 MG TAKE 1 TABLET BY MOUTH EVERY DAY Oral for 90 Days Active Tylenol Active Aspirin 81 MG 1 tablet Orally Once a day for 30 day(s) Active amLODIPine Besylate 10 MG 1 tablet Orall y Once a day for 30 day(s) Active Famotidine 20 MG Oral for 90 Days Active Ciclopirox Olamine 0.77 % 1 application Externally Twice a day for 30 days Not-Taking Simvastatin 40 MG 1 tablet in the even ing Orally Once a day for 30 day(s) Not-Taking Pioglitazone HCl 15 MG Oral for 90 Days Active Omeprazole 20 MG 1 capsule 30 minutes before morning meal Orally Once a day for 30 day(s) Not-Taking Alpha Lipoic Acid 200 MG 3 capsule Orall y Once a day for 30 days 06/22/2022 Not-Taking Immunizations Vaccine Route Administration Date Status Comme nts Influenza Unknown 03/25/2022 Administered Influenza Unknown 03/26/2023 Administered Social History Tobacco Use: Social History Observation [...] Problem Status W/U Status Risk Notes Problem Polyneuropathy due to type 2 diabetes mellitus (954974040) Type 2 diabetes mellitus with diabetic polyneuropathy (E11.42) Active confirmed Problem Ulcer of toe of right foot (disorder) (1141222595376878 1) Skin ulcer of toe of right foot, limited to breakdown of skin (L97.511) Active confirmed Problem Acquired cavus deformity of left foot (disorder) (8534779737873022 ) Cavus deformity of left foot (Q66.72) Active confirmed Problem Ulcer of toe of left foot (disorder) (5851384694140608 2) Skin ulcer of toe of left foot, limited to breakdown of skin (L97.521) Active confirmed Problem Ulcer of toe (824598437) Skin ulcer of right great toe, limited to breakdown of skin (L97.511) Active confirmed Vital Signs Blood pressure diastolic 60 mm Hg 06/26/2024 Height 5ft 8in in 06/26/2024 Blood pressure systolic 138 mm Hg 06/26/2024 Weight 182 lbs 06/26/2024 BMI 27.67 kg/m2 06/26/2024 Procedures Procedure Date Ordered Date Performed Result Body Sit e 85096-WREEEPP NAIL, 6 OR MORE 08/30/2023 N/A 95444-UKFU SKIN LESIONS, 2 TO 4 08/30/2023 N/A 53030 I&D ABSCESS- SIMPLE,SINGLE 10/18/2023 N/A 87072- Debride <25 sq cm 10/25/2023 N/A 09595- Debride <25 sq cm 11/11/2023 N/A 56267-AFHZRLJ NAIL, 6 OR MORE 12/13/2023 N/A 71904-IJER SKIN LESIONS, 2 TO 4 12/13/2023 N/A 80453-YNENHGB NAIL, 6 OR MORE 03/16/2024 N/A 70218-RBRB SKIN LESIONS, OVER 4 03/16/2024 N/A 10692-ARHVNIA NAIL, 6 OR MORE 06/26/2024 N/A 63407-ZGUT SKIN LESIONS, OVER 4 06/26/2024 N/A Encounters Encounter Location Date Provider Diagnosis [address] [address] 08/30/2023 Brigida Black Type 2 diabetes mellitus with diabetic polyneuropathy E11.42 ; Tinea unguium B35.1 ; Pain in right toe(s) M79.674 ; Pain in left toe(s) M79.675 and Tinea pedis of both feet B35.[address] [address] 10/18/2023 Brigida Black Abscess of toe, righ t L02.611 and Acute lymphangitis of right toe L03.[address] [address] 10/25/2023 Brigida Black Acute lymphangitis o f right toe L03.041 and Skin ulcer of right great toe, limited to breakdown of skin L97.[address] [address] 11/11/2023 Brigida Black Acute lymphangitis o f right toe L03.041 and Skin ulcer of right great toe, limited to breakdown of skin L97.[address] [address] 12/13/2023 Brigida Black Type 2 diabetes mellitus with diabetic polyneuropathy E11.42 and Tinea unguium B35.[address] [address] 03/16/2024 Brigida De La Garza Type 2 diabetes mellitus with diabetic polyneuropathy E11.42 ; Tinea unguium B35.1 and Tinea pedis of both feet B35.[address] [address] 06/26/2024 Brigida De La Garza Type 2 diabetes mellitus with diabetic polyneuropathy E11.42 ; Peroneal tendinitis of left lower extremity M76.72 ; Tinea unguium B35.1 ; Tinea pedis of both feet B35.3 ; Pain in left foot M79.672 ; Hypertrophy of bone, 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 and Bursitis of left foot M77.[address] [address] 10/18/2023 Brigida De La Garza [address] [address] 10/18/2023 Brigida De La Garza [address] [address] 10/25/2023 Brigida De La Garza Assessments Encounter Date Diagnosis (ICD Code) Assessment Notes Treatment Notes Treatment Clinical Notes Section Notes 08/30/2023 Tinea unguium (ICD-10 - B35.1) 10/18/2023 Acute lymphangitis of right toe (ICD-10 - L03.041) Rx management (4) 10/18/2023 Abscess of toe, right (ICD-10 - L02.611) Patient Educated with: WOUND CARE INSTRUCTIONS. pdf (WOUND CARE INSTRUCTIONS. pdf) 10/25/2023 Acute lymphangitis of right toe (ICD-10 - L03.041) Rx management (4) 10/25/2023 Skin ulcer of right great toe, limited to breakdown of skin (ICD-10 - L97.511) 11/11/2023 Acute lymphangitis of right toe (ICD-10 - L03.041) Response to treatment - Improvement 11/11/2023 Skin ulcer of right great toe, limited to breakdown of skin (ICD-10 - L97.511) 12/13/2023 Tinea unguium (ICD-10 - B35.1) 12/13/2023 Type 2 diabetes mellitus with diabetic polyneuropathy (ICD-10 - E11.42) 03/16/2024 Tinea unguium (ICD-10 - B35.1) 03/16/2024 Type 2 diabetes mellitus with diabetic polyneuropathy (ICD-10 - E11.42) 06/26/2024 Type 2 diabetes mellitus with diabetic polyneuropathy (ICD-10 - E11.42) 06/26/2024 Peroneal tendinitis of left lower extremity (ICD-10 - M76.72) 08/30/2023 Type 2 diabetes mellitus with diabetic polyneuropathy (ICD-10 - E11.42) 03/16/2024 Tinea pedis of both feet (ICD-10 - B35.3) 06/26/2024 Tinea unguium (ICD-10 - B35.1) 08/30/2023 Pain in right toe(s) (ICD-10 - M79.674) 08/30/2023 Pain in left toe(s) (ICD-10 - M79.675) 06/26/2024 Tinea pedis of both feet (ICD-10 - B35.3) 08/30/2023 Tinea pedis of both feet (ICD-10 - B35.3) 06/26/2024 Pain in left foot (ICD-10 - M79.672) 06/26/2024 Hypertrophy of bone, left ankle and foot (ICD-10 - M89.372) 06/26/2024 Bursitis of left foot (ICD-10 - M77.52) 08/30/2023 Other Patient Educated with: WOUND CARE INSTRUCTIONS. pdf (WOUND CARE INSTRUCTIONS. pdf) 10/25/2023 Other 12/13/2023 Other Plan Of Treatment Pending Test Test Name Order Date *Wound Culture 10/18/2023 74568-VSRSBCB NAIL, 6 OR MORE 08/30/2023 43620-DTGRYFQ NAIL, 6 OR MORE 06/22/2022 33770-WMJNXEF NAIL, 6 OR MORE 09/24/2022 18078-VNFWWHH NAIL, 6 OR MORE 05/24/2023 87369-NYGGDBI NAIL, 6 OR MORE 12/13/2023 18899-IUPIYNR NAIL, 6 OR MORE 03/16/2024 08147-DLCDLJG NAIL, 6 OR MORE 06/26/2024 20987- Debride <25 sq cm 06/07/2023 85067- Debride <25 sq cm 10/25/2023 24733- Debride <25 sq cm 11/11/2023 46751 I&D ABSCESS- SIMPLE,SINGLE 024 99723 I&D ABSCESS- SIMPLE,SINGLE 024 42346-LUUW SKIN LESIONS, OVER 4 03/16/20 24 27198-KXUM SKIN LESIONS, OVER 4 06/27/19 80624-YUWP SKIN LESIONS, 2 TO 4 12/13/19 32371-DWSN SKIN LESIONS, 2 TO 4 08/30/19 Next Appt Details Provider Name:Brigida De La Garza , 10/09/2024 02:00:00 PM, [address] [place] [address], [place], [address], Insurance Providers Payer Name Payer Address Payer Phone Subscriber Number Group Number Insured Name Patient Relationship to Insured Coverage Start Date Coverage End Date [employer] [address] [place] [address] [id number] Tre Medina Self - patient is the insured Medical (General) History Medical History History ICD Code Diabetic Heart disease Hepatitis C High blood pressure Kidney disease Neuropathy Chicken pox Coronary artery disease Hypercholesterolemia chronic renal insufficiency Myocardial infarction sciatic leg pain stent and balloon Arthritis Surgical History Surgery Date(Month/Year) Stent in heart 11/03 Hospitalization History Reason Date(Month/Year) [facility]- Stent and balloon 09/2023
== END 2024-07-06 13:42 | disposition home or self-care (01) ==
LOC: HO.HMCH 12:24
PROVIDERS: PCP Internal Medicine; Visit Provider Internal Medicine
DX: Z00.00 Encounter for general adult medical examination without abnormal findings (principal); I25.10 Atherosclerotic heart disease of native coronary artery without angina pectoris; E11.65 Type 2 diabetes mellitus with hyperglycemia; Z79.4 Long term (current) use of insulin; E11.22 Type 2 diabetes mellitus with diabetic chronic kidney disease; N18.30 Chronic kidney disease, stage 3 unspecified; I12.9 Hypertensive chronic kidney disease with stage 1 through stage 4 chronic kidney disease, or unspecified chronic kidney disease; E78.00 Pure hypercholesterolemia, unspecified; N40.1 Benign prostatic hyperplasia with lower urinary tract symptoms; R35.0 Frequency of micturition; E87.5 Hyperkalemia; K64.0 First degree hemorrhoids

== ENCOUNTER → 2024-07-06 12:23 | Outpatient (BNVA) | payer MEDICARE, SELFPAY | PROVIDERS: PCP Internal Medicine; Visit Provider Internal Medicine | DX: Z00.00 Encounter for general adult medical examination without abnormal findings (principal); I12.9 Hypertensive chronic kidney disease with stage 1 through stage 4 chronic kidney disease, or unspecified chronic kidney disease; E11.22 Type 2 diabetes mellitus with diabetic chronic kidney disease; N18.30 Chronic kidney disease, stage 3 unspecified; E11.65 Type 2 diabetes mellitus with hyperglycemia; I25.10 Atherosclerotic heart disease of native coronary artery without angina pectoris; E78.00 Pure hypercholesterolemia, unspecified; N40.1 Benign prostatic hyperplasia with lower urinary tract symptoms; R35.0 Frequency of micturition; Z79.4 Long term (current) use of insulin | CPT/HCPCS: 96127; 99397 ==

== ENCOUNTER 2024-09-04 12:19 | Outpatient (AMB) | payer MEDICARE, SELFPAY ==
[2024-09-04 12:33] VITALS: BP 132/68; PULSE 68; BMI 27.4
--- NOTE | 2024-09-04 12:33 | A.OFFVIS_ITS ---
Vital Signs 09/04/24 12:33 Height 5 ft 8 in Weight 180 lb BMI 27.4 BP 132/68 Blood Pressure Location Lt brachial Position Sitting Pulse 68 Pulse Source Pulse Oximeter Intake Visit Reasons: 6 mth f/up Allergies No Known Allergies Allergy (Verified 07/06/24 12:36) Medication List - Last Reconciled 09/04/24 by Casimiro Grande MD acetaminophen (Tylenol Extra Strength) 500 mg PO Q6H PRN amlodipine 10 mg PO DAILY aspirin (Adult Aspirin Regimen) 81 mg PO DAILY atorvastatin 20 mg PO BEDTIME carvedilol 25 mg PO BID clopidogrel 75 mg PO DAILY dapagliflozin propanediol (Farxiga) 10 mg PO DAILY famotidine (Pepcid) 20 mg PO BEDTIME PRN 90 days flash glucose scanning reader (Contour, LLCStyle Pina 2 Iron Station) As directed flash glucose sensor (FreeStyle Pina 2 Sensor kit) As directed hydrocortisone 2.5% (Proctosol HC) 1 appl GA BID-QID PRN insulin glargine (Lantus Solostar U-100 Insulin) 10 units (0.1 mL) subcut QPM lisinopril 10 mg PO DAILY nitroglycerin 0.4 mg sublingual Q5M PRN pen needle, diabetic (BD Ultra-Fine Phuong Pen Needle) As directed pioglitazone 15 mg PO DAILY sennosides-docusate sodium 8.6-50 mg (Senna Plus) 2 tab-caps (2 x 8.6-50 mg) PO BEDTIME 30 days tamsulosin 0.8 mg (2 x 0.4 mg) PO DAILY HPI Comments Details: Tre returns for follow-up regarding coronary artery disease. In the past, cardiac catheterization 2010 when he underwent PCI/bare metal stent to proximal RCA. Also had LAD disease but not intervened at that time. Multiple risk factors including diabetes, hypertension, dyslipidemia, smoking. Has not seen Cardiology for many years since recent visits here. As he was having continued exertional angina, underwent cardiac catheterization with LAD stenting. After that, he states his symptoms have completely resolved and he no longer has any chest pains. He feels fine otherwise. Nonspecific fatigue. [facility] Medical History False positive HIV serology Hepatitis B core antibody positive Myocardial infarct Sciatic leg pain High blood pressure Diabetes Surgical History History of ankle surgery Stented coronary artery Family History Mother CKD (chronic kidney disease) Father Prostate cancer Brother Aneurysm Brother No problems noted. Sister No problems noted. Son No problems noted. Daughter No problems noted. Social History (Updated 07/06/24 @ 13:02 by Gene Enciso MD) Housing: House Alcohol intake: current Comment: 2-3 x a week - 2-3 beers Patient Tobacco Use Status: Former Tobacco user Tobacco use type: Cigarette Cigarettes Per Day: 2 Years Smoked: smoking 40 years. stopped started smoking 06/2024 3-4 a day e-Cigarette/Vaping Use: Never Used Second Hand Smoke Exposure: No service: No Current occupational status: retired and disabled Current occupational exposures/hazards: No Cognitive needs: No Hearing needs: No Vision needs: Yes Review of Systems Const Reports fatigue and Denies weakness ENT Denies dizziness Card Denies chest pain, Denies chest pain with activity, Denies syncope, Denies rapid heart rate, Denies pedal edema, Denies edema, Denies leg edema, Denies lightheadedness, Denies palpitations, Denies dyspnea, Denies dyspnea on exertion and Denies orthopnea Resp Denies cough, Denies dyspnea and Denies dyspnea on exertion GI Denies hematochezia and Denies change in stool character Musc Denies abnormal gait, Denies muscle cramps, Denies muscle weakness, Denies numbness, Denies radiating pain into limb and Denies tingling Neuro Denies abnormal gait, Denies dizziness, Denies syncope, Denies numbness, Denies tingling and Denies weakness Endo Reports fatigue and Denies palpitations Physical Exam Vital Signs: Last Vital Signs Pulse 68 09/04/24 12:33 BP 132/68 09/04/24 12:33 BMI result Body Mass Index 27.4 Const General: comfortable and no acute distress Orientation/consciousness: patient oriented x3 HEENT Other: Unremarkable Head: Yes normal to inspection Neck Neck: Yes normal visual inspection Chest Chest palpation & inspection: normal inspection of the chest Resp Auscultation: clear to auscultation bilaterally Cardio Palpation: normal PMI Heart sounds: S1 normal heart sound present, S2 normal heart sound present, no gallops, no murmurs and no rubs GI Palpation (GI): Soft to palpation Back/Spine/Pelvis Other: unremarkable Skin General skin exam: no rashes or lesions noted Neuro General: patient oriented x3 Extrem General: Yes normal to inspection Psych Mental Status: mental status grossly normal Assessment & Plan Assessment & Plan (1) CAD (coronary artery disease): Code(s): I25.10 - Atherosclerotic heart disease of [place] coronary artery without angina pectoris Category: Medical Qualifiers: Associated angina: without angina Coronary Disease-Associated Artery/Lesion type: unspecified vessel or lesion type [place] vs. transplanted heart: [place] heart Qualified Code(s): I25.10 - Atherosclerotic heart disease of [place] coronary artery without angina pectoris (2) Stented coronary artery: Code(s): Z95.5 - Presence of coronary angioplasty implant and graft Category: Surgical (3) Hypertension: Code(s): I10 - Essential (primary) hypertension Category: Medical Qualifiers: Hypertension type: primary hypertension Qualified Code(s): I10 - Essential (primary) hypertension (4) CKD (chronic kidney disease) stage 3, GFR 30-59 ml/min: Code(s): N18.30 - Chronic kidney disease, stage 3 unspecified Category: Medical Plan Cardiac studies reviewed. In the echocardiogram, LVEF 52%. Inferior/inferolateral, anteroseptal wall motion abnormality. Cardiac catheterization reviewed. Proximal LAD with 70% stenosis. Circumflex 40-50% stenosis in the mid section. Mid RCA with 60-70% stenosis. Status post PCI to LAD. For medications, continue aspirin. May stop Plavix. Blood pressure stable on the current regimen. Listed to be on amlodipine, carvedilol, lisinopril. Lisinopril dose adjustment should be through Nephrology as he already has CKD as well as hyperkalemia. Lipids are controlled with LDL of 60 mg/dL. Triglycerides 99 mg/dL. Follow-up in 6 months. Advised to call with any interim concerns. Discussion Notes The patient and I discussed his current symptoms, including fatigue. Regarding Plavix, we addressed the necessity of completing the one-year regimen. I clarified that he would be able to stop Plavix after finishing the current supply, which he agreed to. His stable blood pressure was noted, and it was emphasized that any new, significant symptoms, particularly chest-related, should prompt immediate contact. We agreed on a six-month follow-up to reassess should his symptoms remain stable. The potential benefits of stopping Plavix, including reduced risk of hemorrhagic events, were reviewed. Patient was informed and verbally consented to the use of an ambient scribe for clinic note documentation during this visit. Medications: Discontinued clopidogrel Discontinued Reason: Doctor's Order 75 mg PO DAILY 90 tabs 0RF Patient Instructions: - Finish your current bottle of Plavix before stopping. - Watch for any chest pain or new symptoms. Contact me immediately if this occurs. - Plan for a follow-up appointment in six months if no new symptoms arise. - Continue monitoring your blood pressure. - Complete any internet research with caution and consult for clarification when needed. Coding Level of Care Code Est Pt Level 4 (55542) Complex EM visit Add On G2211 Diagnoses Coronary artery disease involving [place] heart without angina pectoris, unspecified vessel or lesion type I25.10 Associated angina: without angina Coronary Disease-Associated Artery/Lesion type: unspecified vessel or lesion type [place] vs. transplanted heart: [place] heart Stented coronary artery Z95.5 Primary hypertension I10 Hypertension type: primary hypertension CKD (chronic kidney disease) stage 3, GFR 30-59 ml/min N18.30
--- OUTSIDE RECORDS SUMMARY | 2024-09-04 12:48 | XMS_ITS ---
Author 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 [employer] Name Role Phone FernieMireyapatricia Primary Care Provider Tristen De La Garza, Brigida Unavailable [phone] Allergies No Known Allergies REASON FOR VISIT [...] Ordered Date Performed Result Body Sit e 70825-LVHWWFJ NAIL, 6 OR MORE 03/16/2024 N/A 93804-DSPD SKIN LESIONS, OVER 4 03/16/2024 N/A Encounters Encounter Location Date Provider Diagnosis [facility] [address] [address] 03/16/2024 Brigdia De La Garza Type 2 diabetes mellitus [...] days Pending Test Test Name Order Date 74651-SSMSQJF NAIL, 6 OR MORE 03/16/2024 71918-ETPA SKIN LESIONS, OVER 4 03/16/20 24 Next Appt Details Follow Up: prn, Reason: Provider Name:Brigida De La Garza , 10/09/2024 02:00:00 PM, [address] [place] [address], [phone], Procedure Notes * Category Sub-Category Detail Notes [...] use of a nail nipper and/or dremel-type tankage grinder, to a more viable healthy nail [...] to maintain effectiveness in symptomatic relief - 78343 Keratoma Treatment Parring or Cutting o f Benign Hyperkeratotic Lesion(s) (-57) More than 4 Lesions - The Benign hyperkeratotic lesions, ( 5) number of lesions in total, as described in exam, were pared, and/or cut utilizing a sterile 15 blade, tissue nippers, and/or dremel - 82603 Progress Notes * Tre BARRY ShahidDOB:08/1959 (64 yo M)Acc No.[id number]:03/16/2024 Progress Note Patient:?Tre BARRY Provider:?Brigida De La Garza DPM :1960???Age:64 Y???Sex:Male Maurizio e:03/16/2024 Address:[address] [place], [place] [id number] Pcp:Gene Enciso Subjective: * Chief Complaints: * [...] walking. ?Marital status: . 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 ???Drug/Alcohol:?AUDIT-C (Standard)?Did you have a drink containing [...] management (4)??? Plan: * Treatment: 2.?Tinea unguium?Procedure: 69749-IWGJQEP NAIL, 6 OR MORE 3.?Tinea pedis of [...] use of a nail nipper and/or dremel-type tankage grinder, to a more viable healthy nail [...] to maintain effectiveness in symptomatic relief - 64764.?Keratoma Treatment:?Parring or Cutting of Benign Hyperkeratotic Lesion(s)?(-57) More than 4 Lesions - The Benign hyperkeratotic lesions, ( 5) number of lesions in total, as described in exam, were pared, and/or cut utilizing a sterile 15 blade, tissue nippers, and/or dremel - 75787.? * Procedure Codes:?82076 DEBRI DE NAIL, 6 OR MORE, Modifiers: XS 33615 TRIM SKIN LESIONS, OVER 4, Modifiers: XS [...] Garza DPM Date:?2023 Generated for Hossein yang/Pastora/Racheleitting on:?09/04/2024 12:48 PM EDT History and Physical Notes * [...]
--- OUTSIDE RECORDS SUMMARY | 2024-09-04 12:48 | XMS_ITS ---
Author Organization [facility] Address [address] [place] [address] Care Team Providers Care Steel Burner Name Role Phone Gene Enciso Primary Care Provider Tristen e Black, Brigida Unavailable [phone] Allergies No Known Allergies REASON FOR VISIT [...] Ordered Date Performed Result Body Sit e 34245-SXRXHAX NAIL, 6 OR MORE 12/13/2023 N/A 97731-BLLH SKIN LESIONS, 2 TO 4 12/13/2023 N/A Encounters Encounter Location Date Provider Diagnosis [facility] [place] [address] [place] [address] 12/13/2023 Brigida Black Type 2 diabetes mellitus with diabetic polyneuropathy E11.42 and Tinea unguium B35.1 Assessments Encounter Date Diagnosis (ICD Code) Assessment Notes Treatment Notes Treatment Clinical Notes Section Notes 12/13/2023 Type 2 diabetes mellitus with diabetic polyneuropathy (ICD-10 - E11.42) 12/13/2023 Tinea unguium (ICD-10 - B35.1) 12/13/2023 Other Plan Of Treatment Pending Test Test Name Order Date 50151-PHUIJJX NAIL, 6 OR MORE 12/13/2023 99761-MOEC SKIN LESIONS, 2 TO 4 12/13/19 24 Next Appt Details Follow Up: prn, Reason: Provider Name:Brigida De La Garza , 10/09/2024 02:00:00 PM, [address] [place], [address], Procedure Notes * Category Sub-Category Detail Notes [...] to use a topical antifungal, pharmaceutical tx (55194) Keratoma Treatment Parring or Cutting o f Benign Hyperkeratotic Lesion(s) 84962 ( 2-4 Lesions ) - The Benign hyperkeratotic lesions, as described above were pared, and/or cut utilizing a sterile 15 blade, tissue nippers, and/or dremel Progress Notes * Tre BARRYDOB:08/1959 (63 yo M)Acc No.[id number]:12/13/2023 Progress Note Patient:?Tre Barry Provider:?Brigida NA De La Garza :1960???Age:63 Y???Sex:Male Maurizio e:12/13/2023 Address:[address] [place], [place] [id number] Pcp:Gene Enciso Subjective: * Chief Complaints: * [...] yes, walking. ?Marital status: . 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 * Medications:?TakingNitroglyc veronica 0.4 MG Tablet Sublingual [...] 2.?Type 2 diabetes mellitus with diabetic polyneuropathy?Procedure: 72146-GNYL SKIN LESIONS, 2 TO 4 * Procedures:?Debride [...] to use a topical antifungal, pharmaceutical tx (78354).?Keratoma Treatment:?Parring or Cutting of Benign Hyperkeratotic Lesion(s)?19549 ( 2-4 Lesions ) - The Benign hyperkeratotic lesions, as described above were pared, and/or cut utilizing a sterile 15 blade, tissue nippers, and/or dremel.? * Procedure Codes:?00594 DEBRI DE NAIL, 6 OR MORE, Modifiers: XS 20493 TRIM SKIN LESIONS, 2 TO 4, Modifiers: XS * Follow Up:?prn * Images: * Sign off status: Completed true * Provider:?Brigida De La Garza DPM Date:?2023 Generated for Hossein yang/Pastora/Isac on:?09/04/2024 12:47 PM EDT History and Physical Notes * [...]
--- OUTSIDE RECORDS SUMMARY | 2024-09-04 12:48 | XMS_ITS | Patient Health Record ---
Author Organization [facility] Address [address] [facility] [place] [address] Care Team Providers Care Crew Supervisor Name Role Phone Gene Enciso Primary Care Provider Tristen e Black, Brigida Unavailable [phone] Allergies No Known Allergies Results Component Value Reference Range Notes X ray : Foot, left 3V Reviewed date:06/26/2024 07:20:42 PM Interpretation:See Examination above Performing Lab: Notes/Report: See Examination above HEMOGLOBIN A1C (GLYCOHEMOGLO BIN) Reviewed date:12/13/2023 03:34:27 [...] Polyneuropathy due to type 2 diabetes mellitus (423420181) Type 2 diabetes mellitus with diabetic polyneuropathy (E11.42) Active confirmed Problem Ulcer of toe of right foot (disorder) (9100020139179019 1) Skin ulcer of toe of right foot, limited to breakdown of skin (L97.511) Active confirmed Problem Acquired cavus deformity of left foot (disorder) (6809902352574082 ) Cavus deformity of left foot (Q66.72) Active confirmed Problem Ulcer of toe of left foot (disorder) (2729272642965004 2) Skin ulcer of toe of left foot, limited to breakdown of skin (L97.521) Active confirmed Problem Ulcer of toe (131542124) Skin ulcer of right great toe, limited to breakdown of skin (L97.511) Active confirmed Vital Signs Blood pressure diastolic 60 mm Hg 06/26/2024 Height 5ft 8in in 06/26/2024 Blood pressure systolic 138 mm Hg 06/26/2024 Weight 182 lbs 06/26/2024 BMI 27.67 kg/m2 06/26/2024 Procedures Procedure Date Ordered Date Performed Result Body Sit e 31934 I&D ABSCESS- SIMPLE,SINGLE 10/18/2023 N/A 73154- Debride <25 sq cm 10/25/2023 N/A 29077- Debride <25 sq cm 11/11/2023 N/A 20770-JVKBXZC NAIL, 6 OR MORE 12/13/2023 N/A 88466-UTKK SKIN LESIONS, 2 TO 4 12/13/2023 N/A 47519-YPYVJJM NAIL, 6 OR MORE 03/16/2024 N/A 97494-DRMZ SKIN LESIONS, OVER 4 03/16/2024 N/A 10554-GGWZRSW NAIL, 6 OR MORE 06/26/2024 N/A 76038-TQAV SKIN LESIONS, OVER 4 06/26/2024 N/A Encounters Encounter Location Date Provider Diagnosis [address] [address] 10/18/2023 Brigida Black Abscess of toe, righ t L02.611 and Acute lymphangitis of right toe L03.[address] [address] 10/25/2023 Brigida Black Acute lymphangitis o f right toe L03.041 and Skin ulcer of right great toe, limited to breakdown of skin L97.[address] [address] 11/11/2023 Brigida Black Acute lymphangitis o f right toe L03.041 and Skin ulcer of right great toe, limited to breakdown of skin L97.[address] [address] 12/13/2023 Brigida Black Type 2 diabetes mellitus with diabetic polyneuropathy E11.42 and Tinea unguium B35.[address] [address] 03/16/2024 Brigida Black Type 2 diabetes mellitus with diabetic polyneuropathy E11.42 ; Tinea unguium B35.1 and Tinea pedis of both feet B35.[address] [address] 06/26/2024 Brigida Black Type 2 diabetes mellitus with diabetic polyneuropathy E11.42 ; Peroneal tendinitis of left lower extremity M76.72 ; Tinea unguium B35.1 ; Tinea pedis of both feet B35.3 ; Pain in left foot M79.672 ; Hypertrophy of bone, 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 and Bursitis of left foot M77.[address] [facility] [address] [address] 10/18/2023 Brigida Frederic [facility] [address] [address] 10/18/2023 Brigidacyndi De La Garza [facility] [address] [address] 10/25/2023 Brigida De La Garza Assessments Encounter Date Diagnosis (ICD Code) Assessment Notes Treatment Notes Treatment Clinical Notes Section Notes 10/18/2023 Acute lymphangitis of right toe (ICD-10 [...] of left lower extremity (ICD-10 - M76.72) 03/16/2024 Tinea pedis of both feet (ICD-10 - B35.3) 06/26/2024 Tinea unguium (ICD-10 - B35.1) 06/26/2024 Tinea pedis of both feet (ICD-10 - B35.3) 06/26/2024 Pain in left foot (ICD-10 - M79.672) 06/26/2024 Hypertrophy of bone, left ankle and foot (ICD-10 - M89.372) 06/26/2024 Bursitis of left foot (ICD-10 - M77.52) 10/25/2023 Other 12/13/2023 Other Plan Of Treatment Pending Test Test Name Order Date *Wound Culture 10/18/2023 64203-SVRBWRO NAIL, 6 OR MORE 08/30/2023 68318-XWLOXHD NAIL, 6 OR MORE 06/22/2022 92527-WDOSLXW NAIL, 6 OR MORE 09/24/2022 62579-YPEEXPM NAIL, 6 OR MORE 05/24/2023 15644-TFRVESS NAIL, 6 OR MORE 12/13/2023 14792-RJZMPNR NAIL, 6 OR MORE 03/16/2024 36227-JNNAHPM NAIL, 6 OR MORE 06/26/2024 16235- Debride <25 sq cm 06/07/2023 28486- Debride <25 sq cm 10/25/2023 60587- Debride <25 sq cm 11/11/2023 82168 I&D ABSCESS- SIMPLE,SINGLE 024 81058 I&D ABSCESS- SIMPLE,SINGLE 024 81083-RGSB SKIN LESIONS, OVER 4 03/16/20 24 95413-BQBC SKIN LESIONS, OVER 4 06/27/19 25 62487-ZPBY SKIN LESIONS, 2 TO 4 12/13/19 24 54073-HTHU SKIN LESIONS, 2 TO 4 08/30/19 24 Next Appt Details Provider Name:Brigida Resendiz Frederic , 10/09/2024 02:00:00 PM, [address] [facility], [place], [address], Insurance Providers Payer Name Payer Address Payer Phone Subscriber Number Group Number Insured Name Patient Relationship to Insured Coverage Start Date Coverage End Date [employer] [address] [place] [address] [id number] Tre Medina Self - patient is the [...]
--- OUTSIDE RECORDS SUMMARY | 2024-09-04 12:48 | XMS_ITS ---
Author Organization [facility] Address [address] [facility] [place] [address] Care Team Providers Care Automatic Vulcanizing Lead Operator Name Role Phone Gene Enciso Primary Care Provider Unavailnedra e Black, Brigida Unavailable [phone] Allergies No Known Allergies Results Component Value [...] Acquired cavus deformity of left foot (disorder) (4418831205267 107) Cavus deformity of left foot (Q66.72) Active confirmed Vital Signs Height 5ft 8in in 06/26/2024 Weight 182 lbs 06/26/2024 BMI 27.67 kg/m2 06/26/2024 Blood pressure systolic 138 mm Hg 06/27/19 25 Blood pressure diastolic 60 mm Hg 025 Procedures Procedure Date Ordered Date Performed Result Body Sit e 46378-RZCBNKO NAIL, 6 OR MORE 06/26/2024 N/A 05007-UIJV SKIN LESIONS, OVER 4 06/26/2024 N/A Encounters Encounter Location Date Provider Diagnosis [facility] [address] [place] [address] 06/26/2024 Brigida Black Type 2 diabetes mellitus [...] 06/26/2024 Pending Test Test Name Order Date 03134-WMXUPED NAIL, 6 OR MORE 06/26/2024 91706-RRXQ SKIN LESIONS, OVER 4 06/27/19 25 Next Appt Details Follow Up: 3 Months, Reason: Provider Name:Brigida De La Garza , 10/09/2024 02:00:00 PM, [address] [place] [address], [phone], Procedure Notes * Category Sub-Category Detail Notes [...] use of a nail nipper and/or dremel-type eyeglass lens grinder, to a more viable healthy nail [...] to maintain effectiveness in symptomatic relief - 71497 Keratoma Treatment Parring or Cutting o f [...] instrumentation by the physician of record - 56652 Progress Notes * Tre BARRYDOB:08/1959 (64 yo M)Acc No.[id number]:06/26/2024 Progress Note Patient:?Tre BARRY Provider:?Brigida De La Garza DPM :1960???Age:64 Y???Sex:Male Maurizio e:06/26/2024 Address:[address] [place] [address] [place], [facility] Pcp:Gene Enciso Subjective: * Chief Complaints: * [...] yes, walking. ?Marital status: . 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 ???Drug/Alcohol:?AUDIT-C (Standard)?Did you have a drink containing [...] Foot, LEFT, AP, LAT, LO??Taken by trained?Podiatric Multimedia Coordinator (?EF ).?Findings:?increase in soft tissue contour and [...] 2.?Type 2 diabetes mellitus with diabetic polyneuropathy?Procedure: 04292-WQVJ SKIN LESIONS, OVER 4 3.?Tinea unguium?Procedure: 54342-QWAXNSN NAIL, 6 OR MORE 4.?Tinea pedis of [...] use of a nail nipper and/or dremel-type eyeglass lens grinder, to a more viable healthy nail [...] to maintain effectiveness in symptomatic relief - 23343.?Keratoma Treatment:?Parring or Cutting of Benign Hyperkeratotic Lesion(s)?(-57) [...] instrumentation by the physician of record - 38150.? * Procedure Codes:?05219 DEBRI DE NAIL, 6 OR MORE, Modifiers: XS 88135 X-RAY EXAM OF LEFT FOOT 3V, Modifiers: 26 , NP56312 TRIM SKIN LESIONS, OVER 4, Modifiers: XS [...] Garza DPM Date:?2024 Generated for Hossein yang/Pastora/Isac on:?09/04/2024 12:47 PM [...] AP, LAT, LO Taken by trained Podiatric Multimedia Coordinator ( EF ) Clinical Indication(s): Evaluate for Fra cture
== END 2024-09-04 12:50 | disposition home or self-care (01) ==
LOC: HO.HCS 12:20
PROVIDERS: PCP Internal Medicine; Visit Provider Internal Medicine
DX: I25.10 Atherosclerotic heart disease of native coronary artery without angina pectoris (principal); Z95.5 Presence of coronary angioplasty implant and graft; I10 Essential (primary) hypertension; N18.30 Chronic kidney disease, stage 3 unspecified
CPT/HCPCS: 99214; G2211

== ENCOUNTER → 2024-09-04 12:19 | Outpatient (BNVA) | payer MEDICARE, SELFPAY | PROVIDERS: PCP Internal Medicine; Visit Provider Internal Medicine | DX: I25.10 Atherosclerotic heart disease of native coronary artery without angina pectoris (principal); I12.9 Hypertensive chronic kidney disease with stage 1 through stage 4 chronic kidney disease, or unspecified chronic kidney disease; N18.30 Chronic kidney disease, stage 3 unspecified; Z95.5 Presence of coronary angioplasty implant and graft | CPT/HCPCS: 99212 ==

== ENCOUNTER 2024-11-13 09:47 | Outpatient (REF) | payer MEDICARE, SELFPAY ==
[2024-11-13 10:05] LABS: MANUAL DIFF FLAG NO
--- OUTSIDE RECORDS SUMMARY | 2024-11-13 10:23 | XMS_ITS | Patient Health Record ---
Author Organization [facility] Address [address] [facility] [place] [address] Care Team Providers Care Brim Curler Name Role Phone Gene Enciso Primary Care Provider Tristen e Black, Brigida Unavailable [phone] Allergies No Known Allergies Results Component Value Reference Range Notes X ray : Foot, left 3V Reviewed date:06/26/2024 07:20:42 PM Interpretation:See Examination above Performing Lab: Notes/Report: See Examination above HEMOGLOBIN A1C (GLYCOHEMOGLO BIN) Reviewed date:03/16/2024 03:01:21 [...] to skin of feet including between the toes; Duration: 30 days Active Dapagliflozin Pro-metFORMIN ER Not-Taking Lisinopril 40 MG 1 tablet Orally Once a day; Duration: 30 day(s) Not-Taking Tylenol Active Aspirin 81 MG 1 tablet Orally Once a day; Duration: 30 day(s) Active Clopidogrel Bisulfate 75 MG 1 tablet Orally Once a day Active Cephalexin 500 MG 1 capsule Orally twi ce a day; Duration: 10 days 05/24/2023 Not-Taking Carvedilol 25 MG 1 tablet with food Orally Twice a day Active Ciclopirox Olamine 0.77 % 1 application Externally Once a day; Duration: 30 days 06/22/2022 Not-Taking Farxiga 10 MG 1 tablet Once a day Active Trulicity 1.5 MG/0.5ML as directed Subcutaneous Not-Taking Lantus 100 UNIT/ML as directed Active Omeprazole 20 MG 1 capsule 30 minutes before morning meal Orally Once a day; Duration: 30 day(s) Not-Taking Cephalexin 500 MG 1 capsule Orally twi ce a day; Duration: 10 days 10/18/2023 Not-Taking Doxycycline Hyclate 100 MG 1 capsule Orally Once a day; Duration: 10 day(s) 10/25/2023 Not-Taking levoFLOXacin 500 MG 1 tablet Orally Once a day; Duration: 10 day(s) 10/25/2023 Not-Taking Metoprolol Succinate 100 MG 1 capsule Orally Once a day; Duration: 30 day(s) Not-Taking Alpha Lipoic Acid 200 MG 3 capsule Orall y Once a day; Duration: 30 days 06/22/2022 Not-Takin g Simvastatin 40 MG 1 tablet in the even ing Orally Once a day; Duration: 30 day(s) Not-Taking Tamsulosin HCl 0.4 MG 1 capsule Orally t wice a day; Duration: 30 days Active Nitroglycerin 0.4 MG as directed Sublingual Not-Taking Biofreeze 10 % as directed Externally 06/26/2024 Not-Taking One Touch Delica Lancets Not-Taking Ciclopirox Olamine 0.77 % 1 application Externally Twice a day; Duration: 30 days Not-Taking Atorvastatin Calcium 20 MG TAKE 1 TABLET BY MOUTH EVERY DAY Oral; Duration: 90 Days Active Famotidine 20 MG Oral; Duration: 90 Days Active amLODIPine Besylate 10 MG 1 tablet Orall y Once a day; Duration: 30 day(s) Active Pioglitazone HCl 15 MG Oral; Duration: 90 Days Active Immunizations Vaccine Route Administration Date Status Comme nts Influenza Unknown 03/25/2022 Administered Influenza Unknown 03/26/2023 Administered Influenza Unknown 01/25/2024 Administered Social History Tobacco Use: Social History [...] Status W/U Status Risk Notes Problem Acquired hammer toe of right foot (1419725173416854 ) Other hammer toe(s) (acquired), right foot (M20.41) Active confirmed Problem Acquired hammer toe of left foot (8168895867501425 ) Other hammer toe(s) (acquired), left foot (M20.42) Active confirmed Problem Polyneuropathy due to type 2 diabetes mellitus (160244623) Type 2 diabetes mellitus with diabetic polyneuropathy (E11.42) Active confirmed Vital Signs Blood pressure diastolic 60 mm Hg 10/09/2024 Height 5ft8in in 10/09/2024 Blood pressure systolic 136 mm Hg 10/09/2024 Weight 180 lbs 10/09/2024 BMI 27.37 kg/m2 10/09/2024 Procedures Procedure Date Ordered Date Performed Result Body Sit e 60644-YMUFVMC NAIL, 6 OR MORE 12/13/2023 N/A 91386-WRYQ SKIN LESIONS, 2 TO 4 12/13/2023 N/A 40602-HUNOZLT NAIL, 6 OR MORE 03/16/2024 N/A 12358-BLKI SKIN LESIONS, OVER 4 03/16/2024 N/A 07122-EGVMHLP NAIL, 6 OR MORE 06/26/2024 N/A 28883-DXFV SKIN LESIONS, OVER 4 06/26/2024 N/A 18038-PFZRMTH NAIL, 6 OR MORE 10/09/2024 N/A 54411-YTJX SKIN LESIONS, OVER 4 10/09/2024 N/A Encounters Encounter Location Date Provider Diagnosis [address] [address] 12/13/2023 Brigida Black Type 2 diabetes mellitus with diabetic polyneuropathy E11.42 and Tinea unguium B35.[address] [address] 03/16/2024 Brigida Black Type 2 diabetes mellitus with diabetic polyneuropathy E11.42 ; Tinea unguium B35.1 and Tinea pedis of both feet B35.[address] [address] 06/26/2024 Brigida Black Type 2 diabetes mellitus with diabetic polyneuropathy E11.42 ; Peroneal tendinitis of left lower extremity M76.72 ; Tinea unguium B35.1 ; Tinea pedis of both feet B35.3 ; Pain in left foot M79.672 ; Hypertrophy of bone, 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 and Bursitis of left foot M77.[address] [address] 10/09/2024 Brigida Black Type 2 diabetes mellitus with diabetic polyneuropathy E11.42 ; Other hammer toe(s) (acquired), right foot M20.41 ; Tinea unguium B35.1 ; Tinea pedis of both feet B35.3 ; Pain in left foot M79.672 and Other hammer toe(s) (acquired), left foot M20.42 Assessments Encounter Date Diagnosis (ICD Code) Assessment Notes Treatment Notes Treatment Clinical Notes Section Notes 12/13/2023 Tinea unguium (ICD-10 - B35.1) 12/13/2023 Type 2 diabetes mellitus with diabetic polyneuropathy (ICD-10 - E11.42) 03/16/2024 Tinea unguium (ICD-10 - B35.1) 03/16/2024 Type 2 diabetes mellitus with diabetic polyneuropathy (ICD-10 - E11.42) 06/26/2024 Type 2 diabetes mellitus with diabetic polyneuropathy (ICD-10 - E11.42) 06/26/2024 Peroneal tendinitis of left lower extremity (ICD-10 - M76.72) 10/09/2024 Other hammer toe(s) (acquired), right foot (ICD-10 - M20.41) Patient Educated with: DIABETIC FOOT CARE INSTRUCTIONS. pdf (DIABETIC FOOT CARE INSTRUCTIONS. pdf) 10/09/2024 Type 2 diabetes mellitus with diabetic polyneuropathy (ICD-10 - E11.42) 10/09/2024 Tinea unguium (ICD-10 - B35.1) 03/16/2024 Tinea pedis of both feet (ICD-10 - B35.3) 06/26/2024 Tinea unguium (ICD-10 - B35.1) 06/26/2024 Tinea pedis of both feet (ICD-10 - B35.3) 10/09/2024 Tinea pedis of both feet (ICD-10 - B35.3) 10/09/2024 Pain in left foot (ICD-10 - M79.672) 06/26/2024 Pain in left foot (ICD-10 - M79.672) 06/26/2024 Hypertrophy of bone, left ankle and foot (ICD-10 - M89.372) 10/09/2024 Other hammer toe(s) (acquired), left foot (ICD-10 - M20.42) 06/26/2024 Bursitis of left foot (ICD-10 - M77.52) 12/13/2023 Other Plan Of Treatment Pending Test Test Name Order Date *Wound Culture 10/18/2023 10948-AQRRXCJ NAIL, 6 OR MORE 08/30/2023 93967-WEKTLFP NAIL, 6 OR MORE 06/22/2022 57928-JAFFIQJ NAIL, 6 OR MORE 09/24/2022 18926-RPRFHLG NAIL, 6 OR MORE 05/24/2023 12377-DKOFZQJ NAIL, 6 OR MORE 12/13/2023 26881-MAGSLCU NAIL, 6 OR MORE 03/16/2024 73254-HGLIAJW NAIL, 6 OR MORE 06/26/2024 95100-XZQMJAZ NAIL, 6 OR MORE 10/09/2024 63153- Debride <25 sq cm 06/07/2023 21255- Debride <25 sq cm 10/25/2023 54745- Debride <25 sq cm 11/11/2023 69026 I&D ABSCESS- SIMPLE,SINGLE 024 95133 I&D ABSCESS- SIMPLE,SINGLE 024 12894-XMAZ SKIN LESIONS, OVER 4 03/16/20 24 06936-OWPM SKIN LESIONS, OVER 4 10/10/19 25 41556-QCPB SKIN LESIONS, OVER 4 06/27/19 25 80252-JUXY SKIN LESIONS, 2 TO 4 12/13/19 24 06736-YJXC SKIN LESIONS, 2 TO 4 08/30/19 24 Next Appt Details Provider Name:Brigida De La Garza , 01/08/2025 03:15:00 PM, [address] [place] [address], [phone], Insurance Providers Payer Name Payer Address Payer Phone Subscriber Number Group Number Insured Name Patient Relationship to Insured Coverage Start Date Coverage End Date [address] [place] [address] [id number] Tre Medina Self - patient is the [...]
[2024-11-13 11:05] LABS: Hematocrit 37.3 % (42.0-52.0); Hematocrit 37.5 % (42.0-52.0); Hemoglobin 12.6 g/dl (14.0-18.0); Imm Gran Abs Auto 0.02 X10*3/uL (0.00-0.03); Imm Gran Pct Auto 0.3 % (0.0-0.4); Lymphocytes Absolute Auto 1.1 X10*3/uL (1.2-4.9); Mean Corpuscular HGB Conc 33.6 g/dl (31.0-36.0); Mean Corpuscular HGB Conc 33.8 g/dl (31.0-36.0); Mean Corpuscular Hemoglobin 32.2 pg (27.0-33.0); Mean Corpuscular Hemoglobin 32.6 pg (27.0-33.0); Mean Corpuscular Volume 95.9 fL (80.0-98.0); Mean Corpuscular Volume 96.4 fL (80.0-98.0); NRBC Abs Auto 0.000 X10*3/uL (0.0-0.012); NRBC Pct Auto 0.0 /100WBC (0.0-0.2); Platelet Count 146 X10*3/uL (160-400); Platelet Count 155 X10*3/uL (160-400); Red Blood Count 3.87 X10*6/uL (4.60-5.80); Red Blood Count 3.91 X10*6/uL (4.60-5.80); White Blood Count 6.8 X10*3/uL (4.8-10.8); White Blood Count 7.2 X10*3/uL (4.8-10.8)
[2024-11-13 11:11] LABS: Hemoglobin A1C 168.1601 umol/L; Total Hemoglobin (HGBA1C) 3239.3734 umol/L
[2024-11-13 11:33] LABS: B Type Natriuretic Peptide 122 pg/mL (<100)
[2024-11-13 11:40] LABS: Alanine Aminotransferase 19 U/L (0-40); Albumin Level 4.5 g/dL (3.5-5.0); Alkaline Phosphatase 73 U/L (39-117); Anion Gap 13 (12-20); Aspartate Amino Transferase 21 U/L (5-37); Blood Urea Nitrogen 43 mg/dL (9-16); Calcium 9.1 mg/dL (8.4-10.2); Carbon Dioxide 22 mmol/L (22-29); Chloride 110 mmol/L (96-108); Cholesterol 108 mg/dL (<200); Estimated Glomerular Filt Rate 30; HDL Cholesterol 31 mg/dL (>40); Potassium 5.3 mmol/L (3.3-5.1); Sodium 140 mmol/L (135-145); Total Protein 7.4 g/dL (6.5-8.0); Triglycerides 66 mg/dL (<150)
[2024-11-13 11:41] LABS: Appearance Urine Clear; Glucose Urine UA >=1000 mg/dL (Negative); PH 5.5 (5.0-9.0); Specific Gravity - Urine 1.020 (1.005-1.025); UMIC TRIGGER UA YES
[2024-11-13 11:54] LABS: Thyroid Stimulating Hormone 1.82 uIU/mL (0.32-4.0)
[2024-11-13 12:10] LABS: Alanine Aminotransferase 18 U/L (0-40); Albumin Level 4.6 g/dL (3.5-5.0); Alkaline Phosphatase 72 U/L (39-117); Anion Gap 13 (12-20); Aspartate Amino Transferase 21 U/L (5-37); Blood Urea Nitrogen 43 mg/dL (9-16); Calcium 9.2 mg/dL (8.4-10.2); Carbon Dioxide 21 mmol/L (22-29); Chloride 111 mmol/L (96-108); Estimated Glomerular Filt Rate 30; Free T4 (Free Thyroxine) 1.00 ng/dL (0.71-1.85); Potassium 5.2 mmol/L (3.3-5.1); Sodium 140 mmol/L (135-145); Total Protein 7.6 g/dL (6.5-8.0); Uric Acid 7.8 mg/dL (3.4-7.0)
[2024-11-13 12:12] LABS: Microalbum/Creatinine Ratio Ur 404.6 ug/mg cr (<30)
[2024-11-13 12:12] LABS: Folate 9.8 ng/mL (> or = 4.0); Vitamin B12 543 pg/mL (200-900)
== END 2024-11-13 09:48 | disposition home or self-care (01) ==
LOC: HO.LAB 09:47
PROVIDERS: Absent Provider Internal Medicine Hypertension Specialist; PCP Internal Medicine; Visit Provider Internal Medicine
DX: E11.65 Type 2 diabetes mellitus with hyperglycemia (principal); N18.30 Chronic kidney disease, stage 3 unspecified; I25.10 Atherosclerotic heart disease of native coronary artery without angina pectoris; E78.00 Pure hypercholesterolemia, unspecified; Z12.5 Encounter for screening for malignant neoplasm of prostate
CPT/HCPCS: 36415; 80053; 80061; 81001; 82043; 82306; 82570; 82607; 82746; 83036; 83880; 84153; 84439; 84443; 84550; 85025; 85027

== ENCOUNTER 2024-11-17 15:25 | Outpatient (AMB) | payer MEDICARE, SELFPAY ==
--- NOTE | 2024-11-17 15:30 | MHC.PC.OV ---
Vital Signs 11/17/24 15:32 Height 5 ft 8 in Weight 183 lb 2 oz BMI 27.8 BP 120/74 Blood Pressure Location Lt brachial Position Sitting Pulse 68 Pulse Source Pulse Oximeter Temp 97.1 F Temp Source Temporal Artery Scan Pulse Oximetry (%) 98 Oxygen Delivery Method Room Air Intake Visit Reasons: 3mth f/u Intake Note: Patient is here to follow up on DM Textile Artist Required: No Route Sales Delivery Driver: Not Required per policy Accompanied by: Self / Same As Patient Allergies No Known Allergies Allergy (Verified 11/17/24 15:31) Tobacco use date assessed: 11/17/24 Fall risk assessment: No Falls in past year Last assessed Fall Risk: 11/17/24 Dental Screening Dental Screen Date: 07/06/24 [facility] Medical History False positive HIV serology Hepatitis B core antibody positive Myocardial infarct Sciatic leg pain High blood pressure Diabetes Surgical History History of ankle surgery Stented coronary artery Family History Mother CKD (chronic kidney disease) Father Prostate cancer Brother Aneurysm Brother No problems noted. Sister No problems noted. Son No problems noted. Daughter No problems noted. Social History Housing: House Alcohol intake: current Comment: 2-3 x a week - 2-3 beers Patient Tobacco Use Status: Former Tobacco user Tobacco use type: Cigarette Cigarettes Per Day: 2 Years Smoked: smoking 40 years. stopped started smoking 06/2024 3-4 a day e-Cigarette/Vaping Use: Never Used Second Hand Smoke Exposure: Yes service: No Current occupational status: retired and disabled Current occupational exposures/hazards: No Cognitive needs: No Hearing needs: No Vision needs: Yes Questionnaire PHQ-9 Over the last 2 weeks, how often have you been bothered by any of the following problems? 1. Little interest or pleasure in doing things: not at all 2. Feeling down, depressed, or hopeless: not at all 3. Trouble falling or staying asleep, or sleeping too much: not at all 7. Trouble concentrating on things, such as reading the newspaper or watching television: not at all 8. Moving or speaking so slowly that other people could have noticed. Or the opposite - being so fidgety or restless that you have been moving around a lot more than usual: not at all 9. Thoughts that you would be better off or of hurting yourself in some way: not at all Depression Screening Interpretation: Negative Depression Screening Done: Yes Source: Developed by Drs. Antonio Hudson, Flaca Rutledge, Dk Nino and colleagues, with an educational elmer from [employer]. Thrive Questionnaire Date Thrive assessed: 07/06/24 I am a: Patient What is your living situation today?: I choose not to answer this question Within the past 12 months, did the food you bought not last and you didn't have the money to get more?: I choose not to answer this question Within the past 12 months, did you worry whether your food would run out before you got money to buy more?: I choose not to answer this question Do you have trouble paying for medicines?: I choose not to answer this question Do you have trouble getting transportation to medical appointments?: I choose not to answer this question Do you have trouble paying your heating and electricity bill?: I choose not to answer this question Do you have trouble taking care of your child, family member or friend?: I choose not to answer this question Do you have trouble with day-to-day activities such as bathing, preparing meals, shopping, managing finances, etc.?: No Are you currently unemployed and looking for a job?: No Are you interested in more education?: No Please select the resources that you would like help with: None Currently or been in a relationship where the following occur: No concerns reported THRIVE Score: 0 AUDIT C Alcohol Use Questionnaire (AUDIT-C) 1. How often do you have a drink containing alcohol?: 2-4 times a month 2. How many drinks containing alcohol do you have on a typical day when you are drinking?: 1 or 2 3. How often do you have six or more drinks on one occasion?: Never Total Score: 2 SUSANA-7 AMB Questionnaire SUSANA-7 Date SUSANA - 7 assessed: 11/17/24 Feeling nervous, anxious, or on edge: 0 = Not at all Not being able to stop or control worryin = Not at all Worrying too much about different things: 0 = Not at all Trouble relaxin = Not at all Being so restless that it is hard to sit still: 0 = Not at all Becoming easily annoyed or irritable: 1 = Several days Feeling afraid as if something awful might happen: 0 = Not at all Total SUSANA-7 score (0-4 normal; 5-9 mild; 10-14 moderate; 15-21 severe): 1 Source: Developed by Drs. Antonio Hudson, Flaca Rutledge, Dk Nino and colleagues, with an educational elmer from [employer]. Physical exam (Primary Care) Vital Signs: Last Vital Signs Temp 97.1 F 11/17/24 15:32 Pulse 68 11/17/24 15:32 BP 120/74 11/17/24 15:32 Pulse Ox 98 11/17/24 15:32 Oxygen Delivery Method Room Air 11/17/24 15:32 BMI result Body Mass Index 27.8 Tobacco/Smoking Status: Tobacco use Status Tobacco use date assessed 11/17/24 11/17/24 15:38 Patient Tobacco Use Status Former Tobacco user 11/17/24 15:38 Tobacco use type Cigarette 11/17/24 15:38 e-Cigarette/Vaping Use Never Used 11/17/24 15:38 Depression Screening Interpretation: Negative Thrive Assessment: Date of Thrive Assessment Date Thrive assessed 07/06/24 11/17/24 15:38 Currently or been in a relationship where the following occur: No concerns reported Const General: alert; No acute distress Eyes Conjunctivae: conjunctivae normal Resp Auscultation: clear to auscultation bilaterally Cardio Rate: regular rate Rhythm: regular rhythm GI Inspection: Yes normal to inspection Extrem General: Yes normal to inspection and No edema Coding Level of Care Code Est Pt Level 4 (33125) Complex EM visit Add On G2211 Diagnoses Coronary artery disease involving [place] heart without angina pectoris, unspecified vessel or lesion type I25.10 Coronary Disease-Associated Artery/Lesion type: unspecified vessel or lesion type [place] vs. 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 transplanted heart: [place] heart Associated angina: without angina Qualified Code(s): I25.10 - Atherosclerotic heart disease of [place] coronary artery without angina pectoris Plan: Control the cholesterol, weight, blood pressure, diabetes on aspirin 81 mg once a day (2) Hypertension: Code(s): I10 - Essential (primary) hypertension Category: Medical Qualifiers: Hypertension type: primary hypertension Qualified Code(s): I10 - Essential (primary) hypertension Plan: Continue with blood pressure medication. Decrease salt intake and exercise patient takes carvedilol 25 mg twice a day amlodipine 10 mg once a day lisinopril 10 mg once a day (3) Hypercholesterolemia: Code(s): E78.00 - Pure hypercholesterolemia, unspecified Category: Medical Plan: Avoid fried foods, chicken skin, eggs, butter margarine, pastries and meat. Be it pork or beef they have a lot of cholesterol LDL goal of less than 70 and triglyceride of less than 150 on atorvastatin 20 mg once a day (4) Type 2 diabetes mellitus with hyperglycemia: Comment: joselin Code(s): E11.65 - Type 2 diabetes mellitus with hyperglycemia Category: Medical Qualifiers: Diabetes mellitus chcf insulin use: with chcf use Qualified Code(s): E11.65 - Type 2 diabetes mellitus with hyperglycemia; Z79.4 - terminologist (current) use of insulin Plan: Decrease the amount of carbohydrate intake, pasta, bread, rice and potatoes are all sugar and that is aside from all the sweet stuff, remember that fruits are good but they are Sweet also. Patient is on Farxiga 10 mg once a day Lantus 10 units once a day pioglitazone 50 mg once a day (5) CKD (chronic kidney disease) stage 3, GFR 30-59 ml/min: Code(s): N18.30 - Chronic kidney disease, stage 3 unspecified Category: Medical Plan: Keep well hydrated avoid NSAIDs (6) BPH (benign prostatic hyperplasia): Code(s): N40.0 - Benign prostatic hyperplasia without lower urinary tract symptoms Category: Medical Qualifiers: Lower urinary tract symptom presence: symptoms present Lower urinary tract symptom detail: urinary frequency Qualified Code(s): N40.1 - Benign prostatic hyperplasia with lower urinary tract symptoms; R35.0 - Frequency of micturition Plan: On tamsulosin Plan History of Present Illness The patient is a 64-year-old male presenting with a follow-up visit. He has a history of diabetes mellitus, coronary artery disease, hypertension, hypercholesterolemia, and chronic kidney disease. The patient is also a smoker and has atherosclerotic heart disease. The patient was last seen in June 2024 and had a positive Cologuard test in May 2019. He follows up with podiatry and saw cardiology in August, with an echocardiogram showing an ejection fraction of 52%. The patient has been advised to stop Plavix and continue with aspirin therapy. Blood work from November 13 showed chronic stable anemia with hemoglobin at 12.6 g/dL and hematocrit at 37.3%. There is also mild thrombocytopenia and proteinuria noted. The patient has mild vitamin D deficiency and normal thyroid function. The patient is on multiple medications including carvedilol, amlodipine, lisinopril, atorvastatin, Farxiga, Lantus, pioglitazone, and tamsulosin. He is advised to maintain hydration and avoid NSAIDs. The patient reports dizziness upon standing quickly, which is attributed to his heart medication regimen. Health Maintenance - Colon cancer screening with stool test: Positive Cologuard in May 2019 - Vitamin D supplementation recommended due to deficiency - Smoking cessation advised - Regular follow-up with podiatry and cardiology Social History - Tobacco use: Patient is a smoker - Diet: Patient attempts to eat healthily, including hard-boiled eggs for breakfast, and avoids high-potassium foods like bananas and spinach - Exercise: Patient engages in gardening activities Review of Systems - Cardiovascular: Reports dizziness upon standing quickly - Endocrine: Reports stable blood sugar levels with current medication regimen - Musculoskeletal: Denies muscle aches except post-vaccination Physical Exam Results - Labs: Hemoglobin 12.6 g/dL, Hematocrit 37.3%, Sodium 140 mmol/L, Potassium mildly elevated, BUN 43 mg/dL, Creatinine 2.21 mg/dL, Hemoglobin A1c 6.9%, LDL 64 mg/dL - Tests: Echocardiogram showing ejection fraction of 52% - Screening: Positive Cologuard test in May 2019 Plan The patient will continue with aspirin therapy and has been advised to discontinue Plavix. Blood pressure management includes carvedilol, amlodipine, and lisinopril, with a focus on maintaining hydration and avoiding NSAIDs to support kidney function. For cholesterol management, atorvastatin is prescribed with a goal of maintaining LDL below 70 mg/dL. Diabetes management includes Farxiga, Lantus, and pioglitazone, with an emphasis on maintaining blood sugar levels and monitoring for potential side effects. The patient is advised to discuss potential medication adjustments with nephrology, particularly regarding the cost and coverage of Farxiga versus Jardiance. Vitamin D supplementation is recommended due to deficiency, and the patient is encouraged to engage in safe sun exposure practices. The patient is encouraged to continue smoking cessation efforts and to maintain regular follow-ups with podiatry and cardiology. Patient was informed and verbally consented to the use of an ambient scribe for clinic note documentation during this visit. Discussion Notes During the visit, I discussed with the patient the importance of continuing aspirin therapy while discontinuing Plavix, as advised by cardiology. We reviewed his blood pressure management plan, emphasizing the need to maintain hydration and avoid NSAIDs to protect kidney function. I explained the goals for cholesterol management with atorvastatin and the importance of maintaining LDL levels below 70 mg/dL. We also discussed diabetes management, including the use of Farxiga, Lantus, and pioglitazone, and the potential need to discuss medication adjustments with nephrology due to cost concerns. I recommended vitamin D supplementation and safe sun exposure practices to address his deficiency. Finally, I encouraged the patient to continue efforts to quit smoking and to maintain regular follow-ups with podiatry and cardiology. Patient Instructions - Continue taking aspirin daily as prescribed. - Maintain hydration and avoid NSAIDs to protect kidney function. - Take atorvastatin as prescribed to keep LDL cholesterol below 70 mg/dL. - Follow diabetes medication regimen and monitor blood sugar levels. - Discuss medication options with nephrology, especially regarding Farxiga and Jardiance. - Take vitamin D supplements and practice safe sun exposure. - Continue efforts to quit smoking. - Keep regular appointments with podiatry and cardiology. Medications: Refilled pioglitazone 15 mg PO DAILY 90 tabs 3RF E11.65 - Type 2 diabetes mellitus with hyperglycemia, Z79.4 - terminologist (current) use of insulin
[2024-11-17 15:32] VITALS: BP 120/74; PULSE 68; TEMP 36.2; O2SAT 98; BMI 27.8
== END 2024-11-17 16:01 | disposition home or self-care (01) ==
LOC: HO.HMCH 15:25
PROVIDERS: PCP Internal Medicine; Visit Provider Internal Medicine
DX: I12.9 Hypertensive chronic kidney disease with stage 1 through stage 4 chronic kidney disease, or unspecified chronic kidney disease (principal); E11.65 Type 2 diabetes mellitus with hyperglycemia; Z79.4 Long term (current) use of insulin; N18.30 Chronic kidney disease, stage 3 unspecified; E78.00 Pure hypercholesterolemia, unspecified; I25.10 Atherosclerotic heart disease of native coronary artery without angina pectoris; N40.1 Benign prostatic hyperplasia with lower urinary tract symptoms; R35.0 Frequency of micturition

== ENCOUNTER → 2024-11-17 15:25 | Outpatient (BNVA) | payer MEDICARE, SELFPAY | PROVIDERS: PCP Internal Medicine; Visit Provider Internal Medicine | DX: I25.10 Atherosclerotic heart disease of native coronary artery without angina pectoris (principal); E11.22 Type 2 diabetes mellitus with diabetic chronic kidney disease; I12.9 Hypertensive chronic kidney disease with stage 1 through stage 4 chronic kidney disease, or unspecified chronic kidney disease; N18.30 Chronic kidney disease, stage 3 unspecified; E78.00 Pure hypercholesterolemia, unspecified; E11.65 Type 2 diabetes mellitus with hyperglycemia; N40.1 Benign prostatic hyperplasia with lower urinary tract symptoms; R35.0 Frequency of micturition; Z79.4 Long term (current) use of insulin | CPT/HCPCS: 96127; 99212 ==

== ENCOUNTER 2024-11-21 11:40 | Outpatient (AMB) | payer MEDICARE, SELFPAY ==
[2024-11-21 11:43] VITALS: BP 128/60; PULSE 68; O2SAT 98; BMI 27.8
--- NOTE | 2024-11-21 11:43 | HO.NEPHOV ---
Vital Signs 11/21/24 11:43 Height 5 ft 8 in Weight 183 lb BMI 27.8 BP 128/60 Blood Pressure Location Lt brachial Position Sitting Pulse 68 Pulse Source Pulse Oximeter Pulse Oximetry (%) 98 Oxygen Delivery Method Room Air Intake Visit Reasons: CKD Field Technical Assistant Required: No Accompanied by: Self / Same As Patient Allergies No Known Allergies Allergy (Verified 11/21/24 11:44) Medication List - Last Reconciled 11/21/24 by Agustin Goodwin MD acetaminophen (Tylenol Extra Strength) 500 mg PO Q6H PRN amlodipine 10 mg PO DAILY aspirin (Adult Aspirin Regimen) 81 mg PO DAILY atorvastatin 20 mg PO BEDTIME carvedilol 25 mg PO BID dapagliflozin propanediol (Farxiga) 10 mg PO DAILY famotidine (Pepcid) 20 mg PO BEDTIME PRN 90 days flash glucose scanning reader (LocBoxStyle Pina 2 [place]) As directed flash glucose sensor (FreeStyle Pina 2 Sensor kit) As directed hydrocortisone 2.5% (Proctosol HC) 1 appl [place] BID-QID PRN insulin glargine (Lantus Solostar U-100 Insulin) 10 units (0.1 mL) subcut QPM lisinopril 10 mg PO DAILY nitroglycerin 0.4 mg sublingual Q5M PRN pen needle, diabetic (BD Ultra-Fine Phuong Pen Needle) As directed pioglitazone 15 mg PO DAILY tamsulosin 0.8 mg (2 x 0.4 mg) PO DAILY HPI Comments Details: 62-year-old man with a longstanding history of diabetes mellitus and hypertension. He has history of coronary disease and scheduled for coronary angiogram. He is history of hepatitis-C was treated with EPCLUSA in January 2023. Two years ago serum creatinine is 1.9. As of June 2022 creatinine was 2.0. In May 2023, creatinine was 2.4 He has been scheduled for coronary angiogram next week and hence his evaluation. Has a history of smoking. He quit smoking about 2 months ago. 08/03/23;Doing OK;DID NOT Go for blood work! 08/30/23 blood sugar is still sub optimal Still having dyspnea on exertion 12/20/23 Underwent Coronoary angiogram - first week of September ;s/p Stent 02/04/24;c/o FAtigue 05/30/24 Still feels fatigued. No dyspnea. No urinary symptoms 11/21/24 Still with fatigue but better [facility] Medical History False positive HIV serology Hepatitis B core antibody positive Myocardial infarct Sciatic leg pain High blood pressure Diabetes Surgical History History of ankle surgery Stented coronary artery Family History Mother CKD (chronic kidney disease) Father Prostate cancer Brother Aneurysm Brother No problems noted. Sister No problems noted. Son No problems noted. Daughter No problems noted. Social History Housing: House Alcohol intake: current Comment: 2-3 x a week - 2-3 beers Patient Tobacco Use Status: Former Tobacco user Tobacco use type: Cigarette Cigarettes Per Day: 2 Years Smoked: smoking 40 years. stopped started smoking 06/2024 3-4 a day e-Cigarette/Vaping Use: Never Used Second Hand Smoke Exposure: Yes service: No Current occupational status: retired and disabled Current occupational exposures/hazards: No Cognitive needs: No Hearing needs: No Vision needs: Yes Physical Exam Vital Signs: Last Vital Signs Pulse 68 11/21/24 11:43 BP 128/60 11/21/24 11:43 Pulse Ox 98 11/21/24 11:43 Oxygen Delivery Method Room Air 11/21/24 11:43 BMI result Body Mass Index 27.8 Comfortable Neck supple no JVD. Lungs entry equal no rales. Heart S1-S2 heard no gallop or rub. Abdomen soft nontender. Neuro alert awake oriented. No asterixis. Extremities no edema. Results Reviewed Nephrology Results: Hgb, (14.0-18.0) 12.6 g/dl L 11/13/24 WBC, (4.8-10.8) 6.8 X10*3/uL 11/13/24 Plt Count, (160-400) 146 X10*3/uL L 11/13/24 Sodium, (135-145) 140 mmol/L 11/13/24 Potassium, (3.3-5.1) 5.2 mmol/L H 11/13/24 Chloride, (96-108) 111 mmol/L H 11/13/24 Carbon Dioxide, (22-29) 21 mmol/L L 11/13/24 BUN, (9-16) 43 mg/dL H 11/13/24 Creatinine, (0.5-1.4) 2.21 mg/dL H 11/13/24 Calcium, (8.4-10.2) 9.2 mg/dL 11/13/24 PTH Intact, (8.7-77.1) 100.0 pg/mL H 05/30/24 Urine Protein, (Neg-Trace) 100 (2+) mg/dL H 11/13/24 Urine Creatinine 91.19 mg/dL 11/13/24 Renal US 07/22/23 Assessment & Plan Assessment & Plan (1) CKD stage 3 due to type 2 diabetes mellitus: Code(s): E11.22 - Type 2 diabetes mellitus with diabetic chronic kidney disease; N18.30 - Chronic kidney disease, stage 3 unspecified Category: Medical (2) Hypertension: Code(s): I10 - Essential (primary) hypertension Category: Medical Qualifiers: Hypertension type: primary hypertension Qualified Code(s): I10 - Essential (primary) hypertension (3) Hyperkalemia: Code(s): E87.5 - Hyperkalemia Category: Medical (4) Chronic hepatitis C: Comment: Epclusa January 2023 Code(s): B18.2 - Chronic viral hepatitis C Category: Medical Qualifiers: Hepatic coma status: without hepatic coma Qualified Code(s): B18.2 - Chronic viral hepatitis C Plan: Status post treatment with EPCLUSA Follows with GI (5) CKD (chronic kidney disease) stage 3, GFR 30-59 ml/min: Code(s): N18.30 - Chronic kidney disease, stage 3 unspecified Category: Medical Plan Chronic kidney disease: most likely due to underlying diabetic kidney disease. He has significant proteinuria. Nondiabetic causes should be considered -given history of hepatitis-C _renal ultrasonogram - No obstruction There was a component of hypoperfusion; Creatinine has improved after stopping Lisinopril Back on Lisinopril Keep FArxiga HTN: Overall blood pressure is well controlled Keep current med Advised low-sodium diet. Hyperkalemia Due to the combination of use of Esau inhibitors as well as underlying CKD. Encouraged him to stay on low-potassium diet. If K goes above 5.5, would add Lojonasma s/p coronary angiogram in September 2023 No changes were made today Orders: Orders Basic Metabolic Panel 4 Months E11.22 - Type 2 diabetes mellitus with diabetic chronic kidney disease, N18.30 - Chronic kidney disease, stage 3 unspecified Coding Level of Care Code Est Pt Level 4 (58937) Diagnoses CKD stage 3 due to type 2 diabetes mellitus E11.22; N18.30 Primary hypertension I10 Hypertension type: primary hypertension Hyperkalemia E87.5 Chronic hepatitis C without hepatic coma B18.2 Hepatic coma status: without hepatic coma CKD (chronic kidney disease) stage 3, GFR 30-59 ml/min N18.30
--- OUTSIDE RECORDS SUMMARY | 2024-11-21 12:47 | XMS_ITS | Patient Health Record ---
Author Organization [facility] Address [address] [facility] [place] [address] Care Team Providers Care Telecom Manager Name Role Phone Gene Enciso Primary Care Provider Tristen e Black, Brigida Unavailable [phone] Allergies No Known Allergies Results Component Value [...] Problem Acquired hammer toe of right foot ([id number] ) Other hammer toe(s) (acquired), right foot (M20.41) Active confirmed Problem Acquired hammer toe of left foot ([id number] ) Other hammer toe(s) (acquired), left foot (M20.42) Active confirmed Problem Polyneuropathy due to type 2 diabetes mellitus (931201931) Type 2 diabetes mellitus with diabetic polyneuropathy (E11.42) Active confirmed Vital Signs Blood pressure diastolic 60 mm Hg 10/09/2024 Height 5ft8in in 10/09/2024 Blood pressure systolic 136 mm Hg 10/09/2024 Weight 180 lbs 10/09/2024 BMI 27.37 kg/m2 10/09/2024 Procedures Procedure Date Ordered Date Performed Result Body Sit e 69281-ONTNHBO NAIL, 6 OR MORE 12/13/2023 N/A 61367-JOYJ SKIN LESIONS, 2 TO 4 12/13/2023 N/A 76347-KLZUBIP NAIL, 6 OR MORE 03/16/2024 N/A 73428-KERY SKIN LESIONS, OVER 4 03/16/2024 N/A 34224-CVGBWCD NAIL, 6 OR MORE 06/26/2024 N/A 00263-EQNX SKIN LESIONS, OVER 4 06/26/2024 N/A 14739-BFYXSFW NAIL, 6 OR MORE 10/09/2024 N/A 60656-NXPY SKIN LESIONS, OVER 4 10/09/2024 N/A Encounters Encounter Location Date Provider Diagnosis [address] [address] 12/13/2023 Brigida Black Type 2 diabetes mellitus with diabetic polyneuropathy E11.42 and Tinea unguium B35.[address] [address] 03/16/2024 Brigida Black Type 2 diabetes mellitus with diabetic polyneuropathy E11.42 ; Tinea unguium B35.1 and Tinea pedis of both feet B35.[address] [address] 06/26/2024 Brigida Black Type 2 diabetes mellitus with diabetic polyneuropathy E11.42 ; Peroneal tendinitis of left lower extremity M76.72 ; Tinea unguium B35.1 ; Tinea pedis of both feet B35.3 ; Pain in left foot M79.672 ; Hypertrophy of bone, 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 and Bursitis of left foot M77.[address] [address] 10/09/2024 Brigida Black Type 2 diabetes mellitus [...] Test Name Order Date *Wound Culture 10/18/2023 [id number] NAIL, 6 OR MORE 08/30/2023 80210-CGXTYOK NAIL, 6 OR MORE 06/22/2022 46226-NFXNVDG NAIL, 6 OR MORE 09/24/2022 70095-ZYDELBL NAIL, 6 OR MORE 05/24/2023 15893-VHWAHKS NAIL, 6 OR MORE 12/13/2023 47645-NHTAAMW NAIL, 6 OR MORE 03/16/2024 01356-IMYTCBB NAIL, 6 OR MORE 06/26/2024 91024-KCEXKIX NAIL, 6 OR MORE 10/09/2024 09880- Debride <25 sq cm 06/07/2023 85800- Debride <25 sq cm 10/25/2023 17948- Debride <25 sq cm 11/11/2023 35384 I&D ABSCESS- SIMPLE,SINGLE 024 73600 I&D ABSCESS- SIMPLE,SINGLE 024 39794-DHHB SKIN LESIONS, OVER 4 03/16/20 24 48396-ZBTJ SKIN LESIONS, OVER 4 10/10/19 25 96082-ULYC SKIN LESIONS, OVER 4 06/27/19 25 19639-FUBT SKIN LESIONS, 2 TO 4 12/13/19 24 47660-ACMD SKIN LESIONS, 2 TO 4 08/30/19 24 Next Appt Details Provider Name:Brigida De La Garza , 01/08/2025 03:15:00 PM, [address] [place] [address], [phone], Insurance Providers Payer Name Payer Address Payer Phone Subscriber Number Group Number Insured Name Patient Relationship to Insured Coverage Start Date Coverage End Date [address] [place] [phone] [id number] Tre Medina Self - patient is the [...]
== END 2024-11-21 11:57 | disposition home or self-care (01) ==
LOC: HO.HKA 11:41
PROVIDERS: PCP Internal Medicine; Visit Provider Internal Medicine Hypertension Specialist
DX: E11.22 Type 2 diabetes mellitus with diabetic chronic kidney disease (principal); N18.30 Chronic kidney disease, stage 3 unspecified; I10 Essential (primary) hypertension; E87.5 Hyperkalemia; B18.2 Chronic viral hepatitis C
CPT/HCPCS: 99214

== ENCOUNTER → 2024-11-21 11:40 | Outpatient (BNVA) | payer MEDICARE, SELFPAY | PROVIDERS: PCP Internal Medicine; Visit Provider Internal Medicine Hypertension Specialist | DX: E11.22 Type 2 diabetes mellitus with diabetic chronic kidney disease (principal); N18.30 Chronic kidney disease, stage 3 unspecified; I10 Essential (primary) hypertension; E87.5 Hyperkalemia; B18.2 Chronic viral hepatitis C | CPT/HCPCS: 99212 ==

== ENCOUNTER 2025-03-13 13:37 | Outpatient (AMB) | payer MEDICARE, SELFPAY ==
[2025-03-13 13:42] VITALS: BP 138/72; PULSE 68; TEMP 36.1; O2SAT 99; BMI 28.3
--- NOTE | 2025-03-13 13:42 | MHC.PC.OV ---
Vital Signs 03/13/25 13:42 Height 5 ft 8 in Weight 186 lb 4 oz BMI 28.3 BP 138/72 Blood Pressure Location Lt brachial Position Sitting Pulse 68 Pulse Source Pulse Oximeter Temp 97.0 F Temp Source Temporal Artery Scan Pulse Oximetry (%) 99 Oxygen Delivery Method Room Air Intake Visit Reasons: DM Allergies No Known Allergies Allergy (Verified 03/13/25 13:49) Medication List - Last Reconciled 03/13/25 by Gene Enciso MD acetaminophen (Tylenol Extra Strength) 500 mg PO Q6H PRN amlodipine 10 mg PO DAILY aspirin (Adult Aspirin Regimen) 81 mg PO DAILY atorvastatin 20 mg PO BEDTIME carvedilol 25 mg PO BID dapagliflozin propanediol (Farxiga) 10 mg PO DAILY famotidine (Pepcid) 20 mg PO BEDTIME PRN 90 days flash glucose scanning reader (PubsterStyle Pina 2 [place]) As directed flash glucose sensor (FreeStyle Pina 2 Sensor kit) As directed hydrocortisone 2.5% (Proctosol HC) 1 appl [place] BID-QID PRN insulin glargine (Lantus Solostar U-100 Insulin) 10 units (0.1 mL) subcut QPM lisinopril 10 mg PO DAILY nitroglycerin 0.4 mg sublingual Q5M PRN pen needle, diabetic As directed pioglitazone 15 mg PO DAILY tamsulosin 0.8 mg (2 x 0.4 mg) PO DAILY Tobacco use date assessed: 03/13/25 Fall risk assessment: 1 Fall in past year Last assessed Fall Risk: 03/13/25 Dental Screening Dental Screen Date: 03/13/25 Did you have a dental visit in the last 12 months?: No Did you have a dental problem in the last 6 months where you did not have access to dental care?: No Was dental information given to patient?: No HPI HPI Comments History of Present Illness Details History of Present Illness The patient is a 65-year-old overweight male presenting for a follow-up visit for management of multiple chronic conditions including diabetes mellitus, coronary artery disease, hypertension, hypercholesterolemia, and chronic kidney disease stage 3. He has a history of atherosclerotic cardiovascular disease and chronic hepatitis C, which was treated two years ago. He is a former smoker who quit in May 2023. For his diabetes, the patient's most recent hemoglobin A1c is 6.7%, down from 6.9% in October, which meets the goal of less than 7.0%. He has background diabetic retinopathy in both eyes, which was noted to be stable and mild at his last ophthalmology visit on January 28. He expresses frustration with daily insulin injections and inquires about alternatives. The patient has stage 3 chronic kidney disease, most likely secondary to diabetes, and is followed by nephrology, with his last visit on November 21. He has significant proteinuria. Lab work from October showed a BUN of 43, creatinine of 2.21, and mildly elevated potassium. He also has chronic anemia with a hemoglobin of 12.6, attributed to his kidney disease, causing symptoms of fatigue and feeling cold. His blood pressure and cholesterol are well-controlled. His LDL was 64 in October. He reports no chest pain. New issues include bilateral sciatica, described as an aching pain in the buttocks and radiating down the legs, which wakes him from sleep and is exacerbated by prolonged sitting. He also reports sinus congestion, which he treats with a nasal spray. The patient experienced a fall earlier this week after tripping on a rock but reports no significant injury. For health maintenance, his last Cologuard test was in May 2022. His tetanus, pneumonia, flu, and COVID immunizations are up to date. Health Maintenance Discussed the benefits of the shingles vaccine (Shingrix) and recommended he receive the two-dose series, which is available at his pharmacy. Advised the patient to increase his water intake to 6-8 glasses per day to improve hydration, which may also help with his occasional unsteadiness. Ordered blood work to be completed before the next visit. Social History - Substance Use: The patient is a former smoker who quit in May 2023. - Level of Activity: The patient reports that he sits too much, which may be contributing to his sciatica. - Exercise: The patient takes daily walks. - Nutrition: The patient states he is trying to eat correctly. Results - Labs (Today): - Hemoglobin A1c: 6.7%. - Labs (November 13): - Hemoglobin: 12.6 g/dL. - Hematocrit: 37.3%. - Mild thrombocytopenia was noted. - Potassium: Mildly elevated. - BUN: 43 mg/dL. - Creatinine: 2.21 mg/dL. - LDL cholesterol: 64 mg/dL. - Vitamin D: Low. - Urinalysis: Significant proteinuria. - Tests and Diagnostics: - Ophthalmology Exam (January 28): Mild, stable background diabetic retinopathy bilaterally. - Cologuard (May 2022): Completed. [facility] Medical History False positive HIV serology Hepatitis B core antibody positive Myocardial infarct Sciatic leg pain High blood pressure Diabetes Surgical History History of ankle surgery Stented coronary artery Family History Mother CKD (chronic kidney disease) Father Prostate cancer Brother Aneurysm Brother No problems noted. Sister No problems noted. Son No problems noted. Daughter No problems noted. Social History Housing: House Alcohol intake: current Comment: 2-3 x a week - 2-3 beers Patient Tobacco Use Status: Current someday Tobacco user Tobacco use type: Cigarette Years Smoked: smoking 40 years. stopped started smoking 06/2024 3-4 a day e-Cigarette/Vaping Use: Never Used Second Hand Smoke Exposure: Yes service: No Current occupational status: retired and disabled Current occupational exposures/hazards: No Cognitive needs: No Hearing needs: No Vision needs: Yes Questionnaire PHQ-9 Over the last 2 weeks, how often have you been bothered by any of the following problems? 1. Little interest or pleasure in doing things: not at all 2. Feeling down, depressed, or hopeless: not at all 3. Trouble falling or staying asleep, or sleeping too much: not at all 4. Feeling tired or having little energy: not at all 5. Poor appetite or overeating: not at all 6. Feeling bad about yourself - or that you are a failure or have let yourself or your family down: not at all 7. Trouble concentrating on things, such as reading the newspaper or watching television: not at all 8. Moving or speaking so slowly that other people could have noticed. Or the opposite - being so fidgety or restless that you have been moving around a lot more than usual: not at all 9. Thoughts that you would be better off or of hurting yourself in some way: not at all Total score: 0 Depression Screening Interpretation: Negative Depression Screening Done: Yes Source: Developed by Drs. Antonio Hudson, Flaca Rutledge, Dk Nino and colleagues, with an educational elmer from [employer]. Thrive Questionnaire Date Thrive assessed: 07/06/24 I am a: Patient What is your living situation today?: I choose not to answer this question Within the past 12 months, did the food you bought not last and you didn't have the money to get more?: I choose not to answer this question Within the past 12 months, did you worry whether your food would run out before you got money to buy more?: I choose not to answer this question Do you have trouble paying for medicines?: I choose not to answer this question Do you have trouble getting transportation to medical appointments?: I choose not to answer this question Do you have trouble paying your heating and electricity bill?: I choose not to answer this question Do you have trouble taking care of your child, family member or friend?: I choose not to answer this question Do you have trouble with day-to-day activities such as bathing, preparing meals, shopping, managing finances, etc.?: No Are you currently unemployed and looking for a job?: No Are you interested in more education?: No Please select the resources that you would like help with: None Currently or been in a relationship where the following occur: No concerns reported THRIVE Score: 0 AUDIT C Alcohol Use Questionnaire (AUDIT-C) 1. How often do you have a drink containing alcohol?: 2-4 times a month 2. How many drinks containing alcohol do you have on a typical day when you are drinking?: 1 or 2 3. How often do you have six or more drinks on one occasion?: Never Total Score: 2 SUSANA-7 AMB Questionnaire SUSANA-7 Date SUSANA - 7 assessed: 11/17/24 Feeling nervous, anxious, or on edge: 0 = Not at all Not being able to stop or control worryin = Not at all Worrying too much about different things: 0 = Not at all Trouble relaxin = Not at all Being so restless that it is hard to sit still: 0 = Not at all Becoming easily annoyed or irritable: 1 = Several days Feeling afraid as if something awful might happen: 0 = Not at all Total SUSANA-7 score (0-4 normal; 5-9 mild; 10-14 moderate; 15-21 severe): 1 Source: Developed by Drs. Antonio Hudson, Flaca Rutledge, Dk Nino and colleagues, with an educational elmer from [employer]. Review of Systems Narrative Review of Systems - Constitutional: Reports fatigue and feeling cold. - Eyes: Reports stable vision. - ENT: Reports sinus congestion. - Cardiovascular: Denies chest pain. - Respiratory: Denies any breathing problems. - Gastrointestinal: Reports bowel movements are fine and have been getting better. - Genitourinary: Reports nocturia once or twice per night. - Musculoskeletal: Reports bilateral aching pain in his buttocks and legs, consistent with sciatica, which wakes him up at night. - Neurological: Reports occasional issues with equilibrium. Physical exam (Primary Care) Vital Signs: Last Vital Signs Temp 97.0 F 03/13/25 13:42 Pulse 68 03/13/25 13:42 BP 138/72 03/13/25 13:42 Pulse Ox 99 03/13/25 13:42 Oxygen Delivery Method Room Air 03/13/25 13:42 BMI result Body Mass Index 28.3 Tobacco/Smoking Status: Tobacco use Status Tobacco use date assessed 03/13/25 03/13/25 13:50 Patient Tobacco Use Status Current someday Tobacco 03/13/25 13:50 Tobacco use type Cigarette 03/13/25 13:50 e-Cigarette/Vaping Use Never Used 03/13/25 13:50 PHQ-9: PHQ-9 Score PHQ-9: Total score 0 03/13/25 13:50 Depression Screening Interpretation: Negative Thrive Assessment: Date of Thrive Assessment Date Thrive assessed 07/06/24 03/13/25 13:50 Currently or been in a relationship where the following occur: No concerns reported Narrative Physical Exam Const General: alert; No acute distress Eyes Conjunctivae: conjunctivae normal Resp Auscultation: clear to auscultation bilaterally Cardio Rate: regular rate Rhythm: regular rhythm GI Inspection: Yes normal to inspection Extrem General: Yes normal to inspection and No edema Results AMB Hemoglobin A1c AMB Hemoglobin A1c 6.7 % Last Edit by Grace King CMA on 03/13/25 13:53 Results Reviewed Results Reviewed: Laboratory Last Values Hgb A1c (Clinic) 6.7 % (4.0-6.0) H 03/13/25 13:50 Coding Level of Care Code Est Pt Level 4 (81773) Complex EM visit Add On G2211 Diagnoses Type 2 diabetes mellitus with hyperglycemia, with long-term current use of insulin E11.65; Z79.4 Diabetes mellitus long term care social worker insulin use: with long term care social worker use Coronary artery disease involving [place] heart without angina pectoris, unspecified vessel or lesion type I25.10 Coronary Disease-Associated Artery/Lesion type: unspecified vessel or lesion type [place] vs. transplanted heart: [place] heart Associated angina: without angina Primary hypertension I10 Hypertension type: primary hypertension Hypercholesterolemia E78.00 Diabetic retinopathy E11.319 CKD stage 3 due to type 2 diabetes mellitus E11.22; N18.30 Assessment & Plan Assessment & Plan (1) Type 2 diabetes mellitus with hyperglycemia: Comment: joselin Code(s): E11.65 - Type 2 diabetes mellitus with hyperglycemia Category: Medical Qualifiers: Diabetes mellitus alf insulin use: with long term care social worker use Qualified Code(s): E11.65 - Type 2 diabetes mellitus with hyperglycemia; Z79.4 - group home (current) use of insulin Plan: Decrease the amount of carbohydrate intake, pasta, bread, rice and potatoes are all sugar and that is aside from all the sweet stuff, remember that fruits are good but they are Sweet also. Hemoglobin A1c goal of less than 7.0. Patient on Farxiga 10 mg once a day Lantus 10 units once a day pioglitazone 15 mg once a day (2) CAD (coronary artery disease): Code(s): I25.10 - Atherosclerotic heart disease of [place] coronary artery without angina pectoris Category: Medical Qualifiers: Coronary Disease-Associated Artery/Lesion type: unspecified vessel or lesion type [place] vs. transplanted heart: [place] heart Associated angina: without angina Qualified Code(s): I25.10 - Atherosclerotic heart disease of [place] coronary artery without angina pectoris Plan: Control the cholesterol, weight, blood pressure, diabetes on aspirin (3) Hypertension: Code(s): I10 - Essential (primary) hypertension Category: Medical Qualifiers: Hypertension type: primary hypertension Qualified Code(s): I10 - Essential (primary) hypertension Plan: Continue with blood pressure medication. Decrease salt intake and exercise on amlodipine 10 mg once a day carvedilol 25 mg twice a day lisinopril 10 mg once a day (4) Hypercholesterolemia: Code(s): E78.00 - Pure hypercholesterolemia, unspecified Category: Medical Plan: Avoid fried foods, chicken skin, eggs, butter margarine, pastries and meat. Be it pork or beef they have a lot of cholesterol patient takes atorvastatin 20 mg at bedtime LDL goal of less than 70. (5) Diabetic retinopathy: Comment: January 2025 Code(s): E11.319 - Type 2 diabetes mellitus with unspecified diabetic retinopathy without macular edema Category: Medical Plan: Continue to control diabetes mellitus (6) CKD stage 3 due to type 2 diabetes mellitus: Code(s): E11.22 - Type 2 diabetes mellitus with diabetic chronic kidney disease; N18.30 - Chronic kidney disease, stage 3 unspecified Category: Medical Plan: Keep well hydrated avoid NSAIDs continue to monitor Plan Plan Patient was informed and verbally consented to the use of an ambient scribe for clinic note documentation during this visit. 1. Type 2 Diabetes Mellitus The patient's hemoglobin A1c is 6.7%, which is within the target goal of less than 7.0%. Despite the patient's desire for non-insulin alternatives, the plan is to continue the current regimen of Farxiga 10 mg daily, Lantus 10 units daily, and pioglitazone 15 mg daily to maintain glycemic control, which is also critical for managing his stable diabetic retinopathy. 2. Sciatica The patient reports bilateral aching pain consistent with sciatica, aggravated by prolonged sitting. Recommended conservative management including daily stretching, applying heat, and avoiding prolonged sitting. Muscle relaxants were mentioned as a treatment option, but the patient declined to take more pills. 3. Hypertension And Hypercholesterolemia The patient's blood pressure is well-controlled. Will continue amlodipine 10 mg daily, carvedilol 25 mg twice daily, and lisinopril 10 mg daily. His cholesterol is also well-controlled with an LDL of 64, meeting the goal of less than 70. Will continue atorvastatin 20 mg at bedtime and aspirin for ASCVD. 4. Anemia In Chronic Kidney Disease The patient's chronic anemia (hemoglobin 12.6) is likely secondary to his chronic kidney disease, causing symptoms of fatigue and feeling cold. Advised to begin supplementation with [id number] iron, vitamin B12, and folic acid to provide the necessary components for hematopoiesis. It was explained that a blood transfusion is not indicated at this time as his hemoglobin is above the threshold of 10 g/dL. 5. Chronic Kidney Disease, Stage 3 The patient's CKD is stable, and he continues follow-up with nephrology. The plan is to continue monitoring, avoid NSAIDs, and maintain good hydration by drinking six to eight glasses of water daily. 6. Sinus Congestion The patient has been using an Afrin-equivalent nasal spray frequently, leading to rebound congestion. Advised him to discontinue this spray and instead use an intranasal steroid spray such as Flonase, Nasonex, or Nasacort daily. Sinus rinses, such as a neti pot, were also suggested as a helpful measure. Discussion Notes I discussed with the patient that his diabetes is currently well-controlled with an HbA1c of 6.7%, and while I understand his frustration with insulin injections, continuing the current regimen is important for maintaining this control. I explained that his mild diabetic retinopathy is stable, and the abreu to preventing progression is continued good control of his blood sugar and blood pressure. We talked about his bilateral leg pain, which is consistent with sciatica, and I recommended stretches, heat, and avoiding prolonged sitting. I explained that his chronic anemia and associated symptoms of fatigue and feeling cold are a consequence of his chronic kidney disease, as the kidney is not functioning well enough to produce the enzyme needed to make blood. I advised him to take [id number] iron, B12, and folic acid, and clarified that a transfusion is not needed unless his hemoglobin drops below 10. I reviewed his use of a nasal spray for sinus congestion and strongly advised him to stop using the Afrin-type spray due to the risk of rebound congestion. As an alternative, I recommended daily use of Flonase and sinus rinses. I also discussed the importance of the shingles vaccine, sharing my own experience with it, and recommended he get the two-shot series. Finally, I emphasized the need to increase his water intake to 6-8 glasses daily to improve blood volume, especially given his low blood count. Patient Instructions - Continue taking all your current medications for diabetes, blood pressure, and cholesterol as prescribed. - For your leg and buttock pain (sciatica), perform daily stretches, apply heat to the area, and avoid sitting for very long periods. - To help with fatigue and feeling cold, start taking [id number] vitamins: iron, vitamin B12, and folic acid. Take vitamin C with the iron to help your body absorb it better. - Do not use your current nasal spray (like Afrin) anymore. Instead, use Flonase nasal spray every day. You can also try sinus rinses with a Neti pot. - Drink more water. Please try to drink 6 to 8 glasses of water every day. - I strongly recommend you get the shingles vaccine (Shingrix), which you can get at your local pharmacy. It is a series of two shots. - Continue to avoid NSAID pain relievers like ibuprofen or naproxen. - Please get your blood work done before your next appointment. Orders: Orders AMB Hemoglobin A1c Today Z13.9 - Encounter for screening, unspecified Complete Blood Count Auto Diff 3 Months E11.65 - Type 2 diabetes mellitus with hyperglycemia, Z79.4 - middle or intermediate school principal (current) use of insulin Comprehensive Met. Panel 3 Months E11.65 - Type 2 diabetes mellitus with hyperglycemia, Z79.4 - group home (current) use of insulin Vitamin B12 and Folate 3 Months E11.65 - Type 2 diabetes mellitus with hyperglycemia, Z79.4 - middle or intermediate school principal (current) use of insulin Prostate Specific Antigen Scr 3 Months E11.65 - Type 2 diabetes mellitus with hyperglycemia, Z79.4 - middle or intermediate school principal (current) use of insulin Magnesium 3 Months E11.65 - Type 2 diabetes mellitus with hyperglycemia, Z79.4 - middle or intermediate school principal (current) use of insulin Ferritin 3 Months E11.65 - Type 2 diabetes mellitus with hyperglycemia, Z79.4 - middle or intermediate school principal (current) use of insulin Reticulocyte Count 3 Months E11.65 - Type 2 diabetes mellitus with hyperglycemia, Z79.4 - group home (current) use of insulin Free T4 (Free Thyroxine) 3 Months E11.65 - Type 2 diabetes mellitus with hyperglycemia, Z79.4 - group home (current) use of insulin Thyroid Stimulating Hormone 3 Months E11.65 - Type 2 diabetes mellitus with hyperglycemia, Z79.4 - middle or intermediate school principal (current) use of insulin Lipid Panel 3 Months E11.65 - Type 2 diabetes mellitus with hyperglycemia, E78.00 - Pure hypercholesterolemia, unspecified, Z79.4 - group home (current) use of insulin Hemoglobin A1c 3 Months E11.65 - Type 2 diabetes mellitus with hyperglycemia, Z79.4 - middle or intermediate school principal (current) use of insulin IRON PROFILE 3 Months E11.65 - Type 2 diabetes mellitus with hyperglycemia, Z79.4 - group home (current) use of insulin
== END 2025-03-13 14:34 | disposition home or self-care (01) ==
LOC: HO.HMCH 13:38
PROVIDERS: PCP Internal Medicine; Visit Provider Internal Medicine
DX: I12.9 Hypertensive chronic kidney disease with stage 1 through stage 4 chronic kidney disease, or unspecified chronic kidney disease (principal); E11.65 Type 2 diabetes mellitus with hyperglycemia; Z79.4 Long term (current) use of insulin; E11.319 Type 2 diabetes mellitus with unspecified diabetic retinopathy without macular edema; E11.22 Type 2 diabetes mellitus with diabetic chronic kidney disease; N18.30 Chronic kidney disease, stage 3 unspecified; I25.10 Atherosclerotic heart disease of native coronary artery without angina pectoris; E78.00 Pure hypercholesterolemia, unspecified; Z13.9 Encounter for screening, unspecified

== ENCOUNTER → 2025-03-13 13:37 | Outpatient (BNVA) | payer MEDICARE, SELFPAY | PROVIDERS: PCP Internal Medicine; Visit Provider Internal Medicine | DX: E11.22 Type 2 diabetes mellitus with diabetic chronic kidney disease (principal); E11.319 Type 2 diabetes mellitus with unspecified diabetic retinopathy without macular edema; E11.65 Type 2 diabetes mellitus with hyperglycemia; M54.30 Sciatica, unspecified side; I12.9 Hypertensive chronic kidney disease with stage 1 through stage 4 chronic kidney disease, or unspecified chronic kidney disease; N18.30 Chronic kidney disease, stage 3 unspecified; D63.1 Anemia in chronic kidney disease; I25.10 Atherosclerotic heart disease of native coronary artery without angina pectoris; E78.00 Pure hypercholesterolemia, unspecified; Z79.4 Long term (current) use of insulin | CPT/HCPCS: 83036; 96127; 99212 ==